=== PATIENT | female | born 1955 | race Caucasian/White ===

== ENCOUNTER 2020-05-12 09:08 | Outpatient (RCR) | payer OTHER, SELFPAY ==
--- NOTE | 2020-05-31 16:01 | MHC.PT.DC ---
[facility] [place] Office [place] [facility] [place] Office [address] Neva Weathers 140 [facility] [phone] F: [phone] F: [phone] F: [phone] F: [phone] Physical Therapy Discharge Report Diagnosis: Date of Surgery: N/A Date of Evaluation: 03/14/20 Date of Discharge: 05/31/20 Treatments to Date: 18 Cancellations to Date: 0 No Shows to Date: 0 Discharge Status: Improved Function Independent with HEP Recommend MD Follow-up Discharge Summary: Overall, the patient has improved in her range of motion and pain severity. She does continue to self-limit her movement when she starts to feel any pain. She reported the most improvement of pain symptoms after the cortisone injection. She is discharged from this physical therapy plan of care to her home exercise program. Electronically signed by: Blanca Morrissey PT, DPT Please sign and return to therapist. Thank you for your referral.
== END 2020-05-31 16:01 | disposition other institution (70) ==
LOC: HO.PT 09:08
PROVIDERS: PCP Internal Medicine; Visit Provider Internal Medicine
DX: M25.512 Pain in left shoulder (principal); M25.511 Pain in right shoulder
CPT/HCPCS: 97110; 97112

== ENCOUNTER 2020-10-03 12:49 | Outpatient (REF) | payer MEDICARE, MEDICAID, SELFPAY | END 2020-10-03 12:50 | disposition home or self-care (01) | LOC: HO.LAB 12:49 | PROVIDERS: PCP Internal Medicine; Visit Provider Internal Medicine | DX: Z20.822 Contact with and (suspected) exposure to COVID-19 (principal) | CPT/HCPCS: 36415; C9803; U0003; U0005 ==

== ENCOUNTER 2020-10-13 16:13 | Outpatient (REF) | payer MEDICARE, MEDICAID, SELFPAY ==
--- NOTE | ~2020-10-13 | XR_ITS ---
EXAMINATION: XR CHEST CLINICAL INFORMATION: R07.89 - Other chest pain COMPARISON: Chest radiographs 01/18/2020, 12/03/2019 TECHNIQUE: 2 views of the chest were obtained. FINDINGS: The lungs are clear. The vascularity is normal. There is no airspace consolidation or groundglass opacity or effusion. Tapering cardiac apex is similar to prior studies, consistent with areolar tissue. The heart is normal in size. The hilar and mediastinal contours are normal. No acute bony abnormality. XR/XR chest 2V IMPRESSION: Unremarkable examination.
== END 2020-10-13 16:14 | disposition home or self-care (01) ==
LOC: HO.HMGCX 16:13
PROVIDERS: PCP Internal Medicine; Visit Provider Nurse Practitioner Family
DX: R07.89 Other chest pain (principal)
CPT/HCPCS: 71046

== ENCOUNTER 2020-11-22 12:26 | Outpatient (REF) | payer MEDICARE, MEDICAID, SELFPAY ==
[2020-11-22 13:50] LABS: MANUAL DIFF FLAG NO
[2020-11-22 13:53] LABS: Basophils Percent Auto 0.7 % (0-2); Eosinophils Absolute Auto 0.2 X10*3/uL (0.0-0.4); Eosinophils Percent Auto 3.8 % (0-4); Hematocrit 38.4 % (37-47); Hemoglobin 12.8 g/dl (12.0-16.0); Imm Gran Abs Auto 0.01 X10*3/uL (0.00-0.03); Imm Gran Pct Auto 0.2 % (0.0-0.4); Lymphocytes Absolute Auto 1.5 X10*3/uL (1.2-4.9); Mean Corpuscular HGB Conc 33.3 g/dl (31.0-35.0); Mean Corpuscular Hemoglobin 30.1 pg (27.0-33.0); Mean Corpuscular Volume 90.4 fL (80-98); Mean Platelet Volume 9.5 fL (9.4-12.3); Monocytes Absolute Auto 0.5 X10*3/uL (0.1-1.2); Monocytes Percent Auto 10.2 % (2-11); Neutrophils Absolute Auto 2.3 X10*3/uL (2.0-8.3); Neutrophils Percent Auto 52.1 % (45-73); Platelet Count 247 X10*3/uL (160-400); Red Blood Count 4.25 X10*6/uL (4.20-5.50); Red Cell Distribution Width 12.1 % (11.0-16.0); White Blood Count 4.4 X10*3/uL (4.8-10.8)
[2020-11-22 14:20] LABS: Alanine Aminotransferase 23 U/L (0-31); Albumin Level 4.1 g/dL (3.5-5.0); Alkaline Phosphatase 65 U/L (39-117); Anion Gap 11 (12-20); Aspartate Amino Transferase 22 U/L (5-31); Bilirubin Total 0.6 mg/dL (0.0-1.0); Blood Urea Nitrogen 16 mg/dL (9-16); Calcium 9.2 mg/dL (8.4-10.2); Carbon Dioxide 30 mmol/L (22-29); Chloride 102 mmol/L (96-108); Estimated Glomerular Filt Rate > 60; Glucose Random 101 mg/dL (60-115); Sodium 139 mmol/L (135-145); Total Protein 7.1 g/dL (6.5-8.0)
[2020-11-22 14:42] LABS: Ferritin 152 ng/mL (10-250); TSH reflex Free T4 1.15 uIU/mL (0.32-4.0)
[2020-11-22 14:49] LABS: Vitamin B12 456 pg/mL (200-900)
== END 2020-11-22 12:27 | disposition home or self-care (01) ==
LOC: HO.HMGCLDS 12:26
PROVIDERS: PCP Internal Medicine; Visit Provider Internal Medicine
DX: R42 Dizziness and giddiness (principal); M25.511 Pain in right shoulder; E03.9 Hypothyroidism, unspecified; I10 Essential (primary) hypertension; E55.9 Vitamin D deficiency, unspecified; K21.9 Gastro-esophageal reflux disease without esophagitis; G43.109 Migraine with aura, not intractable, without status migrainosus; R00.2 Palpitations
CPT/HCPCS: 36415; 80053; 82607; 82728; 84443; 85025

== ENCOUNTER 2020-11-27 12:35 | Emergency (ER) | payer MEDICARE, MEDICAID, SELFPAY ==
--- NOTE | ~2020-11-27 | XR_ITS ---
EXAMINATION: XR CHEST CLINICAL INFORMATION: Abdominal pain. COMPARISON: Most recent chest radiograph dated 10/13/2020. TECHNIQUE: Frontal view of the chest was obtained. FINDINGS: The lungs are clear. The cardiomediastinal silhouette is normal in size. There is no pleural effusion or pneumothorax. No acute osseous abnormality. XR/XR chest 1V IMPRESSION: No acute cardiopulmonary findings.
--- NOTE | ~2020-11-27 | US_ITS ---
EXAMINATION: US ABDOMEN COMPLETE CLINICAL INFORMATION: Right upper quadrant and back pain.. COMPARISON: Abdominal ultrasound dated 01/18/2020. TECHNIQUE: Real-time imaging of the abdominal viscera. FINDINGS: PANCREAS: Normal. ABDOMINAL AORTA: Mild abdominal aortic atherosclerotic calcifications. INFERIOR VENA CAVA: Visualized portions are normal. LIVER: The liver is normal in size. The liver contour is normal. Increased hepatic parenchymal echogenicity, which can be seen in the setting of steatosis. Findings are unchanged when compared to the prior abdominal ultrasound. No focal hepatic lesion. There is no intrahepatic biliary duct dilatation seen. GALLBLADDER: Cholelithiasis. No gallbladder wall thickening or pericholecystic free fluid to suggest acute cholecystitis. COMMON BILE DUCT: Normal in caliber measuring 0.4 cm in diameter. RIGHT KIDNEY: Mild right-sided hydronephrosis. No renal calculi or focal parenchymal lesion. The kidney measures 9.6 cm in maximum dimension. LEFT KIDNEY: Simple upper pole cyst measuring up to 4.5 cm. No follow up imaging recommended. No hydronephrosis. No renal calculi or focal parenchymal lesions. The kidney measures 10.1 cm in maximum dimension. SPLEEN: Normal. The spleen measures 8.5 cm in maximum dimension. FREE FLUID: None. US/US abdomen complete IMPRESSION: 1. Mild right-sided hydronephrosis. 2. Increased hepatic parenchymal echogenicity, which can be seen in the setting of steatosis. No hepatic parenchymal lesion or biliary ductal dilatation. 3. Cholelithiasis without gallbladder wall thickening or pericholecystic free fluid to suggest acute cholecystitis.
[2020-11-27 12:40] VITALS: BP 183/86; PULSE 86; RESP 16; TEMP 37; O2SAT 97; BMI 36.4
--- NOTE | 2020-11-27 17:25 | ECG_ITS ---
Test Reason : DIZZINESS Blood Pressure : / mmHG Vent. Rate : 073 BPM Atrial Rate : 073 BPM P-R Int : 146 ms QRS Dur : 088 ms QT Int : 390 ms P-R-T Axes : 027 -16 007 degrees QTc Int : 429 ms Normal sinus rhythm Normal ECG When compared to the previous EKG of No significant changes seen Referred By: Rupa Kahn Electronically Signed By:Bk Palmer
--- NOTE | 2020-11-27 17:29 | ED_ITS ---
HPI - General Adult General Chief complaint: General Medical Stated complaint: back and headache Time Seen by Provider: 11/27/20 17:24 Source: patient Mode of arrival: ambulatory Limitations: language barrier History of Present Illness HPI narrative: 65-year-old female with past medical history of hypertension, hyperlipidemia, hypothyroidism, GERD, chronic migraines, presents with 3 weeks right upper back pain, right upper quadrant pain, and lower abdominal pain. She did have a COVID vaccine approximately 1 month ago. She does not describe any fevers, chills, chest pain or pressure, palpitations, shortness of breath, shortness of breath on exertion, abdominal distention, dysuria, hematuria, and edema. Onset (ago): week(s) (3) Location: back and abdomen Severity: moderate Severity scale (1-10): 6 Quality: aching and sharp Pain Consistency: intermittent Relieving factors: none Exacerbating factors: eating and movement Associated symptoms: denies other symptoms Treatments prior to arrival: NSAID Related Data Home Medications Medication Instructions Recorded Confirmed cholecalciferol (vitamin D3) 25 25 mcg PO DAILY 05/20/20 11/22/20 mcg (1,000 unit) capsule halobetasol propionate 0.05 % 1 applic TOPICAL BID 05/20/20 11/22/20 topical ointment hydrochlorothiazide 25 mg tablet 25 mg PO DAILY 05/20/20 11/22/20 lisinopril 10 mg tablet 10 mg PO DAILY 05/20/20 11/22/20 sennosides 8.6 mg-docusate sodium 2 tab PO BEDTIME 05/20/20 11/22/20 50 mg tablet Previous Rx's Medication Instructions Recorded betamethasone dipropionate 0.05 % 1 appl TOPICAL BID PRN #45 g 08/15/20 topical cream cyanocobalamin (vitamin B-12) 1,000 mcg PO DAILY #30 tab 09/30/20 1,000 mcg tablet levothyroxine 75 mcg tablet 75 mcg PO QAM #30 tab 10/11/20 naproxen 500 mg tablet 500 mg PO BID PRN #60 tab 10/13/20 cyclobenzaprine 5 mg tablet 5 mg PO BEDTIME PRN 30 Days #30 tab 11/22/20 propranolol 10 mg tablet 10 mg PO BEDTIME #90 tab 11/22/20 albuterol sulfate 90 mcg/actuation 1 inh INHALATION QID PRN 30 Days 11/25/20 aerosol inhaler #18 g oxycodone 5 mg PO Q8H PRN #10 tab 11/27/20 sulfamethoxazole-trimethoprim 1 tab PO Q12H 10 Days #20 tab 11/27/20 [Bactrim DS] Allergies Allergy/AdvReac Type Severity Reaction Status Date / Time acetaminophen [From TYLENOL] Allergy Unknown ITCHY Verified 11/22/20 12:05 MIGRAINE MEDICINE Allergy Unknown SHAKEY Uncoded 11/22/20 12:05 Environmental Allergy Unknown Unknown Uncoded 11/22/20 12:05 Review of Systems Review of Systems: Constitutional: No Fever, No Chills ENT/Mouth: No sore throat Eyes: No Eye Pain, No Swelling, No Redness Cardiovascular: No Chest Pain, No SOB Respiratory: No Cough, No Sputum, No Wheezing Gastrointestinal: positive Nausea, positive Vomiting, No Diarrhea, positive abdominal pain Genitourinary: positive Dysuria, positive urinary frequency, positive Hematuria, positive Flank Pain, positive hesitancy Musculoskeletal: No joint pain, No Myalgias Skin: No Skin Lesions, No rash Neuro: No Weakness, No Numbness, No Headache Psych: No Anxiety/Panic, No Depression Heme/Lymph: No Bruising, No Lymphadenopathy Endocrine: No Polyuria, No Polydipsia PMFSH Past Medical History Medical History Chronic GERD Dizziness Hypertension, essential Hypothyroidism Migraine aura without headache Shoulder pain, right Vitamin D deficiency Surgical History History of hysterectomy History of tubal ligation Family History Family History Father Heart attack HTN (hypertension) CVD (cardiovascular disease) Mother Cervical cancer Maternal Grandmother Diabetes mellitus Maternal Grandfather Throat cancer Paternal Grandfather Cancer Paternal Grandmother Heart attack HTN (hypertension) Paternal Aunt Breast cancer Social History Social History Alcohol intake: never Smoking Status: Never smoker Advance Directives: Yes Advance Directives on File: Yes Advance Directives Date on File: 05/12/20 Physical Exam Vital Signs: Vital Signs: Last Vital Signs Temp 97.7 F 11/27/20 20:05 Pulse 74 11/27/20 22:00 Resp 17 11/27/20 22:00 BP 144/67 H 11/27/20 22:00 Pulse Ox 97 11/27/20 22:00 Body Mass Index 36.4 Appearance: Alert. Oriented X3. Mild distress. Head: Normal external exam. Normocephalic. Atraumatic. No Rondon signs noted. No raccoon eyes noted Eyes: PERRLA. EOMI. Conjunctiva and sclera normal. Eyelids normal. ENT: TM's Normal. Pharynx normal. Uvula midline. Moist mucous membranes. No trismus noted. No drooling noted. No muffled voice noted. Neck: Normal inspection. Neck supple. No adenopathy. Thyroid Normal. No meningeal signs. No neck mass noted. CVS: Normal heart rate and rhythm. Heart sound normal. No murmurs noted. Pulses equal to all extremities. Respiratory: No respiratory distress. Painless inspiration. Breath sounds normal. No wheezes/rales/rhonchi noted. Chest nontender. No accessory muscle usage noted or decreased air movement noted. Abdomen: Soft and right upper quadrant tenderness, positive Marcelo, negative psoas, no rigidity or rebound.. Bowel sounds normal in all 4 quadrants. No distention noted. No organomegaly noted. No visible injury noted. Back: Right-sided CVA tenderness noted. Full range of motion noted. Skin: Skin warm and dry. Normal skin color. Normal skin turgor. No rashes/lesions/lacerations noted. Extremities: No lower extremity edema. Extremities exhibit normal range of motion. Extremities nontender. Neuro: cranial nerves 2-12 intact, no focal neural deficits, strength 5/5 to all extremities, No motor deficit. No sensory deficit. Course Course Course Narrative: 65-year-old female presents with several weeks of right upper quadrant pain radiating to her right back, and 2 weeks of right flank pain radiating down to her groin and pelvis. Labs drawn while patient was in the waiting room per protocol, CBC and Chem 7 are unremarkable, will order lipase, LFTs, and abdominal ultrasound. U/S indicates cholelithiasis without cholecystitis, hydronephrosis to the right kidney without indication of pyelonephritis, urinalysis positive for UTI. Will treat with Bactrim, discussion with Dr. Small regarding findings, patient will follow-up in the office. Patient is afebrile, no white count, not septic. Will treat with oxycodone for pain management. Patient verbalized understanding of and agrees to plan of care discharge home. communications department chairperson utilized for discharge and ultrasound description correspondence, Google translate utilized for discharge instructions. Consultations Consultation #1: Geovanny Time: 20:30 Medical Decision Making MDM Narrative Medical decision making narrative: Cholelithiasis, cholecystitis, hydronephrosis, pyelonephritis, UTI, acute abdomen Medical Records Medical records reviewed: Yes I reviewed the patient's medical records. Lab Data Lab results reviewed: Yes I reviewed the patient's lab results. Result diagrams: 11/27/20 17:55 11/27/20 17:55 Labs: Lab Results 11/27/20 11/27/20 11/27/20 Range/Units 17:55 17:55 17:55 WBC 5.8 (4.8-10.8) X10*3/uL RBC 4.79 (4.20-5.50) X10*6/uL Hgb 14.3 (12.0-16.0) g/dl Hct 42.5 (37-47) % MCV 88.7 (80-98) fL MCH 29.9 (27.0-33.0) pg MCHC 33.6 (31.0-35.0) g/dl RDW 12.2 (11.0-16.0) % Plt Count 266 (160-400) X10*3/uL MPV 8.7 L (9.4-12.3) fL Immature Gran % (Auto) 0.2 (0.0-0.4) % Neut % (Auto) 55.9 (45-73) % Lymph % (Auto) 33.6 (20-40) % [place] % (Auto) 7.7 (2-11) % Eos % (Auto) 2.1 (0-4) % Baso % (Auto) 0.5 (0-2) % Lymph # (Auto) 2.0 (1.2-4.9) X10*3/uL [place] # (Auto) 0.5 (0.1-1.2) X10*3/uL Eos # (Auto) 0.1 (0.0-0.4) X10*3/uL Baso # (Auto) 0.0 (0.0-0.2) X10*3/uL Abs Immat Gran (auto) 0.01 (0.00-0.03) X10*3/uL Absolute Neuts (auto) 3.3 (2.0-8.3) X10*3/uL Absolute Nucleated RBC 0.000 (0.0-0.012) X10*3/uL Nucleated RBC % (auto) 0.0 (0.0-0.2) /100WBC PT 11.8 (10.8-13.0) SEC INR 1.0 (0.9-1.1) APTT 34.2 (24.1-38.0) SEC Sodium 140 (135-145) mmol/L Potassium 4.5 (3.3-5.1) mmol/L Chloride 104 (96-108) mmol/L Carbon Dioxide 26 (22-29) mmol/L Anion Gap 15 (12-20) BUN 19 H (9-16) mg/dL Creatinine 1.00 (0.5-1.4) mg/dL Estim Creat Clear Calc 60.9 Estimated GFR 56 Random Glucose 82 (60-115) mg/dL Calcium 9.8 D (8.4-10.2) mg/dL Total Bilirubin 0.8 (0.0-1.0) mg/dL Direct Bilirubin 0.2 (0.0-0.5) mg/dL AST 37 H D (5-31) U/L ALT 39 H (0-31) U/L Alkaline Phosphatase 66 (39-117) U/L Troponin I High Sens (<3.5-17.0) ng/L Total Protein 7.9 (6.5-8.0) g/dL Albumin 4.5 (3.5-5.0) g/dL Lipase 24 (8-78) U/L Urine Color Urine Appearance Urine pH (5.0-8.0) Ur Specific [place] (1.005-1.025) Urine Protein (NEG-TRACE) MG/DL Urine Glucose (UA) (NEG) MG/DL Urine Ketones (NEG) MG/DL Urine Blood (NEG) Urine Nitrite (NEG) Ur Leukocyte Esterase (NEG) Urine RBC (0) /HPF Urine WBC (0-4) /HPF Ur Squamous Epith Cells /LPF Urine Bacteria /LPF 11/27/20 11/27/20 Range/Units 17:55 18:32 WBC (4.8-10.8) X10*3/uL RBC (4.20-5.50) X10*6/uL Hgb (12.0-16.0) g/dl Hct (37-47) % MCV (80-98) fL MCH (27.0-33.0) pg MCHC (31.0-35.0) g/dl RDW (11.0-16.0) % Plt Count (160-400) X10*3/uL MPV (9.4-12.3) fL Immature Gran % (Auto) (0.0-0.4) % Neut % (Auto) (45-73) % Lymph % (Auto) (20-40) % [place] % (Auto) (2-11) % Eos % (Auto) (0-4) % Baso % (Auto) (0-2) % Lymph # (Auto) (1.2-4.9) X10*3/uL [place] # (Auto) (0.1-1.2) X10*3/uL Eos # (Auto) (0.0-0.4) X10*3/uL Baso # (Auto) (0.0-0.2) X10*3/uL Abs Immat Gran (auto) (0.00-0.03) X10*3/uL Absolute Neuts (auto) (2.0-8.3) X10*3/uL Absolute Nucleated RBC (0.0-0.012) X10*3/uL Nucleated RBC % (auto) (0.0-0.2) /100WBC PT (10.8-13.0) SEC INR (0.9-1.1) APTT (24.1-38.0) SEC Sodium (135-145) mmol/L Potassium (3.3-5.1) mmol/L Chloride (96-108) mmol/L Carbon Dioxide (22-29) mmol/L Anion Gap (12-20) BUN (9-16) mg/dL Creatinine (0.5-1.4) mg/dL Estim Creat Clear Calc Estimated GFR Random Glucose (60-115) mg/dL Calcium (8.4-10.2) mg/dL Total Bilirubin (0.0-1.0) mg/dL Direct Bilirubin (0.0-0.5) mg/dL AST (5-31) U/L ALT (0-31) U/L Alkaline Phosphatase (39-117) U/L Troponin I High Sens < 3.5 (<3.5-17.0) ng/L Total Protein (6.5-8.0) g/dL Albumin (3.5-5.0) g/dL Lipase (8-78) U/L Urine Color YELLOW Urine Appearance HAZY Urine pH 5.0 (5.0-8.0) Ur Specific [place] >= 1.030 H (1.005-1.025) Urine Protein NEG (NEG-TRACE) MG/DL Urine Glucose (UA) NEG (NEG) MG/DL Urine Ketones 40 (NEG) MG/DL Urine Blood 1+ H (NEG) Urine Nitrite NEG (NEG) Ur Leukocyte Esterase TRACE H (NEG) Urine RBC 0-2 (0) /HPF Urine WBC 5-9 H (0-4) /HPF Ur Squamous Epith Cells 4+ /LPF Urine Bacteria TRACE /LPF Imaging Data Abdominal ultrasound: Attestation: I personally reviewed and interpreted this imaging study as follows: Radiologist's impression: EXAMINATION: US ABDOMEN COMPLETE CLINICAL INFORMATION: Right upper quadrant and back pain.. COMPARISON: Abdominal ultrasound dated 01/18/2020. TECHNIQUE: Real-time imaging of the abdominal viscera. FINDINGS: PANCREAS: Normal. ABDOMINAL AORTA: Mild abdominal aortic atherosclerotic calcifications. INFERIOR VENA CAVA: Visualized portions are normal. LIVER: The liver is normal in size. The liver contour is normal. Increased hepatic parenchymal echogenicity, which can be seen in the setting of steatosis. Findings are unchanged when compared to the prior abdominal ultrasound. No focal hepatic lesion. There is no intrahepatic biliary duct dilatation seen. GALLBLADDER: Cholelithiasis. No gallbladder wall thickening or pericholecystic free fluid to suggest acute cholecystitis. COMMON BILE DUCT: Normal in caliber measuring 0.4 cm in diameter. RIGHT KIDNEY: Mild right-sided hydronephrosis. No renal calculi or focal parenchymal lesion. The kidney measures 9.6 cm in maximum dimension. LEFT KIDNEY: Simple upper pole cyst measuring up to 4.5 cm. No follow up imaging recommended. No hydronephrosis. No renal calculi or focal parenchymal lesions. The kidney measures 10.1 cm in maximum dimension. SPLEEN: Normal. The spleen measures 8.5 cm in maximum dimension. FREE FLUID: None. US/US abdomen complete IMPRESSION: 1. Mild right-sided hydronephrosis. 2. Increased hepatic parenchymal echogenicity, which can be seen in the setting of steatosis. No hepatic parenchymal lesion or biliary ductal dilatation. 3. Cholelithiasis without gallbladder wall thickening or pericholecystic free fluid to suggest acute cholecystitis. Chest x-ray: Attestation: I personally reviewed and interpreted this imaging study as follows: Radiologist's impression: EXAMINATION: XR CHEST CLINICAL INFORMATION: Abdominal pain. COMPARISON: Most recent chest radiograph dated 10/13/2020. TECHNIQUE: Frontal view of the chest was obtained. FINDINGS: The lungs are clear. The cardiomediastinal silhouette is normal in size. There is no pleural effusion or pneumothorax. No acute osseous abnormality. XR/XR chest 1V IMPRESSION: No acute cardiopulmonary findings. Discharge Plan Discharge Clinical Impression: Hydronephrosis, Acute UTI, Cholecystitis without cholelithiasis Patient Disposition: Home, Self-Care Instructions: Gallstones (ED), Urinary Tract Infection in Women (ED), Hydronephrosis (ED) Additional Instructions: Te evaluaron para detectar dolor en la parte superior derecha de la espalda, dolor en el flanco derecho y dolor abdominal. La ecograf?a abdominal mostr? lona graham en la ves?cula biliar sin infecci?n, hinchaz?n del ri??n sin infecci?n e infecci?n del tracto urinario. Le recet? Bactrim DS oz los pr?ximos 10 d?as. Por favor, tome allie medicamento dos veces al d?a y complete todo el curso. Para el manejo del dolor le recet? oxicodona. Allie medicamento es un narc?rich y tiene un alto riesgo de adicci?n y abuso. No conduzca ni opere maquinaria mientras tome allie medicamento. Allie medicamento puede aumentar el riesgo de ca?han, causar somnolencia y causar estre?imiento. Utilice MiraLax o Colace seg?n sea necesario para ayudar a suavizar las heces. Geovanny,le gustar?a que llamara a la oficina el familia para lona jaime. Te estoy refiriendo a un cirujano porque es posible que necesites que te quiten la ves?cula biliar. Rosangela por elegir allie departamento de emergencias para carrasco evaluaci?n. Por favor, estephania un seguimiento con el m?dico de atenci?n primaria seg?n sea necesario. Regrese al servicio de emergencias para cualquier s?ntoma nuevo, preocupante o que empeore. You were evaluated for right upper back pain, right flank pain, and abdominal pain. Your abdominal ultrasound showed a stone in the gallbladder without infection, swelling of the kidney without infection, and urinary tract infection. I prescribed Bactrim DS for the next 10 days. Please take this medication twice a day and complete the entire course. For pain management I prescribed oxycodone. This medication is a narcotic and has high risk for addiction and abuse. Do not drive or operate machinery while taking this medication. This medication may increase risk for falls, cause drowsiness, and cause constipation. Please use MiraLax and or Colace as needed to help soften stools. I spoke to the surgeon on-call, Dr. Small, he would like you to call the office on Saturday for an appointment. I am referring you to a surgeon because you may need to have your gallbladder removed. Thank you for choosing this emergency department for evaluation. Please follow -up with primary care physician as needed. Return to the emergency department for any new, concerning, or worsening symptoms. Prescriptions: New sulfamethoxazole-trimethoprim [Bactrim DS] 800-160 mg tablet 1 tab PO Q12H 10 Days Qty: 20 RF: 0 oxycodone 5 mg tablet 5 mg PO Q8H PRN (Reason: pain) Qty: 10 RF: 0 No Action cyanocobalamin (vitamin B-12) 1,000 mcg tablet 1,000 mcg PO DAILY Qty: 30 RF: 2 levothyroxine 75 mcg tablet 75 mcg PO QAM Qty: 30 RF: 5 albuterol sulfate [ProAir HFA] 90 mcg/actuation HFA aerosol inhaler 1 inh inhalation QID PRN (Reason: shortness of breath or wheezing) 30 Days Qty: 18 RF: 0 hydrochlorothiazide 25 mg tablet 25 mg PO DAILY RF: 0 lisinopril 10 mg tablet 10 mg PO DAILY RF: 0 cholecalciferol (vitamin D3) 25 mcg (1,000 unit) capsule 25 mcg PO DAILY RF: 0 halobetasol propionate 0.05 % ointment 1 applic topical BID RF: 0 sennosides-docusate sodium 8.6-50 mg tablet 2 tab PO BEDTIME RF: 0 betamethasone dipropionate 0.05 % cream 1 appl topical BID PRN (Reason: skin irritation) Qty: 45 RF: 0 naproxen 500 mg tablet 500 mg PO BID PRN (Reason: pain) Qty: 60 RF: 0 propranolol 10 mg tablet 10 mg PO BEDTIME Qty: 90 RF: 0 cyclobenzaprine 5 mg tablet 5 mg PO BEDTIME PRN (Reason: muscle spasm) 30 Days Qty: 30 RF: 0 Referrals: Moises Small MD [Physician] - 2 days (Gallbladder stones) Interventions: ED Discharge Assessment Last Done: 11/27/20 22:24 Discharge Date/Time: 11/27/20 22:29
[2020-11-27] MEDS: 0.9 % Sodium Chloride 1,000 ML 999 ML IVCONT (17:57)
[2020-11-27 18:00] LABS: MANUAL DIFF FLAG NO
[2020-11-27 18:01] LABS: Basophils Percent Auto 0.5 % (0-2); Eosinophils Absolute Auto 0.1 X10*3/uL (0.0-0.4); Eosinophils Percent Auto 2.1 % (0-4); Hematocrit 42.5 % (37-47); Hemoglobin 14.3 g/dl (12.0-16.0); Imm Gran Abs Auto 0.01 X10*3/uL (0.00-0.03); Imm Gran Pct Auto 0.2 % (0.0-0.4); Lymphocytes Percent Auto 33.6 % (20-40); Mean Corpuscular HGB Conc 33.6 g/dl (31.0-35.0); Mean Corpuscular Hemoglobin 29.9 pg (27.0-33.0); Mean Corpuscular Volume 88.7 fL (80-98); Mean Platelet Volume 8.7 fL (9.4-12.3); Monocytes Absolute Auto 0.5 X10*3/uL (0.1-1.2); Monocytes Percent Auto 7.7 % (2-11); Neutrophils Absolute Auto 3.3 X10*3/uL (2.0-8.3); Neutrophils Percent Auto 55.9 % (45-73); Platelet Count 266 X10*3/uL (160-400); Red Blood Count 4.79 X10*6/uL (4.20-5.50); Red Cell Distribution Width 12.2 % (11.0-16.0); White Blood Count 5.8 X10*3/uL (4.8-10.8)
[2020-11-27 18:07] LABS: Prothrombin Time 11.8 SEC (10.8-13.0)
[2020-11-27 18:10] LABS: Partial Thromboplastin Time 34.2 SEC (24.1-38.0)
[2020-11-27 18:24] LABS: Alanine Aminotransferase 39 U/L (0-31); Albumin Level 4.5 g/dL (3.5-5.0); Alkaline Phosphatase 66 U/L (39-117); Anion Gap 15 (12-20); Aspartate Amino Transferase 37 U/L (5-31); Bilirubin Direct 0.2 mg/dL (0.0-0.5); Bilirubin Total 0.8 mg/dL (0.0-1.0); Blood Urea Nitrogen 19 mg/dL (9-16); Calcium 9.8 mg/dL (8.4-10.2); Carbon Dioxide 26 mmol/L (22-29); Chloride 104 mmol/L (96-108); Creatinine Clr Calc Pharmacy 60.9; Estimated Glomerular Filt Rate 56; Glucose Random 82 mg/dL (60-115); Lipase 24 U/L (8-78); Potassium 4.5 mmol/L (3.3-5.1); Sodium 140 mmol/L (135-145); Total Protein 7.9 g/dL (6.5-8.0)
[2020-11-27 18:30] VITALS: BP 148/73; PULSE 61; RESP 20; TEMP 37; O2SAT 98
[2020-11-27 18:30] LABS: Troponin-I High Sensitivity < 3.5 ng/L (<3.5-17.0)
[2020-11-27 18:40] LABS: Glucose Urine UA NEG (NEG); Leukocyte Esterase Urine TRACE (NEG); Nitrite Urine NEG (NEG); Specific Gravity - Urine >= 1.030 (1.005-1.025); UACC Culture Trigger YES; Urine Blood 1+ (NEG); Urine Ketones 40 MG/DL (NEG); Urine Protein NEG (NEG-TRACE)
[2020-11-27 18:41] LABS: Appearance Urine HAZY; Color Urine YELLOW
[2020-11-27 18:55] LABS: Bacteria Urine TRACE /LPF; RBC Urine 0-2 /HPF (0); Squamous Epithelial Cell Urine 4+ /LPF
[2020-11-27 20:05] VITALS: BP 133/65; PULSE 64; RESP 18; TEMP 36.5; O2SAT 98
[2020-11-27] MEDS: Ketorolac Tromethamine 30 MG/ML VIAL IVPUSH (20:52)
--- NOTE | 2020-11-27 20:58 | PC.NURSE ---
patient was ambulatory to the bathroom with a steady gait, patient reports 6/10 back pain, medicated per orders
[2020-11-27 22:00] VITALS: BP 144/67; PULSE 74; RESP 17; O2SAT 97
== END 2020-11-27 22:29 | disposition home or self-care (01) ==
PROVIDERS: Nurse Practitioner Family; Emergency Provider Internal Medicine; PCP Internal Medicine
DX: K81.9 Cholecystitis, unspecified (principal); N39.0 Urinary tract infection, site not specified; N13.30 Unspecified hydronephrosis; N28.1 Cyst of kidney, acquired; R10.11 Right upper quadrant pain; M54.6 Pain in thoracic spine; I10 Essential (primary) hypertension; E78.5 Hyperlipidemia, unspecified; K21.9 Gastro-esophageal reflux disease without esophagitis; Z79.899 Other long term (current) drug therapy
CPT/HCPCS: 36415; 71045; 76700; 80048; 80076; 81001; 81003; 83690; 84484; 85025; 85610; 85730; 87086; 93005; 96361; 96374; 99284; J1885

== ENCOUNTER → 2020-12-20 13:26 | Outpatient (BNVA) | payer MEDICARE, MEDICAID, SELFPAY | PROVIDERS: PCP Internal Medicine; Referring Provider Internal Medicine; Visit Provider Surgery | DX: M62.830 Muscle spasm of back (principal); K80.20 Calculus of gallbladder without cholecystitis without obstruction | CPT/HCPCS: 99202 ==

== ENCOUNTER 2021-01-24 08:45 | Outpatient (REF) | payer MEDICARE, MEDICAID, SELFPAY ==
--- NOTE | ~2021-01-24 | US_ITS ---
EXAMINATION: US SOFT TISSUE HEAD/NECK CLINICAL INFORMATION: Disorder of thyroid, unspecified. History of previous iodine therapy treatment 20 years ago. COMPARISON: None TECHNIQUE: Linear transducer barksdale-scale and color Doppler examination with attention to the region of the thyroid bed and surrounding tissues. FINDINGS: No residual thyroid tissue is seen. No nodule or adenopathy is seen. US/US thyroid IMPRESSION: No residual thyroid tissue seen.
== END 2021-01-24 08:46 | disposition home or self-care (01) ==
LOC: HO.US 08:45
PROVIDERS: PCP Internal Medicine; Visit Provider Internal Medicine
DX: E07.9 Disorder of thyroid, unspecified (principal)
CPT/HCPCS: 76536

== ENCOUNTER 2021-02-06 08:44 | Day surgery (SDC) | payer MEDICARE, MEDICAID, SELFPAY ==
[2021-01-30 12:35] VITALS: BMI 37.6
[2021-02-06] VITALS (12 sets, daily range): BP systolic 130–160; BP diastolic 63–79; PULSE 69–92; RESP 14–16; TEMP 36.1–36.9; O2SAT 93–98
--- NOTE | 2021-02-06 10:03 | MHC.SHP ---
Pre-Procedural Eval Section A Date of Service: 02/06/21 The patient is an INPATIENT: No Changes since office visit: Yes Patient answered all questions; No Cold of Flu in the past 2 weeks, No New Medical Problems and No Changes in Medication The History & Physical has been completed within 30 days and I have reviewed it.: No Section B Chief Complaint: Cholelithiasis Details of Present Illness: Right upper quadrant abdominal pain Relevant Family History (Specify if Yes): No Relevant Social History: None Present Medications: see Short Stay Collaborative assessment Medical History: Significant History (asthma, hypertension, hypothyroid, palpitations) Allergies: Allergies Allergy/AdvReac Type Severity Reaction Status Date / Time acetaminophen [From TYLENOL] Allergy Unknown ITCHY Verified 01/17/21 13:55 MIGRAINE MEDICINE Allergy Unknown SHAKEY Uncoded 12/22/20 12:57 Environmental Allergy Unknown Unknown Uncoded 12/22/20 12:57 Review of Systems Sugical H&P ROS: Negative: Constitution, Cardiovascular, Respiratory, Psychiatric, Hem-Onc, Allergic/Immunologic, Genitourinary, Musculoskeletal, Integumentary and Eyes/Ears/Nose/Throat and Yes, Specify: Neurological (headache), Gastrointestinal (abdominal pain) and Endocrine (hypothyroid) Exam Surgical H&P Exam: Normal: HEENT, Normal: Heart, Normal: Lungs, Normal: Extremities, Normal: Abdomen, Normal: Skin and Normal: Neurological Plan Diagnosis/Plan: Unchanged I have reviewed the history and physical and performed a pertinent physical examination on my patient. No changes have occurred unless specified.
[2021-02-06] MEDS: Lactated Ringers 1,000 ML 100 ML IVCONT (10:22)
--- NOTE | 2021-02-06 11:38 | HO.ANESPROP2 ---
[facility] Active Problems Active Problems: All Active Problems (Updated 01/17/21 @ 14:15 by Lolis Josue MD) Breast screening (Acute) Thyroid lump (Acute) Constipation by delayed colonic transit (Acute) Headache syndrome (Acute) Acute sinusitis (Acute) Cholelithiasis (Acute) Paraspinal muscle spasm (Acute) Chest wall pain (Acute) Shortness of breath (Acute) Palpitations (Acute) Rash and nonspecific skin eruption (Acute) Sinus infection (Acute) Dizziness (Acute) Shoulder pain, right (Acute) Hypothyroidism (Acute) Hypertension, essential (Acute) Vitamin D deficiency (Acute) Chronic GERD (Acute) Migraine aura without headache (Acute) Past Medical History Medical History Chronic GERD Dizziness Hypertension, essential Hypothyroidism Migraine aura without headache Shoulder pain, right Vitamin D deficiency Family History Family History Father Heart attack HTN (hypertension) CVD (cardiovascular disease) Mother Cervical cancer Maternal Grandmother Diabetes mellitus Maternal Grandfather Throat cancer Paternal Grandfather Cancer Paternal Grandmother Heart attack HTN (hypertension) Paternal Aunt Breast cancer Surgical History Surgical History History of hysterectomy History of tubal ligation Social History Social History Are you a primary residential care officer to a significant other at home: No Do you presently have visiting nurse or other home services: No Alcohol intake: never Patient Tobacco Use Status: Never used Tobacco Have you been hit, kicked, punched, or otherwise hurt by someone within the past year? If so, by whom?: No Are you DNR?: No Advance Directives: No Advance Directives Information Provided: Yes Advance Directives on File: Yes Advance Directives Date on File: 05/12/20 Recently lost weight without trying: No Eating poorly because of decreased appetite: No Nutrition Risks: Difficulty swallowing Meds Allergies Allergy/AdvReac Type Severity Reaction Status Date / Time acetaminophen [From TYLENOL] Allergy Unknown ITCHY Verified 02/06/21 10:09 MIGRAINE MEDICINE Allergy Unknown SHAKEY Uncoded 12/22/20 12:57 Environmental Allergy Unknown Unknown Uncoded 12/22/20 12:57 Active Medications: Current Medications Generic Name Dose Route Start Last Admin Trade Name Marianna PRN Reason Stop Dose Admin Lactated Ringer's 1,000 mls @ 100 mls/hr 02/06/21 09:45 02/06/21 10:22 Lr IVCONT 100 mls/hr .Q10H MARCO Administration Home Medications Medication Instructions Recorded Confirmed Last Taken Type cholecalciferol (vitamin D3) 25 25 mcg PO DAILY 05/20/20 01/30/21 Unknown History mcg (1,000 unit) capsule hydrochlorothiazide 25 mg tablet 25 mg PO DAILY 05/20/20 01/30/21 Unknown History lisinopril 10 mg tablet 10 mg PO DAILY 05/20/20 01/30/21 Unknown History propranolol 1 tab PO BEDTIME 01/30/21 01/30/21 Unknown History Exam Exam Date and Time: February 06, 2021 1138 Height,Weight and Vital Signs: Height 5 ft 2 in Weight 93.44 kg Last Vital Signs Temp 98.4 F 02/06/21 09:55 Pulse 82 02/06/21 09:55 Resp 16 02/06/21 09:55 BP 153/79 H 02/06/21 09:55 Pulse Ox 98 02/06/21 09:55 Airway Mallampati Class: III TM Dist: >3cm Neck ROM: Full Heart: RRR Lungs: CTA
--- NOTE | 2021-02-06 11:50 | P.OP_ITS ---
Operative Note Operative Note Date of Service: 02/06/21 Narrative: Preoperative diagnosis: Symptomatic cholelithiasis Postoperative diagnosis: Same Procedure: Laparoscopic cholecystectomy Surgeon: Moises Small MD [employer] Reader: no physician Anesthesia: General endotracheal Indications for procedure: 65-year-old female patient presenting with complaints of abdominal pain in the right upper quadrant found to have gallstones within the gallbladder. Patient presents now for laparoscopic cholecystectomy. Operative findings: Patient found to have a nondistended gallbladder with no adhesions to the gallbladder. There were abdominal adhesions to the anterior abdominal wall below the umbilicus. Gallstones noted within the gallbladder. Specimen: Gallbladder Estimated blood loss: 2 mL Complications: none Procedure details: Patient was brought to the OR and placed in a supine position. After administering general anesthesia the patient's abdomen was prepped with ChloraPrep and draped in a sterile fashion. Local anesthesia consisting of 0.25% Sensorcaine with epinephrine was infiltrated in a periumbilical region. A 5 mm incision was made above the umbilicus in a transverse fashion. The Veress needle was then inserted while elevating abdominal cavity with towel clips. After positive drop test the abdomen was insufflated to a pressure of 15 mm of mercury. The Veress needle was then removed and a 5 mm trocar inserted. The camera was inserted in the abdomen explored. A 12 mm trocar was then placed in the epigastrium and two 5 mm trocars placed in the right upper quadrant. The patient was placed in reverse Trendelenburg positioning and rotated to the left. The gallbladder was grasped with the fundus and retracted cephalad.. The infundibulum Was then grasped and retracted away from the liver bed. The Dolphin dissected was then used to diss ect the peritoneum off the infundibulum to reveal the junction with the cystic duct. Cystic artery was noted slightly medial and posterior to the cystic duct. After obtaining a critical view the cystic duct was doubly clipped and divided. The cystic artery was then doubly clipped and divided. The gallbladder was then dissected off the liver bed using electrocautery with an L hook. Hemostasis was assured all times using the electrocautery. A 2nd branch of the cystic artery was noted entering the gallbladder over the liver bed and was doubly clipped and divided. When the gallbladder is completely dissected off the liver bed was placed in an Endo-Catch bag and brought out through the epigastric incision. The gallbladder was sent to pathology for further examination. The abdomen was then re-examined. The liver bed was irrigated and suctioned dry. No bleeding or bile leak could be identified. CO2 was then evacuated and all trocars removed. Fascia was closed at the epigastric incision using a [id number] 0 Polysorb suture. Skin was closed in all incisions using a subcuticular 4 0 Polysorb suture. Sterile dressings consisting of Steri-Strips, 2 x 2 gauze, and Tegaderm were then applied. The patient tolerated the procedure well. Sponge instrument and needle counts reported as correct. The patient was transferred to PACU in stable condition.
[2021-02-06] MEDS: ondansetron HCL 4 MG/2 ML VIAL IVPUSH (12:06)
[2021-02-06] MEDS: oxyCODONE HCl Immed Release 5 MG TABLET PO (12:06)
[2021-02-06] MEDS: fentaNYL citrate/PF 100 MCG/2 ML VIAL 25 MCG IVPUSH ×2 (12:18→12:23)
[2021-02-06] MEDS: Throat Lozenge, Medicated LOZENGE 1 LOZENGE MUCOUS MEM (12:21)
== END 2021-02-06 14:14 | disposition home or self-care (01) ==
PROVIDERS: PCP Internal Medicine; Visit Provider Surgery
PROC: 0FT44ZZ Resection of Gallbladder, Percutaneous Endoscopic Approach (ICD-10-PCS; CPT 47562; principal; 2021-02-06 11:00)
DX: K80.10 Calculus of gallbladder with chronic cholecystitis without obstruction (principal); K21.9 Gastro-esophageal reflux disease without esophagitis; I10 Essential (primary) hypertension; E55.9 Vitamin D deficiency, unspecified; Z90.49 Acquired absence of other specified parts of digestive tract; Z79.899 Other long term (current) drug therapy; Z88.8 Allergy status to other drugs, medicaments and biological substances
CPT/HCPCS: 47562; 88304; J1100; J1885; J2250; J2405; J2550; J3010

== ENCOUNTER → 2021-02-14 13:56 | Outpatient (BNVA) | payer MEDICARE, MEDICAID, SELFPAY | PROVIDERS: PCP Internal Medicine; Referring Provider Internal Medicine; Visit Provider Surgery | DX: K80.20 Calculus of gallbladder without cholecystitis without obstruction (principal) | CPT/HCPCS: 99212 ==

== ENCOUNTER → 2021-02-23 10:01 | Outpatient (BNVA) | payer MEDICARE, MEDICAID, SELFPAY | PROVIDERS: PCP Internal Medicine; Visit Provider Surgery | DX: Z48.815 Encounter for surgical aftercare following surgery on the digestive system (principal); M79.604 Pain in right leg; M79.605 Pain in left leg | CPT/HCPCS: 99212 ==

== ENCOUNTER 2021-02-25 13:08 | Emergency (ER) | payer MEDICARE, MEDICAID, SELFPAY ==
--- NOTE | ~2021-02-25 | XR_ITS ---
EXAMINATION: XR CHEST CLINICAL INFORMATION: Generalized fatigue/weakness COMPARISON: 11/27/2020 TECHNIQUE: Frontal view of the chest was obtained. FINDINGS: Normal symmetric lung volumes. No parenchymal consolidation. No pleural effusion. No pneumothorax. Cardiomediastinal silhouette and pulmonary vascularity are within normal limits. No acute osseous abnormalities. XR/XR chest 1V IMPRESSION: Unremarkable examination.
--- NOTE | ~2021-02-25 | US_ITS ---
EXAMINATION: US VENOUS ULTRASOUND WITH DOPPLER LOWER EXTREMITY, BILATERAL CLINICAL INFORMATION: Edema and swelling COMPARISON: None TECHNIQUE: Ultrasound of the deep veins is performed from the hip to the calf with compression sonography and color and pulse Doppler assessment. Spectral analysis with color-flow imaging is performed. FINDINGS: RIGHT: There is normal venous compression and respiratory variation and augmented flow. The visualized common femoral vein, superficial femoral vein, profunda femoral vein, popliteal vein, and the trifurcation region shows no evidence of deep venous thrombosis. There is no significant popliteal fossa cyst. LEFT: There is normal venous compression and respiratory variation and augmented flow. The visualized common femoral vein, superficial femoral vein, profunda femoral vein, popliteal vein, and the trifurcation region shows no evidence of deep venous thrombosis. There is no significant popliteal fossa cyst. If the patient's symptoms persist, followup ultrasound in 5 days 7 days might be of value to exclude proximal propagation from a non-visualized calf vein. US/US venous duplex LE BI IMPRESSION: No DVT demonstrated in the bilateral lower extremities.
[2021-02-25 13:19] VITALS: BP 176/99; PULSE 95; RESP 20; TEMP 36.1; O2SAT 98; BMI 35.1
--- NOTE | 2021-02-25 14:16 | ECG_ITS ---
Test Reason : BILAT LEG WEAKNESS Blood Pressure : / mmHG Vent. Rate : 082 BPM Atrial Rate : 082 BPM P-R Int : 146 ms QRS Dur : 094 ms QT Int : 384 ms P-R-T Axes : 030 -13 007 degrees QTc Int : 448 ms Normal sinus rhythm Normal ECG When compared to the previous EKG of No significant changes seen Referred By: Zarina Mendoza Electronically Signed By:Bk Palmer
--- NOTE | 2021-02-25 14:18 | ED.GENADULT ---
HPI - General Adult General Chief complaint: General Medical Stated complaint: leg numbness, dizziness Time Seen by Provider: 02/25/21 13:53 Source: patient Mode of arrival: ambulatory History of Present Illness HPI narrative: 65-year-old female with a past medical history of GERD, HTN, hypothyroid, migraines, vitamin-D deficiency, s/p cholecystectomy on 02/06/2021 to the ED complaining of bilateral lower extremity swelling, pain, and tingling x1 week. Also reports generalized fatigue and nausea. Denies fever, chills, chest pain, shortness of breath, vomiting, diarrhea, constipation, recent travel, history of blood clots Onset (ago): week(s) Related Data Home Medications Medication Instructions Recorded Confirmed cholecalciferol (vitamin D3) 25 25 mcg PO DAILY 05/20/20 01/30/21 mcg (1,000 unit) capsule hydrochlorothiazide 25 mg tablet 25 mg PO DAILY 05/20/20 01/30/21 lisinopril 10 mg tablet 10 mg PO DAILY 05/20/20 01/30/21 Previous Rx's Medication Instructions Recorded betamethasone dipropionate 0.05 % 1 appl TOPICAL BID PRN #45 g 08/15/20 topical cream cyanocobalamin (vitamin B-12) 1,000 mcg PO DAILY #30 tab 09/30/20 1,000 mcg tablet cyclobenzaprine 5 mg tablet 5 mg PO BEDTIME PRN 30 Days #30 tab 11/22/20 albuterol sulfate 90 mcg/actuation 1 inh INHALATION QID PRN 30 Days 12/21/20 aerosol inhaler #18 g amitriptyline 10 mg tablet 10 mg PO BEDTIME 90 Days #90 tab 01/17/21 docusate sodium 100 mg capsule 100 mg PO DAILY 90 Days #90 cap 01/17/21 omeprazole 40 mg capsule,delayed 40 mg PO DAILY 90 Days #90 cap 01/17/21 release levothyroxine 75 mcg tablet 75 mcg PO QAM #30 tab 02/06/21 oxycodone 5 mg PO Q6H PRN #15 tab 02/06/21 propranolol 10 mg tablet 10 mg PO BEDTIME #90 tab 02/21/21 Allergies Allergy/AdvReac Type Severity Reaction Status Date / Time acetaminophen [From TYLENOL] Allergy Unknown ITCHY Verified 02/06/21 10:09 MIGRAINE MEDICINE Allergy Unknown SHAKEY Uncoded 12/22/20 12:57 Environmental Allergy Unknown Unknown Uncoded 12/22/20 12:57 Review of Systems Review of Systems: Constitutional: No Fever, No Chills, + Fatigue, No Malaise ENT/Mouth: No Ear Pain, No sore throat, No Swallowing Difficulty Eyes: No Eye Pain, No Redness, No Foreign Body, No Vision Changes Cardiovascular: No Chest Pain, No SOB, No Palpitations Respiratory: No Cough, No Dyspnea Gastrointestinal: No Nausea, No Vomiting, No Diarrhea, No Abdominal pain Genitourinary: No Dysuria, No Urinary Frequency, No Hematuria, No Flank Pain Musculoskeletal: No joint pain, No Myalgias, + Joint Swelling Skin: No Skin Lesions, No rash Neuro: + Weakness, No Numbness, + Paresthesias, No Loss of Consciousness, No Dizziness, No Headache Yes all other systems are reviewed and are negative Neurologic: Denies Abnormal speech present PMFSH Past Medical History Attestation statement: The following information was validated with the patient. Medical History Chronic GERD Dizziness Hypertension, essential Hypothyroidism Migraine aura without headache Shoulder pain, right Vitamin D deficiency Surgical History History of hysterectomy History of tubal ligation S/P laparoscopic cholecystectomy (02/06/21) Family History Family History Father Heart attack HTN (hypertension) CVD (cardiovascular disease) Mother Cervical cancer Maternal Grandmother Diabetes mellitus Maternal Grandfather Throat cancer Paternal Grandfather Cancer Paternal Grandmother Heart attack HTN (hypertension) Paternal Aunt Breast cancer Social History Social History Are you a primary client care specialist to a significant other at home: No Do you presently have visiting nurse or other home services: No Alcohol intake: never Patient Tobacco Use Status: Never used Tobacco Advance Directives: No Advance Directives Information Provided: Yes Advance Directives Date on File: 05/12/20 Physical Exam Vital Signs: Vital Signs: Last Vital Signs Temp 97.9 F 02/25/21 16:23 Pulse 81 02/25/21 16:23 Resp 18 07/17/21 16:23 BP 148/72 H 02/25/21 16:23 Pulse Ox 97 02/25/21 16:23 Body Mass Index 35.1 Const: General: cooperative, healthy appearing and no acute distress Orientation/consciousness: patient oriented x3 Limitations: no limitations HENMT: Head: Yes normal to inspection Ears: hearing grossly normal bilaterally General nose exam: Normal external nose present Face and sinus: Yes normal facial exam Eyes: General: appearance normal, both eyes and all related structures Pupils: Equal, round and reactive pupils present EOM: EOMs intact bilaterally Neck: Neck: Yes normal visual inspection, Yes no lymphadenopathy and Yes no meningeal signs Resp: Effort & Inspection: normal respiratory effort Auscultation: clear to auscultation bilaterally Cardio: Rate: regular rate Heart sounds: S1 normal heart sound present and S2 normal heart sound present GI: Inspection: Yes normal to inspection Palpation (GI): Soft to palpation, nontender, no guarding and not rigid Skin: Rashes: no rashes Wounds: no wounds Neuro: General: patient oriented x3, gait normal, tone normal, moves all extremities, no meningeal signs, no focal motor deficits and CN's II-XI intact bilaterally Cranial nerves: Yes CN's II-XII intact bilaterally and Yes Equal, round and reactive pupils present Cognition (Neuro): normal cognition Speech: No Abnormal speech present Gait exam (Neuro): Normal gait present Motor exam (neuro): 5/5 motor strength present throughout, Pronator motor function not present and no tremor noted Coordination: [id number] test normal Romberg Test: Negative Extrem: Other: + bilateral calf tenderness. No erythema/fluctuance or induration. Neurovascularly intact General: Yes normal to inspection and Yes no pedal edema Course Course Course Narrative: -labs unremarkable including troponin -orthostatic vital signs negative XR chest 1V IMPRESSION: Unremarkable examination. US venous duplex LE BI IMPRESSION: No DVT demonstrated in the bilateral lower extremities. -1734--UA with trace leuk esterase, otherwise not infected, patient denies symptoms of UTI, will wait until cultures result. Results discussed with patient with educational interpreter including worrisome signs and symptoms and strict return precautions, she verbalized understanding and feels safe for discharge home Medical Decision Making MDM Narrative Medical decision making narrative: 65-year-old female with a past medical history of GERD, HTN, hypothyroid, migraines, vitamin-D deficiency, s/p cholecystectomy on 02/06/2021 to the ED complaining of bilateral lower extremity swelling, pain, and tingling x1 week. Also reports generalized fatigue and nausea. On exam VSS, NAD/well-appearing, no focal neuro deficits, bilateral calf tenderness noted, no appreciable swelling. Concern for DVT vs metabolic abnormalities. R/o infectious etiology an occult GI bleed Plan: EKG, labs, UA, CXR, occult stool, venous duplex ultrasound, IVF, reassess Lab Data Result diagrams: 02/25/21 14:35 02/25/21 14:35 Labs: Lab Results 02/25/21 02/25/21 02/25/21 Range/Units 14:35 14:35 14:35 WBC 5.9 (4.8-10.8) X10*3/uL RBC 4.67 (4.20-5.50) X10*6/uL Hgb 14.0 (12.0-16.0) g/dl Hct 41.2 (37-47) % MCV 88.2 (80-98) fL MCH 30.0 (27.0-33.0) pg MCHC 34.0 (31.0-35.0) g/dl RDW 12.2 (11.0-16.0) % Plt Count 281 (160-400) X10*3/uL MPV 8.6 L (9.4-12.3) fL Immature Gran % (Auto) 0.3 (0.0-0.4) % Neut % (Auto) 56.2 (45-73) % Lymph % (Auto) 29.9 (20-40) % [place] % (Auto) 10.3 (2-11) % Eos % (Auto) 2.6 (0-4) % Baso % (Auto) 0.7 (0-2) % Lymph # (Auto) 1.8 (1.2-4.9) X10*3/uL [place] # (Auto) 0.6 (0.1-1.2) X10*3/uL Eos # (Auto) 0.2 (0.0-0.4) X10*3/uL Baso # (Auto) 0.0 (0.0-0.2) X10*3/uL Abs Immat Gran (auto) 0.02 (0.00-0.03) X10*3/uL Absolute Neuts (auto) 3.3 (2.0-8.3) X10*3/uL Absolute Nucleated RBC 0.000 (0.0-0.012) X10*3/uL Nucleated RBC % (auto) 0.0 (0.0-0.2) /100WBC PT 11.1 (9.9-13.0) SEC INR 1.0 (0.9-1.1) APTT 34.5 (24.1-38.0) SEC Sodium Cancelled Potassium Cancelled Chloride Cancelled Carbon Dioxide Cancelled Anion Gap Cancelled BUN Cancelled Creatinine Cancelled Estim Creat Clear Calc Cancelled Estimated GFR Cancelled Random Glucose Cancelled Calcium Cancelled Magnesium (1.6-2.6) mg/dL Total Bilirubin (0.0-1.0) mg/dL Direct Bilirubin (0.0-0.5) mg/dL AST (5-31) U/L ALT (0-31) U/L Alkaline Phosphatase (39-117) U/L Troponin I High Sens (<3.5-17.0) ng/L B-Natriuretic Peptide (<100) pg/mL Total Protein (6.5-8.0) g/dL Albumin (3.5-5.0) g/dL Lipase (8-78) U/L Urine Color Urine Appearance Urine pH (5.0-8.0) Ur Specific [place] (1.005-1.025) Urine Protein (NEG-TRACE) MG/DL Urine Glucose (UA) (NEG) MG/DL Urine Ketones (NEG) MG/DL Urine Blood (NEG) Urine Nitrite (NEG) Ur Leukocyte Esterase (NEG) Urine RBC (0) /HPF Urine WBC (0-4) /HPF Ur Squamous Epith Cells /LPF Urine Bacteria /LPF Stool Occult Blood (NEGATIVE) COVID-19 (DARIEN) (Negative) COVID-19 Clin Com 02/25/21 02/25/21 02/25/21 Range/Units 14:35 14:35 14:35 WBC (4.8-10.8) X10*3/uL RBC (4.20-5.50) X10*6/uL Hgb (12.0-16.0) g/dl Hct (37-47) % MCV (80-98) fL MCH (27.0-33.0) pg MCHC (31.0-35.0) g/dl RDW (11.0-16.0) % Plt Count (160-400) X10*3/uL MPV (9.4-12.3) fL Immature Gran % (Auto) (0.0-0.4) % Neut % (Auto) (45-73) % Lymph % (Auto) (20-40) % [place] % (Auto) (2-11) % Eos % (Auto) (0-4) % Baso % (Auto) (0-2) % Lymph # (Auto) (1.2-4.9) X10*3/uL [place] # (Auto) (0.1-1.2) X10*3/uL Eos # (Auto) (0.0-0.4) X10*3/uL Baso # (Auto) (0.0-0.2) X10*3/uL Abs Immat Gran (auto) (0.00-0.03) X10*3/uL Absolute Neuts (auto) (2.0-8.3) X10*3/uL Absolute Nucleated RBC (0.0-0.012) X10*3/uL Nucleated RBC % (auto) (0.0-0.2) /100WBC PT (9.9-13.0) SEC INR (0.9-1.1) APTT (24.1-38.0) SEC Sodium 142 Potassium 4.0 Chloride 103 Carbon Dioxide 29 Anion Gap 14 BUN 16 Creatinine 1.08 Estim Creat Clear Calc 53.1 Estimated GFR 51 Random Glucose 79 Calcium 10.1 Magnesium 2.0 (1.6-2.6) mg/dL Total Bilirubin 0.6 (0.0-1.0) mg/dL Direct Bilirubin 0.2 (0.0-0.5) mg/dL AST 23 (5-31) U/L ALT 27 (0-31) U/L Alkaline Phosphatase 80 D (39-117) U/L Troponin I High Sens < 3.5 (<3.5-17.0) ng/L B-Natriuretic Peptide < 10 (<100) pg/mL Total Protein 7.8 (6.5-8.0) g/dL Albumin 4.4 (3.5-5.0) g/dL Lipase 23 (8-78) U/L Urine Color Urine Appearance Urine pH (5.0-8.0) Ur Specific [place] (1.005-1.025) Urine Protein (NEG-TRACE) MG/DL Urine Glucose (UA) (NEG) MG/DL Urine Ketones (NEG) MG/DL Urine Blood (NEG) Urine Nitrite (NEG) Ur Leukocyte Esterase (NEG) Urine RBC (0) /HPF Urine WBC (0-4) /HPF Ur Squamous Epith Cells /LPF Urine Bacteria /LPF Stool Occult Blood (NEGATIVE) COVID-19 (DARIEN) Negative (Negative) COVID-19 Clin Com See Note 02/25/21 02/25/21 Range/Units 14:35 17:03 WBC (4.8-10.8) X10*3/uL RBC (4.20-5.50) X10*6/uL Hgb (12.0-16.0) g/dl Hct (37-47) % MCV (80-98) fL MCH (27.0-33.0) pg MCHC (31.0-35.0) g/dl RDW (11.0-16.0) % Plt Count (160-400) X10*3/uL MPV (9.4-12.3) fL Immature Gran % (Auto) (0.0-0.4) % Neut % (Auto) (45-73) % Lymph % (Auto) (20-40) % [place] % (Auto) (2-11) % Eos % (Auto) (0-4) % Baso % (Auto) (0-2) % Lymph # (Auto) (1.2-4.9) X10*3/uL [place] # (Auto) (0.1-1.2) X10*3/uL Eos # (Auto) (0.0-0.4) X10*3/uL Baso # (Auto) (0.0-0.2) X10*3/uL Abs Immat Gran (auto) (0.00-0.03) X10*3/uL Absolute Neuts (auto) (2.0-8.3) X10*3/uL Absolute Nucleated RBC (0.0-0.012) X10*3/uL Nucleated RBC % (auto) (0.0-0.2) /100WBC PT (9.9-13.0) SEC INR (0.9-1.1) APTT (24.1-38.0) SEC Sodium Potassium Chloride Carbon Dioxide Anion Gap BUN Creatinine Estim Creat Clear Calc Estimated GFR Random Glucose Calcium Magnesium (1.6-2.6) mg/dL Total Bilirubin (0.0-1.0) mg/dL Direct Bilirubin (0.0-0.5) mg/dL AST (5-31) U/L ALT (0-31) U/L Alkaline Phosphatase (39-117) U/L Troponin I High Sens (<3.5-17.0) ng/L B-Natriuretic Peptide (<100) pg/mL Total Protein (6.5-8.0) g/dL Albumin (3.5-5.0) g/dL Lipase (8-78) U/L Urine Color YELLOW Urine Appearance CLEAR Urine pH 6.0 (5.0-8.0) Ur Specific [place] 1.015 (1.005-1.025) Urine Protein NEG (NEG-TRACE) MG/DL Urine Glucose (UA) NEG (NEG) MG/DL Urine Ketones 5 (NEG) MG/DL Urine Blood TRACE (NEG) Urine Nitrite NEG (NEG) Ur Leukocyte Esterase TRACE H (NEG) Urine RBC 0-2 (0) /HPF Urine WBC 1-4 (0-4) /HPF Ur Squamous Epith Cells TRACE /LPF Urine Bacteria TRACE /LPF Stool Occult Blood NEGATIVE (NEGATIVE) COVID-19 (DARIEN) (Negative) COVID-19 Clin Com Discharge Plan Discharge Clinical Impression: Bilateral calf pain, Fatigue Patient Disposition: Home, Self-Care Instructions: Weakness (ED), Leg Pain (ED) Additional Instructions: your blood work was reassuring today in the ED. Her chest x-ray was unremarkable. Your ultrasound was negative for any blood clot. It is important that her staying hydrated at home. Please follow-up with your primary care doctor as well as her surgeon. If her symptoms persist or worsen, become unbearable, your unable to eat or drink, persistent leg pain, develops any shortness of breath or chest pain please return to the ED carrasco an?lisis de janette fue tranquilizador hoy en el servicio de urgencias. Carrasco radiograf?a de t?rax no tuvo nada especial. Carrasco ultrasonido fue negativo para cualquier co?gulo de janette. Es importante que se mantenga hidratada en casa. Ander un seguimiento con carrasco m?dico de atenci?n primaria y con carrasco cirujano. Si catherine s?ntomas persisten o empeoran, se vuelven insoportables, no puede comer ni beber, tiene dolor persistente en las piernas, le falta el aire o le duele el pecho, vuelva al servicio de urgencias. Prescriptions: No Action cyanocobalamin (vitamin B-12) 1,000 mcg tablet 1,000 mcg PO DAILY Qty: 30 RF: 2 albuterol sulfate [ProAir HFA] 90 mcg/actuation HFA aerosol inhaler 1 inh inhalation QID PRN (Reason: shortness of breath or wheezing) 30 Days Qty: 18 RF: 4 levothyroxine 75 mcg tablet 75 mcg PO QAM Qty: 30 RF: 5 propranolol 10 mg tablet 10 mg PO BEDTIME Qty: 90 RF: 0 oxycodone 5 mg tablet 5 mg PO Q6H PRN (Reason: pain) Qty: 15 RF: 0 hydrochlorothiazide 25 mg tablet 25 mg PO DAILY RF: 0 lisinopril 10 mg tablet 10 mg PO DAILY RF: 0 cholecalciferol (vitamin D3) 25 mcg (1,000 unit) capsule 25 mcg PO DAILY RF: 0 betamethasone dipropionate 0.05 % cream 1 appl topical BID PRN (Reason: skin irritation) Qty: 45 RF: 0 cyclobenzaprine 5 mg tablet 5 mg PO BEDTIME PRN (Reason: muscle spasm) 30 Days Qty: 30 RF: 0 amitriptyline 10 mg tablet 10 mg PO BEDTIME 90 Days Qty: 90 RF: 0 omeprazole 40 mg capsule,delayed release(DR/EC) 40 mg PO DAILY 90 Days Qty: 90 RF: 0 docusate sodium [Dulcolax Stool Softener (dss)] 100 mg capsule 100 mg PO DAILY 90 Days Qty: 90 RF: 0 Referrals: [facility] [Physician] - 2 days Lolis Josue MD [Primary Care Provider] - 2 days Print Language: Greek
[2021-02-25 14:38] VITALS: BP 144/68; PULSE 79
[2021-02-25 14:40] VITALS: BP 152/90; PULSE 81
[2021-02-25 14:42] VITALS: BP 159/94; PULSE 83
[2021-02-25 14:43] LABS: MANUAL DIFF FLAG NO
[2021-02-25] MEDS: 0.9 % Sodium Chloride 1,000 ML 999 ML IVCONT (14:44)
[2021-02-25 14:45] LABS: Basophils Percent Auto 0.7 % (0-2); Eosinophils Absolute Auto 0.2 X10*3/uL (0.0-0.4); Eosinophils Percent Auto 2.6 % (0-4); Hematocrit 41.2 % (37-47); Imm Gran Abs Auto 0.02 X10*3/uL (0.00-0.03); Imm Gran Pct Auto 0.3 % (0.0-0.4); Lymphocytes Absolute Auto 1.8 X10*3/uL (1.2-4.9); Lymphocytes Percent Auto 29.9 % (20-40); Mean Corpuscular Volume 88.2 fL (80-98); Mean Platelet Volume 8.6 fL (9.4-12.3); Monocytes Absolute Auto 0.6 X10*3/uL (0.1-1.2); Monocytes Percent Auto 10.3 % (2-11); Neutrophils Absolute Auto 3.3 X10*3/uL (2.0-8.3); Neutrophils Percent Auto 56.2 % (45-73); Platelet Count 281 X10*3/uL (160-400); Red Blood Count 4.67 X10*6/uL (4.20-5.50); Red Cell Distribution Width 12.2 % (11.0-16.0); White Blood Count 5.9 X10*3/uL (4.8-10.8)
--- NOTE | 2021-02-25 14:45 | PC.NURSE ---
iv inserted, labs drawn. covid swab performed, orthostats performed, vss, pt aware we need a urine, will continue to monitor.
[2021-02-25 14:50] LABS: OBS Int Ctl Valid YES; OBS1 NEGATIVE (NEGATIVE)
[2021-02-25 14:52] LABS: Prothrombin Time 11.1 SEC (9.9-13.0)
[2021-02-25 14:55] LABS: Partial Thromboplastin Time 34.5 SEC (24.1-38.0)
[2021-02-25 15:01] LABS: COVID-19 Test Negative (Negative)
[2021-02-25 15:11] LABS: Alanine Aminotransferase 27 U/L (0-31); Albumin Level 4.4 g/dL (3.5-5.0); Alkaline Phosphatase 80 U/L (39-117); Anion Gap 14 (12-20); Aspartate Amino Transferase 23 U/L (5-31); Bilirubin Direct 0.2 mg/dL (0.0-0.5); Bilirubin Total 0.6 mg/dL (0.0-1.0); Blood Urea Nitrogen 16 mg/dL (9-16); Calcium 10.1 mg/dL (8.4-10.2); Carbon Dioxide 29 mmol/L (22-29); Chloride 103 mmol/L (96-108); Creatinine Clr Calc Pharmacy 53.1; Estimated Glomerular Filt Rate 51; Glucose Random 79 mg/dL (60-115); Lipase 23 U/L (8-78); Sodium 142 mmol/L (135-145); Total Protein 7.8 g/dL (6.5-8.0)
[2021-02-25 15:14] LABS: B Type Natriuretic Peptide < 10 pg/mL (<100); Troponin-I High Sensitivity < 3.5 ng/L (<3.5-17.0)
[2021-02-25 16:23] VITALS: BP 148/72; PULSE 81; RESP 18; TEMP 36.6; O2SAT 97
--- NOTE | 2021-02-25 16:24 | PC.NURSE ---
patient a&ox3, awaiting for results of testing, vss, will continue to monitor.
[2021-02-25 17:16] LABS: Glucose Urine UA NEG (NEG); Leukocyte Esterase Urine TRACE (NEG); Nitrite Urine NEG (NEG); Specific Gravity - Urine 1.015 (1.005-1.025); UACC Culture Trigger YES; Urine Blood TRACE (NEG); Urine Ketones 5 MG/DL (NEG); Urine Protein NEG (NEG-TRACE)
[2021-02-25 17:20] LABS: Appearance Urine CLEAR; Color Urine YELLOW
[2021-02-25 17:34] LABS: Bacteria Urine TRACE /LPF; RBC Urine 0-2 /HPF (0); Squamous Epithelial Cell Urine TRACE /LPF
== END 2021-02-25 17:59 | disposition home or self-care (01) ==
PROVIDERS: Physician Assistant; Emergency Provider Emergency Medicine; PCP Internal Medicine
DX: M79.605 Pain in left leg (principal); M79.604 Pain in right leg; R53.83 Other fatigue; I10 Essential (primary) hypertension; Z79.899 Other long term (current) drug therapy; Z20.822 Contact with and (suspected) exposure to COVID-19
CPT/HCPCS: 36415; 71045; 80048; 80076; 81001; 81003; 82272; 83690; 83735; 83880; 84484; 85025; 85610; 85730; 87086; 87147; 87635; 93005; 93970; 96360; 99285

== ENCOUNTER → 2021-03-09 10:27 | Outpatient (BNVA) | payer MEDICARE, MEDICAID, SELFPAY | PROVIDERS: PCP Internal Medicine; Referring Provider Internal Medicine; Visit Provider Surgery | DX: M79.604 Pain in right leg (principal); M79.605 Pain in left leg; Z90.49 Acquired absence of other specified parts of digestive tract | CPT/HCPCS: 99212 ==

== ENCOUNTER 2021-03-21 14:33 | Outpatient (REF) | payer MEDICARE, MEDICAID, SELFPAY ==
--- NOTE | ~2021-03-21 | XR_ITS ---
EXAMINATION: XR KNEE, RIGHT CLINICAL INFORMATION: Pain in the right knee COMPARISON: Right knee November 22, 2014 TECHNIQUE: Two views of the right knee. FINDINGS: There is no fracture. No dislocation. No joint effusion. There is mild to moderate degenerative change of the knee. There is mild joint narrowing of the medial femoral tibial joint. There are marginal bone spurs of the femur and tibia. There is small spur of the tibial spines. There are small spurs of the patella and femur at the patellofemoral joint with mild joint narrowing of the patellofemoral joint. No chondrocalcinosis. No bone erosions. Compared to prior study of November 22, 2014 there is mild progression of the degenerative changes. XR/XR knee RT 2V IMPRESSION: Degenerative changes of the knee which has mildly progressed since the prior study of November 22, 2014.
[2021-03-21 16:39] LABS: Anion Gap 12 (12-20); Blood Urea Nitrogen 15 mg/dL (9-16); Carbon Dioxide 29 mmol/L (22-29); Chloride 103 mmol/L (96-108); Estimated Glomerular Filt Rate 46; Glucose Random 122 mg/dL (60-115); Glucose Urine UA NEG (NEG); Leukocyte Esterase Urine NEG (NEG); Nitrite Urine NEG (NEG); PH 5.5 (5.0-8.0); Potassium 3.6 mmol/L (3.3-5.1); Sodium 140 mmol/L (135-145); Specific Gravity - Urine 1.025 (1.005-1.025); UACC Culture Trigger NO; Urine Blood TRACE (NEG); Urine Ketones NEG (NEG); Urine Protein NEG (NEG-TRACE)
[2021-03-21 16:43] LABS: Appearance Urine HAZY; Color Urine YELLOW
[2021-03-21 16:49] LABS: Bacteria Urine TRACE /LPF; RBC Urine 0-2 /HPF (0); Squamous Epithelial Cell Urine 3+ /LPF; WBC Urine 0 /HPF (0-4)
[2021-03-21 16:50] LABS: Mucus Urine 1+ /LPF; Renal Epithelial Cells Urine TRACE /LPF
[2021-03-21 17:02] LABS: TSH reflex Free T4 1.93 uIU/mL (0.32-4.0)
[2021-03-21 18:34] LABS: Hemoglobin 13.7 g/dl (12.0-16.0)
[2021-03-22 17:41] LABS: Lyme Abs Screen <0.90 index
== END 2021-03-21 14:34 | disposition home or self-care (01) ==
LOC: HO.HMGCX 14:33
PROVIDERS: PCP Internal Medicine; Visit Provider Internal Medicine
DX: Z00.01 Encounter for general adult medical examination with abnormal findings (principal); M25.561 Pain in right knee; E03.9 Hypothyroidism, unspecified; E55.9 Vitamin D deficiency, unspecified; G43.109 Migraine with aura, not intractable, without status migrainosus; I10 Essential (primary) hypertension; K21.9 Gastro-esophageal reflux disease without esophagitis; M25.511 Pain in right shoulder; E66.09 Other obesity due to excess calories; R42 Dizziness and giddiness; M79.10 Myalgia, unspecified site; R53.83 Other fatigue; R00.2 Palpitations
CPT/HCPCS: 36415; 73560; 80048; 81001; 84443; 85014; 85018; 86617; 86618

== ENCOUNTER 2021-03-22 10:46 | Outpatient (REF) | payer MEDICARE, MEDICAID, SELFPAY ==
--- NOTE | ~2021-03-22 | MM_ITS ---
EXAMINATION: MM SCREENING DIGITAL BREAST TOMOSYNTHESIS, BILATERAL CLINICAL INFORMATION: Screening. Asymptomatic. The lifetime risk of breast cancer based on the Tyrer-Cuzick Model is 4.6%. COMPARISON: Mammography: March 17, 2020 and studies dating back to October 23, 2011 TECHNIQUE: Digital breast tomosynthesis is performed in both the craniocaudal and mediolateral oblique views along with computer-aided detection (CAD). Synthesized 2D images are generated from the tomosynthesis. FINDINGS: There are scattered areas of fibroglandular density (ACR BI-RADS breast composition Category b). There are no significant masses, abnormal calcifications, or other abnormalities. MM/MM tomosynthesis screening BI IMPRESSION: There are no significant changes from prior study. ASSESSMENT: BI-RADS 1: Negative RECOMMENDATION: Routine annual mammography screening. This patient's information was entered into a reminder system with a target due date for their next mammogram.
== END 2021-03-22 10:47 | disposition home or self-care (01) ==
LOC: HO.MAMMO 10:46
PROVIDERS: Visit Provider Internal Medicine
DX: Z12.31 Encounter for screening mammogram for malignant neoplasm of breast (principal)
CPT/HCPCS: 77063; 77067

== ENCOUNTER 2021-04-10 10:45 | Outpatient (REF) | payer MEDICARE, MEDICAID, SELFPAY ==
[2021-04-10 14:28] LABS: Glucose Urine UA NEG (NEG); Leukocyte Esterase Urine NEG (NEG); Nitrite Urine NEG (NEG); UACC Culture Trigger NO; Urine Blood TRACE (NEG); Urine Ketones NEG (NEG); Urine Protein NEG (NEG-TRACE)
[2021-04-10 14:32] LABS: Appearance Urine CLEAR; Color Urine YELLOW
[2021-04-10 14:58] LABS: RBC Urine 0-2 /HPF (0); Squamous Epithelial Cell Urine 1+ /LPF; WBC Urine 0-2 /HPF (0-4)
[2021-04-13 13:51] LABS: TS Negative Control Passed; TS Panel A 0; TS Panel B 0; TS Positive Control Passed; TSpotTB Negative (SeeBelow)
== END 2021-04-10 10:46 | disposition home or self-care (01) ==
LOC: HO.HMGCLDS 10:45
PROVIDERS: PCP Internal Medicine; Visit Provider Internal Medicine
DX: Z11.1 Encounter for screening for respiratory tuberculosis (principal)
CPT/HCPCS: 36415; 81001; 86481

== ENCOUNTER 2021-04-14 11:04 | Outpatient (REF) | payer MEDICARE, MEDICAID, SELFPAY ==
--- NOTE | ~2021-04-14 | XR_ITS ---
EXAMINATION: RIGHT KNEE X-RAY CLINICAL INFORMATION: Pain COMPARISON: Previous exam March 2021 TECHNIQUE: [place] view of the right knee FINDINGS: Bone alignment is normal. No fracture or dislocation is seen. There are osteophytes, joint space narrowing and subchondral cyst formation at the patellofemoral joint. There are curvilinear densities in the soft tissues of the medial knee probably vascular in origin. XR/XR knee RT 1V IMPRESSION: Arthritis at the patellofemoral joint.
== END 2021-04-14 11:05 | disposition home or self-care (01) ==
LOC: HO.HOSX 11:04
PROVIDERS: PCP Internal Medicine; Visit Provider Physician Assistant
DX: M17.11 Unilateral primary osteoarthritis, right knee (principal)
CPT/HCPCS: 73560; 99202

== ENCOUNTER 2021-05-22 13:58 | Outpatient (REF) | payer MEDICARE, MEDICAID, SELFPAY ==
[2021-05-22 14:24] LABS: Appearance Urine CLEAR; Color Urine YELLOW; Glucose Urine UA NEG (NEG); Leukocyte Esterase Urine TRACE (NEG); Nitrite Urine NEG (NEG); UACC Culture Trigger YES; Urine Blood TRACE (NEG); Urine Ketones NEG (NEG); Urine Protein NEG (NEG-TRACE)
[2021-05-22 14:35] LABS: RBC Urine 0-2 /HPF (0); Squamous Epithelial Cell Urine 2+ /LPF
== END 2021-05-22 13:59 | disposition home or self-care (01) ==
LOC: HO.LNP 13:58
PROVIDERS: Visit Provider Internal Medicine
DX: R35.0 Frequency of micturition (principal)
CPT/HCPCS: 81001; 87086

== ENCOUNTER 2022-10-05 11:20 | Outpatient (REF) | payer MEDICARE, SELFPAY ==
[2022-10-05 14:04] LABS: MANUAL DIFF FLAG NO
[2022-10-05 14:07] LABS: Basophils Absolute Auto 0.1 X10*3/uL (0.0-0.2); Basophils Percent Auto 0.9 % (0-2); Eosinophils Absolute Auto 0.1 X10*3/uL (0.0-0.4); Eosinophils Percent Auto 1.8 % (0-4); Hematocrit 41.2 % (37.0-47.0); Hemoglobin 13.7 g/dl (12.0-16.0); Imm Gran Abs Auto 0.02 X10*3/uL (0.00-0.03); Imm Gran Pct Auto 0.4 % (0.0-0.4); Lymphocytes Absolute Auto 1.8 X10*3/uL (1.2-4.9); Lymphocytes Percent Auto 31.7 % (20-40); Mean Corpuscular HGB Conc 33.3 g/dl (31.0-35.0); Mean Corpuscular Hemoglobin 30.2 pg (27.0-33.0); Mean Corpuscular Volume 90.9 fL (80.0-98.0); Mean Platelet Volume 9.5 fL (9.4-12.3); Monocytes Absolute Auto 0.4 X10*3/uL (0.1-1.2); Monocytes Percent Auto 6.9 % (2-11); Neutrophils Absolute Auto 3.2 x10*3/uL (2.0-8.3); Neutrophils Percent Auto 58.3 % (45-73); Platelet Count 278 X10*3/uL (160-400); Red Blood Count 4.53 X10*6/uL (4.20-5.50); Red Cell Distribution Width 12.1 % (11.0-16.0); White Blood Count 5.5 X10*3/uL (4.8-10.8)
[2022-10-05 14:29] LABS: Alanine Aminotransferase 12 U/L (0-31); Albumin Level 4.2 g/dL (3.5-5.0); Alkaline Phosphatase 74 U/L (39-117); Anion Gap 11 (12-20); Aspartate Amino Transferase 17 U/L (5-31); Blood Urea Nitrogen 16 mg/dL (9-16); Calcium 9.4 mg/dL (8.4-10.2); Carbon Dioxide 29 mmol/L (22-29); Chloride 105 mmol/L (96-108); Cholesterol 208 mg/dL; Estimated Glomerular Filt Rate > 60; Glucose Fasting 81 mg/dL (60-99); HDL Cholesterol 42 mg/dL; LDL Cholesterol Calculated 141 mg/dl; Potassium 4.5 mmol/L (3.3-5.1); Sodium 140 mmol/L (135-145); Triglycerides 129 mg/dL
[2022-10-05 14:46] LABS: TSH reflex Free T4 2.49 uIU/mL (0.32-4.0)
== END 2022-10-05 11:21 | disposition home or self-care (01) ==
LOC: HO.HMGCLDS 11:20
PROVIDERS: PCP Internal Medicine; Visit Provider Internal Medicine
DX: Z00.01 Encounter for general adult medical examination with abnormal findings (principal); E66.09 Other obesity due to excess calories; G43.109 Migraine with aura, not intractable, without status migrainosus; I10 Essential (primary) hypertension; K21.9 Gastro-esophageal reflux disease without esophagitis; E03.9 Hypothyroidism, unspecified
CPT/HCPCS: 36415; 80053; 80061; 84443; 85025

== ENCOUNTER 2022-11-09 12:18 | Outpatient (REF) | payer OTHER, SELFPAY ==
--- NOTE | ~2022-11-09 | MM_ITS ---
EXAMINATION: MM SCREENING DIGITAL BREAST TOMOSYNTHESIS, BILATERAL CLINICAL INFORMATION: Screening. Asymptomatic. The lifetime risk of breast cancer based on the Tyrer-Cuzick Model is 4%. COMPARISON: Mammography: 03/22/2021, 03/17/2020, 10/30/2018, 10/24/2017 TECHNIQUE: Digital breast tomosynthesis is performed in both the craniocaudal and mediolateral oblique views along with computer-aided detection (CAD). Synthesized 2D images are generated from the tomosynthesis. FINDINGS: There are scattered areas of fibroglandular density (ACR BI-RADS breast composition Category b). There are no significant masses, abnormal calcifications, or other abnormalities. There is some scattered smooth nodularity central left and central inner right breast similar to prior exams. No architectural abnormality. The axilla and skin contours are unremarkable. MM/MM tomosynthesis screening BI IMPRESSION: No significant changes from prior studies. ASSESSMENT: BI-RADS 2: Benign RECOMMENDATION: Routine annual mammography screening. This patient's information was entered into a reminder system with a target due date for their next mammogram.
== END 2022-11-09 12:19 | disposition home or self-care (01) ==
LOC: HO.MAMMO 12:18
PROVIDERS: PCP Internal Medicine; Visit Provider Internal Medicine
DX: Z12.31 Encounter for screening mammogram for malignant neoplasm of breast (principal)
CPT/HCPCS: 77063; 77067

== ENCOUNTER 2023-06-06 09:04 | Outpatient (REF) | payer OTHER, SELFPAY ==
[2023-06-06 11:49] LABS: MANUAL DIFF FLAG NO
[2023-06-06 11:58] LABS: Basophils Percent Auto 0.8 % (0-2); Eosinophils Absolute Auto 0.2 X10*3/uL (0.0-0.4); Eosinophils Percent Auto 2.9 % (0-4); Hematocrit 41.5 % (37.0-47.0); Imm Gran Abs Auto 0.02 X10*3/uL (0.00-0.03); Imm Gran Pct Auto 0.4 % (0.0-0.4); Lymphocytes Absolute Auto 1.5 X10*3/uL (1.2-4.9); Mean Corpuscular HGB Conc 33.7 g/dl (31.0-35.0); Mean Corpuscular Hemoglobin 30.6 pg (27.0-33.0); Mean Corpuscular Volume 90.6 fL (80.0-98.0); Mean Platelet Volume 9.6 fL (9.4-12.3); Monocytes Absolute Auto 0.4 X10*3/uL (0.1-1.2); Monocytes Percent Auto 7.7 % (2-11); Neutrophils Absolute Auto 3.1 x10*3/uL (2.0-8.3); Neutrophils Percent Auto 60.2 % (45-73); Platelet Count 271 X10*3/uL (160-400); Red Blood Count 4.58 X10*6/uL (4.20-5.50); Red Cell Distribution Width 12.3 % (11.0-16.0); White Blood Count 5.2 X10*3/uL (4.8-10.8)
[2023-06-06 12:20] LABS: Alanine Aminotransferase 15 U/L (0-31); Albumin Level 4.2 g/dL (3.5-5.0); Alkaline Phosphatase 74 U/L (39-117); Anion Gap 12 (12-20); Aspartate Amino Transferase 20 U/L (5-31); Bilirubin Total 0.7 mg/dL (0.0-1.0); Blood Urea Nitrogen 18 mg/dL (9-16); Calcium 9.9 mg/dL (8.4-10.2); Carbon Dioxide 27 mmol/L (22-29); Chloride 104 mmol/L (96-108); Estimated Glomerular Filt Rate > 60; Glucose Random 86 mg/dL (60-115); Potassium 4.2 mmol/L (3.3-5.1); Sodium 139 mmol/L (135-145); Total Protein 7.7 g/dL (6.5-8.0)
[2023-06-06 12:26] LABS: TSH reflex Free T4 2.76 uIU/mL (0.32-4.0)
[2023-06-07 19:28] LABS: LDL Cholesterol Direct 160 mg/dL (<100)
== END 2023-06-06 09:05 | disposition home or self-care (01) ==
LOC: HO.HMGCLDS 09:04
PROVIDERS: PCP Internal Medicine; Visit Provider Internal Medicine
DX: I10 Essential (primary) hypertension (principal); E03.9 Hypothyroidism, unspecified; E66.09 Other obesity due to excess calories; K21.9 Gastro-esophageal reflux disease without esophagitis; N32.81 Overactive bladder
CPT/HCPCS: 36415; 80053; 83721; 84443; 85025

== ENCOUNTER 2023-06-18 14:27 | Outpatient (AMB) | payer OTHER, SELFPAY ==
[2023-06-18 14:29] VITALS: BP 142/84; BMI 35.2
--- NOTE | 2023-06-18 14:29 | MHC.PC.OV ---
Vital Signs 06/18/23 14:29 Height 5 ft 2 in Weight 192 lb 6 oz BMI 35.2 BP 142/84 H Blood Pressure Location Rt brachial Position Sitting Intake Visit Reasons: Letter Req Sec 8 ~ Allergies acetaminophen [From TYLENOL] Allergy (Unknown, Verified 06/18/23 14:32) ITCHY MIGRAINE MEDICINE Allergy (Unknown, Uncoded 06/13/21 11:53) SHAKEY Environmental Allergy (Unknown, Uncoded 06/13/21 11:53) Unknown Tobacco use date assessed: 06/18/23 Fall risk assessment: No Falls in past year Last assessed Fall Risk: 06/18/23 Dental Screening Dental Screen Date: 06/18/23 Did you have a dental visit in the last 12 months?: Yes Did you have a dental problem in the last 6 months where you did not have access to dental care?: No Was dental information given to patient?: Patient has dentist HPI Letter Req Sec 8 ~ HPI Details Patient is 67-year-old female came in today to talk about receiving a letter so she can have financial assistance with housing She is requesting a section 8 letter because of her numerous medical problems Patient suffers from depression and anxiety, she says that it is difficult for her to drive on highway specially in the winter months to go to her job. She also suffers from hypertension, thyroid disease, bladder disorder, bilateral shoulder pain and back pain. Patient says that it is getting difficult for her to continue working so she can support herself financially. Letter provided. [facility] Medical History Dizziness Shoulder pain, right Hypothyroidism Hypertension, essential Vitamin D deficiency Chronic GERD Migraine aura without headache Surgical History S/P laparoscopic cholecystectomy (02/06/21) History of hysterectomy History of tubal ligation Family History Father Heart attack HTN (hypertension) CVD (cardiovascular disease) Mother Cervical cancer Maternal Grandmother Diabetes mellitus Maternal Grandfather Throat cancer Paternal Grandfather Cancer Paternal Grandmother Heart attack HTN (hypertension) Paternal Aunt Breast cancer Other Mental health disorder Social History Housing: Apartment Are you a primary child care supervisor to a significant other at home: No Do you presently have visiting nurse or other home services: No Alcohol intake: never Patient Tobacco Use Status: Never used Tobacco e-Cigarette/Vaping Use: Never Used Advance Directives Date on File: 05/12/20 service: No 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 How often do you have a drink containing alcohol?: Never 3. How often do you have six or more drinks on one occasion?: Never Total Score: 0 Score Reviewed/Action Taken: Yes Review of Systems Const Denies chills and Denies fever(s) ENT Denies epistaxis and Denies nasal discharge Card Denies chest pain Resp Denies chest congestion, Denies cough and Denies hemoptysis GI Denies diarrhea and Denies nausea Skin/Breast Denies rash Neuro Reports no additional complaints Psych Reports no additional complaints Endo Reports no additional complaints Physical exam (Primary Care) Vital Signs: Last Vital Signs BP 142/84 H 06/18/23 14:29 BMI result Body Mass Index 35.2 Tobacco/Smoking Status: Tobacco use Status Tobacco use date assessed 06/18/23 06/18/23 14:32 Patient Tobacco Use Status Never used Tobacco 06/18/23 14:32 e-Cigarette/Vaping Use Never Used 06/18/23 14:32 Thrive Assessment: Date of Thrive Assessment Date Thrive assessed 03/21/21 06/18/23 14:32 Const General: cooperative, comfortable and no acute distress Orientation/consciousness: patient oriented x3 HENWY Head: Yes normocephalic Eyes General: appearance normal, both eyes and all related structures Neck Neck: Yes supple Resp Effort & Inspection: normal respiratory effort, no cough and no stridor Cardio Rhythm: regular rhythm Heart sounds: S1 normal heart sound present and S2 normal heart sound present Skin General skin exam: turgor normal Neuro General: patient oriented x3, tone normal and moves all extremities Extrem Right lower extremity: no edema Left lower extremity: no edema Assessment and Plan Assessment & Plan (1) Hypertension, essential: Code(s): I10 - Essential (primary) hypertension (2) Major depression, recurrent: Code(s): F33.9 - Major depressive disorder, recurrent, unspecified Qualifiers: Active/Remission status: in partial remission Qualified Code(s): F33.41 - Major depressive disorder, recurrent, in partial remission (3) Hypothyroidism: Code(s): E03.9 - Hypothyroidism, unspecified Qualifiers: Hypothyroidism type: unspecified Qualified Code(s): E03.9 - Hypothyroidism, unspecified (4) Shoulder pain, right: Code(s): M25.511 - Pain in right shoulder Qualifiers: Chronicity: chronic Qualified Code(s): M25.511 - Pain in right shoulder; G89.29 - Other chronic pain (5) Overactive bladder: Code(s): N32.81 - Overactive bladder (6) Chronic lower back pain: Code(s): M54.50 - Low back pain, unspecified; G89.29 - Other chronic pain Qualifiers: Back pain laterality: bilateral Sciatica presence: without sciatica Qualified Code(s): M54.50 - Low back pain, unspecified; G89.29 - Other chronic pain (7) Anxiety, generalized: Code(s): F41.1 - Generalized anxiety disorder Plan Patient is 67-year-old female came in today to talk about receiving a letter so she can have financial assistance with housing She is requesting a section 8 letter because of her numerous medical problems Patient suffers from depression and anxiety, she says that it is difficult for her to drive on highway specially in the winter months to go to her job. She also suffers from hypertension, thyroid disease, bladder disorder, bilateral shoulder pain and back pain. Patient says that it is getting difficult for her to continue working so she can support herself financially. Letter provided. Coding Level of Care Code Est Pt Level 4 (22718) Diagnoses Hypertension, essential I10 Recurrent major depressive disorder, in partial remission F33.41 Active/Remission status: in partial remission Hypothyroidism, unspecified type E03.9 Hypothyroidism type: unspecified Chronic right shoulder pain M25.511; G89.29 Chronicity: chronic Overactive bladder N32.81 Chronic bilateral low back pain without sciatica M54.50; G89.29 Back pain laterality: bilateral Sciatica presence: without sciatica Anxiety, generalized F41.1
== END 2023-06-18 16:05 | disposition home or self-care (01) ==
LOC: HO.HMGC 14:28
PROVIDERS: PCP Internal Medicine; Visit Provider Internal Medicine
DX: I10 Essential (primary) hypertension (principal); F33.41 Major depressive disorder, recurrent, in partial remission; E03.9 Hypothyroidism, unspecified; M25.511 Pain in right shoulder; G89.29 Other chronic pain; N32.81 Overactive bladder; M54.50 Low back pain, unspecified; F41.1 Generalized anxiety disorder
CPT/HCPCS: 99214

== ENCOUNTER 2023-10-08 15:26 | Outpatient (AMB) | payer MEDICARE, SELFPAY ==
[2023-10-08 15:28] VITALS: BP 158/88; PULSE 91; O2SAT 98; BMI 35.6
--- NOTE | 2023-10-08 15:28 | A.OFFPC_ITS ---
Vital Signs 10/08/23 15:28 Height 5 ft 2 in Weight 194 lb 8 oz BMI 35.6 BP 158/88 H Blood Pressure Location Rt brachial Position Sitting Pulse 91 Pulse Source Pulse Oximeter Pulse Oximetry (%) 98 Oxygen Delivery Method Room Air Intake Visit Reasons: Annual PE Allergies acetaminophen [From TYLENOL] Allergy (Unknown, Verified 10/08/23 15:28) ITCHY MIGRAINE MEDICINE Allergy (Unknown, Uncoded 06/13/21 11:53) SHAKEY Environmental Allergy (Unknown, Uncoded 06/13/21 11:53) Unknown Lisinopril Adverse Reaction (Mild, Uncoded 10/08/23 16:11) Do not feel well Medication List - Last Reconciled 10/08/23 by Lolis Josue MD betamethasone dipropionate 0.05% 1 appl topical BID PRN celecoxib (Celebrex) 200 mg PO DAILY cholecalciferol (vitamin D3) 25 mcg PO DAILY 90 days cyanocobalamin (vitamin B-12) 1,000 mcg PO DAILY duloxetine 20 mg PO BID 90 days hydrochlorothiazide 25 mg PO DAILY 90 days levothyroxine 75 mcg PO QAM lisinopril 10 mg PO DAILY omeprazole 40 mg PO DAILY 90 days oxybutynin chloride 5 mg PO BEDTIME 30 days Tobacco use date assessed: 10/08/23 Fall risk assessment: No Falls in past year Last assessed Fall Risk: 10/08/23 Dental Screening Did you have a dental visit in the last 12 months?: Yes Did you have a dental problem in the last 6 months where you did not have access to dental care?: No Was dental information given to patient?: Patient has dentist HPI Annual PE HPI Details Patient is 68-year-old female came in today for physical exam Patient says that when she goes uphill she feels short of breath She has hypertension which is not controlled as she is not taking lisinopril 10 mg, patient says that it does not agree with her she would like to change the medication Medication changed to atenolol 25 mg Patient will also have labs fasting she has history of high lipids and is taking no lipid medication We did the EKG today which showed normal sinus rhythm no acute findings She is obese as well with BMI of 35.6 need to lose weight Complaining of difficulty sleeping at night, fatigue and daytime somnolence She agreed to do a sleep study today order placed She has not seen OBGYN in years, referral placed Mammogram is due next month Patient says that she had colonoscopy at [facility] and she has not due for 10 years She will return in 3 weeks for blood pressure monitoring and to go over labs and if needed I will start her on statin 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[employer] [employer] Medical History Dizziness Shoulder pain, right Hypothyroidism Hypertension, essential Vitamin D deficiency Chronic GERD Migraine aura without headache Surgical History S/P laparoscopic cholecystectomy (02/06/21) History of hysterectomy History of tubal ligation Family History Father Heart attack HTN (hypertension) CVD (cardiovascular disease) Mother Cervical cancer Maternal Grandmother Diabetes mellitus Maternal Grandfather Throat cancer Paternal Grandfather Cancer Paternal Grandmother Heart attack HTN (hypertension) Paternal Aunt Breast cancer Other Mental health disorder Social History Housing: Apartment Are you a primary personal care service provider to a significant other at home: No Do you presently have visiting nurse or other home services: No Alcohol intake: never Patient Tobacco Use Status: Never used Tobacco e-Cigarette/Vaping Use: Never Used Advance Directives Date on File: 05/12/20 service: No 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 How often do you have a drink containing alcohol?: Never 3. How often do you have six or more drinks on one occasion?: Never Total Score: 0 Score Reviewed/Action Taken: Yes Review of Systems Const Denies chills, Denies fever(s) and Denies headache(s) Eyes Denies blurry vision ENT Denies headache(s), Denies nasal discharge, Denies nasal obstruction, Denies odynophagia and Denies sinus pain Card Denies chest pain at rest and Denies chest pain with activity Resp Denies cough and Denies hemoptysis GI Denies diarrhea, Denies odynophagia, Denies vomiting and Denies hematemesis Reports as per HPI Musc Denies abnormal gait Skin/Breast Reports as per HPI Neuro Denies Neuro-related abnormal movements, Denies Abnormal speech present, Denies abnormal gait, Denies headache(s) and Denies Sensory deficit (Neuro) Psych Denies mood swings and Denies paranoia Endo Reports as per HPI Harvey/Lymph Reports as per HPI Aller/Immun Reports as per HPI Physical exam (Primary Care) Vital Signs: Last Vital Signs Pulse 91 10/08/23 15:28 BP 158/88 H 10/08/23 15:28 Pulse Ox 98 10/08/23 15:28 Oxygen Delivery Method Room Air 10/08/23 15:28 BMI result Body Mass Index 35.6 Tobacco/Smoking Status: Tobacco use Status Tobacco use date assessed 10/08/23 10/08/23 15:35 Patient Tobacco Use Status Never used Tobacco 10/08/23 15:35 e-Cigarette/Vaping Use Never Used 10/08/23 15:35 Thrive Assessment: Date of Thrive Assessment Date Thrive assessed 03/21/21 10/08/23 15:35 Const General: cooperative, comfortable and no acute distress Orientation/consciousness: patient oriented x3 HENMT Head: Yes normocephalic and Yes atraumatic Eyes General: appearance normal, both eyes and all related structures Pupils: Equal, round and reactive pupils present EOM: EOMs intact bilaterally Neck Neck: Yes supple and No lymphadenopathy Thyroid: Thyroid normal Lymphatic: no lymphadenopathy noted Chest Breast/axilla palpation: normal palpation of the breasts Resp Effort & Inspection: normal respiratory effort and able to speak in complete sentences Auscultation: clear to auscultation bilaterally Cardio Heart sounds: S1 normal heart sound present and S2 normal heart sound present GI Palpation (GI): Soft to palpation and nontender Auscultation: normal bowel sounds General: Yes no CVA tenderness Back/Spine/Pelvis Back: no CVA tenderness Skin General skin exam: elasticity normal and turgor normal Neuro General: patient oriented x3 and gait normal Cranial nerves: Yes Equal, round and reactive pupils present Speech: No Abnormal speech present Sensory Exam: No Sensory deficit (Neuro) Coordination: tandem gait normal and Romberg test negative Extrem Other: Limited range of motion left shoulder patient has frozen shoulder chronic General: No edema Office Procedures EKG [id number], Complete Assessment and Plan Assessment & Plan (1) Encounter for general adult medical examination with abnormal findings: Code(s): Z00.01 - Encounter for general adult medical examination with abnormal findings (2) Palpitations: Code(s): R00.2 - Palpitations (3) Shortness of breath: Code(s): R06.02 - Shortness of breath (4) Hypertension, essential: Code(s): I10 - Essential (primary) hypertension (5) Obesity due to excess calories: Code(s): E66.09 - Other obesity due to excess calories Qualifiers: Obesity classification: adult class 2 (BMI 35 - 39.9) Serious obesity comorbidity presence: with serious comorbidity Body mass index: BMI 35.0-35.9 Qualified Code(s): E66.01 - Morbid (severe) obesity due to excess calories; Z68.35 - Body mass index [BMI] 35.0-35.9, adult (6) Overactive bladder: Code(s): N32.81 - Overactive bladder (7) Major depression, recurrent: Code(s): F33.9 - Major depressive disorder, recurrent, unspecified Qualifiers: Active/Remission status: in partial remission Qualified Code(s): F33.41 - Major depressive disorder, recurrent, in partial remission (8) Anxiety, generalized: Code(s): F41.1 - Generalized anxiety disorder (9) Headache syndrome: Code(s): G44.89 - Other headache syndrome (10) Hypothyroidism: Code(s): E03.9 - Hypothyroidism, unspecified Qualifiers: Hypothyroidism type: unspecified Qualified Code(s): E03.9 - Hypothyroidism, unspecified (11) Vitamin D deficiency: Code(s): E55.9 - Vitamin D deficiency, unspecified (12) Chronic GERD: Code(s): K21.9 - Gastro-esophageal reflux disease without esophagitis (13) Snoring: Code(s): R06.83 - Snoring (14) Fatigue: Code(s): R53.83 - Other fatigue Qualifiers: Fatigue type: unspecified Qualified Code(s): R53.83 - Other fatigue (15) Daytime somnolence: Code(s): R40.0 - Somnolence (16) Unable to sleep: Code(s): G47.00 - Insomnia, unspecified Qualifiers: Insomnia type: unspecified Qualified Code(s): G47.00 - Insomnia, unspecified Plan Patient is 68-year-old female came in today for physical exam Patient says that when she goes uphill she feels short of breath She has hypertension which is not controlled as she is not taking lisinopril 10 mg, patient says that it does not agree with her she would like to change the medication Medication changed to atenolol 25 mg Patient will also have labs fasting she has history of high lipids and is taking no lipid medication We did the EKG today which showed normal sinus rhythm no acute findings She is obese as well with BMI of 35.6 need to lose weight Complaining of difficulty sleeping at night, fatigue and daytime somnolence She agreed to do a sleep study today order placed She has not seen OBGYN in years, referral placed Mammogram is due next month Patient says that she had colonoscopy at [facility] and she has not due for 10 years She will return in 3 weeks for blood pressure monitoring and to go over labs and if needed I will start her on statin 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Orders: Orders UA CC w/rflx Micro + Cult Today E03.9 - Hypothyroidism, unspecified, E66.09 - Other obesity due to excess calories, F33.9 - Major depressive disorder, recurrent, unspecified, F41.1 - Generalized anxiety disorder, I10 - Essential (primary) hypertension, N32.81 - Overactive bladder, Z00.01 - Encounter for general adult medical examination with abnormal findings Lipid Panel Today E03.9 - Hypothyroidism, unspecified, E66.09 - Other obesity due to excess calories, F33.9 - Major depressive disorder, recurrent, unspecified, F41.1 - Generalized anxiety disorder, I10 - Essential (primary) h ypertension, N32.81 - Overactive bladder, Z00.01 - Encounter for general adult medical examination with abnormal findings Vitamin D 25-OH (D2 and D3) Today E03.9 - Hypothyroidism, unspecified, E66.09 - Other obesity due to excess calories, F33.9 - Major depressive disorder, recurrent, unspecified, F41.1 - Generalized anxiety disorder, I10 - Essential (primary) hypertension, N32.81 - Overactive bladder, Z00.01 - Encounter for general adult medical examination with abnormal findings RT home sleep study Today G47.00 - Insomnia, unspecified, I10 - Essential (primary) hypertension, R06.83 - Snoring, R40.0 - Somnolence, R53.83 - Other fatigue AMB EKG-In Office Today R00.2 - Palpitations, R06.02 - Shortness of breath Complete Blood Count Auto Diff Today E03.9 - Hypothyroidism, unspecified, E66.09 - Other obesity due to excess calories, F33.9 - Major depressive disorder, recurrent, unspecified, F41.1 - Generalized anxiety disorder, I10 - Essential (primary) hypertension, N32.81 - Overactive bladder, Z00.01 - Encounter for general adult medical examination with abnormal findings Comprehensive [place]. Panel Fast Today E03.9 - Hypothyroidism, unspecified, E66.09 - Other obesity due to excess calories, F33.9 - Major depressive disorder, recurrent, unspecified, F41.1 - Generalized anxiety disorder, I10 - Essential (primary) hypertension, N32.81 - Overactive bladder, Z00.01 - Encounter for general adult medical examination with abnormal findings TSH reflex Free T4 Today E03.9 - Hypothyroidism, unspecified, E66.09 - Other obesity due to excess calories, F33.9 - Major depressive disorder, recurrent, unspecified, F41.1 - Generalized anxiety disorder, I10 - Essential (primary) hypertension, N32.81 - Overactive bladder, Z00.01 - Encounter for general adult medical examination with abnormal findings Vitamin B12 Today E03.9 - Hypothyroidism, unspecified, E66.09 - Other obesity due to excess calories, F33.9 - Major depressive disorder, recurrent, unspecified, F41.1 - Generalized anxiety disorder, I10 - Essential (primary) hypertension, N32.81 - Overactive bladder, Z00.01 - Encounter for general adult medical examination with abnormal findings Referrals [employer] Referral Z01.419 - Encounter for gynecological examination (general) (routine) without abnormal findings Medications: New atenolol 25 mg PO DAILY 30 tabs 0RF Discontinued lisinopril Discontinued Reason: Doctor's Order 10 mg PO DAILY 90 tabs 0RF Coding Level of Care Code Est Pt Prev Care >65y(14712) Diagnoses Encounter for general adult medical examination with abnormal findings Z00.01 Palpitations R00.2 Shortness of breath R06.02 Hypertension, essential I10 Class 2 severe obesity due to excess calories with serious comorbidity and body mass index (BMI) of 35.0 to 35.9 in adult E66.01; Z68.35 Obesity classification: adult class 2 (BMI 35 - 39.9) Serious obesity comorbidity presence: with serious comorbidity Body mass index: BMI 35.0-35.9 Overactive bladder N32.81 Recurrent major depressive disorder, in partial remission F33.41 Active/Remission status: in partial remission Anxiety, generalized F41.1 Headache syndrome G44.89 Hypothyroidism, unspecified type E03.9 Hypothyroidism type: unspecified Vitamin D deficiency E55.9 Chronic GERD K21.9 Snoring R06.83 Fatigue, unspecified type R53.83 Fatigue type: unspecified Daytime somnolence R40.0 Insomnia, unspecified type G47.00 Insomnia type: unspecified CPT Codes EKG - CPT: 93617-[id number], Complete ([id number])
== END 2023-10-08 16:12 | disposition home or self-care (01) ==
PROVIDERS: Visit Provider Internal Medicine
DX: Z00.01 Encounter for general adult medical examination with abnormal findings (principal); E66.01 Morbid (severe) obesity due to excess calories; F33.41 Major depressive disorder, recurrent, in partial remission; Z68.35 Body mass index [BMI] 35.0-35.9, adult; R00.2 Palpitations; R06.02 Shortness of breath; I10 Essential (primary) hypertension; N32.81 Overactive bladder; F41.1 Generalized anxiety disorder; G44.89 Other headache syndrome; E03.9 Hypothyroidism, unspecified; E55.9 Vitamin D deficiency, unspecified
CPT/HCPCS: 93000; 99213; 99397

== ENCOUNTER 2023-10-11 10:02 | Outpatient (REF) | payer OTHER, SELFPAY ==
[2023-10-11 13:12] LABS: MANUAL DIFF FLAG NO
[2023-10-11 13:21] LABS: Basophils Percent Auto 0.8 % (0-2); Eosinophils Absolute Auto 0.2 X10*3/uL (0.0-0.4); Hematocrit 39.6 % (37.0-47.0); Hemoglobin 13.3 g/dl (12.0-16.0); Imm Gran Abs Auto 0.01 X10*3/uL (0.00-0.03); Imm Gran Pct Auto 0.2 % (0.0-0.4); Lymphocytes Absolute Auto 1.5 X10*3/uL (1.2-4.9); Lymphocytes Percent Auto 28.8 % (20-40); Mean Corpuscular HGB Conc 33.6 g/dl (31.0-35.0); Mean Corpuscular Hemoglobin 29.8 pg (27.0-33.0); Mean Corpuscular Volume 88.8 fL (80.0-98.0); Mean Platelet Volume 9.5 fL (9.4-12.3); Monocytes Absolute Auto 0.4 X10*3/uL (0.1-1.2); Monocytes Percent Auto 7.5 % (2-11); Neutrophils Percent Auto 59.7 % (45-73); Platelet Count 260 X10*3/uL (160-400); Red Blood Count 4.46 X10*6/uL (4.20-5.50); White Blood Count 5.1 X10*3/uL (4.8-10.8)
[2023-10-11 13:54] LABS: Appearance Urine Clear; Color Urine Yellow; Glucose Urine UA Negative (Negative); Leukocyte Esterase Urine Trace (Negative); Nitrite Urine Negative (Negative); PH 6.5 (5.0-9.0); Specific Gravity - Urine 1.015 (1.005-1.025); UMIC TRIGGER UACC YES; Urine Blood Trace (Negative); Urine Ketones Negative (Negative); Urine Protein Negative (Neg-Trace)
[2023-10-11 14:19] LABS: Alanine Aminotransferase 17 U/L (0-31); Albumin Level 4.1 g/dL (3.5-5.0); Alkaline Phosphatase 70 U/L (39-117); Anion Gap 13 (12-20); Aspartate Amino Transferase 19 U/L (5-31); Bilirubin Total 0.8 mg/dL (0.0-1.0); Blood Urea Nitrogen 13 mg/dL (9-16); Calcium 9.3 mg/dL (8.4-10.2); Carbon Dioxide 27 mmol/L (22-29); Chloride 105 mmol/L (96-108); Cholesterol 197 mg/dL (<200); Estimated Glomerular Filt Rate > 60; Glucose Fasting 85 mg/dL (60-99); HDL Cholesterol 39 mg/dL (>40); LDL Cholesterol Calculated 134 mg/dL (<100); Potassium 4.1 mmol/L (3.3-5.1); Sodium 141 mmol/L (135-145); Total Protein 7.5 g/dL (6.5-8.0); Triglycerides 123 mg/dL (<150)
[2023-10-11 14:31] LABS: Vitamin B12 457 pg/mL (200-900)
[2023-10-11 14:40] LABS: TSH reflex Free T4 2.36 uIU/mL (0.32-4.0)
[2023-10-11 15:04] LABS: Bacteria Urine None Seen (None Seen); Hyaline Casts Urine 0-2 /LPF (0-2); WBC Urine 0-5 /HPF (0-5)
[2023-10-15 17:53] LABS: Vitamin D 25-OH, D2 <4 ng/mL; Vitamin D 25-OH, D3 24 ng/mL; Vitamin D 25-OH, Total 24 ng/mL (30-100)
== END 2023-10-11 10:03 | disposition home or self-care (01) ==
LOC: HO.HMGCLDS 10:02
PROVIDERS: PCP Internal Medicine; Visit Provider Internal Medicine
DX: Z00.01 Encounter for general adult medical examination with abnormal findings (principal); I10 Essential (primary) hypertension; E03.9 Hypothyroidism, unspecified; E66.09 Other obesity due to excess calories; N32.81 Overactive bladder; F33.9 Major depressive disorder, recurrent, unspecified; F41.1 Generalized anxiety disorder
CPT/HCPCS: 36415; 80053; 80061; 81001; 82306; 82607; 84443; 85025

== ENCOUNTER 2023-11-09 09:13 | Outpatient (AMB) | payer OTHER, SELFPAY ==
--- NOTE | 2023-11-09 09:36 | AM.OFFWIN_ITS ---
Intake Vital Signs 11/09/23 09:48 Height 5 ft 2 in BP 146/88 H Blood Pressure Location Lt brachial Position Sitting Pulse 69 Pulse Source Pulse Oximeter Temp 98.9 F Temp Source Oral Pulse Oximetry (%) 97 Oxygen Delivery Method Room Air Intake Visit Reasons: Sore throat & cough Intake Note: Pt is here for headache cough ad sore throat for the past 4 days and today she feels worse and today she says she is breathing heavy pt says she had a neg covid test 2 days ago Patient Tobacco Use Status: Never used Tobacco Allergies acetaminophen [From TYLENOL] Allergy (Unknown, Verified 11/22/23 11:14) ITCHY [employer]ICINE Allergy (Unknown, Uncoded 11/09/23 09:45) SHAKEY Environmental Allergy (Unknown, Uncoded 11/09/23 09:45) Unknown Lisinopril Adverse Reaction (Mild, Uncoded 11/09/23 09:45) Do not feel well HPI Sore throat & cough HPI Details Patient is a 68-year-old female comes to the walk-in clinic complaining of headache cough and sore throat with chills for the past 4 days. She tested negative for COVID at home. She states that today her symptoms have worsened to where she sometimes has coughing fits that burn her upper chest area, and she is worried because she feels like it is harder to get breaths in at times. She denies wheezing or chest pain, and she has no current fever, nausea vomiting or diarrhea, headache dizziness or vertigo, weakness or myalgias. She reports that she did get diagnosed with pneumonia once in the past, and she is worried that this is occurring again. [facility] Medical History Dizziness Shoulder pain, right Hypothyroidism Hypertension, essential Vitamin D deficiency Chronic GERD Migraine aura without headache Surgical History S/P laparoscopic cholecystectomy (02/06/21) History of hysterectomy History of tubal ligation Family History Father Heart attack HTN (hypertension) CVD (cardiovascular disease) Mother Cervical cancer Maternal Grandmother Diabetes mellitus Maternal Grandfather Throat cancer Paternal Grandfather Cancer Paternal Grandmother Heart attack HTN (hypertension) Paternal Aunt Breast cancer Other Mental health disorder Social History Housing: Apartment Are you a primary healthcare manager to a significant other at home: No Do you presently have visiting nurse or other home services: No Alcohol intake: never Patient Tobacco Use Status: Never used Tobacco e-Cigarette/Vaping Use: Never Used Advance Directives Date on File: 05/12/20 service: No 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 Cognitive needs: No Hearing needs: No Vision needs: Yes Review of Systems Const All systems reviewed & are unremarkable except as noted in HPI and below Physical Exam Vital Signs: Last Vital Signs Temp 98.9 F 11/09/23 09:48 Pulse 69 11/09/23 09:48 BP 146/88 H 11/09/23 09:48 Pulse Ox 97 11/09/23 09:48 Oxygen Delivery Method Room Air 11/09/23 09:48 Const General: cooperative, healthy appearing, comfortable, no acute distress, alert, awake, Physically active and well groomed; No anxious, diaphoretic, ill appearing, intoxicated appearing, poor hygiene or tired appearing Nutritional Appearance: average body habitus Orientation/consciousness: oriented to person Limitations: no limitations HEENT Head: Yes normal to inspection, Yes normocephalic and Yes atraumatic Ears: hearing grossly normal bilaterally, external ears normal, TM's normal bilaterally and EAC's normal General nose exam: Normal external nose present, Normal nares present, No nasal polyps present, Abnormal mucous membranes and turbinates present and Nasal discharge present Face and sinus: Yes normal facial exam, Yes sinuses nontender and Yes face symmetric Mouth: Normal oral and palatal mucosa present, lip normal and tongue normal Throat: Yes uvula midline, No peritonsillar mass, No postnasal drainage, No uvular edema and No cobblestoning Eyes General: appearance normal, both eyes and all related structures Neck Neck: Yes normal visual inspection, Yes full ROM, Yes no lymphadenopathy, Yes trachea midline, Yes supple and No anterior neck swelling Chest Chest palpation & inspection: normal palpation of entire chest wall Resp Effort & Inspection: normal respiratory effort, able to speak in complete sentences, no audible wheezes, no cough, no grunting, not labored, no nasal flaring, no retractions and symmetric chest movement Auscultation: clear to auscultation bilaterally, no crackles, no rales, no rhonchi, no wheezes, lung sounds not diminished and No rub present Cardio Palpation: normal PMI Rate: regular rate Rhythm: regular rhythm Heart sounds: S1 normal heart sound present and S2 normal heart sound present Skin Other: Good color, warm and dry Neuro General: oriented to person Psych Appearance: grossly normal Mental Status: mental status grossly normal Speech and movement: Normal speech and movement present Affect: normal affect Attitude: cooperative Thought process: Normal thought process present Insight: Good insight present (Psych) Judgement: Good judgement present (Psych) Results AMB Rapid Strep AMB Rapid Strep Negative Last Edit by Amaya Cheng CMA on 11/09/23 10 :04 Results Reviewed Results Reviewed: Laboratory Last Values Strep Scn Rapid Clinic Negative 11/09/23 10:04 Two-view chest x-ray today looks unremarkable for acute cardiopulmonary issues. Assessment & Plan Assessment & Plan (1) Viral syndrome: Code(s): B34.9 - Viral infection, unspecified Plan: Patient with viral symptoms, pending respiratory panel to rule out flu COVID and RSV today. However her home COVID test was negative 3 days ago. We did a chest x-ray due to her complaint of cough and trouble breathing, however she was stable on exam with adequate respirations, no cough or signs of labored breathing, and O2 sat was 97% on room air. Her two-view chest x-ray today was unremarkable for acute cardiopulmonary issues. However due to her symptoms of feeling heavy respirations and with history of pneumonia, I did write her for a course of azithromycin today as well as Carmen Figueroa for her cough. She knows to follow up if symptoms persist or worsen, or go to the emergency department with worrisome symptoms. (2) Hypertension: Code(s): I10 - Essential (primary) hypertension Qualifiers: Hypertension type: unspecified Qualified Code(s): I10 - Essential (primary) hypertension Plan: Patient reports that she has run out of her atenolol, and requests one-month refill until she can get in with her primary care. She denies any associated symptoms. Orders: Orders AMB Rapid Strep Screen 11/09/23 Z13.9 - Encounter for screening, unspecified SARS-CoV2/FLU/RSV 11/09/23 R05.9 - Cough, unspecified XR chest 2V 11/09/23 R05.9 - Cough, unspecified Medications: New benzonatate 200 mg PO BID-TID PRN 20 caps 0RF cough azithromycin take 500 mg today (day 1), then 250 mg for 4 days (days 2-5) PO 6 tabs 0RF Refilled atenolol 25 mg PO DAILY 30 tabs 0RF Coding Level of Care Code Est Pt Level 4 (18137) Diagnoses Viral syndrome B34.9 Hypertension, unspecified type I10 Hypertension type: unspecified
[2023-11-09 09:48] VITALS: BP 146/88; PULSE 69; TEMP 37.2; O2SAT 97
== END 2023-11-09 10:57 | disposition home or self-care (01) ==
PROVIDERS: PCP Internal Medicine; Visit Provider Physician Assistant Medical
DX: J02.9 Acute pharyngitis, unspecified (principal)
CPT/HCPCS: 87880; 99214

== ENCOUNTER 2023-11-09 10:12 | Outpatient (REF) | payer OTHER, SELFPAY ==
--- NOTE | ~2023-11-09 | XR_ITS ---
EXAMINATION: XR CHEST CLINICAL INFORMATION: Cough COMPARISON: Chest radiograph from 02/25/2021 TECHNIQUE: 2 views of the chest were obtained. FINDINGS: No focal consolidation. No pneumothorax. Trachea is midline. Cardiac mediastinal silhouette is not enlarged. Aorta demonstrates a sclerotic calcifications. No large pleural effusion. Osseous structures are intact. Soft tissues are unremarkable. XR/XR chest 2V IMPRESSION: No acute cardiopulmonary process.
[2023-11-09 11:56] LABS: Influenza A PCR NEGATIVE (Negative); Influenza B PCR NEGATIVE (Negative); Resp Syncy Virus RNA Qual PCR NEGATIVE (Negative); SARS COV2 PCR INHOUSE POSITIVE (Negative)
== END 2023-11-09 10:13 | disposition home or self-care (01) ==
LOC: HO.HMGCX 10:12
PROVIDERS: PCP Internal Medicine; Visit Provider Physician Assistant Medical
DX: R05.9 Cough, unspecified (principal)
CPT/HCPCS: 0241U; 71046

== ENCOUNTER 2023-11-22 11:04 | Outpatient (AMB) | payer OTHER, SELFPAY ==
--- NOTE | 2023-11-22 11:05 | MHC.OFFWIV ---
Intake Vital Signs 11/22/23 11:06 Height 5 ft 2 in Weight 192 lb BMI 35.1 BP 140/80 H Blood Pressure Location Rt brachial Position Sitting Pulse 83 Pulse Source Pulse Oximeter Temp 98.0 F Temp Source Oral Pulse Oximetry (%) 97 Intake Visit Reasons: EP congestion cough Intake Note: patient is here for c/o cough and congestion Patient Tobacco Use Status: Never used Tobacco Allergies acetaminophen [From TYLENOL] Allergy (Unknown, Verified 11/22/23 11:14) [employer] Allergy (Unknown, Uncoded 11/09/23 09:45) SHAKEY Environmental Allergy (Unknown, Uncoded 11/09/23 09:45) Unknown Lisinopril Adverse Reaction (Mild, Uncoded 11/09/23 09:45) Do not feel well Do you need a note to return to daycare/school/sports/work: No HPI HPI Comments History of Present Illness Details This is a 68-year-old female who presented to the walk-in clinic complaining of a productive cough with chest congestion x1 week following a viral URI that occurred 2-3 weeks ago. Patient denies any fevers or chills. She reports very mild shortness of breath with heavy exertion. She denies any chest pain. She denies any abdominal pain or nausea/vomiting/diarrhea. She states that her nasal congestion/rhinorrhea in her upper respiratory tract symptoms have improved. [facility] Medical History Dizziness Shoulder pain, right Hypothyroidism Hypertension, essential Vitamin D deficiency Chronic GERD Migraine aura without headache Surgical History S/P laparoscopic cholecystectomy (02/06/21) History of hysterectomy History of tubal ligation Family History Father Heart attack HTN (hypertension) CVD (cardiovascular disease) Mother Cervical cancer Maternal Grandmother Diabetes mellitus Maternal Grandfather Throat cancer Paternal Grandfather Cancer Paternal Grandmother Heart attack HTN (hypertension) Paternal Aunt Breast cancer Other Mental health disorder Social History Housing: Apartment Are you a primary home child care provider to a significant other at home: No Do you presently have visiting nurse or other home services: No Alcohol intake: never Patient Tobacco Use Status: Never used Tobacco e-Cigarette/Vaping Use: Never Used Advance Directives Date on File: 05/12/20 service: No 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 Cognitive needs: No Hearing needs: No Vision needs: Yes Review of Systems Const All systems reviewed & are unremarkable except as noted in HPI and below Reports no additional complaints Eyes Reports no additional complaints ENT Reports no additional complaints Card Reports no additional complaints Resp Reports no additional complaints GI Reports no additional complaints Reports no additional complaints Musc Reports no additional complaints Skin/Breast Reports system reviewed and no additional complaints, except as documented Neuro Reports no additional complaints Psych Reports no additional complaints Endo Reports no additional complaints Harvey/Lymph Reports no additional complaints Aller/Immun Reports no additional complaints Physical Exam Vital Signs: Last Vital Signs Temp 98.0 F 11/22/23 11:06 Pulse 83 11/22/23 11:06 BP 140/80 H 11/22/23 11:06 Pulse Ox 97 11/22/23 11:06 BMI result Body Mass Index 35.1 Const Other: Vital signs reviewed. Constitutional: Non-toxic appearing. No acute distress. Well-developed and well-nourished. HEENT: Normocephalic and atraumatic. Skin: Warm and dry. No rashes or lesions noted. Neck: Full and painless range of motion. No cervical lymphadenopathy. Cardio: Regular rate and rhythm. No murmurs, gallops, or rubs. No lower extremity edema. No JVD. Pulmonary: No respiratory distress. No accessory muscle usage. Clear to auscultation bilaterally without wheezing, crackles, or rhonchi. Gastrointestinal: Soft, nontender, and nondistended in all 4 quadrants. Musculoskeletal: Normal range of motion in joints throughout the body. No deformity or other signs of injury. Neuro: Alert and oriented x4. Cranial nerves 2-12 grossly intact. No focal deficits appreciated. Psych: Normal mood and affect. Assessment & Plan Assessment & Plan (1) Cough: Code(s): R05.9 - Cough, unspecified Qualifiers: Cough type: acute Qualified Code(s): R05.1 - Acute cough Plan: This is a 68-year-old female who presented to the walk-in clinic complaining of a cough and chest congestion x1 week in the setting of a recent viral URI that resolved approximately 2 weeks ago. On physical examination, her lungs are clear to auscultation bilaterally; however, a chest x-ray was obtained, which is negative for acute cardiopulmonary process on my read. Regardless, given her symptoms started following a viral URI, there is concern for a walking/atypical pneumonia. For this reason, I have sent p.o. azithromycin 500 mg today followed by 250 mg daily x4 days as well as p.o. benzonatate 100 mg 3 times daily as needed for cough. Patient presenting with signs and symptoms most consistent with acute respiratory tract infection. Recommended symptomatic management including rest, increased fluids, humidification, and over the counter throat mucolytics such as guaifenesin. Patient advised to follow up here or go to the emergency room for worsening/persistent symptoms. Orders: Orders XR chest 2V Today R05.9 - Cough, unspecified Medications: New benzonatate 100 mg PO TID PRN 14 caps 0RF cough azithromycin For 250 mg dose pack: take 500 mg today (day 1), then 250 mg for 4 days (days 2-5) PO 6 tabs 0RF Coding Level of Care Code Est Pt Level 3 (87073) Diagnoses Acute cough R05.1 Cough type: acute
[2023-11-22 11:06] VITALS: BP 140/80; PULSE 83; TEMP 36.7; O2SAT 97; BMI 35.1
== END 2023-11-22 16:12 | disposition home or self-care (01) ==
PROVIDERS: PCP Internal Medicine; Visit Provider Physician Assistant Medical
DX: R05.1 Acute cough (principal)
CPT/HCPCS: 99213

== ENCOUNTER 2023-11-22 11:40 | Outpatient (REF) | payer OTHER, SELFPAY ==
--- NOTE | ~2023-11-22 | XR_ITS ---
EXAMINATION: XR CHEST CLINICAL INFORMATION: Cough COMPARISON: Previous chest x-ray October 2023 TECHNIQUE: 2 views of the chest were obtained. FINDINGS: The cardiac and mediastinal contours are stable. The lungs are clear. No pleural effusion or pneumothorax. Degenerative changes of the spine. There is increased sclerosis along the left anterior sixth rib that is stable, probably representing a bone island. XR/XR chest 2V IMPRESSION: No evidence for acute disease in the chest.
== END 2023-11-22 11:41 | disposition home or self-care (01) ==
LOC: HO.HMGCX 11:40
PROVIDERS: PCP Internal Medicine; Visit Provider Physician Assistant Medical
DX: R05.9 Cough, unspecified (principal)
CPT/HCPCS: 71046

== ENCOUNTER 2023-12-20 11:47 | Outpatient (AMB) | payer OTHER, SELFPAY ==
--- NOTE | 2023-12-20 11:59 | MHC.PC.OV ---
Vital Signs 12/20/23 12:00 Height 5 ft 2 in Weight 196 lb BMI 35.8 BP 132/84 Blood Pressure Location Rt brachial Position Sitting Pulse 96 Pulse Source Pulse Oximeter Pulse Oximetry (%) 96 Oxygen Delivery Method Room Air Intake Visit Reasons: high blood pressure Allergies acetaminophen [From TYLENOL] Allergy (Unknown, Verified 12/20/23 12:02) [employer]CH[employer]ICINE Allergy (Unknown, Uncoded 11/09/23 09:45) SHAKEY Environmental Allergy (Unknown, Uncoded 11/09/23 09:45) Unknown Lisinopril Adverse Reaction (Mild, Uncoded 11/09/23 09:45) Do not feel well Tobacco use date assessed: 12/20/23 Fall risk assessment: No Falls in past year Last assessed Fall Risk: 12/20/23 Dental Screening Dental Screen Date: 12/20/23 Did you have a dental visit in the last 12 months?: Yes Did you have a dental problem in the last 6 months where you did not have access to dental care?: No Was dental information given to patient?: Patient has dentist HPI high blood pressure HPI Details Patient is 68-year-old female came in today for her regular follow-up appointment Patient had COVID infection mid of November, she has recovered completely She no longer have shortness breath either Patient is supposed to be on duloxetine b.i.d. but she is not sure if she is taking that Explained to patient that it will help stabilize her mood as well as the aches and pains she continued to experience Blood pressure is stable patient is on atenolol 25 mg and hydrochlorothiazide 25 mg She is also on levothyroxine 75 mcg for hypothyroidism Vitamin D and B12 to be continued GERD is stable with 40 mg of omeprazole Urge incontinence: Continue oxybutynin 5 mg at bedtime She had labs done last month, all her labs are within normal limit except vitamin-D for that she is taking supplement She works as [employer] Medication refills sent Patient is to return in 4 months for follow-up appointment [facility] Medical History Dizziness Shoulder pain, right Hypothyroidism Hypertension, essential Vitamin D deficiency Chronic GERD Migraine aura without headache Surgical History S/P laparoscopic cholecystectomy (02/06/21) History of hysterectomy History of tubal ligation Family History Father Heart attack HTN (hypertension) CVD (cardiovascular disease) Mother Cervical cancer Maternal Grandmother Diabetes mellitus Maternal Grandfather Throat cancer Paternal Grandfather Cancer Paternal Grandmother Heart attack HTN (hypertension) Paternal Aunt Breast cancer Other Mental health disorder Social History Housing: Apartment Are you a primary director of patient care to a significant other at home: No Do you presently have visiting nurse or other home services: No Alcohol intake: never Patient Tobacco Use Status: Never used Tobacco e-Cigarette/Vaping Use: Never Used Advance Directives Date on File: 05/12/20 service: No 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 Cognitive needs: No Hearing needs: No Vision needs: Yes Questionnaire Thrive Questionnaire Date Thrive assessed: 03/21/21 Review of Systems Const Denies chills and Denies fever(s) ENT Denies epistaxis and Denies nasal discharge Card Denies chest pain Resp Denies chest congestion, Denies cough and Denies hemoptysis GI Denies diarrhea and Denies nausea Skin/Breast Denies rash Neuro Reports no additional complaints Psych Reports no additional complaints Endo Reports no additional complaints Physical exam (Primary Care) Vital Signs: Last Vital Signs Pulse 96 12/20/23 12:00 BP 132/84 12/20/23 12:00 Pulse Ox 96 12/20/23 12:00 Oxygen Delivery Method Room Air 12/20/23 12:00 BMI result Body Mass Index 35.8 Tobacco/Smoking Status: Tobacco use Status Tobacco use date assessed 12/20/23 12/20/23 12:02 Patient Tobacco Use Status Never used Tobacco 12/20/23 12:02 e-Cigarette/Vaping Use Never Used 12/20/23 12:02 Thrive Assessment: Date of Thrive Assessment Date Thrive assessed 03/21/21 12/20/23 12:02 Const General: cooperative, comfortable and no acute distress Orientation/consciousness: patient oriented x3 HENMT Head: Yes normocephalic Eyes General: appearance normal, both eyes and all related structures Neck Neck: Yes supple Resp Effort & Inspection: normal respiratory effort, no cough and no stridor Cardio Rhythm: regular rhythm Heart sounds: S1 normal heart sound present and S2 normal heart sound present Skin General skin exam: turgor normal Neuro General: patient oriented x3, tone normal and moves all extremities Extrem Right lower extremity: no edema Left lower extremity: no edema Assessment and Plan Assessment & Plan (1) Overactive bladder: Code(s): N32.81 - Overactive bladder (2) Major depression, recurrent: Code(s): F33.9 - Major depressive disorder, recurrent, unspecified Qualifiers: Active/Remission status: in partial remission Qualified Code(s): F33.41 - Major depressive disorder, recurrent, in partial remission (3) Anxiety, generalized: Code(s): F41.1 - Generalized anxiety disorder (4) Headache syndrome: Code(s): G44.89 - Other headache syndrome (5) Hypothyroidism: Code(s): E03.9 - Hypothyroidism, unspecified Qualifiers: Hypothyroidism type: unspecified Qualified Code(s): E03.9 - Hypothyroidism, unspecified (6) Vitamin D deficiency: Code(s): E55.9 - Vitamin D deficiency, unspecified (7) Chronic GERD: Code(s): K21.9 - Gastro-esophageal reflux disease without esophagitis (8) Unable to sleep: Code(s): G47.00 - Insomnia, unspecified Qualifiers: Insomnia type: unspecified Qualified Code(s): G47.00 - Insomnia, unspecified Plan Patient is 68-year-old female came in today for physical exam Patient says that when she goes uphill she feels short of breath She has hypertension which is not controlled as she is not taking lisinopril 10 mg, patient says that it does not agree with her she would like to change the medication Medication changed to atenolol 25 mg Patient will also have labs fasting she has history of high lipids and is taking no lipid medication We did the EKG today which showed normal sinus rhythm no acute findings She is obese as well with BMI of 35.6 need to lose weight Complaining of difficulty sleeping at night, fatigue and daytime somnolence She agreed to do a sleep study today order placed She has not seen OBGYN in years, referral placed Mammogram is due next month Patient says that she had colonoscopy at [facility] and she has not due for 10 years She will return in 3 weeks for blood pressure monitoring and to go over labs and if needed I will start her on statin She works as [employer] Medications: Changed From duloxetine 20 mg PO BID 90 days 180 caps 0RF To duloxetine 40 mg PO ONCE 90 days 90 caps 3RF Refilled hydrochlorothiazide 25 mg PO DAILY 90 days 90 tabs 3RF levothyroxine 75 mcg PO QAM 90 tabs 1RF oxybutynin chloride 5 mg PO BEDTIME 30 days 90 tabs 3RF atenolol 25 mg PO DAILY 90 tabs 1RF cyanocobalamin (vitamin B-12) 1,000 mcg PO DAILY 90 tabs 1RF omeprazole 40 mg PO DAILY 90 days 90 caps 3RF K21.9 - Gastro-esophageal reflux disease without esophagitis Coding Level of Care Code Est Pt Level 4 (72314) Complex EM visit Add On G2211 Diagnoses Overactive bladder N32.81 Recurrent major depressive disorder, in partial remission F33.41 Active/Remission status: in partial remission Anxiety, generalized F41.1 Headache syndrome G44.89 Hypothyroidism, unspecified type E03.9 Hypothyroidism type: unspecified Vitamin D deficiency E55.9 Chronic GERD K21.9 Insomnia, unspecified type G47.00 Insomnia type: unspecified
[2023-12-20 12:00] VITALS: BP 132/84; PULSE 96; O2SAT 96; BMI 35.8
== END 2023-12-20 13:03 | disposition home or self-care (01) ==
PROVIDERS: PCP Internal Medicine; Visit Provider Internal Medicine
DX: N32.81 Overactive bladder (principal); F33.41 Major depressive disorder, recurrent, in partial remission; F41.1 Generalized anxiety disorder; G44.89 Other headache syndrome; E03.9 Hypothyroidism, unspecified; E55.9 Vitamin D deficiency, unspecified; K21.9 Gastro-esophageal reflux disease without esophagitis; G47.00 Insomnia, unspecified
CPT/HCPCS: 99214; G2211

== ENCOUNTER 2024-01-17 11:55 | Outpatient (REF) | payer OTHER, SELFPAY | END 2024-01-17 11:56 | disposition home or self-care (01) | LOC: HO.MAMMO 11:55 | PROVIDERS: PCP Internal Medicine; Visit Provider Internal Medicine | DX: Z12.31 Encounter for screening mammogram for malignant neoplasm of breast (principal) | CPT/HCPCS: 77063; 77067 ==

== ENCOUNTER → 2024-01-17 12:00 | Outpatient (BNV) | payer OTHER, SELFPAY | PROVIDERS: PCP Internal Medicine; Visit Provider Radiology Diagnostic Radiology | DX: Z12.31 Encounter for screening mammogram for malignant neoplasm of breast (principal) | CPT/HCPCS: 77063; 77067 ==

== ENCOUNTER 2024-04-03 09:58 | Outpatient (AMB) | payer OTHER, SELFPAY ==
--- NOTE | 2024-04-03 10:04 | MHC.OFFVIS ---
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 Environmental Remediation Engineer Required: Yes Environmental Remediation Engineer Language: Equity Manager Services: Environmental Remediation Engineer Present (in person) Environmental Remediation Engineer Name: Dora CRANE Information Interpreted: non-clinical & clinical Outdoor Advertising Leasing Agent: Outdoor Advertising Leasing Agent Present (Dora CRANE) Accompanied by: Self / Same As Patient Allergies acetaminophen [From TYLENOL] Allergy (Unknown, Verified 04/03/24 10:13) ITCHY MIGRAINE MEDICINE Allergy (Unknown, Uncoded 04/03/24 10:13) SHAKEY Environmental Allergy (Unknown, Uncoded 04/03/24 10:13) Unknown Lisinopril Adverse Reaction (Mild, Uncoded 04/03/24 10:13) Do not feel well Post menopausal: Yes HPI Comments Details: She is a postmenopausal woman 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 She is doing well with no concerns. Occasional breast pain on the left side she feels is related to stretching and arm movements. Attempting to eat a healthy diet with calcium and vitamin D and stays active with exercise. Currently not sexually active. Denies any vaginal dryness or irritation. STI testing offered; she accepts. Historical hysterectomy due to fibroids and bleeding Last mammogram; 01/30/2024. Colonoscopy is UTD. Denies any family history ovarian or colon cancer. Family history of breast cancer. [facility] Medical History (Updated 04/03/24 @ 10:37 by Amarilis Aguirre CNM) Menopausal state Dizziness Shoulder pain, right Hypothyroidism Hypertension, essential Vitamin D deficiency Chronic GERD Migraine aura without headache Surgical History (Updated 04/03/24 @ 10:30 by Amarilis Aguirre CNM) Hx of hemorrhoidectomy S/P laparoscopic cholecystectomy (02/06/21) History of hysterectomy History of tubal ligation Family History Father Heart attack HTN (hypertension) CVD (cardiovascular disease) Mother Cervical cancer Maternal Grandmother Diabetes mellitus Maternal Grandfather Throat cancer Paternal Grandfather Cancer Paternal Grandmother Heart attack HTN (hypertension) Paternal Aunt Breast cancer Paternal Uncle Lung cancer Other Mental health disorder Social History Household Members: None Housing: Apartment Are you a primary healthcare corporate account director to a significant other at home: No Do you presently have visiting nurse or other home services: No Alcohol intake: never Patient Tobacco Use Status: Never used Tobacco e-Cigarette/Vaping Use: Never Used Advance Directives Date on File: 05/12/20 service: No 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 Sexual orientation: Straight/Heterosexual Gender identity: Female Cognitive needs: No Hearing needs: No Vision needs: Yes Female Reproductive History Menstrual control method: permanent sterilization Menopause type: surgical Total pregnancies: 3 Full term: 3 Number of Living Children: 3 History of abnormal pap smear: Yes (11/23 VAIN 1 hgsil 02/22 vag bx 08/26 vain 1-2 +hpv 09/26 vag bx vain 2 hsil) Date of Mammogram: 01/17/24 (Birad 1) Review of Systems Const All systems reviewed & are unremarkable except as noted in HPI and below Reports as per HPI Eyes Reports no additional complaints ENT Reports no additional complaints Card Reports no additional complaints Resp Reports no additional complaints GI Reports as per HPI and Reports no additional complaints Reports as per HPI Musc Reports no additional complaints Skin/Breast Reports as per HPI Neuro Reports no additional complaints Psych Reports no additional complaints Endo Reports no additional complaints Harvey/Lymph Reports no additional complaints Aller/Immun Reports no additional complaints Physical Exam Vital Signs: Last Vital Signs BP 122/78 04/03/24 10:12 BMI result Body Mass Index 34.0 Const General: cooperative, healthy appearing, no acute distress, well developed and alert Orientation/consciousness: patient oriented x3 HEENT Head: Yes normal to inspection Eyes General: appearance normal, both eyes and all related structures Neck Neck: Yes normal visual inspection Thyroid: Thyroid normal Chest Chest palpation & inspection: normal inspection of the chest and other (no puckering, dimpling, peau de orange, retraction, discharge, masses) Breast/axilla inspection: normal inspection of the breasts Breast/axilla palpation: normal palpation of the breasts Resp Effort & Inspection: normal respiratory effort GI Inspection: Yes normal to inspection Palpation (GI): Soft to palpation Rectal Exam - Female: deferred General: Yes bladder normal to palpation External Female Exam: normal external appearance and normal appearance of the urethra Speculum Exam - Vagina: normal appearance of the vagina, normal palpation, normal vaginal discharge and vagina atrophic Speculum Exam - Cervix: Cervix absent (Vaginal cuff no lesions or nodules) Bimanual exam- vagina & uterus: normal bimanual exam, normal palpation, bladder normal to palpation and uterus absent Bimanual Exam- Adnexa, other: no masses Skin General skin exam: no rashes or lesions noted Rashes: no rashes Neuro General: patient oriented x3 Cognition (Neuro): normal cognition Extrem General: Yes normal to inspection Psych Attitude: cooperative Thought process: Normal thought process present Assessment & Plan Assessment & Plan (1) Encounter for well woman exam with routine gynecological exam: Code(s): Z01.419 - Encounter for gynecological examination (general) (routine) without abnormal findings Category: Medical (2) Menopausal state: Code(s): N95.1 - Menopausal and female climacteric states Category: Medical Plan Discussed: Current recommendations for pap smears per ASCCP guidelines. Breast awareness, periodic self breast exams and yearly mammogram. Maintain a healthy lifestyle, well balanced diet including Calcium 1,200 mg and Vitamin D 600 IU daily, and routine exercise. Bone density screening ordered follow up for results. Breast pain-if returns or persist to report to primary care here for further evaluation. Patient verbalizes understanding and agrees to the plan of care. She was given opportunity to ask questions and all questions were answered to the best of my ability. 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 This note is constructed using voice recognition software. While every effort has been made to ensure accuracy, body maker errors may have been included. Orders: Orders XR DEXA axial skeleton Today N95.1 - Menopausal and female climacteric states Coding Level of Care Code New Pt Prev Care >65yr (70506) Diagnoses Encounter for well woman exam with routine gynecological exam Z01.419 Menopausal state N95.1
[2024-04-03 10:12] VITALS: BP 122/78; BMI 34.0
== END 2024-04-03 10:44 | disposition home or self-care (01) ==
PROVIDERS: PCP Internal Medicine; Visit Provider Advanced Practice Midwife
DX: Z01.419 Encounter for gynecological examination (general) (routine) without abnormal findings (principal); N95.1 Menopausal and female climacteric states
CPT/HCPCS: 99387

== ENCOUNTER → 2024-04-03 09:58 | Outpatient (BNVA) | payer OTHER, SELFPAY | PROVIDERS: PCP Internal Medicine; Visit Provider Advanced Practice Midwife ==

== ENCOUNTER 2024-04-28 12:01 | Outpatient (AMB) | payer OTHER, SELFPAY ==
[2024-04-28 12:15] VITALS: BP 132/78; PULSE 50; O2SAT 95; BMI 34.8
--- NOTE | 2024-04-28 12:15 | A.OFFPC_ITS ---
Vital Signs 04/28/24 12:15 Height 5 ft 2 in Weight 190 lb 2 oz BMI 34.8 BP 132/78 Blood Pressure Location Rt brachial Position Sitting Pulse 50 Pulse Source Pulse Oximeter Pulse Oximetry (%) 95 Oxygen Delivery Method Room Air Intake Visit Reasons: Reg F/U~ Allergies acetaminophen [From TYLENOL] Allergy (Unknown, Verified 04/28/24 12:15) ITCHY MIGRAINE MEDICINE Allergy (Unknown, Uncoded 04/03/24 10:13) SHAKEY Environmental Allergy (Unknown, Uncoded 04/03/24 10:13) Unknown Lisinopril Adverse Reaction (Mild, Uncoded 04/03/24 10:13) Do not feel well Medication List - Last Reconciled 04/28/24 by Lolis Josue MD atenolol 25 mg PO DAILY betamethasone dipropionate 0.05% 1 appl topical BID PRN cholecalciferol (vitamin D3) 25 mcg PO DAILY 90 days cyanocobalamin (vitamin B-12) 1,000 mcg PO DAILY duloxetine 40 mg PO ONCE 90 days hydrochlorothiazide 25 mg PO DAILY 90 days levothyroxine 75 mcg PO QAM omeprazole 40 mg PO DAILY 90 days oxybutynin chloride 5 mg PO BEDTIME 30 days Tobacco use date assessed: 04/28/24 Fall risk assessment: No Falls in past year Last assessed Fall Risk: 04/28/24 Dental Screening Dental Screen Date: 04/28/24 Did you have a dental visit in the last 12 months?: Yes Did you have a dental problem in the last 6 months where you did not have access to dental care?: No Was dental information given to patient?: Patient has dentist HPI Reg F/U~ HPI Details Patient is 68-year-old female came in today for her regular follow-up appointment Patient is due for labs, order placed She continued to complain of shortness a breath, requesting a handicap placard which I have filled for six-month I have placed referral to see crm specialist, symptoms started after COVID infection She has multiple joint osteoarthritis, and can not take Tylenol because of allergies She is taking Advil but that is not helping her, she is requesting help I have sent tramadol 50 mg tablet patient was notified to take it only at night if needed Try not to take it every night, 30 tablets sent We will provide refill in 3 months if needed Blood pressure is stable patient is on atenolol 25 mg and hydrochlorothiazide 25 mg Continue levothyroxine 75 mcg for hypothyroidism GERD is stable with omeprazole 40 mg Stress incontinence, oxybutynin is helping Vitamin-D supplement daily for low vitamin-D B12 for low B12 level Depression anxiety stable with the duloxetine 40 mg daily BMI is elevated patient is having difficulty losing weight Follow-up 3 months [facility] Medical History Menopausal state Dizziness Shoulder pain, right Hypothyroidism Hypertension, essential Vitamin D deficiency Chronic GERD Migraine aura without headache Surgical History Hx of hemorrhoidectomy S/P laparoscopic cholecystectomy (02/06/21) History of hysterectomy History of tubal ligation Family History Father Heart attack HTN (hypertension) CVD (cardiovascular disease) Mother Cervical cancer Maternal Grandmother Diabetes mellitus Maternal Grandfather Throat cancer Paternal Grandfather Cancer Paternal Grandmother Heart attack HTN (hypertension) Paternal Aunt Breast cancer Paternal Uncle Lung cancer Other Mental health disorder Social History Household Members: None Housing: Apartment Are you a primary director of health care marketing to a significant other at home: No Do you presently have visiting nurse or other home services: No Alcohol intake: never Patient Tobacco Use Status: Never used Tobacco e-Cigarette/Vaping Use: Never Used Advance Directives Date on File: 05/12/20 service: No 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 1. Little interest or pleasure in doing things: several days 2. Feeling down, depressed, or hopeless: several days 3. Trouble falling or staying asleep, or sleeping too much: several days 4. Feeling tired or having little energy: several days 5. Poor appetite or overeating: several days 6. Feeling bad about yourself - or that you are a failure or have let yourself or your family down: not at all 7. Trouble concentrating on things, such as reading the newspaper or watching television: several days 8. Moving or speaking so slowly that other people could have noticed. Or the opposite - being so fidgety or restless that you have been moving around a lot more than usual: not at all 9. Thoughts that you would be better off or of hurting yourself in some way: not at all Total score: 6 Depression Screening Interpretation: Negative Depression Screening Done: Yes 98401 - PHQ-9 Billing: Yes Source: Developed by Drs. Darryl Ramírez, Anay Mejia, Matt Gifford and colleagues, with an educational tatyana from [employer]. Thrive Questionnaire Date Thrive assessed: 03/21/21 I am a: Patient What is your living situation today?: I have a steady place to live Within the past 12 months, did the food you bought not last and you didn't have the money to get more?: Never true Within the past 12 months, did you worry whether your food would run out before you got money to buy more?: Sometimes True Do you have trouble paying for medicines?: No Do you have trouble getting transportation to medical appointments?: No Do you have trouble paying your heating and electricity bill?: No Do you have trouble taking care of your child, family member or friend?: No Do you have trouble with day-to-day activities such as bathing, preparing meals, shopping, managing finances, etc.?: No Are you interested in more education?: No Please select the resources that you would like help with: None Currently or been in a relationship where the following occur: I choose not to answer THRIVE Score: 1 AUDIT C Alcohol Use Questionnaire (AUDIT-C) 1. How often do you have a drink containing alcohol?: Never Total Score: 0 RENETTA-7 AMB Questionnaire RENETTA-7 Feeling nervous, anxious, or on edge: 1 = Several days Not being able to stop or control worryin = Several days Worrying too much about different things: 1 = Several days Trouble relaxin = Several days Being so restless that it is hard to sit still: 1 = Several days Becoming easily annoyed or irritable: 1 = Several days Feeling afraid as if something awful might happen: 1 = Several days Total RENETTA-7 score (0-4 normal; 5-9 mild; 10-14 moderate; 15-21 severe): 7 Source: Developed by Drs. Darryl Ramírez, Anay Mejia, Matt Gifford and colleagues, with an educational tatyana from [employer]. Review of Systems Const Denies chills and Denies fever(s) ENT Denies epistaxis and Denies nasal discharge Card Denies chest pain Resp Denies chest congestion, Denies cough and Denies hemoptysis GI Denies diarrhea and Denies nausea Skin/Breast Denies rash Neuro Reports no additional complaints Psych Reports no additional complaints Endo Reports no additional complaints Physical exam (Primary Care) Vital Signs: Last Vital Signs Pulse 50 04/28/24 12:15 BP 132/78 04/28/24 12:15 Pulse Ox 95 04/28/24 12:15 Oxygen Delivery Method Room Air 04/28/24 12:15 BMI result Body Mass Index 34.8 Tobacco/Smoking Status: Tobacco use Status Tobacco use date assessed 04/28/24 04/28/24 12:22 Patient Tobacco Use Status Never used Tobacco 04/28/24 12:22 e-Cigarette/Vaping Use Never Used 04/28/24 12:22 Depression Screening Interpretation: Negative Thrive Assessment: Date of Thrive Assessment Date Thrive assessed 03/21/21 04/28/24 12:22 Currently or been in a relationship where the following occur: I choose not to answer Const General: cooperative, comfortable and no acute distress Orientation/consciousness: patient oriented x3 HENMT Head: Yes normocephalic Eyes General: appearance normal, both eyes and all related structures Neck Neck: Yes supple Resp Effort & Inspection: normal respiratory effort, no cough and no stridor Cardio Rhythm: regular rhythm Heart sounds: S1 normal heart sound present and S2 normal heart sound present Skin General skin exam: turgor normal Neuro General: patient oriented x3, tone normal and moves all extremities Extrem Right lower extremity: no edema Left lower extremity: no edema Assessment and Plan Assessment & Plan (1) Hypertension, essential: Code(s): I10 - Essential (primary) hypertension (2) Osteoarthritis involving multiple joints on both sides of body: Code(s): M15.9 - Polyosteoarthritis, unspecified (3) Hypothyroidism: Code(s): E03.9 - Hypothyroidism, unspecified Qualifiers: Hypothyroidism type: unspecified Qualified Code(s): E03.9 - Hypothyroidism, unspecified (4) Chronic GERD: Code(s): K21.9 - Gastro-esophageal reflux disease without esophagitis (5) Vitamin D deficiency: Code(s): E55.9 - Vitamin D deficiency, unspecified (6) Migraine aura without headache: Code(s): G43.109 - Migraine with aura, not intractable, without status migrainosus (7) Obesity due to excess calories: Code(s): E66.09 - Other obesity due to excess calories Qualifiers: Body mass index: BMI 35.0-35.9 Obesity classification: adult class 2 (BMI 35 - 39.9) Serious obesity comorbidity presence: with serious comorbidity Qualified Code(s): E66.01 - Morbid (severe) obesity due to excess calories; Z68.35 - Body mass index [BMI] 35.0-35.9, adult (8) Major depression, recurrent: Code(s): F33.9 - Major depressive disorder, recurrent, unspecified Qualifiers: Active/Remission status: in partial remission Qualified Code(s): F33.41 - Major depressive disorder, recurrent, in partial remission (9) Overactive bladder: Code(s): N32.81 - Overactive bladder (10) Anxiety, generalized: Code(s): F41.1 - Generalized anxiety disorder (11) Shortness of breath: Code(s): R06.02 - Shortness of breath Plan Patient is 68-year-old female came in today for her regular follow-up appointment Patient is due for labs, order placed She continued to complain of shortness a breath, requesting a handicap placard which I have filled for six-month I have placed referral to see crm specialist, symptoms started after COVID infection She has multiple joint osteoarthritis, and can not take Tylenol because of allergies She is taking Advil but that is not helping her, she is requesting help I have sent tramadol 50 mg tablet patient was notified to take it only at night if needed Try not to take it every night, 30 tablets sent We will provide refill in 3 months if needed Blood pressure is stable patient is on atenolol 25 mg and hydrochlorothiazide 25 mg Continue levothyroxine 75 mcg for hypothyroidism GERD is stable with omeprazole 40 mg Stress incontinence, oxybutynin is helping Vitamin-D supplement daily for low vitamin-D B12 for low B12 level Depression anxiety stable with the duloxetine 40 mg daily BMI is elevated patient is having difficulty losing weight Follow-up 3 month Orders: Orders Comprehensive Met. Panel Today E03.9 - Hypothyroidism, unspecified, E55.9 - Vitamin D deficiency, unspecified, E66.01 - Morbid (severe) obesity due to excess calories, F33.41 - Major depressive disorder, recurrent, in partial r emission, G43.109 - Migraine with aura, not intractable, without status migrainosus, I10 - Essential (primary) hypertension, K21.9 - Gastro-esophageal reflux disease without esophagitis, M15.9 - Polyosteoarthritis, unspecified, Z68.35 - Body mass index [BMI] 35.0-35.9, adult Complete Blood Count Auto Diff Today E03.9 - Hypothyroidism, unspecified, E55.9 - Vitamin D deficiency, unspecified, E66.01 - Morbid (severe) obesity due to excess calories, F33.41 - Major depressive disorder, recurrent, in partial remission, G43.109 - Migraine with aura, not intractable, without status migrainosus, I10 - Essential (primary) hypertension, K21.9 - Gastro-esophageal reflux disease without esophagitis, M15.9 - Polyosteoarthritis, unspecified, Z68.35 - Body mass index [BMI] 35.0-35.9, adult TSH reflex Free T4 Today E03.9 - Hypothyroidism, unspecified, E55.9 - Vitamin D deficiency, unspecified, E66.01 - Morbid (severe) obesity due to excess calories, F33.41 - Major depressive disorder, recurrent, in partial remission, G43.109 - Migraine with aura, not intractable, without status migrainosus, I10 - Essential (primary) hypertension, K21.9 - Gastro-esophageal reflux disease without esophagitis, M15.9 - Polyosteoarthritis, unspecified, Z68.35 - Body mass index [BMI] 35.0-35.9, adult Referrals Pulmonology Referral R06.02 - Shortness of breath Medications: New tramadol 50 mg PO BEDTIME 30 tabs 0RF Joint pains Coding Level of Care Code Est Pt Level 4 (69765) Complex EM visit Add On G2211 Diagnoses Hypertension, essential I10 Osteoarthritis involving multiple joints on both sides of body M15.9 Hypothyroidism, unspecified type E03.9 Hypothyroidism type: unspecified Chronic GERD K21.9 Vitamin D deficiency E55.9 Migraine aura without headache G43.109 Class 2 severe obesity due to excess calories with serious comorbidity and body mass index (BMI) of 35.0 to 35.9 in adult E66.01; Z68.35 Body mass index: BMI 35.0-35.9 Obesity classification: adult class 2 (BMI 35 - 39.9) Serious obesity comorbidity presence: with serious comorbidity Recurrent major depressive disorder, in partial remission F33.41 Active/Remission status: in partial remission Overactive bladder N32.81 Anxiety, generalized F41.1 Shortness of breath R06.02
== END 2024-04-28 12:39 | disposition home or self-care (01) ==
PROVIDERS: PCP Internal Medicine; Visit Provider Internal Medicine
DX: I10 Essential (primary) hypertension (principal); M15.9 Polyosteoarthritis, unspecified; E03.9 Hypothyroidism, unspecified; K21.9 Gastro-esophageal reflux disease without esophagitis; E55.9 Vitamin D deficiency, unspecified; G43.109 Migraine with aura, not intractable, without status migrainosus; E66.01 Morbid (severe) obesity due to excess calories; Z68.35 Body mass index [BMI] 35.0-35.9, adult; F33.41 Major depressive disorder, recurrent, in partial remission; N32.81 Overactive bladder; F41.1 Generalized anxiety disorder; R06.02 Shortness of breath

== ENCOUNTER → 2024-04-28 12:01 | Outpatient (BNVA) | payer OTHER, SELFPAY | PROVIDERS: PCP Internal Medicine; Visit Provider Internal Medicine | DX: I10 Essential (primary) hypertension (principal); M15.9 Polyosteoarthritis, unspecified; E03.9 Hypothyroidism, unspecified; K21.9 Gastro-esophageal reflux disease without esophagitis; E55.9 Vitamin D deficiency, unspecified; E66.01 Morbid (severe) obesity due to excess calories; Z68.35 Body mass index [BMI] 35.0-35.9, adult | CPT/HCPCS: 99212 ==

== ENCOUNTER 2024-04-28 12:42 | Outpatient (REF) | payer OTHER, SELFPAY ==
[2024-04-28 16:27] LABS: MANUAL DIFF FLAG NO
[2024-04-28 16:38] LABS: Basophils Absolute Auto 0.1 X10*3/uL (0.0-0.2); Basophils Percent Auto 0.9 % (0-2); Eosinophils Absolute Auto 0.2 X10*3/uL (0.0-0.4); Eosinophils Percent Auto 2.6 % (0-4); Hemoglobin 13.1 g/dl (12.0-16.0); Imm Gran Abs Auto 0.01 X10*3/uL (0.00-0.03); Imm Gran Pct Auto 0.2 % (0.0-0.4); Lymphocytes Absolute Auto 1.6 X10*3/uL (1.2-4.9); Lymphocytes Percent Auto 27.1 % (20-40); Mean Corpuscular HGB Conc 33.6 g/dl (31.0-35.0); Mean Corpuscular Hemoglobin 30.3 pg (27.0-33.0); Mean Corpuscular Volume 90.3 fL (80.0-98.0); Mean Platelet Volume 9.4 fL (9.4-12.3); Monocytes Absolute Auto 0.4 X10*3/uL (0.1-1.2); Monocytes Percent Auto 7.4 % (2-11); Neutrophils Absolute Auto 3.5 x10*3/uL (2.0-8.3); Neutrophils Percent Auto 61.8 % (45-73); Platelet Count 262 X10*3/uL (160-400); Red Blood Count 4.32 X10*6/uL (4.20-5.50); Red Cell Distribution Width 12.2 % (11.0-16.0); White Blood Count 5.7 X10*3/uL (4.8-10.8)
[2024-04-28 16:50] LABS: Alanine Aminotransferase 15 U/L (0-31); Alkaline Phosphatase 62 U/L (39-117); Aspartate Amino Transferase 17 U/L (5-31); Bilirubin Total 0.5 mg/dL (0.0-1.0); Blood Urea Nitrogen 15 mg/dL (9-16); Calcium 9.9 mg/dL (8.4-10.2); Carbon Dioxide 27 mmol/L (22-29); Chloride 105 mmol/L (96-108); Estimated Glomerular Filt Rate > 60; Glucose Random 105 mg/dL (60-115); Potassium 4.2 mmol/L (3.3-5.1); Sodium 140 mmol/L (135-145); Total Protein 7.1 g/dL (6.5-8.0)
[2024-04-28 16:51] LABS: Anion Gap 12 (12-20)
[2024-04-28 17:12] LABS: TSH reflex Free T4 3.39 uIU/mL (0.32-4.0)
== END 2024-04-28 12:43 | disposition home or self-care (01) ==
LOC: HO.HMGCLDS 12:42
PROVIDERS: PCP Internal Medicine; Visit Provider Internal Medicine
DX: I10 Essential (primary) hypertension (principal); E03.9 Hypothyroidism, unspecified; K21.9 Gastro-esophageal reflux disease without esophagitis; E55.9 Vitamin D deficiency, unspecified; G43.109 Migraine with aura, not intractable, without status migrainosus; E66.01 Morbid (severe) obesity due to excess calories; F33.41 Major depressive disorder, recurrent, in partial remission; M15.9 Polyosteoarthritis, unspecified; R06.02 Shortness of breath; E66.09 Other obesity due to excess calories; N32.81 Overactive bladder; F41.1 Generalized anxiety disorder; Z68.35 Body mass index [BMI] 35.0-35.9, adult; Z79.899 Other long term (current) drug therapy
CPT/HCPCS: 36415; 80053; 84443; 85025; 99212

== ENCOUNTER 2024-05-22 | Outpatient (REF) | payer OTHER, SELFPAY | END 2024-05-22 00:01 | disposition home or self-care (01) | LOC: CF | PROVIDERS: PCP Internal Medicine; Visit Provider Internal Medicine Pulmonary Disease | DX: Z23 Encounter for immunization (principal); J06.9 Acute upper respiratory infection, unspecified; R06.09 Other forms of dyspnea | CPT/HCPCS: 90471; 90472; 90656; 90677; 99202 ==

== ENCOUNTER 2024-05-22 13:42 | Outpatient (AMB) | payer MEDICARE, SELFPAY ==
[2024-05-22 13:51] VITALS: BP 122/82; PULSE 62; O2SAT 98; BMI 35.5
--- NOTE | 2024-05-22 13:51 | A.OFFVIS_ITS ---
Vital Signs 05/22/24 13:51 Height 5 ft 2 in Weight 194 lb BMI 35.5 BP 122/82 Blood Pressure Location Rt brachial Position Sitting Pulse 62 Pulse Source Doppler Pulse Oximetry (%) 98 Oxygen Delivery Method Room Air Intake Visit Reasons: Shortness of breath Measuring Machine Tender Required: Yes Measuring Machine Tender Name: Tatiana Collins Allergies acetaminophen [From TYLENOL] Allergy (Unknown, Verified 05/22/24 13:52) ITCHY MIGRAINE MEDICINE Allergy (Unknown, Uncoded 04/03/24 10:13) SHAKEY Environmental Allergy (Unknown, Uncoded 04/03/24 10:13) Unknown Lisinopril Adverse Reaction (Mild, Uncoded 04/03/24 10:13) Do not feel well HPI HPI Shortness of breath: Details: 68-year-old lady, nonsmoker, with no prior history of pulmonary concerns referred for evaluation of recurrent episodes of upper respiratory infections and associated dyspnea after patient's initially developed COVID back in 2019. Patient states that over the last 4 years she has had multiple episodes of COVID and other upper respiratory infections associated with significant dyspnea. She denies exposure to industrial dusts. Patient does have history of lung cancer in maternal uncle. [facility] Medical History Menopausal state Dizziness Shoulder pain, right Hypothyroidism Hypertension, essential Vitamin D deficiency Chronic GERD Migraine aura without headache Surgical History Hx of hemorrhoidectomy S/P laparoscopic cholecystectomy (02/06/21) History of hysterectomy History of tubal ligation Family History Father Heart attack HTN (hypertension) CVD (cardiovascular disease) Mother Cervical cancer Maternal Grandmother Diabetes mellitus Maternal Grandfather Throat cancer Paternal Grandfather Cancer Paternal Grandmother Heart attack HTN (hypertension) Paternal Aunt Breast cancer Paternal Uncle Lung cancer Other Mental health disorder Social History Household Members: None Housing: Apartment Are you a primary day care attendant to a significant other at home: No Do you presently have visiting nurse or other home services: No Alcohol intake: never Patient Tobacco Use Status: Never used Tobacco e-Cigarette/Vaping Use: Never Used Advance Directives Date on File: 05/12/20 service: No 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 Sexual orientation: Straight/Heterosexual Gender identity: Female Cognitive needs: No Hearing needs: No Vision needs: Yes Review of Systems Const Denies daytime sleepiness, Denies excessive sweating, Denies fatigue, Denies fever(s), Denies lethargy, Denies malaise, Denies night sweats, Denies snoring and Denies weight loss Eyes Denies blurry vision and Denies itchy eyes ENT Denies nasal congestion, Denies post nasal drip, Denies sinus pain, Denies sinus pressure and Denies other ( Thrush) Card Denies chest pain, Denies pedal edema, Denies dyspnea, Denies orthopnea and Denies paroxysmal nocturnal dyspnea Resp Denies cough, Denies hemoptysis, Denies excessive phlegm production, Denies dyspnea, Denies snoring and Denies wheezing GI Denies abdominal pain and Denies heartburn Musc Denies myalgias, Denies arthralgias and Denies joint swelling Skin/Breast Denies rash Neuro Denies memory loss and Denies seizure-like activity Psych Denies abnormal sleep pattern, Denies anxiety and Denies memory loss Endo Denies excessive sweating, Denies fatigue and Denies heat intolerance Harvey/Lymph Denies easy bruising Aller/Immun Denies itchy eyes, Denies seasonal rhinorrhea and Denies wheezing Physical Exam Vital Signs: Last Vital Signs Pulse 62 05/22/24 13:51 BP 122/82 05/22/24 13:51 Pulse Ox 98 05/22/24 13:51 Oxygen Delivery Method Room Air 05/22/24 13:51 BMI result Body Mass Index 35.5 Const General: no acute distress and alert Nutritional Appearance: obese Orientation/consciousness: Other orientation findings ( oriented) HEENT Head: Yes atraumatic Eyes General: appearance normal, both eyes and all related structures Sclerae: sclerae normal EOM: EOMs intact bilaterally Neck Neck: Yes supple Lymphatic: no lymphadenopathy noted Resp Effort & Inspection: normal respiratory effort and no use of accessory muscles Auscultation: clear to auscultation bilaterally Cardio Rate: regular rate Rhythm: regular rhythm Heart sounds: no gallops, no murmurs and no rubs Skin General skin exam: other ( warm) Extrem General: No clubbing, No cyanosis and No edema Assessment & Plan Assessment & Plan (1) Recurrent URI (upper respiratory infection): Code(s): J06.9 - Acute upper respiratory infection, unspecified Category: Medical Plan: Will check immunoglobulin levels for further evaluation. (2) Dyspnea on exertion: Code(s): R06.09 - Other forms of dyspnea Category: Medical Plan: Will check PFT for further evaluation. Orders: Orders Immunoglobulins,IgG IgA IgM Today J06.9 - Acute upper respiratory infection, unspecified PFT pulmonary function test Today J06.9 - Acute upper respiratory infection, unspecified Immunoglobulin G Subclasses Today J06.9 - Acute upper respiratory infection, unspecified Coding Level of Care Code New Pt Level 4 (44545) Diagnoses Recurrent URI (upper respiratory infection) J06.9 Dyspnea on exertion R06.09
== END 2024-05-22 15:12 | disposition home or self-care (01) ==
PROVIDERS: PCP Internal Medicine; Referring Provider Internal Medicine; Visit Provider Internal Medicine Pulmonary Disease
DX: J06.9 Acute upper respiratory infection, unspecified (principal); R06.09 Other forms of dyspnea; Z23 Encounter for immunization
CPT/HCPCS: 99204

== ENCOUNTER 2024-06-05 09:04 | Outpatient (REF) | payer MEDICARE, SELFPAY ==
--- NOTE | ~2024-06-05 | MM_ITS ---
EXAMINATION: BONE DENSITOMETRY CLINICAL INDICATION: Menopause. COMPARISON: Baseline BD dated 04/16/2019. TECHNIQUE: Using a [employer] DXA System (software version: 13.1) manufactured by [employer], dual-energy x-ray absorptiometry was performed of the lumbar spine and left hip. The images are of good technical quality. Summary results are attached. FINDINGS: LEFT FEMUR, NECK: Current: BMD 0.818 g/cm2, Z-score -0.4, T-score -1.6, osteopenia. Baseline: BMD 0.819 g/cm2. LEFT FEMUR, TOTAL: Current: BMD 0.948 g/cm2, Z-score 0.4, T-score -0.5, normal, 0.5% increase from baseline (<5% change is not significant). Baseline: BMD 0.943 g/cm2. AP SPINE L1-L4: Current: BMD 0.916 g/cm2, Z-score -1.3, T-score -2.2, osteopenia, 7.4% decrease from baseline (<5% change is not significant). Baseline: BMD 0.989 g/cm2. IDENTIFIED RISK FACTORS: Menopause, hysterectomy, secondary osteoporosis (hyperthyroidism). HISTORY OF FRACTURE: None listed. MEDICATIONS: Vitamin D. MM/XR DEXA axial skeleton IMPRESSION: 1. DIAGNOSIS: Osteopenia based on the lowest T-score value of -2.2 in the lumbar spine applying World Health Organization criteria. 2. 10-YEAR FRACTURE RISK PREDICTION, FRAX: Major osteoporotic fracture (clinical spine, forearm, hip or shoulder) 5.2%. Hip fracture 0.7%. 3. Treatment Recommendations: NOF guidelines recommend consideration for treatment in postmenopausal women and men age 50 and older presenting with the following: -A hip or vertebral (clinical or morphometric) fracture. -T-score less than or equal to -2.5 at the femoral neck or spine after appropriate evaluation to exclude secondary causes. -Low bone mass at the hip or spine and a 10-year fracture probability by FRAX of greater than or equal to 3% for hip fracture or greater than or equal to 20% for major osteoporotic fracture based on the [place] adapted WHO algorithm. 4. Other Recommendations: All treatment decisions require clinical judgment and consideration of individual patient factors, including patient preferences, comorbidities, previous drug use, risk factors not captured in the FRAX model (e.g. frailty, falls, vitamin D deficiency, increased bone turnover, interval significant decline in bone density) and possible under or overestimation of fracture risk by FRAX. Additional medical evaluation for secondary cause of low bone mineral density may be appropriate. FUTURE SCAN RECOMMENDATION: People with diagnosed cases of osteoporosis or at high risk for fracture should have regular bone mineral density tests. For patients eligible for Medicare, routine testing is allowed once every 2 years. The testing frequency can be increased to one year for patients who have rapidly progressing disease, those who are receiving or discontinuing medical therapy to restore bone mass, or have additional risk factors. Electronically signed by: Fuad Wilson MD 06/08/2024 12:03 PM EDT
== END 2024-06-05 09:05 | disposition home or self-care (01) ==
LOC: HO.MAMMO 09:04
PROVIDERS: PCP Internal Medicine; Visit Provider Advanced Practice Midwife
DX: Z13.820 Encounter for screening for osteoporosis (principal); N95.1 Menopausal and female climacteric states; Z90.710 Acquired absence of both cervix and uterus
CPT/HCPCS: 77080

== ENCOUNTER 2024-07-17 10:07 | Outpatient (AMB) | payer MEDICARE, SELFPAY ==
--- NOTE | 2024-07-17 10:21 | MHC.OFFVIS ---
Intake Visit Reasons: DEXA follow up Rivet Tapping Machine Operator Required: No [facility] Office Supervisor: [facility] Office Supervisor Present Allergies acetaminophen [From TYLENOL] Allergy (Unknown, Verified 05/22/24 13:52) ITCHY MIGRAINE MEDICINE Allergy (Unknown, Uncoded 04/03/24 10:13) SHAKEY Environmental Allergy (Unknown, Uncoded 04/03/24 10:13) Unknown Lisinopril Adverse Reaction (Mild, Uncoded 04/03/24 10:13) Do not feel well Is last menstrual period known: Yes HPI Comments Details: Patient is here today for a follow up on her bone density screening. She is currently taking some calcium in her diet, and vitamin-D supplement which she said she ran out of. She admits to walking and staying very active physically. [facility] Medical History (Updated 07/17/24 @ 11:06 by Amarilis Aguirre CNM) Osteopenia Menopausal state Dizziness Shoulder pain, right Hypothyroidism Hypertension, essential Vitamin D deficiency Chronic GERD Migraine aura without headache Surgical History Hx of hemorrhoidectomy S/P laparoscopic cholecystectomy (02/06/21) History of hysterectomy History of tubal ligation Family History Father Heart attack HTN (hypertension) CVD (cardiovascular disease) Mother Cervical cancer Maternal Grandmother Diabetes mellitus Maternal Grandfather Throat cancer Paternal Grandfather Cancer Paternal Grandmother Heart attack HTN (hypertension) Paternal Aunt Breast cancer Paternal Uncle Lung cancer Other Mental health disorder Social History Household Members: None Housing: Apartment Are you a primary medicare biller to a significant other at home: No Do you presently have visiting nurse or other home services: No Alcohol intake: never Patient Tobacco Use Status: Never used Tobacco e-Cigarette/Vaping Use: Never Used Advance Directives Date on File: 05/12/20 service: No 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 [place], [place] [address] Mammography Report Signed Patient: Gala Thomas MR#: [id number] : 1955 Acct:[id number] Age/Sex: 68 / F ADM Date: 06/05/24 Loc: HO.MAMMO Attending Dr: Amarilis Aguirre CNM Ordering Physician: Amarilis Aguirre CNM Results: Date of Service: 06/05/24 Follow Up: Procedure(s): XR DEXA axial skeleton Accession Number(s): [id number] cc: Lolis Josue MD; Amarilis Aguirre CNM~ EXAMINATION: BONE DENSITOMETRY CLINICAL INDICATION: Menopause. COMPARISON: Baseline BD dated 04/16/2019. TECHNIQUE: Using a [employer] DXA System (software version: 13.1) manufactured by [employer], dual-energy x-ray absorptiometry was performed of the lumbar spine and left hip. The images are of good technical quality. Summary results are attached. FINDINGS: LEFT FEMUR, NECK: Current: BMD 0.818 g/cm2, Z-score -0.4, T-score -1.6, osteopenia. Baseline: BMD 0.819 g/cm2. LEFT FEMUR, TOTAL: Current: BMD 0.948 g/cm2, Z-score 0.4, T-score -0.5, normal, 0.5% increase from baseline (<5% change is not significant). Baseline: BMD 0.943 g/cm2. AP SPINE L1-L4: Current: BMD 0.916 g/cm2, Z-score -1.3, T-score -2.2, osteopenia, 7.4% decrease from baseline (<5% change is not significant). Baseline: BMD 0.989 g/cm2. IDENTIFIED RISK FACTORS: Menopause, hysterectomy, secondary osteoporosis (hyperthyroidism). HISTORY OF FRACTURE: None listed. MEDICATIONS: Vitamin D. MM/XR DEXA axial skeleton IMPRESSION: 1. DIAGNOSIS: Osteopenia based on the lowest T-score value of -2.2 in the lumbar spine applying World Health Organization criteria. 2. 10-YEAR FRACTURE RISK PREDICTION, FRAX: Major osteoporotic fracture (clinical spine, forearm, hip or shoulder) 5.2%. Hip fracture 0.7%. 3. Treatment Recommendations: NOF guidelines recommend consideration for treatment in postmenopausal women and men age 50 and older presenting with the following: -A hip or vertebral (clinical or morphometric) fracture. -T-score less than or equal to -2.5 at the femoral neck or spine after appropriate evaluation to exclude secondary causes. -Low bone mass at the hip or spine and a 10-year fracture probability by FRAX of greater than or equal to 3% for hip fracture or greater than or equal to 20% for major osteoporotic fracture based on the [place] adapted WHO algorithm. 4. Other Recommendations: All treatment decisions require clinical judgment and consideration of individual patient factors, including patient preferences, comorbidities, previous drug use, risk factors not captured in the FRAX model (e.g. frailty, falls, vitamin D deficiency, increased bone turnover, interval significant decline in bone density) and possible under or overestimation of fracture risk by FRAX. Additional medical evaluation for secondary cause of low bone mineral density may be appropriate. FUTURE SCAN RECOMMENDATION: People with diagnosed cases of osteoporosis or at high risk for fracture should have regular bone mineral density tests. For patients eligible for Medicare, routine testing is allowed once every 2 years. The testing frequency can be increased to one year for patients who have rapidly progressing disease, those who are receiving or discontinuing medical therapy to restore bone mass, or have additional risk factors. Electronically signed by: Fuad Wilson MD 06/08/2024 12:03 PM EDT Dictated By: Fuad Wilson MD Signed By: <Electronically signed by Fuad Wilson MD in OV> 06/08/24 1203 DD/ 0915 TD/TT: 06/05/24 0945 Pediatric Orthodontist: SHABANA Assessment & Plan Assessment & Plan (1) Osteopenia: Code(s): M85.80 - Other specified disorders of bone density and structure, unspecified site Category: Medical Qualifiers: Osteopenia location: unspecified Qualified Code(s): M85.80 - Other specified disorders of bone density and structure, unspecified site (2) Encounter to discuss test results: Code(s): Z71.2 - Person consulting for explanation of examination or test findings Plan Discussed: DEXA results Osteopenia. Exercise, calcium food source list, and educational sheet on osteopenia provided today. Advised to continue a healthy well-balanced diet regular exercise. Repeat DEXA scan in 2 years. Call pharmacy for refill on vitamin-D, stressed importance of continued therapy. Annual exam scheduled 03/31/2025. Follow up p.r.n. for any concerns. The patient expressed understanding and agreement with the plan of care. All of her questions and concerns were addressed to the best of my ability. This note is constructed using voice recognition software. While every effort has been made to ensure accuracy, client support manager errors may have been included. Coding Level of Care Code Est Pt Level 3 (75187) Diagnoses Osteopenia, unspecified location M85.80 Osteopenia location: unspecified Encounter to discuss test results Z71.2
== END 2024-07-17 10:36 | disposition home or self-care (01) ==
LOC: HO.HWS 10:07
PROVIDERS: PCP Internal Medicine; Visit Provider Advanced Practice Midwife
DX: M85.80 Other specified disorders of bone density and structure, unspecified site (principal); Z71.2 Person consulting for explanation of examination or test findings
CPT/HCPCS: 99213

== ENCOUNTER → 2024-07-17 10:07 | Outpatient (BNVA) | payer MEDICARE, SELFPAY | PROVIDERS: PCP Internal Medicine; Visit Provider Advanced Practice Midwife | DX: M85.88 Other specified disorders of bone density and structure, other site (principal); Z71.2 Person consulting for explanation of examination or test findings | CPT/HCPCS: 99212 ==

== ENCOUNTER 2024-07-24 | Outpatient (REF) | payer OTHER, SELFPAY | END 2024-07-24 00:01 | disposition home or self-care (01) | LOC: CF | PROVIDERS: PCP Internal Medicine; Visit Provider Internal Medicine Pulmonary Disease | DX: I10 Essential (primary) hypertension (principal); K21.9 Gastro-esophageal reflux disease without esophagitis; E03.9 Hypothyroidism, unspecified; E55.9 Vitamin D deficiency, unspecified; G44.89 Other headache syndrome; N32.81 Overactive bladder; F33.41 Major depressive disorder, recurrent, in partial remission; M54.50 Low back pain, unspecified; G89.29 Other chronic pain; F41.1 Generalized anxiety disorder; R06.09 Other forms of dyspnea; I83.019 Varicose veins of right lower extremity with ulcer of unspecified site; L97.919 Non-pressure chronic ulcer of unspecified part of right lower leg with unspecified severity | CPT/HCPCS: 99212 ==

== ENCOUNTER 2024-07-24 09:59 | Outpatient (AMB) | payer OTHER, SELFPAY ==
[2024-07-24 10:00] VITALS: BP 148/80; PULSE 83; O2SAT 98; BMI 35.8
--- NOTE | 2024-07-24 10:00 | MHC.PC.OV ---
Vital Signs 07/24/24 10:00 Height 5 ft 2 in Weight 195 lb 8 oz BMI 35.8 BP 148/80 H Blood Pressure Location Lt brachial Position Sitting Pulse 83 Pulse Source Pulse Oximeter Pulse Oximetry (%) 98 Oxygen Delivery Method Room Air Intake Visit Reasons: 3 month follow up Allergies acetaminophen [From TYLENOL] Allergy (Unknown, Verified 07/24/24 10:01) ITCHY MIGRAINE MEDICINE Allergy (Unknown, Uncoded 04/03/24 10:13) SHAKEY Environmental Allergy (Unknown, Uncoded 04/03/24 10:13) Unknown Lisinopril Adverse Reaction (Mild, Uncoded 04/03/24 10:13) Do not feel well Medication List - Last Reconciled 07/24/24 by Lolis Josue MD atenolol 25 mg PO DAILY betamethasone dipropionate 0.05% 1 appl topical BID PRN cholecalciferol (vitamin D3) 25 mcg PO DAILY 90 days cyanocobalamin (vitamin B-12) 1,000 mcg PO DAILY duloxetine 40 mg PO ONCE 90 days hydrochlorothiazide 25 mg PO DAILY 90 days levothyroxine 75 mcg PO QAM omeprazole 40 mg PO DAILY 90 days oxybutynin chloride 5 mg PO BEDTIME 30 days tramadol 50 mg PO BEDTIME Tobacco use date assessed: 07/24/24 Fall risk assessment: No Falls in past year Last assessed Fall Risk: 07/24/24 Dental Screening Dental Screen Date: 07/24/24 Did you have a dental visit in the last 12 months?: Yes Did you have a dental problem in the last 6 months where you did not have access to dental care?: No Was dental information given to patient?: Patient has dentist HPI 3 month follow up HPI Details Patient is 68-year-old female came in today for her regular follow-up appointment Patient has developed varicosities in right leg and off and on having swelling of her ankles If she is standing for prolonged periods of time patient feels like heaviness in her right leg I have placed a referral for her to be evaluated by vascular specialist Labs were done April this year reviewed with the patient I have placed order for labs to be done before next visit in October She is seeing technical service specialist for exertional dyspnea and is doing well She has multiple joint osteoarthritis, and can not take Tylenol because of allergies She is taking Advil but that is not helping her Blood pressure : Continue atenolol 25 mg and hydrochlorothiazide 25 mg Continue levothyroxine 75 mcg for hypothyroidism GERD is stable with omeprazole 40 mg Stress incontinence, oxybutynin is helping Vitamin-D supplement daily for low vitamin-D B12 for low B12 level Depression anxiety stable with the duloxetine 40 mg daily BMI is elevated patient is having difficulty losing weight Follow-up in October for physical exam [facility] Medical History Osteopenia Menopausal state Dizziness Shoulder pain, right Hypothyroidism Hypertension, essential Vitamin D deficiency Chronic GERD Migraine aura without headache Surgical History Hx of hemorrhoidectomy S/P laparoscopic cholecystectomy (02/06/21) History of hysterectomy History of tubal ligation Family History Father Heart attack HTN (hypertension) CVD (cardiovascular disease) Mother Cervical cancer Maternal Grandmother Diabetes mellitus Maternal Grandfather Throat cancer Paternal Grandfather Cancer Paternal Grandmother Heart attack HTN (hypertension) Paternal Aunt Breast cancer Paternal Uncle Lung cancer Other Mental health disorder Social History Household Members: None Housing: Apartment Are you a primary plant care worker to a significant other at home: No Do you presently have visiting nurse or other home services: No Alcohol intake: never Patient Tobacco Use Status: Never used Tobacco e-Cigarette/Vaping Use: Never Used Advance Directives Date on File: 05/12/20 service: No 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 Sexual orientation: Straight/Heterosexual Gender identity: Female Cognitive needs: No Hearing needs: No Vision needs: Yes Questionnaire Thrive Questionnaire Date Thrive assessed: 04/28/24 I am a: Patient What is your living situation today?: I have a steady place to live Within the past 12 months, did the food you bought not last and you didn't have the money to get more?: Never true Within the past 12 months, did you worry whether your food would run out before you got money to buy more?: Sometimes True Do you have trouble paying for medicines?: No Do you have trouble getting transportation to medical appointments?: No Do you have trouble paying your heating and electricity bill?: No Do you have trouble taking care of your child, family member or friend?: No Do you have trouble with day-to-day activities such as bathing, preparing meals, shopping, managing finances, etc.?: No Are you currently unemployed and looking for a job?: No Are you interested in more education?: No Please select the resources that you would like help with: None Currently or been in a relationship where the following occur: I choose not to answer THRIVE Score: 1 AUDIT C Alcohol Use Questionnaire (AUDIT-C) 3. How often do you have six or more drinks on one occasion?: Never Total Score: 0 Review of Systems Const Denies chills and Denies fever(s) ENT Denies epistaxis and Denies nasal discharge Card Denies chest pain Resp Denies chest congestion, Denies cough and Denies hemoptysis GI Denies diarrhea and Denies nausea Skin/Breast Denies rash Neuro Reports no additional complaints Psych Reports no additional complaints Endo Reports no additional complaints Physical exam (Primary Care) Vital Signs: Last Vital Signs Pulse 83 07/24/24 10:00 BP 148/80 H 07/24/24 10:00 Pulse Ox 98 07/24/24 10:00 Oxygen Delivery Method Room Air 07/24/24 10:00 BMI result Body Mass Index 35.8 Tobacco/Smoking Status: Tobacco use Status Tobacco use date assessed 07/24/24 07/24/24 10:10 Patient Tobacco Use Status Never used Tobacco 07/24/24 10:10 e-Cigarette/Vaping Use Never Used 07/24/24 10:10 Thrive Assessment: Date of Thrive Assessment Date Thrive assessed 04/28/24 07/24/24 10:10 Currently or been in a relationship where the following occur: I choose not to answer Const General: cooperative, comfortable and no acute distress Orientation/consciousness: patient oriented x3 HENMT Head: Yes normocephalic Eyes General: appearance normal, both eyes and all related structures Neck Neck: Yes supple Resp Effort & Inspection: normal respiratory effort, no cough and no stridor Cardio Rhythm: regular rhythm Heart sounds: S1 normal heart sound present and S2 normal heart sound present Skin General skin exam: turgor normal Neuro General: patient oriented x3, tone normal and moves all extremities Coding Level of Care Code Est Pt Level 4 (25148) Complex EM visit Add On G2211 Diagnoses Hypertension, essential I10 Chronic GERD K21.9 Hypothyroidism, unspecified type E03.9 Hypothyroidism type: unspecified Vitamin D deficiency E55.9 Headache syndrome G44.89 Overactive bladder N32.81 Recurrent major depressive disorder, in partial remission F33.41 Active/Remission status: in partial remission Chronic bilateral low back pain without sciatica M54.50; G89.29 Back pain laterality: bilateral Sciatica presence: without sciatica Anxiety, generalized F41.1 Dyspnea on exertion R06.09 Varicose ulcer of right lower extremity I83.019; L97.919 Assessment & Plan Assessment & Plan (1) Hypertension, essential: Code(s): I10 - Essential (primary) hypertension Category: Medical (2) Chronic GERD: Code(s): K21.9 - Gastro-esophageal reflux disease without esophagitis Category: Medical (3) Hypothyroidism: Code(s): E03.9 - Hypothyroidism, unspecified Category: Medical Qualifiers: Hypothyroidism type: unspecified Qualified Code(s): E03.9 - Hypothyroidism, unspecified (4) Vitamin D deficiency: Code(s): E55.9 - Vitamin D deficiency, unspecified Category: Medical (5) Headache syndrome: Code(s): G44.89 - Other headache syndrome Category: Medical (6) Overactive bladder: Code(s): N32.81 - Overactive bladder Category: Medical (7) Major depression, recurrent: Code(s): F33.9 - Major depressive disorder, recurrent, unspecified Category: Medical Qualifiers: Active/Remission status: in partial remission Qualified Code(s): F33.41 - Major depressive disorder, recurrent, in partial remission (8) Chronic lower back pain: Code(s): M54.50 - Low back pain, unspecified; G89.29 - Other chronic pain Category: Medical Qualifiers: Back pain laterality: bilateral Sciatica presence: without sciatica Qualified Code(s): M54.50 - Low back pain, unspecified; G89.29 - Other chronic pain (9) Anxiety, generalized: Code(s): F41.1 - Generalized anxiety disorder Category: Medical (10) Dyspnea on exertion: Code(s): R06.09 - Other forms of dyspnea Category: Medical (11) Varicose ulcer of right lower extremity: Code(s): I83.019 - Varicose veins of right lower extremity with ulcer of unspecified site; L97.919 - Non-pressure chronic ulcer of unspecified part of right lower leg with unspecified severity Category: Medical Plan Patient is 68-year-old female came in today for her regular follow-up appointment Patient has developed varicosities in right leg and off and on having swelling of her ankles If she is standing for prolonged periods of time patient feels like heaviness in her right leg I have placed a referral for her to be evaluated by vascular specialist Labs were done April this year reviewed with the patient I have placed order for labs to be done before next visit in October She is seeing technical service specialist for exertional dyspnea and is doing well She has multiple joint osteoarthritis, and can not take Tylenol because of allergies She is taking Advil but that is not helping her Blood pressure : Continue atenolol 25 mg and hydrochlorothiazide 25 mg Continue levothyroxine 75 mcg for hypothyroidism GERD is stable with omeprazole 40 mg Stress incontinence, oxybutynin is helping Vitamin-D supplement daily for low vitamin-D B12 for low B12 level Depression anxiety stable with the duloxetine 40 mg daily BMI is elevated patient is having difficulty losing weight Follow-up in October for physical exam Orders: Orders Complete Blood Count Auto Diff Today E03.9 - Hypothyroidism, unspecified, E55.9 - Vitamin D deficiency, unspecified, I10 - Essential (primary) hypertension, K21.9 - Gastro-esophageal reflux disease without esophagitis Comprehensive Evans. Panel Fast Today E03.9 - Hypothyroidism, unspecified, E55.9 - Vitamin D deficiency, unspecified, I10 - Essential (primary) hypertension, K21.9 - Gastro-esophageal reflux disease without esophagitis Lipid Panel Today E03.9 - Hypothyroidism, unspecified, E55.9 - Vitamin D deficiency, unspecified, I10 - Essential (primary) hypertension, K21.9 - Gastro-esophageal reflux disease without esophagitis TSH reflex Free T4 Today E03.9 - Hypothyroidism, unspecified, E55.9 - Vitamin D deficiency, unspecified, I10 - Essential (primary) hypertension, K21.9 - Gastro-esophageal reflux disease without esophagitis Vitamin D 25-OH (D2 and D3) Today E03.9 - Hypothyroidism, unspecified, E55.9 - Vitamin D deficiency, unspecified, I10 - Essential (primary) hypertension, K21.9 - Gastro-esophageal reflux disease without esophagitis Referrals Vascular Surgery Referral I83.019 - Varicose veins of right lower extremity with ulcer of unspecified site, L97.919 - Non-pressure chronic ulcer of unspecified part of right lower leg with unspecified severity
== END 2024-07-24 10:29 | disposition home or self-care (01) ==
PROVIDERS: PCP Internal Medicine; Visit Provider Internal Medicine
DX: I10 Essential (primary) hypertension (principal); F33.41 Major depressive disorder, recurrent, in partial remission; I83.019 Varicose veins of right lower extremity with ulcer of unspecified site; L97.919 Non-pressure chronic ulcer of unspecified part of right lower leg with unspecified severity; K21.9 Gastro-esophageal reflux disease without esophagitis; E03.9 Hypothyroidism, unspecified; E55.9 Vitamin D deficiency, unspecified; G44.89 Other headache syndrome; N32.81 Overactive bladder; M54.50 Low back pain, unspecified; G89.29 Other chronic pain; F41.1 Generalized anxiety disorder

== ENCOUNTER 2024-08-07 08:51 | Outpatient (AMB) | payer OTHER, SELFPAY ==
[2024-08-07 08:57] VITALS: BMI 35.7
--- NOTE | 2024-08-07 08:57 | MHC.OFFVIS ---
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 Right Leg worse than the Left LE. STates it started 2 years ago. Worse when she is on her feet, and she states she is on her feet a lot. States she gets heaviness in her Right leg as well. 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 Complaints include pain over varicosities, swelling of lower extremities, cramping, fatigue, and heaviness of the lower extremities. It has been affecting their daily activities including walking, standing, sitting, and physical activity. It is noted more so in right leg. She states she first noticed this approximately 2 years ago but has been getting progressively worse. She is nondiabetic and does not smoke. She states on her father side there is a significant cardiac history. Patient denies any previous venous surgery or injections. Patient denies any history of DVT/ PE. Patient denies any history of phlebitis. Trial of compression includes - elevation with little relief They now present for vascular evaluation regarding their varicose veins. [facility] Medical History Osteopenia Menopausal state Dizziness Shoulder pain, right Hypothyroidism Hypertension, essential Vitamin D deficiency Chronic GERD Migraine aura without headache Surgical History Hx of hemorrhoidectomy S/P laparoscopic cholecystectomy (02/06/21) History of hysterectomy History of tubal ligation Family History Father Heart attack HTN (hypertension) CVD (cardiovascular disease) Mother Cervical cancer Maternal Grandmother Diabetes mellitus Maternal Grandfather Throat cancer Paternal Grandfather Cancer Paternal Grandmother Heart attack HTN (hypertension) Paternal Aunt Breast cancer Paternal Uncle Lung cancer Other Mental health disorder Social History Household Members: None Housing: Apartment Are you a primary home care assistant to a significant other at home: No Do you presently have visiting nurse or other home services: No Alcohol intake: never Patient Tobacco Use Status: Never used Tobacco e-Cigarette/Vaping Use: Never Used Advance Directives Date on File: 05/12/20 service: No 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 Sexual orientation: Straight/Heterosexual Gender identity: Female Cognitive needs: No Hearing needs: No Vision needs: Yes Review of Systems Const Reports as per HPI and Denies weakness ENT Reports Normal hearing present and Denies dizziness Card Reports as per HPI, Denies chest pain, Denies chest pain at rest, Denies chest pain with activity, Denies dyspnea and Denies dyspnea on exertion Resp Reports as per HPI, Denies cough, Denies dyspnea and Denies dyspnea on exertion GI Reports as per HPI, Denies abdominal pain, Denies nausea and Denies vomiting Musc Denies numbness Skin/Breast Reports as per HPI, Denies erythema and Denies wounds Neuro Reports Normal hearing present, Denies dizziness, Denies numbness, Denies Sensory deficit (Neuro) and Denies weakness Psych Reports no additional complaints Endo Reports no additional complaints Physical Exam Vital Signs: BMI result Body Mass Index 35.7 Const General: healthy appearing and no acute distress Orientation/consciousness: patient oriented x3 HEENT Head: Yes normal to inspection Ears: hearing grossly normal bilaterally Mouth: Normal oral and palatal mucosa present Resp Effort & Inspection: normal respiratory effort and able to speak in complete sentences Auscultation: clear to auscultation bilaterally Cardio Jugular venous distension: no JVD Rate: regular rate Rhythm: regular rhythm Heart sounds: S1 normal heart sound present and S2 normal heart sound present Bruits: no abdominal aortic bruits, no carotid bruits, no femoral bruits and no renal bruits Peripheral pulses: Peripheral pulses 2+ throughout GI Inspection: Yes normal to inspection Palpation (GI): No Abdominal aortic bruit present Skin General skin exam: no rashes or lesions noted Wounds: no wounds Hair: normal Neuro General: patient oriented x3 Cranial nerves: Yes Normal hearing present Cognition (Neuro): normal cognition Gait exam (Neuro): Normal gait present Motor exam (neuro): 5/5 motor strength present throughout Sensory Exam: No Sensory deficit (Neuro) Extrem Other: RLE: 1+ peripheral edema noted with discoloration noted around the ankle. Spider veins noted around the ankle and lower anterior patterson. Pain upon palpation of spider veins. Palpable DP pulse. LLE: trace peripheral edema noted with slight discoloration around the ankle. Minimal spider veins noted around the ankle. Palpable DP pulse. CEAP: C - 4 E - primary A - superficial P - reflux General: Yes normal to inspection, Yes full ROM, Yes capillary refill normal and Yes normal gait Assessment & Plan Assessment & Plan (1) Varicose veins of both lower extremities with inflammation: Code(s): I83.11 - Varicose veins of right lower extremity with inflammation; I83.12 - Varicose veins of left lower extremity with inflammation Category: Medical Plan: Gala is presenting today on a referral from her PCP for ongoing varicose veins which are worsening. She states she is getting the pain when sitting, standing, or performing any physical activity. She has notes that the swelling is worse in the evenings but does occur all day long. In short, the patient has evidence of venous insufficiency. I have discussed the pathophysiology with the patient. In addition I have provided informational material regarding venous disease to the patient. We have discussed conservative measures including compression, elevation, and exercise. I have also provided a handout regarding appropriate use of compression stockings and where to purchase good compression stockings as well. I have taken the liberty of ordering venous insufficiency testing with the patient. They will follow up with me after testing. The patient had an opportunity to ask questions regarding the treatment plan. All questions were answered. Imaging studies, laboratory studies and physical exam results were discussed and reviewed in detail. No major barriers to understanding were identified. The patient expressed understanding and agreement with the above treatment plan. The patient is aware they should contact our office by phone for worsening of the current condition or the appearance of new symptoms. Thank you for allowing me to participate in the vascular care of this patient. If you have any questions or concerns regarding the treatment for the above condition please do not hesitate to contact me. The office telephone contact is [phone]. This note is constructed using voice recognition software. While every effort has been made to ensure accuracy, hvac sales engineer errors may have been included. Thank you for allowing me to participate in the care of your patient. Yours sincerely, HAKEEM Moreno Orders: Orders US venous duplex LE BI 1 Week I83.11 - Varicose veins of right lower extremity with inflammation, I83.12 - Varicose veins of left lower extremity with inflammation Coding Level of Care Code New Pt Level 4 (84202) Diagnoses Varicose veins of both lower extremities with inflammation I83.11; I83.12
== END 2024-08-07 09:14 | disposition home or self-care (01) ==
PROVIDERS: PCP Internal Medicine; Visit Provider Physician Assistant Surgical
DX: I83.11 Varicose veins of right lower extremity with inflammation (principal); I83.12 Varicose veins of left lower extremity with inflammation
CPT/HCPCS: 99204

== ENCOUNTER → 2024-08-07 08:51 | Outpatient (BNVA) | payer OTHER, SELFPAY | PROVIDERS: PCP Internal Medicine; Visit Provider Physician Assistant Surgical | DX: I83.11 Varicose veins of right lower extremity with inflammation (principal); I83.12 Varicose veins of left lower extremity with inflammation | CPT/HCPCS: 99202 ==

== ENCOUNTER 2024-09-25 12:49 | Outpatient (REF) | payer MEDICARE, SELFPAY ==
--- NOTE | ~2024-09-25 | US_ITS ---
EXAMINATION: US LOWER EXTREMITY VENOUS (REFLUX EXAM), BILATERAL CLINICAL INFORMATION: Varices COMPARISON: February 25, 2021 TECHNIQUE: Color flow triplex imaging and compression Doppler was performed to evaluate both the deep and the superficial systems bilaterally. To evaluate the superficial system, the examination was performed in the upright position. Color-flow Doppler ultrasound and compression ultrasound were utilized. In addition, maneuvers were utilized to demonstrate reflux. FINDINGS: 1. DEEP VENOUS ULTRASOUND OF THE RIGHT LOWER EXTREMITY: Common Femoral Vein: Compressible, normal respiratory variation and augmented flow. Femoral Vein: Compressible, normal color flow and augmentation. Popliteal Vein: Compressible, normal augmentation. Deep Reflux: There is no evidence of reflux in the deep system in either the common femoral vein, superficial femoral or the popliteal vein. There is no evidence of a Pressley's cyst. 2. SUPERFICIAL ULTRASOUND WITH DOPPLER OF RIGHT LOWER EXTREMITY: GREAT SAPHENOUS VEIN: Saphenofemoral Junction: 0.7 cm; Reflux: 1940 ms Proximal Thigh: 0.7 cm; Reflux: 1456 ms Mid Thigh: 0.6 cm; Reflux: 1736 ms Distal Thigh: 0.7 cm; Reflux: No more than 2880 ms At Knee: 0.6 cm; Reflux: 1932 ms Proximal Calf: 0.3 cm; Reflux: 0 ms Mid Calf: 0.5 cm; Reflux: 2536 ms Distal Calf: 0.4 cm; Reflux: 1816 ms DUPLICATED MEDIAL GREAT SAPHENOUS VEIN: Diameter: None imaged Reflux: NA DUPLICATED LATERAL GREAT SAPHENOUS VEIN: Diameter: None imaged Reflux: NA SMALL SAPHENOUS VEIN: Saphenopopliteal Junction: 0.2 cm; Reflux: 0 ms Proximal: 0.3 cm; Reflux: 0 ms Distal: 0.2 cm; Reflux: 0 ms VEIN OF GIACOMINI: Size: 0.4 cm. Reflux: NA PERFORATORS: Location: Calf. Size: 0.2-0.5 cm. Reflux: NA VARICOSITIES: Location: Distal thigh and throughout calf Size: 0.3-0.6 cm. Reflux: 1824 ms at the proximal calf. 3. DEEP VENOUS ULTRASOUND OF THE LEFT LOWER EXTREMITY: Common Femoral Vein: Compressible, normal respiratory variation and augmented flow. Femoral Vein: Compressible, normal color flow and augmentation. Popliteal Vein: Compressible, normal augmentation. Deep Reflux: There is no evidence of reflux in the deep system in either the common femoral vein, superficial femoral or the popliteal vein. There is no evidence of a Pressley's cyst. 4. SUPERFICIAL ULTRASOUND WITH DOPPLER OF LEFT LOWER EXTREMITY: GREAT SAPHENOUS VEIN: Saphenofemoral Junction: 0.6 cm; Reflux: 0 ms Proximal Thigh: 0.4 cm; Reflux: 0 ms Mid Thigh: 0.3 cm; Reflux: 0 ms Distal Thigh: 0.5 cm; Reflux: 0 ms At Knee: 0.5 cm; Reflux: 2284 ms Proximal Calf: 0.4 cm; Reflux: 0 ms Mid Calf: 0.3 cm; Reflux: 0 ms Distal Calf: 0.3 cm; Reflux: 0 ms DUPLICATED MEDIAL GREAT SAPHENOUS VEIN: Diameter: None imaged Reflux: NA DUPLICATED LATERAL GREAT SAPHENOUS VEIN: Diameter: 0.5 cm. Reflux: 2104 ms in the mid thigh. SMALL SAPHENOUS VEIN: Saphenopopliteal Junction: 0.3 cm; Reflux: 0 ms Proximal: 0.2 cm; Reflux: 0 ms Distal: 0.2 cm; Reflux: 0 ms VEIN OF GIACOMINI: Size: NA Reflux: NA PERFORATORS: Location: Mid thigh and proximal to mid calf. Size: 0.2-0.4 cm. Reflux: NA VARICOSITIES: Location: Mid thigh and at the knee. Size: 0.3 cm. Reflux: More than 2952 ms in the mid thigh and 1104 ms at the knee. US/US venous duplex LE BI IMPRESSION: Right: Venous reflux throughout the great saphenous vein. Perforators without reflux in the calf. Varices throughout the calf with reflux in the proximal calf region. Left: Venous insufficiency, great saphenous vein at the knee. Venous insufficiency in the accessory lateral saphenous vein. Perforators throughout the calf without reflux. Varices with reflux in the mid thigh and at the knee. Electronically signed by: Truong Norton MD 09/29/2024 12:30 PM MAUREEN
--- OUTSIDE RECORDS SUMMARY | 2024-09-25 13:13 | XMS_ITS | Clinical Summary ---
Author Organization [facility] ity Address [address] [place] [address] Care Team Providers Care Professional Advisor Name Role Phone Unavailable Primary Care Provider Unavailabl e Social History Tobacco Use Types Packs/Day Years Used Date Smoking Tobacco: Never Assessed Comments Unknown Sex and Gender Information Value Date Recorded Sex Assigned at Not on file Legal Sex Female 12:49 AM EST Gender Identity Not on file Sexual Orientation Not on file Plan of Treatment Health Maintenance Due Date Last Done Comments Breast Cancer Screening 1955 DTaP,Tdap,and Td Vaccines (1 - Tdap) 1974 Pneumococcal Vaccine: 50+ Ye ars (1 of 1 - PCV) 2005 Zoster Vaccines (1 of 2) 2005 COVID-19 Vaccine ( - 2023-2 5 season) 2024 Influenza Vaccine (#1) 2024 RSV Immunization Patients 60 + Years Old (1 - 1-dose 75+ series) 2030 HIB Vaccines Aged Out No longer eligi ble based on patient's age to complete this topic HPV Vaccines Aged Out No longer eligi ble based on patient's age to complete this topic Hepatitis A Vaccines Aged Out No long er eligible based on patient's age to complete this topic Hepatitis B Vaccines Aged Out No long er eligible based on patient's age to complete this topic IPV Vaccines Aged Out No longer eligi ble based on patient's age to complete this topic MMR Vaccines Aged Out No longer eligi ble based on patient's age to complete this topic Meningococcal ACWY Vaccine Aged Out N o longer eligible based on patient's age to complete this topic Meningococcal B Vacine Aged Out No lo nger eligible based on patient's age to complete this topic RSV Immunization Patients Un sally 20 months Aged Out No longer eligible b ased on patient's age to complete this topic Varicella Vaccines Aged Out No longer eligible based on patient's age to complete this topic
== END 2024-09-25 12:50 | disposition home or self-care (01) ==
LOC: HO.US 12:49
PROVIDERS: PCP Internal Medicine; Visit Provider Physician Assistant Surgical
DX: I83.11 Varicose veins of right lower extremity with inflammation (principal); I83.12 Varicose veins of left lower extremity with inflammation
CPT/HCPCS: 93970

== ENCOUNTER → 2024-09-25 12:51 | Outpatient (BNV) | payer MEDICARE, SELFPAY | PROVIDERS: PCP Internal Medicine; Visit Provider Radiology Diagnostic Radiology | DX: I83.12 Varicose veins of left lower extremity with inflammation (principal); I83.11 Varicose veins of right lower extremity with inflammation | CPT/HCPCS: 93970 ==

== ENCOUNTER → 2024-10-01 11:57 | Outpatient (BNVA) | payer MEDICARE, SELFPAY | PROVIDERS: PCP Internal Medicine ==

== ENCOUNTER → 2024-10-06 13:55 | Outpatient (BNVA) | payer MEDICARE, SELFPAY | PROVIDERS: PCP Internal Medicine; Visit Provider Internal Medicine ==

== ENCOUNTER 2024-10-08 14:25 | Outpatient (AMB) | payer MEDICARE, SELFPAY ==
--- NOTE | 2024-10-08 14:27 | MHC.OFFVIS ---
Intake Visit Reasons: follow up s/p US 09/25/24 Intake Note: Patient presents for follow up US performed on 09/25/24. Patient has occasional pain in her right leg. Has some discoloration on her right ankle that is concerning her. Accompanied by: Self / Same As Patient Allergies acetaminophen [From TYLENOL] Allergy (Unknown, Verified 10/08/24 14:30) ITCHY atenolol Adverse Reaction (Mild, Verified 10/08/24 14:30) Nausea MIGRAINE MEDICINE Allergy (Unknown, Uncoded 08/07/24 09:01) SHAKEY Environmental Allergy (Unknown, Uncoded 08/07/24 09:01) Unknown Lisinopril Adverse Reaction (Mild, Uncoded 08/07/24 09:01) Do not feel well HPI HPI follow up s/p US 09/25/24: Details: The patient is a 69-year-old female presenting with chronic venous insufficiency. The primary issue is located in the lower extremities with a prominent issue in the right leg, where venous insufficiency is more pronounced compared to the left. She describes the symptoms as discomfort accompanied by occasional sharp pains and discoloration, particularly in the right leg. She now presents for venous insufficiency testing.Educational materials in [place]ish were provided during the consultation to aid in the understanding of her condition and subsequent treatment options. [facility] Medical History Osteopenia Menopausal state Dizziness Shoulder pain, right Hypothyroidism Hypertension, essential Vitamin D deficiency Chronic GERD Migraine aura without headache Surgical History Hx of hemorrhoidectomy S/P laparoscopic cholecystectomy (02/06/21) History of hysterectomy History of tubal ligation Family History Father Heart attack HTN (hypertension) CVD (cardiovascular disease) Mother Cervical cancer Maternal Grandmother Diabetes mellitus Maternal Grandfather Throat cancer Paternal Grandfather Cancer Paternal Grandmother Heart attack HTN (hypertension) Paternal Aunt Breast cancer Paternal Uncle Lung cancer Other Mental health disorder Social History Household Members: None Housing: Apartment Are you a primary personal care attendant to a significant other at home: No Do you presently have visiting nurse or other home services: No Alcohol intake: never Patient Tobacco Use Status: Never used Tobacco e-Cigarette/Vaping Use: Never Used Advance Directives Date on File: 05/12/20 service: No 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 Sexual orientation: Straight/Heterosexual Gender identity: Female Cognitive needs: No Hearing needs: No Vision needs: Yes Review of Systems Const Reports as per HPI ENT Reports no additional complaints Card Denies chest pain, Denies chest pain at rest and Denies chest pain with activity Resp Denies chest congestion and Denies cough GI Reports no additional complaints Musc Details: pain over varicosities, aching of lower extremities, swelling, cramping, heaviness and tiredness, itching Denies abnormal gait Skin/Breast Reports pruritus and Denies wounds Neuro Reports no additional complaints and Denies abnormal gait Psych Denies no additional complaints Physical Exam Const General: cooperative, healthy appearing and comfortable Orientation/consciousness: oriented to person, oriented to place and oriented to time Neck Carotids: no bruits Chest Chest palpation & inspection: normal inspection of the chest and normal palpation of entire chest wall Resp Effort & Inspection: normal respiratory effort and able to speak in complete sentences Cardio Rate: regular rate Heart sounds: S1 normal heart sound present and S2 normal heart sound present Peripheral pulses: Peripheral pulses 2+ throughout GI Inspection: Yes normal to inspection Skin Other: +2 edema, large rope-like varicosities greater than 4 mm CEAP Classification C4 - skin color changes Ep - Etiology Primary As - superficial veins P - reflux General skin exam: dry skin Neuro General: oriented to person, oriented to place and oriented to time Extrem Right lower extremity: full ROM, normal capillary refill and edema Left lower extremity: full ROM, normal capillary refill and edema Psych Mental Status: mental status grossly normal Results Reviewed Results Reviewed: Brief summary of venous insufficiency testing is as follows: right great saphenous vein: Positive right small saphenous vein: negative right accessory vein: none present left great saphenous vein: Positive left small saphenous vein: negative left accessory vein: none present Please note there is no evidence of any venous aneurysms or significant tortuosity Assessment & Plan Assessment & Plan (1) Varicose veins of right lower extremity with inflammation: Code(s): I83.11 - Varicose veins of right lower extremity with inflammation Category: Medical Plan: This patient has varicose veins with inflammation. They continue to be a source of discomfort for the patient. The patient has tried conservative treatment with compression, leg elevation and exercise program for over 3 months time. They have been compliant with all treatment. This has provided minimal relief for the patient. I do not anticipate this course of treatment will alter the underlying etiology. The patient has been scheduled for lower extremity venous treatment inclusive of --- right great saphenous vein Cyanoacralate ablation. Risks, benefits, and complications of this procedure has been discussed in detail with the patient including but not limited to bleeding, infection, and the development of a DVT. The patient has demonstrated a clear understanding and has consented. We will schedule the patient as soon as possible. Thank you for allowing us to participate in this patient's care. If there are any questions or concerns please do not hesitate to contact us. Patient Instructions: - Undergo the planned venous ablation procedure. - Expect to walk and resume normal activities soon after the procedure. - Read the provided booklet in [place]ish for more information regarding the procedure. - Monitor the area for changes in discoloration or sharp pains. - Contact the clinic with any new or worsening symptoms. Coding Level of Care Code Est Pt Level 4 (37952) Diagnoses Varicose veins of right lower extremity with inflammation I83.11
--- OUTSIDE RECORDS SUMMARY | 2024-10-08 17:37 | XMS_ITS | Clinical Summary ---
Author Organization [facility] ity Address [address] [place] [address] Care Team Providers Care Pharmacy Technician Infusion Name Role Phone Unavailable Primary Care Provider [...] Vaccines (1 of 2) 2005 COVID-19 Vaccine (1 - 2023-2 5 season) 2024 Influenza Vaccine [...]
== END 2024-10-08 14:45 | disposition home or self-care (01) ==
PROVIDERS: PCP Internal Medicine; Visit Provider Surgery Vascular Surgery
DX: I83.11 Varicose veins of right lower extremity with inflammation (principal)
CPT/HCPCS: 99214

== ENCOUNTER → 2024-10-08 14:25 | Outpatient (BNVA) | payer MEDICARE, SELFPAY | PROVIDERS: PCP Internal Medicine; Visit Provider Surgery Vascular Surgery | DX: I83.11 Varicose veins of right lower extremity with inflammation (principal) | CPT/HCPCS: 99212 ==

== ENCOUNTER 2024-10-21 11:18 | Outpatient (AMB) | payer MEDICARE, SELFPAY ==
--- NOTE | 2024-10-21 11:23 | MHC.PC.OV ---
Vital Signs 10/21/24 11:25 Height 5 ft 2 in Weight 193 lb 6 oz BMI 35.4 BP 132/78 Blood Pressure Location Rt brachial Position Sitting Pulse 78 Pulse Source Pulse Oximeter Pulse Oximetry (%) 96 Oxygen Delivery Method Room Air Intake Visit Reasons: Annual PE Allergies acetaminophen [From TYLENOL] Allergy (Unknown, Verified 10/21/24 11:26) ITCHY atenolol Adverse Reaction (Mild, Verified 10/21/24 11:26) Nausea MIGRAINE MEDICINE Allergy (Unknown, Uncoded 08/07/24 09:01) SHAKEY Environmental Allergy (Unknown, Uncoded 08/07/24 09:01) Unknown Lisinopril Adverse Reaction (Mild, Uncoded 08/07/24 09:01) Do not feel well Medication List - Last Reconciled 10/21/24 by Lolis Josue MD albuterol sulfate 90 mcg/actuation 2 puffs inhalation 6XD PRN betamethasone dipropionate 0.05% 1 appl topical BID PRN cholecalciferol (vitamin D3) 25 mcg PO DAILY 90 days clonidine HCl 0.05 mg (1/2 x 0.1 mg) PO BEDTIME cyanocobalamin (vitamin B-12) 1,000 mcg PO DAILY duloxetine 40 mg PO ONCE 90 days hydrochlorothiazide 25 mg PO DAILY 90 days levothyroxine 75 mcg PO QAM omeprazole 40 mg PO DAILY 90 days oxybutynin chloride 5 mg PO BEDTIME 30 days tramadol 50 mg PO BEDTIME Tobacco use date assessed: 10/21/24 Fall risk assessment: No Falls in past year Last assessed Fall Risk: 10/21/24 Dental Screening Dental Screen Date: 10/21/24 Did you have a dental visit in the last 12 months?: Yes Did you have a dental problem in the last 6 months where you did not have access to dental care?: No Was dental information given to patient?: Patient has dentist HPI Annual PE HPI Details Physical exam appointment - The patient is a 69-year-old female - The patient manages occasional shoulder pain with tramadol, opting for limited use to prevent medication tolerance. - The patient?s history of essential hypertension we have tried number medication patient have sensitivity to blood pressure medications she could not tolerate clonidine as well, I am restarting her on hydrochlorothiazide which she did tolerated in the past . - Osteopenia diagnosed, with standard recommendations provided for calcium and vitamin D intake. - Plans are in place to receive vascular intervention, addressing suspected chronic venous insufficiency with leg discoloration and circulation challenges. - GERD managed with omeprazole and strict dietary habits; vitamin D supplementation due to documented deficiency. Health Maintenance - Mammogram conducted in January of previous year; results were not specified in this visit. - Bone density testing completed in May indicating osteopenia requiring dietary management. - Routine lab work conducted in April shows vitamin D deficiency. - No recent colonoscopy; patient unable to recall last occurrence. - Recommendation for calcium and vitamin D intake for bone health. - Lifestyle advice includes avoidance of spicy foods, tomato sauces, and orange juice due to GERD. Medications - Clonidine 0.1 mg (previous: for hypertension, now discontinued) - Duloxetine (for anxiety) - Levothyroxine (dose not specified, for thyroid management) - Omeprazole (for GERD) - Oxybutynin (for bladder control) - Hydrochlorothiazide restart - Tramadol (as needed for pain management, caution advised due to controlled status) Diagnostic results - Labs: Low vitamin D identified in April lab work. - Tests: Bone density scan last May showed osteopenia with a T-score of -2.2. Patient Instructions - Initiate hydrochlorothiazide in the morning for hypertension management. - Continue calcium and vitamin D-rich diet for osteopenia. - Use tramadol for significant pain only, preferably before bedtime, not daily. - Avoid spicy foods, tomato products, and refrain from eating four hours before bedtime. - Continue omeprazole for GERD management and report worsening symptoms. - Visit the lab for fasting blood tests ordered in July. Review of Systems. - General: No fever no chills - Neurological: No headaches no dizziness - Ear nose throat: No sore throat no hearing difficulty no ear pain - Cardiovascular: No syncope, no chest pain, no palpitations - Gastrointestinal: No nausea vomiting or diarrhea - Endocrine: No polyuria polydipsia no heat intolerance - Genitourinary: No dysuria - Skin: No new complaints Physical Exam General: Cooperative, healthy appearing, comfortable, no acute distress Orientation: Patient oriented x3 Head: Normal to inspection Ears: Within normal limit visually Nose: Normal external nose present Face and sinus: Normal facial exam Eyes: Appearance normal, extraocular movement intact pupils reactive Neck: Normal visual inspection and supple, no lymph nodes Respiratory: Normal respiratory effort and able to speak in complete sentences. Clear to auscultation, no stridor Cardiovascular: S1 and S2 Breast exam benign GI: Normal to inspection. Soft to palpation and nontender, no nausea or vomiting Skin: Turgor normal, no acute findings Neuro: Patient oriented x3, motor sensory intact, balance intact, tandem pass Extremities: Both shoulders are limited due to pain, chronic frozen shoulder. [facility] Medical History Osteopenia Menopausal state Dizziness Shoulder pain, right Hypothyroidism Hypertension, essential Vitamin D deficiency Chronic GERD Migraine aura without headache Surgical History Hx of hemorrhoidectomy S/P laparoscopic cholecystectomy (02/06/21) History of hysterectomy History of tubal ligation Family History Father Heart attack HTN (hypertension) CVD (cardiovascular disease) Mother Cervical cancer Maternal Grandmother Diabetes mellitus Maternal Grandfather Throat cancer Paternal Grandfather Cancer Paternal Grandmother Heart attack HTN (hypertension) Paternal Aunt Breast cancer Paternal Uncle Lung cancer Other Mental health disorder Social History Household Members: None Housing: Apartment Are you a primary director of patient care to a significant other at home: No Do you presently have visiting nurse or other home services: No Alcohol intake: never Patient Tobacco Use Status: Never used Tobacco e-Cigarette/Vaping Use: Never Used Advance Directives Date on File: 05/12/20 service: No 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 1. Little interest or pleasure in doing things: several days 2. Feeling down, depressed, or hopeless: several days 3. Trouble falling or staying asleep, or sleeping too much: several days 4. Feeling tired or having little energy: several days 5. Poor appetite or overeating: several days 6. Feeling bad about yourself - or that you are a failure or have let yourself or your family down: not at all 7. Trouble concentrating on things, such as reading the newspaper or watching television: several days 8. Moving or speaking so slowly that other people could have noticed. Or the opposite - being so fidgety or restless that you have been moving around a lot more than usual: not at all 9. Thoughts that you would be better off or of hurting yourself in some way: not at all Total score: 6 Depression Screening Interpretation: Negative Depression Screening Done: Yes 97802 - PHQ-9 Billing: Yes Source: Developed by Drs. Darryl Ramírez, Anay Mejia, Matt Gifford and colleagues, with an educational tatyana from [employer]. Thrive Questionnaire Date Thrive assessed: 10/21/24 I am a: Patient What is your living situation today?: I have a steady place to live Within the past 12 months, did the food you bought not last and you didn't have the money to get more?: Never true Within the past 12 months, did you worry whether your food would run out before you got money to buy more?: Sometimes True Do you have trouble paying for medicines?: No Do you have trouble getting transportation to medical appointments?: No Do you have trouble paying your heating and electricity bill?: No Do you have trouble taking care of your child, family member or friend?: No Do you have trouble with day-to-day activities such as bathing, preparing meals, shopping, managing finances, etc.?: No Are you currently unemployed and looking for a job?: No Are you interested in more education?: No Please select the resources that you would like help with: None Currently or been in a relationship where the following occur: I choose not to answer THRIVE Score: 1 AUDIT C Alcohol Use Questionnaire (AUDIT-C) 1. How often do you have a drink containing alcohol?: Never 3. How often do you have six or more drinks on one occasion?: Never Total Score: 0 Score Reviewed/Action Taken: Yes RENETTA-7 AMB Questionnaire RENETTA-7 Date RENETTA - 7 assessed: 10/21/24 Feeling nervous, anxious, or on edge: 0 = Not at all Not being able to stop or control worryin = Not at all Worrying too much about different things: 0 = Not at all Trouble relaxin = Not at all Being so restless that it is hard to sit still: 0 = Not at all Becoming easily annoyed or irritable: 0 = Not at all Feeling afraid as if something awful might happen: 0 = Not at all Total RENETTA-7 score (0-4 normal; 5-9 mild; 10-14 moderate; 15-21 severe): 0 Source: Developed by Drs. Darryl Ramírez, Anay Mejia, Matt Gifford and colleagues, with an educational tatyana from [employer]. RENETTA-7 Assessment Billing RENETTA-7 Assessment Tool: RENETTA-7 Assessment 21470 Physical exam (Primary Care) Vital Signs: Last Vital Signs Pulse 78 10/21/24 11:25 BP 132/78 10/21/24 11:25 Pulse Ox 96 10/21/24 11:25 Oxygen Delivery Method Room Air 10/21/24 11:25 BMI result Body Mass Index 35.4 Tobacco/Smoking Status: Tobacco use Status Tobacco use date assessed 10/21/24 10/21/24 11:27 Patient Tobacco Use Status Never used Tobacco 10/21/24 11:23 e-Cigarette/Vaping Use Never Used 10/21/24 11:23 Depression Screening Interpretation: Negative Thrive Assessment: Date of Thrive Assessment Date Thrive assessed 10/21/24 10/21/24 11:27 Currently or been in a relationship where the following occur: I choose not to answer Coding Level of Care Code Est Pt Level 4 (04813) Est Pt Prev Care >65y(13050) Diagnoses Encounter for general adult medical examination with abnormal findings Z00.01 Hypertension, essential I10 Chronic GERD K21.9 Migraine aura without headache G43.109 Hypothyroidism, unspecified type E03.9 Hypothyroidism type: unspecified Class 2 severe obesity due to excess calories with serious comorbidity and body mass index (BMI) of 35.0 to 35.9 in adult E66.01; Z68.35 Obesity classification: adult class 2 (BMI 35 - 39.9) Serious obesity comorbidity presence: with serious comorbidity Body mass index: BMI 35.0-35.9 Overactive bladder N32.81 Recurrent major depressive disorder, in partial remission F33.41 Active/Remission status: in partial remission Chronic bilateral low back pain without sciatica M54.50; G89.29 Back pain laterality: bilateral Sciatica presence: without sciatica Osteopenia, unspecified location M85.80 Osteopenia location: unspecified Varicose veins of right lower extremity with inflammation I83.11 Varicose veins of both lower extremities with inflammation I83.11; I83.12 Additional Codes RENETTA-7 Assessment Billing - RENETTA-7 Assessment Tool: RENETTA-7 Assessment 56199 ([id number]) PHQ-9 - 68090 - PHQ-9 Billing: Yes ([id number]) Assessment & Plan Assessment & Plan (1) Encounter for general adult medical examination with abnormal findings: Code(s): Z00.01 - Encounter for general adult medical examination with abnormal findings Category: Medical (2) Hypertension, essential: Code(s): I10 - Essential (primary) hypertension Category: Medical (3) Chronic GERD: Code(s): K21.9 - Gastro-esophageal reflux disease without esophagitis Category: Medical (4) Migraine aura without headache: Code(s): G43.109 - Migraine with aura, not intractable, without status migrainosus Category: Medical (5) Hypothyroidism: Code(s): E03.9 - Hypothyroidism, unspecified Category: Medical Qualifiers: Hypothyroidism type: unspecified Qualified Code(s): E03.9 - Hypothyroidism, unspecified (6) Obesity due to excess calories: Code(s): E66.09 - Other obesity due to excess calories Category: Medical Qualifiers: Obesity classification: adult class 2 (BMI 35 - 39.9) Serious obesity comorbidity presence: with serious comorbidity Body mass index: BMI 35.0-35.9 Qualified Code(s): E66.01 - Morbid (severe) obesity due to excess calories; Z68.35 - Body mass index [BMI] 35.0-35.9, adult (7) Overactive bladder: Code(s): N32.81 - Overactive bladder Category: Medical (8) Major depression, recurrent: Code(s): F33.9 - Major depressive disorder, recurrent, unspecified Category: Medical Qualifiers: Active/Remission status: in partial remission Qualified Code(s): F33.41 - Major depressive disorder, recurrent, in partial remission (9) Chronic lower back pain: Code(s): M54.50 - Low back pain, unspecified; G89.29 - Other chronic pain Category: Medical Qualifiers: Back pain laterality: bilateral Sciatica presence: without sciatica Qualified Code(s): M54.50 - Low back pain, unspecified; G89.29 - Other chronic pain (10) Osteopenia: Code(s): M85.80 - Other specified disorders of bone density and structure, unspecified site Category: Medical Qualifiers: Osteopenia location: unspecified Qualified Code(s): M85.80 - Other specified disorders of bone density and structure, unspecified site (11) Varicose veins of right lower extremity with inflammation: Code(s): I83.11 - Varicose veins of right lower extremity with inflammation Category: Medical (12) Varicose veins of both lower extremities with inflammation: Code(s): I83.11 - Varicose veins of right lower extremity with inflammation; I83.12 - Varicose veins of left lower extremity with inflammation Category: Medical Plan Physical exam appointment - The patient is a 69-year-old female - The patient manages occasional shoulder pain with tramadol, opting for limited use to prevent medication tolerance. - The patient?s history of essential hypertension we have tried number medication patient have sensitivity to blood pressure medications she could not tolerate clonidine as well, I am restarting her on hydrochlorothiazide which she did tolerated in the past . - Osteopenia diagnosed, with standard recommendations provided for calcium and vitamin D intake. - Plans are in place to receive vascular intervention, addressing suspected chronic venous insufficiency with leg discoloration and circulation challenges. - GERD managed with omeprazole and strict dietary habits; vitamin D supplementation due to documented deficiency. Health Maintenance - Mammogram conducted in January of previous year; results were not specified in this visit. - Bone density testing completed in May indicating osteopenia requiring dietary management. - Routine lab work conducted in April shows vitamin D deficiency. - No recent colonoscopy; patient unable to recall last occurrence. - Recommendation for calcium and vitamin D intake for bone health. - Lifestyle advice includes avoidance of spicy foods, tomato sauces, and orange juice due to GERD. Medications - Clonidine 0.1 mg (previous: for hypertension, now discontinued) - Duloxetine (for anxiety) - Levothyroxine (dose not specified, for thyroid management) - Omeprazole (for GERD) - Oxybutynin (for bladder control) - Hydrochlorothiazide restart - Tramadol (as needed for pain management, caution advised due to controlled status) Diagnostic results - Labs: Low vitamin D identified in April lab work. - Tests: Bone density scan last May showed osteopenia with a T-score of -2.2. Patient Instructions - Initiate hydrochlorothiazide in the morning for hypertension management. - Continue calcium and vitamin D-rich diet for osteopenia. - Use tramadol for significant pain only, preferably before bedtime, not daily. - Avoid spicy foods, tomato products, and refrain from eating four hours before bedtime. - Continue omeprazole for GERD management and report worsening symptoms. - Visit the lab for fasting blood tests ordered in July. Medications: New hydrochlorothiazide 25 mg PO QAM Changed From tramadol 50 mg PO BEDTIME 30 tabs 0RF Joint pains To tramadol 50 mg PO BEDTIME 90 days PRN 45 tabs 0RF Joint pains Refilled hydrochlorothiazide 25 mg PO DAILY 90 days 90 tabs 0RF Discontinued clonidine HCl Discontinued Reason: Doctor's Order 0.05 mg (1/2 x 0.1 mg) PO BEDTIME 90 tabs 0RF
[2024-10-21 11:25] VITALS: BP 132/78; PULSE 78; O2SAT 96; BMI 35.4
--- OUTSIDE RECORDS SUMMARY | 2024-10-21 13:23 | XMS_ITS | Clinical Summary ---
Author Organization [facility] ity Address [address] [place] [address] Care Team Providers Care Bindery Production Manager Name Role Phone Unavailable Primary Care Provider [...]
== END 2024-10-21 11:58 | disposition home or self-care (01) ==
PROVIDERS: PCP Internal Medicine; Visit Provider Internal Medicine
DX: Z00.01 Encounter for general adult medical examination with abnormal findings (principal); I10 Essential (primary) hypertension; E66.01 Morbid (severe) obesity due to excess calories; F33.41 Major depressive disorder, recurrent, in partial remission; Z68.35 Body mass index [BMI] 35.0-35.9, adult; K21.9 Gastro-esophageal reflux disease without esophagitis; G43.109 Migraine with aura, not intractable, without status migrainosus; E03.9 Hypothyroidism, unspecified; N32.81 Overactive bladder; M54.50 Low back pain, unspecified; G89.29 Other chronic pain; I83.11 Varicose veins of right lower extremity with inflammation

== ENCOUNTER → 2024-10-21 11:18 | Outpatient (BNVA) | payer MEDICARE, SELFPAY | PROVIDERS: PCP Internal Medicine; Visit Provider Internal Medicine | DX: Z00.01 Encounter for general adult medical examination with abnormal findings (principal); I10 Essential (primary) hypertension; K21.9 Gastro-esophageal reflux disease without esophagitis; G43.109 Migraine with aura, not intractable, without status migrainosus; E03.9 Hypothyroidism, unspecified; E66.01 Morbid (severe) obesity due to excess calories; Z68.35 Body mass index [BMI] 35.0-35.9, adult; N32.81 Overactive bladder; F33.41 Major depressive disorder, recurrent, in partial remission; M54.50 Low back pain, unspecified; G89.29 Other chronic pain; M85.80 Other specified disorders of bone density and structure, unspecified site; I83.11 Varicose veins of right lower extremity with inflammation; I83.12 Varicose veins of left lower extremity with inflammation | CPT/HCPCS: 96127; 99212; 99397 ==

== ENCOUNTER 2024-10-23 12:52 | Outpatient (AMB) | payer MEDICARE, SELFPAY ==
--- NOTE | 2024-10-23 13:56 | A.OFFVIS_ITS ---
Vital Signs 10/23/24 14:13 Height 5 ft 2 in Weight 196 lb 3.382 oz BMI 35.9 BP 150/82 H Blood Pressure Location Lt brachial Position Sitting Pulse 73 Pulse Source Doppler Pulse Oximetry (%) 96 Oxygen Delivery Method Room Air Intake Visit Reasons: Dyspnea on Exertion/PFT Follow Up Ground Service Equipment Mechanic Required: Yes Ground Service Equipment Mechanic Name: Tatiana Wilkinson Dennis Allergies acetaminophen [From TYLENOL] Allergy (Unknown, Verified 10/23/24 14:14) ITCHY atenolol Adverse Reaction (Mild, Verified 10/23/24 14:14) Nausea MIGRAINE MEDICINE Allergy (Unknown, Uncoded 08/07/24 09:01) SHAKEY Environmental Allergy (Unknown, Uncoded 08/07/24 09:01) Unknown Lisinopril Adverse Reaction (Mild, Uncoded 08/07/24 09:01) Do not feel well HPI HPI Dyspnea on Exertion/PFT Follow Up: Details: 68-year-old lady, nonsmoker, with no prior history of pulmonary concerns referre d for evaluation of recurrent episodes of upper respiratory infections and associated dyspnea after patient's initially developed COVID back in 2019. Patient states that over the last 4 years she has had multiple episodes of COVID and other upper respiratory infections associated with significant dyspnea. She denies exposure to industrial dusts. Patient does have history of lung cancer in maternal uncle. After the last office visit patient has completed her pulmonary function test that was essentially normal. She has not completed her immunologic workup yet. [facility] Medical History Osteopenia Menopausal state Dizziness Shoulder pain, right Hypothyroidism Hypertension, essential Vitamin D deficiency Chronic GERD Migraine aura without headache Surgical History Hx of hemorrhoidectomy S/P laparoscopic cholecystectomy (02/06/21) History of hysterectomy History of tubal ligation Family History Father Heart attack HTN (hypertension) CVD (cardiovascular disease) Mother Cervical cancer Maternal Grandmother Diabetes mellitus Maternal Grandfather Throat cancer Paternal Grandfather Cancer Paternal Grandmother Heart attack HTN (hypertension) Paternal Aunt Breast cancer Paternal Uncle Lung cancer Other Mental health disorder Social History Household Members: None Housing: Apartment Are you a primary foster care social worker to a significant other at home: No Do you presently have visiting nurse or other home services: No Alcohol intake: never Patient Tobacco Use Status: Never used Tobacco e-Cigarette/Vaping Use: Never Used Advance Directives Date on File: 05/12/20 service: No 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 Sexual orientation: Straight/Heterosexual Gender identity: Female Cognitive needs: No Hearing needs: No Vision needs: Yes Review of Systems Const Denies daytime sleepiness, Denies excessive sweating, Denies fatigue, Denies fever(s), Denies lethargy, Denies malaise, Denies night sweats, Denies snoring and Denies weight loss Eyes Denies blurry vision and Denies itchy eyes ENT Denies nasal congestion, Denies post nasal drip, Denies sinus pain, Denies sinus pressure and Denies other ( Thrush) Card Denies chest pain, Denies pedal edema, Denies dyspnea, Reports dyspnea on exertion, Denies orthopnea and Denies paroxysmal nocturnal dyspnea Resp Denies cough, Denies hemoptysis, Denies excessive phlegm production, Denies dyspnea, Reports dyspnea on exertion, Denies snoring and Denies wheezing GI Denies abdominal pain and Denies heartburn Musc Denies myalgias, Denies arthralgias and Denies joint swelling Skin/Breast Denies rash Neuro Denies memory loss and Denies seizure-like activity Psych Denies abnormal sleep pattern, Denies anxiety and Denies memory loss Endo Denies excessive sweating, Denies fatigue and Denies heat intolerance Harvey/Lymph Denies easy bruising Aller/Immun Denies itchy eyes, Denies seasonal rhinorrhea and Denies wheezing Physical Exam Const General: no acute distress and alert Nutritional Appearance: obese Orientation/consciousness: Other orientation findings ( oriented) HEENT Head: Yes atraumatic Eyes General: appearance normal, both eyes and all related structures Sclerae: sclerae normal EOM: EOMs intact bilaterally Neck Neck: Yes supple Lymphatic: no lymphadenopathy noted Resp Effort & Inspection: normal respiratory effort and no use of accessory muscles Auscultation: clear to auscultation bilaterally Cardio Rate: regular rate Rhythm: regular rhythm Heart sounds: no gallops, no murmurs and no rubs Skin General skin exam: other ( warm) Extrem General: No clubbing, No cyanosis and No edema Assessment & Plan Assessment & Plan (1) Shortness of breath: Code(s): R06.02 - Shortness of breath Category: Medical Plan: Results of pulmonary function test reviewed and showed essentially normal pulmonary function test. Will obtain cardiopulmonary exercise test for further evaluation. (2) Recurrent URI (upper respiratory infection): Code(s): J06.9 - Acute upper respiratory infection, unspecified Category: Medical Plan: Immunologic workup is pending. Orders: Orders CA cardiopulmonary stress test Today R06.09 - Other forms of dyspnea Coding Level of Care Code Est Pt Level 4 (81671) Diagnoses Shortness of breath R06.02 Recurrent URI (upper respiratory infection) J06.9
[2024-10-23 14:13] VITALS: BP 150/82; PULSE 73; O2SAT 96; BMI 35.9
--- OUTSIDE RECORDS SUMMARY | 2024-10-23 14:23 | XMS_ITS | Clinical Summary ---
Author Organization [facility] ity Address [address] [place] [address] Care Team Providers Care Stratigraphy Teacher Name Role Phone Unavailable Primary Care Provider [...]
== END 2024-10-23 14:20 | disposition home or self-care (01) ==
LOC: HO.HPS 12:52
PROVIDERS: PCP Internal Medicine; Visit Provider Internal Medicine Pulmonary Disease
DX: R06.02 Shortness of breath (principal); J06.9 Acute upper respiratory infection, unspecified
CPT/HCPCS: 94060; 94727; 94729; 99214

== ENCOUNTER 2024-10-23 13:08 | Outpatient (REF) | payer MEDICARE, SELFPAY ==
--- NOTE | 2024-10-23 13:11 | PFT_ITS ---
Flows: FEV1: 103 % of predicted at 2.16 L FVC: 85 % of predicted at 2.26 L FEV1/FVC: 95 % Bronchodilator response: Absent Volumes: Total lung capacity: 80 % of predicted at 3.70 L Residual volume: 70 % of predicted at 1.26 L Slow vital capacity: 86 % of predicted at 2.44 L Expiratory reserve volume: 62 % of predicted at 0.42 L Diffusion capacity: Normal Impression: No obstructive or restrictive ventilatory defect. No bronchodilator response. Decreased expiratory reserve volume suggests extrathoracic restriction likely secondary to abdominal obesity. MTDD
[2024-10-23 13:49] VITALS: PULSE 77
== END 2024-10-23 13:09 | disposition home or self-care (01) ==
LOC: HO.RESP 13:08
PROVIDERS: PCP Internal Medicine; Visit Provider Internal Medicine Pulmonary Disease
DX: J06.9 Acute upper respiratory infection, unspecified (principal); R06.02 Shortness of breath
CPT/HCPCS: 94010; 94640; 94727; 94729; 99212

== ENCOUNTER 2024-10-28 09:43 | Outpatient (AMB) | payer MEDICARE, SELFPAY ==
[2024-10-28 10:25] VITALS: BP 106/64; PULSE 85; TEMP 36.9; O2SAT 96; BMI 35.1
--- NOTE | 2024-10-28 10:25 | MHC.OFFWIV ---
Intake Vital Signs 10/28/24 10:25 Height 5 ft 2 in Weight 192 lb BMI 35.1 BP 106/64 Blood Pressure Location Lt brachial Position Sitting Pulse 85 Pulse Source Pulse Oximeter Temp 98.4 F Temp Source Oral Pulse Oximetry (%) 96 Oxygen Delivery Method Room Air Intake Visit Reasons: EP-diarrhea & vomiting Intake Note: Pt presents to the office today for c/o diarrhea and nausea x3 days. Patient Tobacco Use Status: Never used Tobacco Allergies acetaminophen [From TYLENOL] Allergy (Unknown, Verified 10/28/24 10:27) ITCHY atenolol Adverse Reaction (Mild, Verified 10/28/24 10:27) Nausea MIGRAINE MEDICINE Allergy (Unknown, Uncoded 10/28/24 10:27) SHAKEY Environmental Allergy (Unknown, Uncoded 10/28/24 10:27) Unknown Lisinopril Adverse Reaction (Mild, Uncoded 10/28/24 10:27) Do not feel well HPI HPI Comments History of Present Illness Details History of Present Illness - The patient is a 69-year-old female presenting with nausea and vomiting and diarrhea x4 days. No bloody or black stools. - Symptoms commenced four days prior, with uncontrolled vomiting noted and a consistent feeling of nausea. - [facility] Emergency department evaluation included intravenous fluids and blood tests without further imaging, resulting in symptomatic management with diagnosis of nausea and vomiting as per the discharge paperwork the patient has with her today. - There is no reported fever - Relevant surgical history includes a cholecystectomy. Physical Exam General: Cooperative, healthy appearing, comfortable, no acute distress and well developed Orientation: Patient oriented x3 Limitations: No limitations Head: Normal to inspection Ears: Hearing grossly normal bilaterally Nose: Normal external nose present Face and sinus: Normal facial exam Eyes: Appearance normal, both eyes and all related structures Neck: Normal visual inspection and Yes full ROM Respiratory: Normal respiratory effort and able to speak in complete sentences. GI: soft, no TTP throughout abdomen. Skin: No rashes or lesions noted Neuro: Patient oriented x3 Extremities: Normal to inspection [facility] Medical History Osteopenia Menopausal state Dizziness Shoulder pain, right Hypothyroidism Hypertension, essential Vitamin D deficiency Chronic GERD Migraine aura without headache Surgical History Hx of hemorrhoidectomy S/P laparoscopic cholecystectomy (02/06/21) History of hysterectomy History of tubal ligation Family History Father Heart attack HTN (hypertension) CVD (cardiovascular disease) Mother Cervical cancer Maternal Grandmother Diabetes mellitus Maternal Grandfather Throat cancer Paternal Grandfather Cancer Paternal Grandmother Heart attack HTN (hypertension) Paternal Aunt Breast cancer Paternal Uncle Lung cancer Other Mental health disorder Social History Household Members: None Housing: Apartment Are you a primary career technical education teacher to a significant other at home: No Do you presently have visiting nurse or other home services: No Alcohol intake: never Patient Tobacco Use Status: Never used Tobacco e-Cigarette/Vaping Use: Never Used Advance Directives Date on File: 05/12/20 service: No 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 Sexual orientation: Straight/Heterosexual Gender identity: Female Cognitive needs: No Hearing needs: No Vision needs: Yes Review of Systems Const All systems reviewed & are unremarkable except as noted in HPI and below Physical Exam Vital Signs: Last Vital Signs Temp 98.4 F 10/28/24 10:25 Pulse 85 10/28/24 10:25 BP 106/64 10/28/24 10:25 Pulse Ox 96 10/28/24 10:25 Oxygen Delivery Method Room Air 10/28/24 10:25 BMI result Body Mass Index 35.1 Assessment & Plan Assessment & Plan (1) Gastroenteritis: Code(s): K52.9 - Noninfective gastroenteritis and colitis, unspecified Plan: To manage the patient's nausea and vomiting, likely due to viral gastroenteritis, the prescribed Zofran ondansetron (by [facility] ED) should be utilized for symptomatic relief. A dietary plan involving bland foods and adequate fluid intake is recommended to support recovery over the typical course of such infections. Patients are instructed to avoid aggravating foods and maintain hydration. Omeprazole can be administered as needed for gastric discomfort. Monitoring for any symptom progression is critical, with potential stool testing for infectious agents if no improvement is noted by the week's end. GI PCR panel has been ordered. Patient will wait 48 hours and if no improvement in her symptoms, she will provide a sample. Likely will self-resolve by then. Patient was informed and verbally consented to the use of an ambient scribe for clinic note documentation during this visit. Coding Level of Care Code Est Pt Level 3 (06258) Diagnoses Gastroenteritis K52.9
--- OUTSIDE RECORDS SUMMARY | 2024-10-28 10:53 | XMS_ITS | Encounter Summary ---
Author Organization [employer] Address [address] [place] [address] Care Team Providers Care Damage Cutter Name Role Phone Physician, No Pcp Primary Care Provider Unavaila ble Reason for Visit * Reason Comments Vomiting Abdominal Pain Encounter Details Date Type Department Care Team (Late st Contact Info) Description 10/25/2024 7:14 AM EDT - 10/25/2024 9:49 AM EDT Emergency [facility] Emergency [address] [place] [phone] Elton Anne MD [address] [address] Vomiting and diarrhea (Primary Dx) Discharge Disposition: Home or Self Care Social History Tobacco Use Types Packs/Day Years Used Date Smoking Tobacco: Never Smokeless Tobacco: Never Tobacco Cessation:Counseling Given: Not Answered Alcohol Use Standard Drinks/Week Comments Never 0 (1 standard drink = 0.6 oz pur e alcohol) Comments Unknown Sex and Gender Information Value Date Recorded Sex Assigned at Female 10/25/2024 7:36 AM EDT Legal Sex Female 12:49 AM EST Gender Identity Female 10/25/2024 7:36 AM EDT Sexual Orientation Lesbian or Holly 10/25/2024 7: 36 AM EDT documented as of this encounter Last Filed Vital Signs Vital Sign Reading Time Taken Comments Blood Pressure 123/59 10/25/2024 8:57 AM EDT Pulse 79 10/25/2024 8:57 AM EDT Temperature 37.5 ??C (99.5 ??F) 10/25/2024 8:57 AM ED T Respiratory Rate 16 10/25/2024 8:57 AM EDT Oxygen Saturation 94% 10/25/2024 8:57 AM EDT Inhaled Oxygen Concentration - - Weight 88.5 kg (195 lb) 10/25/2024 6:46 AM EDT Height 157.5 cm (5' 2 ) 10/25/2024 6:46 AM EDT Body Mass Index 35.67 10/25/2024 6:46 AM EDT documented in this encounter Medications at Time of Discharge albuterol HFA (PROAIR HFA ; PROVENTIL HFA ; VENTOLIN HFA) 90 mcg/actuation inhaler INHALE 2 PUFF INHALED 6 TIMES A DAY NEEDED FOR SHORTNESS OF BREATH OR WHEEZING 10/16/2024 hydroCHLOROthiaz denver (HYDRODIURIL) 25 mg tablet take 1 tablet orally daily for 90 days 09/12/2024 levothyroxine (SYNTHROID, LEVOTHROID) 75 mcg tablet Take 1 tablet (75 mcg total) by mouth 1 (one) time each day in the morning. 10/18/2024 oxyBUTYnin (DITROPAN) 5 mg tablet Take 1 tablet (5 mg total) by mouth. at bedtime. 09/12/2024 traMADoL (ULTRAM) 50 mg tablet TAKE 1 TABLET BY MOUTH AT BEDTIME NEEDED FOR JOINT PAINS 10/21/2024 ondansetron (ZOFRAN) 4 mg tabletIndication s:Vomiting and diarrhea Take 1 tablet (4 mg total) by mouth every 6 (six) hours for 3 days. 12 tablet 10/25/2024 documented as of this encounter Ordered Prescriptions Prescription Sig Dispense Quantity Refills Last Filled Start Date End Date ondansetron (ZOFRAN) 4 mg tabletIndications: Vomiting and diarrhea Take 1 tablet (4 mg total) by mouth every 6 (six) hours for 3 days. 12 tablet 10/25/2024 10/28/2024 documented in this encounter Discharge Disposition Disposition Code Departure Means Destination Comment s Home or Self Care documented in this encounter Progress Notes * Parmjit Younger RN - 10/25/2024 9:48 AM EDT Pt seen and cleared for d/c by ED provider, d/c instructions reviewed. Rx'd medication education provided, all questions answered. Pt seen ambulating out of department with ease. * Parmjit Younger RN - 10/25/2024 9:00 AM EDT This RN is qualified bilingual nurse in [place] and was able to examine this pt without the need ofan trailhead construction worker. * Kiana Leon RN - 10/25/2024 6:43 AM EDT Patient reports nausea/vomiting since yesterday night. * HAKEEM Farnsworth - 10/25/2024 6:41 AM EDT Emergency Medicine Note Patient Name: Gala Maldonado Initial Evaluation: 10/25/2024 : 1955 Patient's PCP: No Pcp Physician Emergency Physician: HAKEEM Farnsworth History of Present Illness Chief Complaint: Chief Complaint Patient presents with Vomiting Abdominal Pain HPI: This is a 69-year-old female with a history of GERD, hypertension who presents to the ED with complaints of nausea, vomiting and diarrhea since last evening. Denies abdominal pain. Denies fever. She has a history of cholecystectomy but no other abdominal surgeries. Denies recent travel or unusual foods. Denies sick contacts. No associated chest pain or difficulty breathing. ROS: I have performed a ROS with the pertinent positives and negatives documented in the history ofpresent illness. Previous History Past Medical History: Diagnosis Date Disease of thyroid gland GERD (gastroesophageal reflux disease) Hypertension Shoulder pain, right Past Surgical History: Procedure Laterality Date CHOLECYSTECTOMY Social History Tobacco Use Smoking status: Never Smokeless tobacco: Never Substance Use Topics Alcohol use: Never Drug use: Never No family history on file. is allergic to tylenol [acetaminophen]. No current facility-administered medications on file prior to encounter. Current Outpatient Medications on File Prior to Encounter Medication Sig Dispense Refill albuterol HFA (PROAIR HFA ; PROVENTIL HFA ; VENTOLIN HFA) 90 mcg/actuation inhaler INHALE 2 PUFF INHALED 6 TIMES A DAY NEEDED FOR SHORTNESS OF BREATH OR WHEEZING hydroCHLOROthiazide (HYDRODIURIL) 25 mg tablet take 1 tablet orally daily for 90 days levothyroxine (SYNTHROID, LEVOTHROID) 75 mcg tablet Take 1 tablet (75 mcg total) by mouth 1 (one) time each day in the morning. oxyBUTYnin (DITROPAN) 5 mg tablet Take 1 tablet (5 mg total) by mouth. at bedtime. traMADoL (ULTRAM) 50 mg tablet TAKE 1 TABLET BY MOUTH AT BEDTIME NEEDED FOR JOINT PAINS Physical Exam ED Triage Vitals [10/25/24 0646] Temp Heart Rate Resp BP 36.7 ??C (98.1 ??F) (!) 113 18 (!) 184/89 SpO2 Temp Source Heart Rate Source Patient Position 96 % Oral Monitor Sitting BP Location FiO2 (%) Right arm -- General: Well-appearing, well nourished, in no acute distress HEENT: PERRL, EOMI, external ears and nose appear unremarkable, airway is patent Neck: Supple, full range of motion Chest: Clear to auscultation; no evidence of respiratory distress Circulatory: RRR, extremities well perfused Abdomen: Non-distended, Non-Tender Extremities: Normal ROM, No edema Skin: Warm and dry Neuro: Alert and oriented, no focal deficits Results Labs Reviewed COMPREHENSIVE METABOLIC PANEL - Abnormal Result Value Sodium 135 Potassium 4.6 Chloride 103 CO2 24 Anion Gap 8 Glucose 143 (*) BUN 21 Creatinine 1.04 eGFR 58 (*) BUN/Creatinine Ratio 20.2 Calcium 9.9 AST (SGOT) 25 ALT (SGPT) 29 Alkaline Phosphatase 94 Total Protein 8.3 (*) Albumin 4.1 Total Bilirubin 1.0 MAGNESIUM - Abnormal Magnesium 1.8 (*) CBC WITH AUTO DIFFERENTIAL - Abnormal WBC 10.0 RBC 4.90 (*) Hemoglobin 14.7 Hematocrit 43.9 MCV 90.3 MCH 30.2 MCHC 33.5 RDW 12.0 Platelets 282 MPV 8.9 NRBC 0.0 NRBC Absolute 0.00 Neutrophils Relative 89.8 Lymphocytes Relative 6.3 Monocytes Relative 2.9 Eosinophils Relative 0.4 Basophils Relative 0.1 Immature Granulocytes Relative 0.5 Neutrophils Absolute 9.00 (*) Lymphocytes Absolute 0.63 (*) Monocytes Absolute 0.29 Eosinophils Absolute 0.04 Basophils Absolute 0.01 Immature Granulocytes Absolute 0.05 (*) LIPASE - Normal Lipase 34 CBC AND DIFFERENTIAL Narrative: The following orders were created for panel order CBC and differential. Procedure Abnormality Status --------- ------ CBC auto differential[[id number]] Abnormal Final result Please view results for these tests on the individual orders. Abnormal Labs Reviewed COMPREHENSIVE METABOLIC PANEL - Abnormal; Notable for the following components: Result Value Glucose 143 (*) eGFR 58 (*) Total Protein 8.3 (*) All other components within normal limits MAGNESIUM - Abnormal; Notable for the following components: Magnesium 1.8 (*) All other components within normal limits CBC WITH AUTO DIFFERENTIAL - Abnormal; Notable for the following components: RBC 4.90 (*) Neutrophils Absolute 9.00 (*) Lymphocytes Absolute 0.63 (*) Immature Granulocytes Absolute 0.05 (*) All other components within normal limits No orders to display I have discussed the incidental/abnormal imaging and/or lab abnormalities with the patient and haveinstructed them the need for further evaluation and workup with their primary care doctor. I have provided the patient with a paper copy of the abnormality. The laboratory results, imaging results and other diagnostic exam results were reviewed in the EMR. EKG Interpretation Critical Care Time None ? Medical Decision Making Medications sodium chloride 0.9 % bolus 1,000 mL (1,000 mL intravenous New Bag 10/25/24 0808) ondansetron (PF) (ZOFRAN) injection 4 mg (4 mg intravenous Given 10/25/24 0809) ketorolac (TORADOL) injection 15 mg (15 mg intravenous Given 10/25/24 0811) ED Course as of 10/25/24900 Lawrence Oct 25, 2024 0859 Patient feeling better after fluids and Zofran. Symptoms most likely viral in etiology. Abdomen is benign. Discharged with prescription for Zofran. Discharged in stable condition. [] ED Course User Index [] HAKEEM Farnsworth Clinical Impressions as of 10/25/24900 Vomiting and diarrhea Differential to include gastroenteritis, GERD, gastritis, peptic ulcer disease, pancreatitis, food poisoning, dehydration Labs pending. Patient given IV fluids, Zofran and Toradol. Will reevaluate. Procedures Procedures Diagnosis 1. Vomiting and diarrhea ondansetron (ZOFRAN) 4 mg tablet Disposition Discharge ED Prescriptions Medication Sig Dispense Start Date End Date Auth. Provider ondansetron (ZOFRAN) 4 mg tablet Take 1 tablet (4 mg total) by mouth every 6 (six) hours for 3 days. 12 tablet 10/25/2024 10/28/2024 HAKEEM Farnsworth Physician Attestation This is a split/shared visit with Elton Anne MD. I personally performed the medical decision making (MDM) for the care of this patient on 10/25/24 as documented below Agree with assessment and plan patient's abdominal exam is benign. Likely viral syndrome patient will need volume repleted and labs checked and given antiemetics and supportive treatment HAKEEM Farnsworth 10/25/24 9:01 AM EDT HAKEEM Farnsworth PA 10/25/24 0744 Elton Anne MD 10/25/24 0844 HAKEEM Farnsworth 10/25/24 0901 Cosigned by Elton Anne MD at 10/25/2024 3:23 PM EDT documented in this encounter Plan of Treatment Not on file documented as of this encounter Procedures Procedure Name Priority Date/Time Associated Diagnosis Comments CBC WITH AUTO DIFFERENTIAL STAT 10/25/2024 6:55 AM EDT CBC AND DIFFERENTIAL STAT 10/25/2024 6:55 AM EDT MAGNESIUM STAT 10/25/2024 6:55 AM EDT LIPASE STAT 10/25/2024 6:55 AM EDT COMPREHENSIVE METABOLIC PANEL STAT 10/25/2024 6:55 AM EDT documented in this encounter Results * (ABNORMAL) CBC auto differential (10/25/2024 6:55 AM EDT) WBC 10.0 4.8 - 10.8 K/mcL LAB HEMETOLOGY METHOD 10/25/2024 7:29 AM [facility] RBC 4.90(H) 3.80 - 4.80 M/mcL LAB HEMETOLOGY METHOD 10/25/2024 7:29 AM [facility] Hemoglobin 14.7 11.5 - 16.0 g/dL LAB HEMETOLOGY METHOD 10/25/2024 7:29 AM [facility] Hematocrit 43.9 35.0 - 47.0 % LAB HEMETOLOGY METHOD 10/25/2024 7:29 AM [facility] MCV 90.3 79.0 - 98.0 FL LAB HEMETOLOGY METHOD 10/25/2024 7:29 AM [facility] MCH 30.2 27.0 - 32.0 pcg LAB HEMETOLOGY METHOD 10/25/2024 7:29 AM [facility] MCHC 33.5 32.0 - 37.0 g/dL LAB HEMETOLOGY METHOD 10/25/2024 7:29 AM [facility] RDW 12.0 11.0 - 15.0 % LAB HEMETOLOGY METHOD 10/25/2024 7:29 AM [facility] Platelets 282 130 - 400 K/mcL LAB HEMETOLOGY METHOD 10/25/2024 7:29 AM [facility] MPV 8.9 7.0 - 11.0 FL LAB HEMETOLOGY METHOD 10/25/2024 7:29 AM [facility] NRBC 0.0 <1.0 % LAB HEMETOLOGY METHOD 10/25/2024 7:29 AM [facility] NRBC Absolute 0.00 <0.10 K/mcL LAB HEMETOLOGY METHOD 10/25/2024 7:29 AM [facility] Neutrophils Relative 89.8 % LAB HEMETOLOGY METHOD 10/25/2024 7:29 AM [facility] Lymphocytes Relative 6.3 % LAB HEMETOLOGY METHOD 10/25/2024 7:29 AM [facility] Monocytes Relative 2.9 % LAB HEMETOLOGY METHOD 10/25/2024 7:29 AM [facility] Eosinophils Relative 0.4 % LAB HEMETOLOGY METHOD 10/25/2024 7:29 AM [facility] Basophils Relative 0.1 % LAB HEMETOLOGY METHOD 10/25/2024 7:29 AM [facility] Immature Granulocytes Relative 0.5 % LAB HEMETOLOGY METHOD 10/25/2024 7:29 AM [facility] Neutrophils Absolute 9.00(H) 1.50 - 7.00 K/mcL LAB HEMETOLOGY METHOD 10/25/2024 7:29 AM [facility] Lymphocytes Absolute 0.63(L) 1.00 - 5.00 K/mcL LAB HEMETOLOGY METHOD 10/25/2024 7:29 AM [facility] Monocytes Absolute 0.29 0.20 - 1.00 K/mcL LAB HEMETOLOGY METHOD 10/25/2024 7:29 AM [facility] Eosinophils Absolute 0.04 0.00 - 0.50 K/mcL LAB HEMETOLOGY METHOD 10/25/2024 7:29 AM [facility] Basophils Absolute 0.01 0.00 - 0.20 K/mcL LAB HEMETOLOGY METHOD 10/25/2024 7:29 AM [facility] Immature Granulocytes Absolute 0.05(H) 0.00 - 0.03 K/mcL LAB HEMETOLOGY METHOD 10/25/2024 7:29 AM [facility] Blood Venous blood specimen / Unknown Venipuncture / Unknown 10/25/2024 6:55 AM EDT 10/25/2024 7:12 AM EDT Elton Anne MD LAB BLOOD ORDERABLES Final Result Performing Organization Address [facility] Co de Phone Number [facility] [address] [place] [address], [place] [phone] * Lipase (10/25/2024 6:55 AM EDT) [facility] [address] Lipase 34 13 - 75 unit/L LAB CHEMISTRY METHOD 10/25/2024 8:28 AM EDT [facility] Blood Venous blood specimen / Unknown Venipuncture / Unknown 10/25/2024 6:55 AM EDT 10/25/2024 7:12 AM EDT Elton Anne MD LAB BLOOD ORDERABLES Final Result Performing Organization Address [facility] de Phone Number [facility] [address] [place] [address], [place] [phone] * (ABNORMAL) Magnesium (10/25/2024 6:55 AM EDT) [facility] [address] Magnesium 1.8(L) 1.9 - 2.6 mg/dL LAB CHEMISTRY METHOD 10/25/2024 7:53 AM EDT [facility] Blood Venous blood specimen / Unknown Venipuncture / Unknown 10/25/2024 6:55 AM EDT 10/25/2024 7:12 AM EDT Elton Anne MD LAB BLOOD ORDERABLES Final Result Performing Organization Address [facility] Co de Phone Number [facility] [address] [place] [address], [place] [phone] * (ABNORMAL) Comprehensive metabolic panel (10/25/2024 6:55 AM EDT) [facility] [address] Sodium 135 133 - 145 mmol/L LAB CHEMISTRY METHOD 10/25/2024 7:56 AM [facility] Potassium 4.6 3.5 - 5.5 mmol/L LAB CHEMISTRY METHOD 10/25/2024 7:56 AM [facility] Chloride 103 96 - 110 mmol/L LAB CHEMISTRY METHOD 10/25/2024 7:56 AM [facility] CO2 24 21 - 32 mmol/L LAB CHEMISTRY METHOD 10/25/2024 7:56 AM [facility] Anion Gap 8 3 - 11 LAB CHEMISTRY METHOD 10/25/2024 7:56 AM [facility] Glucose 143(H) 70 - 100 mg/dL LAB CHEMISTRY METHOD 10/25/2024 7:56 AM [facility] BUN 21 5 - 25 mg/dL LAB CHEMISTRY METHOD 10/25/2024 7:56 AM [facility] Creatinine 1.04 0.50 - 1.10 mg/dL LAB CHEMISTRY METHOD 10/25/2024 7:56 AM [facility] eGFR 58(L) >=60 mL/min/1. 73m2 LAB CHEMISTRY METHOD 10/25/2024 7:56 AM [facility] Comment:Calculation based on the??Chronic Kidney Disease Epidemiology Collaboration (CKD-EPI) equation refit??without adjustment for race. BUN/Creatinine Ratio 20.2 LAB CHEMISTRY METHOD 10/25/2024 7:56 AM [facility] Calcium 9.9 8.5 - 10.5 mg/dL LAB CHEMISTRY METHOD 10/25/2024 7:56 AM [facility] AST (SGOT) 25 10 - 42 unit/L LAB CHEMISTRY METHOD 10/25/2024 7:56 AM [facility] ALT (SGPT) 29 10 - 60 unit/L LAB CHEMISTRY METHOD 10/25/2024 7:56 AM EDT [facility] Alkaline Phosphatase 94 42 - 121 unit/L LAB CHEMISTRY METHOD 10/25/2024 7:56 AM EDT [facility] Total Protein 8.3(H) 6.0 - 8.0 g/dL LAB CHEMISTRY METHOD 10/25/2024 7:56 AM EDT [facility] Albumin 4.1 3.2 - 5.0 g/dL LAB CHEMISTRY METHOD 10/25/2024 7:56 AM EDT [facility] Total Bilirubin 1.0 0.0 - 1.4 mg/dL LAB CHEMISTRY METHOD 10/25/2024 7:56 AM EDT [facility] Blood Venous blood specimen / Unknown Venipuncture / Unknown 10/25/2024 6:55 AM EDT 10/25/2024 7:12 AM EDT us Elton Anne MD LAB BLOOD ORDERABLES Final Result [facility] [address] [place] [address], documented in this encounter Visit Diagnoses Diagnosis Vomiting and diarrhea- Primary documented in this encounter Administered Medications Inactive Administered Medications - up to 3 most recent administrations Medication Order MAR Action Action Date Dose Rate Site ketorolac (TORADOL) injection 15 mg 15 mg, intravenous, Once, On 10/25/24 at 0744, For 1 dose Given 10/25/2024 8:11 AM EDT 15 mg ondansetron (PF) (ZOFRAN) injection 4 mg 4 mg, intravenous, Once, On 10/25/24 at 0744, For 1 dose Given 10/25/2024 8:09 AM EDT 4 mg sodium chloride 0.9 % bolus 1,000 mL 1,000 mL, intravenous, at 2,000 mL/hr, Administer over 30 Minutes, Once, On 10/25/24 at 0744, For 1 dose New Bag 10/25/2024 8:08 AM EDT 1,000 mL 2000 mL/hr documented in this encounter Historical Medications * This list may reflect changes made after this encounter. traMADoL (ULTRAM) 50 mg tablet TAKE 1 TABLET BY MOUTH AT BEDTIME NEEDED FOR JOINT PAINS 10/21/2024 albuterol HFA (PROAIR HFA ; PROVENTIL HFA ; VENTOLIN HFA) 90 mcg/actuation inhaler INHALE 2 PUFF INHALED 6 TIMES A DAY NEEDED FOR SHORTNESS OF BREATH OR WHEEZING 10/16/2024 oxyBUTYnin (DITROPAN) 5 mg tablet Take 1 tablet (5 mg total) by mouth. at bedtime. 09/12/2024 hydroCHLOROthiaz [place] (HYDRODIURIL) 25 mg tablet take 1 tablet orally daily for 90 days 09/12/2024 levothyroxine (SYNTHROID, LEVOTHROID) 75 mcg tablet Take 1 tablet (75 mcg total) by mouth 1 (one) time each day in the morning. 10/18/2024 added in this encounter Active and Recently Administered Medications Times are shown in EDT. Scheduled Medication Order 10/23/2024 10/24/2024 10/25/2024 ketorolac (TORADOL) injection 15 mg (COMPLETED) 15 mg, intravenous, Once, On 10/25/24 at 0744, For 1 dose 0811 (Given - Provid er: Parmjit Younger RN) ondansetron (PF) (ZOFRAN) injection 4 mg (COMPLETED) 4 mg, intravenous, Once, On 10/25/24 at 0744, For 1 dose 0809 (Given - Provid er: Parmjit Younger RN) sodium chloride 0.9 % bolus 1,000 mL (COMPLETED) 1,000 mL, intravenous, at 2,000 mL/hr, Administer over 30 Minutes, Once, On 10/25/24 at 0744, For 1 dose 0808 (New Bag - Prov ider: Parmjit Younger RN)0942 (Stopped - Provider: Parmjit Younger RN) documented in this encounter Care Teams Damage Cutter Relationship Specialty Start Date End Date Physician, No Pcp PCP - General 10/25/24 documented as of this encounter
--- OUTSIDE RECORDS SUMMARY | 2024-10-28 10:53 | XMS_ITS | Clinical Summary ---
Author Organization [facility] Address [address] [place] [address] Phone Care Team Providers Care Disassembler Name Role Phone Physician, No Pcp Primary Care Provider Unavaila ble Allergies Active Allergy Reactions Criticality Noted Date Comments Acetaminophen 10/25/2024 Medications levothyroxine (SYNTHROID, LEVOTHROID) 75 mcg tablet Take 1 tablet (75 mcg total) by mouth 1 (one) time each day in the morning. 5 Active hydroCHLOROthia zide (HYDRODIURIL) 25 mg tablet take 1 tablet orally daily for 90 days 5 Active oxyBUTYnin (DITROPAN) 5 mg tablet Take 1 tablet (5 mg total) by mouth. at bedtime. 5 Active albuterol HFA (PROAIR HFA ; PROVENTIL HFA ; VENTOLIN HFA) 90 mcg/actuation inhaler INHALE 2 PUFF INHALED 6 TIMES A DAY NEEDED FOR SHORTNESS OF BREATH OR WHEEZING 5 Active traMADoL (ULTRAM) 50 mg tablet TAKE 1 TABLET BY MOUTH AT BEDTIME NEEDED FOR JOINT PAINS 5 Active ondansetron (ZOFRAN) 4 mg tabletIndicatio ns:Vomiting and diarrhea Take 1 tablet (4 mg total) by mouth every 6 (six) hours for 3 days. 12 tablet 5 10/29/19 25 Active Active Problems No known active problems Encounters Date Type Department Care Team Description 10/25/2024 7:14 AM EDT - 10/25/2024 9:[address] [facility] Emergency [address] [place] [address] Elton Anne MD Vomiting and diarrhea (Primary Dx) Discharge Disposition: Home or Self Care from Last 3 Months Surgical History Surgery Date Site/Laterality Comments CHOLECYSTECTOMY Medical History Medical History Date Comments Hypertension Disease of thyroid gland Shoulder pain, right GERD (gastroesophageal reflux disease) Social History Tobacco Use Types Packs/Day Years [...] or Holly 10/25/2024 7: 36 AM EDT Obstetrics History Last Filed Vital Signs Vital Sign Reading [...] Mass Index 35.67 10/25/2024 6:46 AM EDT Plan of Treatment Health Maintenance Due Date Last Done Comments Breast Cancer Screening 1955 DTaP,Tdap,and Td Vaccines (1 - Tdap) 1974 Pneumococcal Vaccine: 50+ Ye ars (1 of 1 - PCV) 2005 Zoster Vaccines (1 of 2) 2005 COVID-19 Vaccine ( - 2023-2 5 season) 2024 Influenza Vaccine (#1) 2024 Colorectal Cancer Screening: Colonoscopy 10/25/2024 Depression Screening 10/25/2024 Falls Risk Assessment 10/25/2024 Hepatitis C Screening 10/25/2024 Osteoporosis Screening (Bone Density Screening) 10/25/2024 Social Influencers of Health Screening 10/25/2024 RSV Immunization Patients 60 + Years Old [...] on patient's age to complete this topic Procedures Procedure Name Priority Date/Time Associated Diagnosis Comments CBC WITH AUTO DIFFERENTIAL STAT 10/25/2024 6:55 AM EDT LIPASE STAT 10/25/2024 6:55 AM EDT MAGNESIUM STAT 10/25/2024 6:55 AM EDT COMPREHENSIVE METABOLIC PANEL STAT 10/25/2024 6:55 AM EDT CBC AND DIFFERENTIAL STAT 10/25/2024 6:55 AM EDT from Last 3 Months Results * (ABNORMAL) CBC auto differential (10/25/2024 6:55 AM EDT) WBC 10.0 4.8 - 10.8 K/mcL LAB HEMETOLOGY METHOD 10/25/2024 7:29 AM EDT [facility] RBC 4.90(H) 3.80 - 4.80 M/mcL LAB HEMETOLOGY METHOD 10/25/2024 7:29 AM EDT [facility] Hemoglobin 14.7 11.5 - 16.0 g/dL LAB HEMETOLOGY METHOD 10/25/2024 7:29 AM [facility] Hematocrit 43.9 35.0 - 47.0 % LAB HEMETOLOGY METHOD 10/25/2024 7:29 AM [facility] MCV 90.3 79.0 - 98.0 FL LAB HEMETOLOGY METHOD 10/25/2024 7:29 AM [facility] MCH 30.2 27.0 - 32.0 pcg LAB HEMETOLOGY METHOD 10/25/2024 7:29 AM [facility] MCHC 33.5 32.0 - 37.0 g/dL LAB HEMETOLOGY METHOD 10/25/2024 7:29 AM [facility] RDW 12.0 11.0 - 15.0 % LAB HEMETOLOGY METHOD 10/25/2024 7:29 AM [facility] Platelets 282 130 - 400 K/mcL LAB HEMETOLOGY METHOD 10/25/2024 7:29 AM [facility] MPV 8.9 7.0 - 11.0 FL LAB HEMETOLOGY METHOD 10/25/2024 7:29 AM [facility] NRBC 0.0 <1.0 % LAB HEMETOLOGY METHOD 10/25/2024 7:29 AM [facility] NRBC Absolute 0.00 <0.10 K/mcL LAB HEMETOLOGY METHOD 10/25/2024 7:29 AM [facility] Neutrophils Relative 89.8 % LAB HEMETOLOGY METHOD 10/25/2024 7:29 AM [facility] Lymphocytes Relative 6.3 % LAB HEMETOLOGY METHOD 10/25/2024 7:29 AM [facility] Monocytes Relative 2.9 % LAB HEMETOLOGY METHOD 10/25/2024 7:29 AM EDT [facility] Eosinophils Relative 0.4 % LAB HEMETOLOGY METHOD 10/25/2024 7:29 AM EDT [facility] Basophils Relative 0.1 % LAB HEMETOLOGY METHOD 10/25/2024 7:29 AM EDT [facility] Immature Granulocytes Relative 0.5 % LAB HEMETOLOGY METHOD 10/25/2024 7:29 AM EDT [facility] Neutrophils Absolute 9.00(H) 1.50 - 7.00 K/mcL LAB HEMETOLOGY METHOD 10/25/2024 7:29 AM EDT [facility] Lymphocytes Absolute 0.63(L) 1.00 - 5.00 K/mcL LAB HEMETOLOGY METHOD 10/25/2024 7:29 AM EDT [facility] Monocytes Absolute 0.29 0.20 - 1.00 K/mcL LAB HEMETOLOGY METHOD 10/25/2024 7:29 AM EDT [facility] Eosinophils Absolute 0.04 0.00 - 0.50 K/mcL LAB HEMETOLOGY METHOD 10/25/2024 7:29 AM EDT [facility] Basophils Absolute 0.01 0.00 - 0.20 K/mcL LAB HEMETOLOGY METHOD 10/25/2024 7:29 AM EDT [facility] Immature Granulocytes Absolute 0.05(H) 0.00 - 0.03 K/mcL LAB HEMETOLOGY METHOD 10/25/2024 7:29 AM EDT [facility] Blood Venous blood specimen / Unknown Venipuncture / Unknown 10/25/2024 6:55 AM EDT 10/25/2024 7:12 AM EDT us Elton Anne MD LAB BLOOD ORDERABLES Final Result [facility] [address] [place] [address], [place] [phone] * (ABNORMAL) Magnesium (10/25/2024 6:55 AM EDT) [facility] Magnesium 1.8(L) 1.9 - 2.6 mg/dL LAB CHEMISTRY METHOD 10/25/2024 7:53 AM EDT [facility] Blood Venous blood specimen / Unknown Venipuncture / Unknown 10/25/2024 6:55 AM EDT 10/25/2024 7:12 AM EDT Elton Anne MD LAB BLOOD ORDERABLES Final Result [facility] [address] [place] [address], [place] [phone] * Lipase (10/25/2024 6:55 AM EDT) [facility] Lipase 34 13 - 75 unit/L LAB CHEMISTRY METHOD 10/25/2024 8:28 AM EDT [facility] Blood Venous blood specimen / Unknown Venipuncture / Unknown 10/25/2024 6:55 AM EDT 10/25/2024 7:12 AM EDT Elton Anne MD LAB BLOOD ORDERABLES Final Result Performing Organization Address City/[facility]/ZIP Co de Phone Number [facility] [address] [place] [address], [place] [phone] * (ABNORMAL) Comprehensive metabolic panel (10/25/2024 6:55 AM EDT) [facility] Sodium 135 133 - 145 mmol/L LAB CHEMISTRY METHOD 10/25/2024 7:56 AM EDT [facility] Potassium 4.6 3.5 - 5.5 mmol/L LAB CHEMISTRY METHOD 10/25/2024 7:56 AM EDT [facility] Chloride 103 96 - 110 mmol/L LAB CHEMISTRY METHOD 10/25/2024 7:56 AM [facility] CO2 24 21 - 32 mmol/L LAB CHEMISTRY METHOD 10/25/2024 7:56 AM [facility] Anion Gap 8 3 - 11 LAB CHEMISTRY METHOD 10/25/2024 7:56 AM [facility] Glucose 143(H) 70 - 100 mg/dL LAB CHEMISTRY METHOD 10/25/2024 7:56 AM [facility] BUN 21 5 - 25 mg/dL LAB CHEMISTRY METHOD 10/25/2024 7:56 AM [facility] Creatinine 1.04 0.50 - 1.10 mg/dL LAB CHEMISTRY METHOD 10/25/2024 7:56 AM [facility] eGFR 58(L) >=60 mL/min/1. 73m2 LAB CHEMISTRY METHOD 10/25/2024 7:56 AM [facility] Comment:Calculation based on the??Chronic Kidney Disease Epidemiology Collaboration (CKD-EPI) equation refit??without adjustment for race. BUN/Creatinine Ratio 20.2 LAB CHEMISTRY METHOD 10/25/2024 7:56 AM [facility] Calcium 9.9 8.5 - 10.5 mg/dL LAB CHEMISTRY METHOD 10/25/2024 7:56 AM [facility] AST (SGOT) 25 10 - 42 unit/L LAB CHEMISTRY METHOD 10/25/2024 7:56 AM [facility] ALT (SGPT) 29 10 - 60 unit/L LAB CHEMISTRY METHOD 10/25/2024 7:56 AM [facility] Alkaline Phosphatase 94 42 - 121 unit/L LAB CHEMISTRY METHOD 10/25/2024 7:56 AM [facility] Total Protein 8.3(H) 6.0 - 8.0 g/dL LAB CHEMISTRY METHOD 10/25/2024 7:56 AM [facility] Albumin 4.1 3.2 - 5.0 g/dL LAB CHEMISTRY METHOD 10/25/2024 7:56 AM EDT [facility] Total Bilirubin 1.0 0.0 - 1.4 mg/dL LAB CHEMISTRY METHOD 10/25/2024 7:56 AM EDT [facility] Blood Venous blood specimen / Unknown Venipuncture / Unknown 10/25/2024 6:55 AM EDT 10/25/2024 7:12 AM EDT us Elton Anne MD LAB BLOOD ORDERABLES Final Result [facility] [address] [place] [address], [place] [phone] from Last 3 Months Insurance [employer] Care Teams Disassembler Relationship Specialty Start Date End Date Physician, No Pcp PCP - General 10/25/24
== END 2024-10-28 11:03 | disposition home or self-care (01) ==
PROVIDERS: PCP Internal Medicine; Visit Provider Physician Assistant
DX: K52.9 Noninfective gastroenteritis and colitis, unspecified (principal)

== ENCOUNTER 2024-10-28 09:43 | Outpatient (REF) | payer MEDICARE, SELFPAY | END 2024-10-28 09:44 | disposition home or self-care (01) | LOC: CF 09:43 | PROVIDERS: PCP Internal Medicine; Visit Provider Physician Assistant | DX: K52.9 Noninfective gastroenteritis and colitis, unspecified (principal); R11.10 Vomiting, unspecified | CPT/HCPCS: 99212 ==

== ENCOUNTER 2024-10-30 06:51 | Outpatient (REF) | payer MEDICARE, SELFPAY ==
[2024-10-30 13:04] LABS: Adenovirus F 40/41 Not Detected (Not Detect.); Astrovirus Not Detected (Not Detect.); Campylobacter Not Detected (Not Detect.); Cryptosporidium Not Detected (Not Detect.); Cyclospora cayetanensis Not Detected (Not Detect.); E. coli EAEC Not Detected (Not Detect.); E. coli EPEC Not Detected (Not Detect.); E. coli ETEC Not Detected (Not Detect.); E. coli STEC Not Detected (Not Detect.); Entamoeba histolytica Not Detected (Not Detect.); Giardia lamblia Not Detected (Not Detect.); Plesiomonas shigelloides Not Detected (Not Detect.); Rotavirus A Not Detected (Not Detect.); Salmonella Not Detected (Not Detect.); Sapovirus Not Detected (Not Detect.); Shigella sp./EIEC Not Detected (Not Detect.); Vibrio Not Detected (Not Detect.); Vibrio Cholerae Not Detected (Not Detect.); Yersinia enterocolitica Not Detected (Not Detect.)
[2024-10-30 14:21] LABS: Norovirus GI/GII Detected (Not Detect.)
== END 2024-10-30 08:44 | disposition home or self-care (01) ==
LOC: HO.HMGCLNP 06:51
PROVIDERS: PCP Internal Medicine; Visit Provider Physician Assistant
DX: K52.9 Noninfective gastroenteritis and colitis, unspecified (principal); R11.0 Nausea; I10 Essential (primary) hypertension; K21.9 Gastro-esophageal reflux disease without esophagitis; E03.9 Hypothyroidism, unspecified; E66.01 Morbid (severe) obesity due to excess calories; Z68.35 Body mass index [BMI] 35.0-35.9, adult; N32.81 Overactive bladder; F33.41 Major depressive disorder, recurrent, in partial remission; M54.50 Low back pain, unspecified; G89.29 Other chronic pain; Z79.899 Other long term (current) drug therapy
CPT/HCPCS: 36415; 80053; 80061; 82306; 84443; 85025; 87507; 96127; 99212

== ENCOUNTER 2024-10-30 09:37 | Outpatient (AMB) | payer MEDICARE, SELFPAY ==
[2024-10-30 09:41] VITALS: BP 128/84; PULSE 65; RESP 16; TEMP 36.6; O2SAT 98; BMI 34.8
--- NOTE | 2024-10-30 09:41 | MHC.PC.OV ---
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: No Allergies acetaminophen [From TYLENOL] Allergy (Unknown, Verified 10/30/24 09:49) ITCHY atenolol Adverse Reaction (Mild, Verified 10/30/24 09:49) Nausea MIGRAINE MEDICINE Allergy (Unknown, Uncoded 10/28/24 10:27) SHAKEY Environmental Allergy (Unknown, Uncoded 10/28/24 10:27) Unknown Lisinopril Adverse Reaction (Mild, Uncoded 10/28/24 10:27) Do not feel well Medication List - Last Reconciled 10/30/24 by Lolis Josue MD albuterol sulfate 90 mcg/actuation 2 puffs inhalation 6XD PRN betamethasone dipropionate 0.05% 1 appl topical BID PRN cholecalciferol (vitamin D3) 25 mcg PO DAILY 90 days cyanocobalamin (vitamin B-12) 1,000 mcg PO DAILY duloxetine 40 mg PO ONCE 90 days hydrochlorothiazide 25 mg PO QAM hydrochlorothiazide 25 mg PO DAILY 90 days levothyroxine 75 mcg PO QAM omeprazole 40 mg PO DAILY 90 days oxybutynin chloride 5 mg PO BEDTIME 30 days tramadol 50 mg PO BEDTIME PRN 90 days Tobacco use date assessed: 10/30/24 Fall risk assessment: No Falls in past year Last assessed Fall Risk: 10/30/24 Dental Screening Dental Screen Date: 10/30/24 Did you have a dental visit in the last 12 months?: Yes Did you have a dental problem in the last 6 months where you did not have access to dental care?: No Was dental information given to patient?: Patient has dentist HPI ED f/up HPI Details History - The patient is a 69-year-old female presented to [facility] on 10/25/2024 secondary to acute gastrointestinal symptoms of nausea vomiting and diarrhea of 3 days' duration I do not have the emergency room paperwork with me - Severe diarrhea accompanied these symptoms, resulting in a feeling of overall weakness. - Gastrointestinal symptoms better but still having symptoms with solid foods and continued to feel tired -upon discharge patient was given script for Zofran which she has not picked up still and continued to feel slight nausea but there is no vomiting or diarrhea anymore Blood pressure is well-controlled 128/84, patient is on hydrochlorothiazide 25 mg Her other medications are levothyroxine 75 mcg for hypothyroidism GERD controlled with omeprazole 40 mg Stress incontinence stable with oxybutynin 5 mg Patient is also on duloxetine 40 mg for chronic pain and as a mood stabilizer She is to continue vitamin-D supplement and B12 supplement. Problem List - Viral gastroenteritis (suspected) - Nausea - Diarrhea - Vomiting - hypertension - hypothyroidism - chronic GERD - vitamin deficiencies - depression and body pain Diagnostic results - Labs: Blood tests were conducted at [facility], with results reported as normal (actual values not provided). Patient Instructions - Continue prescribed medication for nausea as directed by healthcare provider. - Follow a bland diet, avoiding spices and solid foods that may exacerbate nausea or digestive issues. - Focus on eating smaller portions such as soups, boiled rice, pasta, and boiled carrots. - Avoid eating solid/insoluble foods like potatoes which may be difficult to swallow. - Rest and avoid strenuous activity to aid recovery and manage feelings of weakness. - Schedule a follow-up appointment in two weeks. Contact healthcare provider sooner if symptoms worsen or persist unexpectedly. - continue other medications Review of Systems General: No fever no chills neurological: No headaches no dizziness ear nose throat: No sore throat no hearing difficulty no ear pain cardiovascular: No syncope, no chest pain, no palpitations gastrointestinal: No vomiting or diarrhea endocrine: No polyuria polydipsia no heat intolerance genitourinary: No dysuria skin: No new complaints Physical Exam general: No acute distress HEENT: No acute findings neck: Supple respiratory system: Able to talk in full sentences, no audible wheeze no stridor cardiovascular: S1-S2 gastrointestinal: Benign on examination extremities: No new findings 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 awake oriented x3 motor sensory intact skin: Normal turgor PFSH Medical History Osteopenia Menopausal state Dizziness Shoulder pain, right Hypothyroidism Hypertension, essential Vitamin D deficiency Chronic GERD Migraine aura without headache Surgical History Hx of hemorrhoidectomy S/P laparoscopic cholecystectomy (02/06/21) History of hysterectomy History of tubal ligation Family History Father Heart attack HTN (hypertension) CVD (cardiovascular disease) Mother Cervical cancer Maternal Grandmother Diabetes mellitus Maternal Grandfather Throat cancer Paternal Grandfather Cancer Paternal Grandmother Heart attack HTN (hypertension) Paternal Aunt Breast cancer Paternal Uncle Lung cancer Other Mental health disorder Social History Household Members: None Housing: Apartment Are you a primary healthcare network pricing consultant to a significant other at home: No Do you presently have visiting nurse or other home services: No Alcohol intake: never Patient Tobacco Use Status: Never used Tobacco e-Cigarette/Vaping Use: Never Used Advance Directives Date on File: 05/12/20 service: No 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 1. Little interest or pleasure in doing things: not at all 2. Feeling down, depressed, or hopeless: not at all 3. Trouble falling or staying asleep, or sleeping too much: not at all 4. Feeling tired or having little energy: not at all 5. Poor appetite or overeating: not at all 6. Feeling bad about yourself - or that you are a failure or have let yourself or your family down: not at all 7. Trouble concentrating on things, such as reading the newspaper or watching television: not at all 8. Moving or speaking so slowly that other people could have noticed. Or the opposite - being so fidgety or restless that you have been moving around a lot more than usual: not at all 9. Thoughts that you would be better off or of hurting yourself in some way: not at all Total score: 0 Depression Screening Interpretation: Negative Depression Screening Done: Yes 00118 - PHQ-9 Billing: Yes Source: Developed by Drs. Darryl Ramírez, Anay Mejia, Matt Gifford and colleagues, with an educational tatyana from [employer]. Thrive Questionnaire Date Thrive assessed: 10/30/24 I am a: Patient What is your living situation today?: I have a steady place to live Within the past 12 months, did the food you bought not last and you didn't have the money to get more?: Never true Within the past 12 months, did you worry whether your food would run out before you got money to buy more?: Sometimes True Do you have trouble paying for medicines?: No Do you have trouble getting transportation to medical appointments?: No Do you have trouble paying your heating and electricity bill?: No Do you have trouble taking care of your child, family member or friend?: No Do you have trouble with day-to-day activities such as bathing, preparing meals, shopping, managing finances, etc.?: No Are you currently unemployed and looking for a job?: No Are you interested in more education?: No Please select the resources that you would like help with: None Currently or been in a relationship where the following occur: I choose not to answer THRIVE Score: 1 AUDIT C Alcohol Use Questionnaire (AUDIT-C) 1. How often do you have a drink containing alcohol?: Never 3. How often do you have six or more drinks on one occasion?: Never Total Score: 0 Score Reviewed/Action Taken: Yes RENETTA-7 AMB Questionnaire RENETTA-7 Date RENETTA - 7 assessed: 10/30/24 Feeling nervous, anxious, or on edge: 0 = Not at all Not being able to stop or control worryin = Not at all Worrying too much about different things: 0 = Not at all Trouble relaxin = Not at all Being so restless that it is hard to sit still: 0 = Not at all Becoming easily annoyed or irritable: 0 = Not at all Feeling afraid as if something awful might happen: 0 = Not at all Total RENETTA-7 score (0-4 normal; 5-9 mild; 10-14 moderate; 15-21 severe): 0 Source: Developed by Drs. Darryl Ramírez, Anay Mejia, Matt Gifford and colleagues, with an educational tatyana from [employer]. RENETTA-7 Assessment Billing RENETTA-7 Assessment Tool: RENETTA-7 Assessment 93957 Physical exam (Primary Care) Vital Signs: Last Vital Signs Temp 98 F 10/30/24 09:41 Pulse 65 10/30/24 09:41 Resp 16 10/30/24 09:41 BP 128/84 10/30/24 09:41 Pulse Ox 98 10/30/24 09:41 Oxygen Delivery Method Room Air 10/30/24 09:41 BMI result Body Mass Index 34.8 Tobacco/Smoking Status: Tobacco use Status Tobacco use date assessed 10/30/24 10/30/24 09:50 Patient Tobacco Use Status Never used Tobacco 10/30/24 09:44 e-Cigarette/Vaping Use Never Used 10/30/24 09:44 PHQ-9: PHQ-9 Score PHQ-9: Total score 0 10/30/24 09:51 Depression Screening Interpretation: Negative Thrive Assessment: Date of Thrive Assessment Date Thrive assessed 10/30/24 10/30/24 09:50 Currently or been in a relationship where the following occur: I choose not to answer Coding Level of Care Code Est Pt Level 4 (26244) Complex EM visit Add On G2211 Diagnoses Gastroenteritis K52.9 Nausea R11.0 Hypertension, essential I10 Chronic GERD K21.9 Hypothyroidism, unspecified type E03.9 Hypothyroidism type: unspecified Class 2 severe obesity due to excess calories with serious comorbidity and body mass index (BMI) of 35.0 to 35.9 in adult E66.01; Z68.35 Obesity classification: adult class 2 (BMI 35 - 39.9) Serious obesity comorbidity presence: with serious comorbidity Body mass index: BMI 35.0-35.9 Overactive bladder N32.81 Recurrent major depressive disorder, in partial remission F33.41 Active/Remission status: in partial remission Chronic bilateral low back pain without sciatica M54.50; G89.29 Back pain laterality: bilateral Sciatica presence: without sciatica Additional Codes RENETTA-7 Assessment Billing - RENETTA-7 Assessment Tool: RENETTA-7 Assessment 03441 ([id number]) PHQ-9 - 73464 - PHQ-9 Billing: Yes ([id number]) Assessment & Plan Assessment & Plan (1) Gastroenteritis: Code(s): K52.9 - Noninfective gastroenteritis and colitis, unspecified Category: Medical (2) Nausea: Code(s): R11.0 - Nausea Category: Medical (3) Hypertension, essential: Code(s): I10 - Essential (primary) hypertension Category: Medical (4) Chronic GERD: Code(s): K21.9 - Gastro-esophageal reflux disease without esophagitis Category: Medical (5) Hypothyroidism: Code(s): E03.9 - Hypothyroidism, unspecified Category: Medical Qualifiers: Hypothyroidism type: unspecified Qualified Code(s): E03.9 - Hypothyroidism, unspecified (6) Obesity due to excess calories: Code(s): E66.09 - Other obesity due to excess calories Category: Medical Qualifiers: Obesity classification: adult class 2 (BMI 35 - 39.9) Serious obesity comorbidity presence: with serious comorbidity Body mass index: BMI 35.0-35.9 Qualified Code(s): E66.01 - Morbid (severe) obesity due to excess calories; Z68.35 - Body mass index [BMI] 35.0-35.9, adult (7) Overactive bladder: Code(s): N32.81 - Overactive bladder Category: Medical (8) Major depression, recurrent: Code(s): F33.9 - Major depressive disorder, recurrent, unspecified Category: Medical Qualifiers: Active/Remission status: in partial remission Qualified Code(s): F33.41 - Major depressive disorder, recurrent, in partial remission (9) Chronic lower back pain: Code(s): M54.50 - Low back pain, unspecified; G89.29 - Other chronic pain Category: Medical Qualifiers: Back pain laterality: bilateral Sciatica presence: without sciatica Qualified Code(s): M54.50 - Low back pain, unspecified; G89.29 - Other chronic pain Plan History - The patient is a 69-year-old female presented to [facility] on 10/25/2024 secondary to acute gastrointestinal symptoms of nausea vomiting and diarrhea of 3 days' duration I do not have the emergency room paperwork with me - Severe diarrhea accompanied these symptoms, resulting in a feeling of overall weakness. - Gastrointestinal symptoms better but still having symptoms with solid foods and continued to feel tired -upon discharge patient was given script for Zofran which she has not picked up still and continued to feel slight nausea but there is no vomiting or diarrhea anymore Blood pressure is well-controlled 128/84, patient is on hydrochlorothiazide 25 mg Her other medications are levothyroxine 75 mcg for hypothyroidism GERD controlled with omeprazole 40 mg Stress incontinence stable with oxybutynin 5 mg Patient is also on duloxetine 40 mg for chronic pain and as a mood stabilizer She is to continue vitamin-D supplement and B12 supplement. Problem List - Viral gastroenteritis (suspected) - Nausea - Diarrhea - Vomiting - hypertension - hypothyroidism - chronic GERD - vitamin deficiencies - depression and body pain Diagnostic results - Labs: Blood tests were conducted at [facility], with results reported as normal (actual values not provided). Patient Instructions - Continue prescribed medication for nausea as directed by healthcare provider. - Follow a bland diet, avoiding spices and solid foods that may exacerbate nausea or digestive issues. - Focus on eating smaller portions such as soups, boiled rice, pasta, and boiled carrots. - Avoid eating solid/insoluble foods like potatoes which may be difficult to swallow. - Rest and avoid strenuous activity to aid recovery and manage feelings of weakness. - Schedule a follow-up appointment in two weeks. Contact healthcare provider sooner if symptoms worsen or persist unexpectedly. - continue other medications
== END 2024-10-30 09:55 | disposition home or self-care (01) ==
LOC: HO.HMCC 09:38
PROVIDERS: PCP Internal Medicine; Visit Provider Internal Medicine
DX: K52.9 Noninfective gastroenteritis and colitis, unspecified (principal); E66.01 Morbid (severe) obesity due to excess calories; Z68.35 Body mass index [BMI] 35.0-35.9, adult; F33.41 Major depressive disorder, recurrent, in partial remission; R11.0 Nausea; I10 Essential (primary) hypertension; K21.9 Gastro-esophageal reflux disease without esophagitis; E03.9 Hypothyroidism, unspecified; N32.81 Overactive bladder; M54.50 Low back pain, unspecified; G89.29 Other chronic pain

== ENCOUNTER 2024-10-30 10:00 | Outpatient (REF) | payer MEDICARE, SELFPAY ==
[2024-10-30 13:33] LABS: Basophils Percent Auto 0.5 % (0-2); Eosinophils Absolute Auto 0.1 X10*3/uL (0.0-0.4); Eosinophils Percent Auto 1.7 % (0-4); Hemoglobin 13.8 g/dl (12.0-16.0); Imm Gran Abs Auto 0.01 X10*3/uL (0.00-0.03); Imm Gran Pct Auto 0.2 % (0.0-0.4); Lymphocytes Absolute Auto 1.4 X10*3/uL (1.2-4.9); Lymphocytes Percent Auto 34.5 % (20-40); MANUAL DIFF FLAG SCAN; Mean Corpuscular HGB Conc 34.5 g/dl (31.0-35.0); Mean Corpuscular Hemoglobin 30.3 pg (27.0-33.0); Mean Corpuscular Volume 87.7 fL (80.0-98.0); Mean Platelet Volume 8.9 fL (9.4-12.3); Monocytes Absolute Auto 0.3 X10*3/uL (0.1-1.2); Monocytes Percent Auto 6.6 % (2-11); Neutrophils Absolute Auto 2.3 x10*3/uL (2.0-8.3); Neutrophils Percent Auto 56.5 % (45-73); Platelet Count 246 X10*3/uL (160-400); Red Blood Count 4.56 X10*6/uL (4.20-5.50); Red Cell Distribution Width 11.9 % (11.0-16.0); SCAN SMEAR FLAG 1; White Blood Count 4.1 X10*3/uL (4.8-10.8)
[2024-10-30 14:10] LABS: Alanine Aminotransferase 36 U/L (0-31); Alkaline Phosphatase 74 U/L (39-117); Anion Gap 12 (12-20); Aspartate Amino Transferase 35 U/L (5-31); Bilirubin Total 0.8 mg/dL (0.0-1.0); Blood Urea Nitrogen 10 mg/dL (9-16); Calcium 9.2 mg/dL (8.4-10.2); Carbon Dioxide 24 mmol/L (22-29); Chloride 109 mmol/L (96-108); Cholesterol 134 mg/dL (<200); Estimated Glomerular Filt Rate > 60; Glucose Fasting 86 mg/dL (60-99); HDL Cholesterol 28 mg/dL (>40); LDL Cholesterol Calculated 81 mg/dL (<100); Potassium 4.3 mmol/L (3.3-5.1); Sodium 141 mmol/L (135-145); Total Protein 7.6 g/dL (6.5-8.0); Triglycerides 129 mg/dL (<150)
[2024-10-30 14:12] LABS: TSH reflex Free T4 1.97 uIU/mL (0.32-4.0)
[2024-10-30 14:23] LABS: SLIDE REVIEW VERIFIED
[2024-11-03 16:48] LABS: Vitamin D 25-OH, D2 <4 ng/mL; Vitamin D 25-OH, D3 33 ng/mL; Vitamin D 25-OH, Total 33 ng/mL (30-100)
== END 2024-10-30 10:01 | disposition home or self-care (01) ==
LOC: HO.HMGCLDS 10:00
PROVIDERS: PCP Internal Medicine; Visit Provider Internal Medicine
DX: Z13.89 Encounter for screening for other disorder (principal)
CPT/HCPCS: 36415; 80053; 80061; 82306; 84443; 85025

== ENCOUNTER 2024-11-13 09:02 | Outpatient (AMB) | payer MEDICARE, SELFPAY ==
[2024-11-13 09:05] VITALS: BP 126/82; PULSE 74; O2SAT 98; BMI 35.9
--- NOTE | 2024-11-13 09:05 | MHC.PC.OV ---
Vital Signs 11/13/24 09:05 Height 5 ft 2 in Weight 196 lb 4 oz BMI 35.9 BP 126/82 Blood Pressure Location Rt brachial Position Sitting Pulse 74 Pulse Source Pulse Oximeter Pulse Oximetry (%) 98 Oxygen Delivery Method Room Air Intake Visit Reasons: 2 weeks f/up Allergies acetaminophen [From TYLENOL] Allergy (Unknown, Verified 11/13/24 09:05) ITCHY atenolol Adverse Reaction (Mild, Verified 11/13/24 09:05) Nausea MIGRAINE MEDICINE Allergy (Unknown, Uncoded 10/28/24 10:27) SHAKEY Environmental Allergy (Unknown, Uncoded 10/28/24 10:27) Unknown Lisinopril Adverse Reaction (Mild, Uncoded 10/28/24 10:27) Do not feel well Medication List - Last Reconciled 11/13/24 by Lolis Josue MD albuterol sulfate 90 mcg/actuation 2 puffs inhalation 6XD PRN betamethasone dipropionate 0.05% 1 appl topical BID PRN cholecalciferol (vitamin D3) 25 mcg PO DAILY 90 days cyanocobalamin (vitamin B-12) 1,000 mcg PO DAILY duloxetine 40 mg PO ONCE 90 days hydrochlorothiazide 25 mg PO QAM hydrochlorothiazide 25 mg PO DAILY 90 days levothyroxine 75 mcg PO QAM omeprazole 40 mg PO DAILY 90 days oxybutynin chloride 5 mg PO BEDTIME 30 days tramadol 50 mg PO BEDTIME PRN 90 days Tobacco use date assessed: 11/13/24 Fall risk assessment: No Falls in past year Last assessed Fall Risk: 11/13/24 Dental Screening Dental Screen Date: 11/13/24 Did you have a dental visit in the last 12 months?: Yes Did you have a dental problem in the last 6 months where you did not have access to dental care?: No Was dental information given to patient?: Patient has dentist HPI 2 weeks f/up HPI Details History - The patient is a 69 year old female presenting for follow-up on gastrointestinal discomfort and shoulder stiffness. Right more than left - She notes a sensitivity to dairy products, causing nausea and diarrhea, leading her to avoid such foods. But feeling much better from before We talked about the food diary and restricting the foods that she is consuming at this time, mostly dairy product causing symptoms for that she should get a lactate milk Or lactic tablets they are [id number] but eat bland diet for now - She has a history of shoulder pain and stiffness following an injection treatment, patient does not want to see orthopedic at this time -I explained the shoulder exercises to patient today that she is to start doing at home, I also offered physical therapy which she declined. 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 - Purchase and consume lactate milk in place of regular dairy milk. - Perform shoulder mobility exercises at home, such as moving fingers up the wall, multiple times a day to maintain joint movement. - Maintain a diary to track foods that cause gastrointestinal upset. Review of Systems - General: No fever no chills - Neurological: No headaches no dizziness - Ear nose throat: No sore throat no hearing difficulty no ear pain - Cardiovascular: No syncope, no chest pain, no palpitations - Gastrointestinal: No nausea vomiting or diarrhea - Endocrine: No polyuria polydipsia no heat intolerance - Genitourinary: No dysuria , no blood in urine Physical Exam General: No acute distress HEENT: No acute findings Neck: Supple Respiratory system: Able to talk in full sentences, no audible wheeze Cardiovascular: S1-S2 regular in rate and rhythm Gastrointestinal: Stomach exam benign Extremities: Shoulder pain noted, advised exercises or physical therapy, limited range of motion but patient is able to lift them all the way up with discomfort [employer]: Alert awake oriented x3 motor sensory intact Skin: Normal turgor PFSH Medical History Osteopenia Menopausal state Dizziness Shoulder pain, right Hypothyroidism Hypertension, essential Vitamin D deficiency Chronic GERD Migraine aura without headache Surgical History Hx of hemorrhoidectomy S/P laparoscopic cholecystectomy (02/06/21) History of hysterectomy History of tubal ligation Family History Father Heart attack HTN (hypertension) CVD (cardiovascular disease) Mother Cervical cancer Maternal Grandmother Diabetes mellitus Maternal Grandfather Throat cancer Paternal Grandfather Cancer Paternal Grandmother Heart attack HTN (hypertension) Paternal Aunt Breast cancer Paternal Uncle Lung cancer Other Mental health disorder Social History Household Members: None Housing: Apartment Are you a primary lawn care professional to a significant other at home: No Do you presently have visiting nurse or other home services: No Alcohol intake: never Patient Tobacco Use Status: Never used Tobacco e-Cigarette/Vaping Use: Never Used Advance Directives Date on File: 05/12/20 service: No 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 53956 - PHQ-9 Billing: Patient declined-do not bill Source: Developed by Drs. Darryl Ramírez, Anay Mejia, Matt Gifford and colleagues, with an educational tatyana from [employer]. Thrive Questionnaire Date Thrive assessed: 11/13/24 I am a: Patient What is your living situation today?: I have a steady place to live Within the past 12 months, did the food you bought not last and you didn't have the money to get more?: Never true Within the past 12 months, did you worry whether your food would run out before you got money to buy more?: Sometimes True Do you have trouble paying for medicines?: No Do you have trouble getting transportation to medical appointments?: No Do you have trouble paying your heating and electricity bill?: No Do you have trouble taking care of your child, family member or friend?: No Do you have trouble with day-to-day activities such as bathing, preparing meals, shopping, managing finances, etc.?: No Are you currently unemployed and looking for a job?: No Are you interested in more education?: No Please select the resources that you would like help with: None Currently or been in a relationship where the following occur: I choose not to answer THRIVE Score: 1 AUDIT C Alcohol Use Questionnaire (AUDIT-C) 1. How often do you have a drink containing alcohol?: Never 3. How often do you have six or more drinks on one occasion?: Never Total Score: 0 Score Reviewed/Action Taken: Yes RENETTA-7 AMB Questionnaire RENETTA-7 Date RENETTA - 7 assessed: 10/30/24 Source: Developed by Drs. Darryl Ramírez, Anay Mejia, Matt Gifford and colleagues, with an educational tatyana from [employer]. Physical exam (Primary Care) Vital Signs: Last Vital Signs Pulse 74 11/13/24 09:05 BP 126/82 11/13/24 09:05 Pulse Ox 98 11/13/24 09:05 Oxygen Delivery Method Room Air 11/13/24 09:05 BMI result Body Mass Index 35.9 Tobacco/Smoking Status: Tobacco use Status Tobacco use date assessed 11/13/24 11/13/24 09:07 Patient Tobacco Use Status Never used Tobacco 11/13/24 09:07 e-Cigarette/Vaping Use Never Used 11/13/24 09:07 Thrive Assessment: Date of Thrive Assessment Date Thrive assessed 11/13/24 11/13/24 09:10 Currently or been in a relationship where the following occur: I choose not to answer Coding Level of Care Code Est Pt Level 3 (03030) Diagnoses Gastroenteritis K52.9 Nausea R11.0 Gastrointestinal food sensitivity T78.1XXA Chronic pain of both shoulders M25.511; M25.512; G89.29 Chronicity: chronic Assessment & Plan Assessment & Plan (1) Gastroenteritis: Code(s): K52.9 - Noninfective gastroenteritis and colitis, unspecified Category: Medical (2) Nausea: Code(s): R11.0 - Nausea Category: Medical (3) Gastrointestinal food sensitivity: Code(s): T78.1XXA - Other adverse food reactions, not elsewhere classified, initial encounter Category: Medical (4) Shoulder pain, bilateral: Code(s): M25.511 - Pain in right shoulder; M25.512 - Pain in left shoulder Category: Medical Qualifiers: Chronicity: chronic Qualified Code(s): M25.511 - Pain in right shoulder; M25.512 - Pain in left shoulder; G89.29 - Other chronic pain Plan History - The patient is a 69 year old female presenting for follow-up on gastrointestinal discomfort and shoulder stiffness. Right more than left - She notes a sensitivity to dairy products, causing nausea and diarrhea, leading her to avoid such foods. But feeling much better from before We talked about the food diary and restricting the foods that she is consuming at this time, mostly dairy product causing symptoms for that she should get a lactate milk Or lactic tablets they are [id number]-guf-hascvvl but eat bland diet for now - She has a history of shoulder pain and stiffness following an injection treatment, patient does not want to see orthopedic at this time -I explained the shoulder exercises to patient today that she is to start doing at home, I also offered physical therapy which she declined. 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 - Purchase and consume lactate milk in place of regular dairy milk. - Perform shoulder mobility exercises at home, such as moving fingers up the wall, multiple times a day to maintain joint movement. - Maintain a diary to track foods that cause gastrointestinal upset.
--- OUTSIDE RECORDS SUMMARY | 2024-11-13 09:43 | XMS_ITS | Clinical Summary ---
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 12 tablet 5 10/29/19 25 Active Problems No known active problems Encounters Date Type Department Care Team Description 10/25/2024 7:14 AM EDT - 10/25/2024 9:49 AM EDT Emergency [facility] Emergency [address] [place] [address] Elton Anne MD Vomiting and [...] Vaccine ( - 2023-2 5 season) 2024 Colorectal Cancer Screening: Colonoscopy 10/25/2024 Depression Screening 10/25/2024 Falls Risk Assessment 10/25/2024 Hepatitis C Screening 10/25/2024 Medicare Annual Wellness Visit 10/25/2024 Osteoporosis Screening (Bone Density Screening) 10/25/2024 Social Influencers of Health Screening 10/25/2024 Influenza Vaccine (Season Ended) 2025 RSV Immunization Adult Patie nts (1 - 1-dose 75+ series) 2030 HIB [...] AM EDT) WBC 10.0 4.8 - 10.8 K/[facility] LAB HEMETOLOGY METHOD 10/25/2024 7:29 AM EDT [facility] RBC 4.90(H) 3.80 - 4.80 M/[facility] LAB HEMETOLOGY METHOD 10/25/2024 7:29 AM [facility] LAB Hemoglobin 14.7 11.5 - 16.0 g/dL LAB HEMETOLOGY METHOD 10/25/2024 7:29 AM [facility] LAB Hematocrit 43.9 35.0 - 47.0 % LAB HEMETOLOGY METHOD 10/25/2024 7:29 AM [facility] LAB MCV 90.3 79.0 - 98.0 FL LAB HEMETOLOGY METHOD 10/25/2024 7:29 AM [facility] LAB MCH 30.2 27.0 - 32.0 pcg LAB HEMETOLOGY METHOD 10/25/2024 7:29 AM [facility] LAB MCHC 33.5 32.0 - 37.0 g/dL LAB HEMETOLOGY METHOD 10/25/2024 7:29 AM [facility] LAB RDW 12.0 11.0 - 15.0 % LAB HEMETOLOGY METHOD 10/25/2024 7:29 AM [facility] LAB Platelets 282 130 - 400 K/mcL LAB HEMETOLOGY METHOD 10/25/2024 7:29 AM [facility] LAB MPV 8.9 7.0 - 11.0 FL LAB HEMETOLOGY METHOD 10/25/2024 7:29 AM [facility] LAB NRBC 0.0 <1.0 % LAB HEMETOLOGY METHOD 10/25/2024 7:29 AM [facility] LAB NRBC Absolute 0.00 <0.10 K/mcL LAB HEMETOLOGY METHOD 10/25/2024 7:29 AM [facility] LAB Neutrophils Relative 89.8 % LAB HEMETOLOGY METHOD 10/25/2024 7:29 AM [facility] LAB Lymphocytes Relative 6.3 % LAB HEMETOLOGY METHOD 10/25/2024 7:29 AM [facility] Monocytes Relative 2.9 % LAB HEMETOLOGY METHOD 10/25/2024 7:29 AM EDT [facility] LAB Eosinophils Relative 0.4 % LAB HEMETOLOGY METHOD 10/25/2024 7:29 AM [facility] LAB Basophils Relative 0.1 % LAB HEMETOLOGY METHOD 10/25/2024 7:29 AM EDT [facility] LAB Immature Granulocytes Relative 0.5 % LAB HEMETOLOGY METHOD 10/25/2024 7:29 AM EDT [facility] LAB Neutrophils Absolute 9.00(H) 1.50 - 7.00 K/mcL LAB HEMETOLOGY METHOD 10/25/2024 7:29 AM EDT [facility] LAB Lymphocytes Absolute 0.63(L) 1.00 - 5.00 K/mcL LAB [facility]OLOGY [facility] Monocytes Absolute 0.29 0.20 - 1.00 K/mcL LAB HEMETOLOGY METHOD 10/25/2024 7:29 AM [facility] LAB Eosinophils Absolute 0.04 0.00 - 0.50 K/mcL LAB HEMETOLOGY METHOD 10/25/2024 7:29 AM [facility] Basophils Absolute 0.01 0.00 - 0.20 K/mcL LAB HEMETOLOGY METHOD 10/25/2024 7:29 AM T [facility] LAB Immature Granulocytes Absolute 0.05(H) 0.00 - 0.03 K/mcL LAB HEMETOLOGY METHOD 10/25/2024 7:29 AM [facility] LAB Blood Venous blood specimen / Unknown Venipuncture / Unknown 10/25/2024 6:55 AM EDT 10/25/2024 7:12 AM EDT us Elton Anne MD LAB BLOOD ORDERABLES Final Result [facility] [address] [place] [address], [place] [phone] * (ABNORMAL) Magnesium (10/25/2024 6:55 AM EDT) [facility] Magnesium 1.8(L) 1.9 - 2.6 mg/dL LAB CHEMISTRY METHOD 10/25/2024 7:53 AM EDT [facility] LAB Blood Venous blood specimen / Unknown Venipuncture / Unknown 10/25/2024 6:55 AM EDT 10/25/2024 7:12 AM EDT Elton Anne MD LAB BLOOD ORDERABLES Final Result Performing Organization Address City/[facility]/ZIP Co de Phone Number [facility] [address] [place] [address], [place] [phone] * Lipase (10/25/2024 6:55 AM EDT) [facility] Lipase 34 13 - 75 unit/L LAB CHEMISTRY METHOD 10/25/2024 8:28 AM EDT [facility] LAB Blood Venous blood specimen / Unknown Venipuncture / Unknown 10/25/2024 6:55 AM EDT 10/25/2024 7:12 AM EDT Elton Anne MD LAB BLOOD ORDERABLES Final Result [facility] [address] [place] [address], [place] [phone] * (ABNORMAL) Comprehensive metabolic panel (10/25/2024 6:55 AM EDT) [facility] Sodium 135 133 - 145 mmol/L LAB CHEMISTRY METHOD 10/25/2024 7:56 AM EDT [facility] LAB Potassium 4.6 3.5 - 5.5 mmol/L LAB CHEMISTRY METHOD 10/25/2024 7:56 AM EDT [facility] LAB Chloride 103 96 - 110 mmol/L LAB CHEMISTRY METHOD 10/25/2024 7:56 AM [facility] CO2 24 21 - 32 mmol/L LAB CHEMISTRY METHOD 10/25/2024 7:56 AM [facility] LAB Anion Gap 8 3 - 11 LAB CHEMISTRY METHOD 10/25/2024 7:56 AM [facility] LAB Glucose 143(H) 70 - 100 mg/dL LAB CHEMISTRY METHOD 10/25/2024 7:56 AM [facility] BUN 21 5 - 25 mg/dL LAB CHEMISTRY METHOD 10/25/2024 7:56 AM [facility] LAB Creatinine 1.04 0.50 - 1.10 mg/dL LAB CHEMISTRY METHOD 10/25/2024 7:56 AM [facility] LAB eGFR 58(L) >=60 mL/min/1. 73m2 LAB CHEMISTRY METHOD 10/25/2024 7:56 AM [facility] LAB Comment:Calculation based on the??Chronic Kidney Disease Epidemiology Collaboration (CKD-EPI) equation refit??without adjustment for race. BUN/Creatinine Ratio 20.2 LAB CHEMISTRY METHOD 10/25/2024 7:56 AM [facility] LAB Calcium 9.9 8.5 - 10.5 mg/dL LAB CHEMISTRY METHOD 10/25/2024 7:56 AM [facility] LAB AST (SGOT) 25 10 - 42 unit/L LAB CHEMISTRY METHOD 10/25/2024 7:56 AM [facility] LAB ALT (SGPT) 29 10 - 60 unit/L LAB CHEMISTRY METHOD 10/25/2024 7:56 AM [facility] LAB Alkaline Phosphatase 94 42 - 121 unit/L LAB CHEMISTRY METHOD 10/25/2024 7:56 AM [facility] Total Protein 8.3(H) 6.0 - 8.0 g/dL LAB CHEMISTRY METHOD 10/25/2024 7:56 AM [facility] LAB Albumin 4.1 3.2 - 5.0 g/dL LAB CHEMISTRY METHOD 10/25/2024 7:56 AM EDT [facility] Total Bilirubin 1.0 0.0 - 1.4 mg/dL LAB CHEMISTRY METHOD 10/25/2024 7:56 AM EDT [facility] LAB Blood Venous blood specimen / Unknown Venipuncture / Unknown 10/25/2024 6:55 AM EDT 10/25/2024 7:12 AM EDT us Elton Anne MD LAB BLOOD ORDERABLES Final Result [facility] [address] [place] [address], [place] [phone] from Last 3 Months Insurance [employer] MED[employer]ARE [employer]VANTAGE Care Teams 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
== END 2024-11-13 10:15 | disposition home or self-care (01) ==
LOC: HO.HMCC 09:03
PROVIDERS: PCP Internal Medicine; Visit Provider Internal Medicine
DX: K52.9 Noninfective gastroenteritis and colitis, unspecified (principal); R11.0 Nausea; T78.1XXA Other adverse food reactions, not elsewhere classified, initial encounter; M25.511 Pain in right shoulder; M25.512 Pain in left shoulder; G89.29 Other chronic pain

== ENCOUNTER → 2024-11-13 09:02 | Outpatient (BNVA) | payer MEDICARE, SELFPAY | PROVIDERS: PCP Internal Medicine; Visit Provider Internal Medicine | DX: K52.9 Noninfective gastroenteritis and colitis, unspecified (principal); R11.0 Nausea; T78.1XXA Other adverse food reactions, not elsewhere classified, initial encounter; M25.511 Pain in right shoulder; M25.512 Pain in left shoulder; G89.29 Other chronic pain | CPT/HCPCS: 99212 ==

== ENCOUNTER 2024-11-20 07:58 | Outpatient (AMB) | payer MEDICARE, SELFPAY ==
--- OUTSIDE RECORDS SUMMARY | 2024-11-20 08:01 | XMS_ITS | Clinical Summary ---
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 Name Role Phone Physician, No Pcp Primary [...] EDT - 10/25/2024 9:49 AM EDT Emergency [facility] Emergency [address] [place] [address] Elton Anne MD Vomiting and [...] age to complete this topic Meningococcal B Vaccine Aged Out No l onger eligible based on patient's age to complete [...] AM EDT) WBC 10.0 4.8 - 10.8 K/[facility] LAB HEMETOLOGY METHOD 10/25/2024 7:29 AM EDT [facility] RBC 4.90(H) 3.80 - 4.80 M/[facility] LAB HEMETOLOGY METHOD 10/25/2024 7:29 AM [facility] LAB Hemoglobin 14.7 11.5 - 16.0 g/dL LAB HEMETOLOGY METHOD 10/25/2024 7:29 AM [facility] LAB Hematocrit 43.9 35.0 - 47.0 % LAB HEMETOLOGY METHOD 10/25/2024 7:29 AM [facility] LAB MCV 90.3 79.0 - 98.0 FL LAB HEMETOLOGY METHOD 10/25/2024 7:29 AM [facility] LAB MCH 30.2 27.0 - 32.0 pcg LAB HEMETOLOGY METHOD 10/25/2024 7:29 AM [facility] LAB MCHC 33.5 32.0 - 37.0 g/dL LAB HEMETOLOGY METHOD 10/25/2024 7:29 AM [facility] LAB RDW 12.0 11.0 - 15.0 % LAB HEMETOLOGY METHOD 10/25/2024 7:29 AM [facility] LAB Platelets 282 130 - 400 K/mcL LAB HEMETOLOGY METHOD 10/25/2024 7:29 AM [facility] LAB MPV 8.9 7.0 - 11.0 FL LAB HEMETOLOGY METHOD 10/25/2024 7:29 AM [facility] LAB NRBC 0.0 <1.0 % LAB HEMETOLOGY METHOD 10/25/2024 7:29 AM [facility] LAB NRBC Absolute 0.00 <0.10 K/mcL LAB HEMETOLOGY METHOD 10/25/2024 7:29 AM [facility] LAB Neutrophils Relative 89.8 % LAB HEMETOLOGY METHOD 10/25/2024 7:29 AM [facility] LAB Lymphocytes Relative 6.3 % LAB HEMETOLOGY METHOD 10/25/2024 7:29 AM [facility] Monocytes Relative 2.9 % LAB HEMETOLOGY METHOD 10/25/2024 7:29 AM EDT [facility] Eosinophils Relative 0.4 % LAB HEMETOLOGY METHOD 10/25/2024 7:29 AM EDT [facility] Basophils Relative 0.1 % LAB HEMETOLOGY METHOD 10/25/2024 7:29 AM EDT [facility] Immature Granulocytes Relative 0.5 % LAB HEMETOLOGY METHOD 10/25/2024 7:29 AM EDT [facility] Neutrophils Absolute 9.00(H) 1.50 - 7.00 K/mcL LAB HEMETOLOGY METHOD 10/25/2024 7:29 AM EDT [facility] Lymphocytes Absolute 0.63(L) 1.00 - 5.00 K/mcL LAB HEMETOLOGY [facility]24 [facility] Monocytes Absolute 0.29 0.20 - 1.00 K/mcL LAB HEMETOLOGY METHOD 10/25/2024 7:29 AM EDT [facility] Eosinophils Absolute 0.04 0.00 - 0.50 K/mcL LAB HEMETOLOGY METHOD 10/25/2024 7:29 AM [facility] Basophils Absolute 0.01 0.00 - 0.20 K/mcL LAB HEMETOLOGY METHOD 10/25/2024 7:29 AM EDT [facility] LAB Immature Granulocytes Absolute 0.05(H) 0.00 - 0.03 K/mcL LAB HEMETOLOGY METHOD 10/25/2024 7:29 AM EDT [facility] LAB Blood Venous blood specimen / Unknown Venipuncture / Unknown 10/25/2024 6:55 AM EDT 10/25/2024 7:12 AM EDT us Elton Anne MD LAB BLOOD ORDERABLES Final Result [facility] [address] [place] [address], [place] [phone] * (ABNORMAL) Magnesium (10/25/2024 6:55 AM EDT) [facility] Magnesium 1.8(L) 1.9 - 2.6 mg/dL LAB CHEMISTRY METHOD 10/25/2024 7:53 AM EDT [facility] Blood Venous blood specimen / Unknown Venipuncture / Unknown 10/25/2024 6:55 AM EDT 10/25/2024 7:12 AM EDT Elton Anne MD LAB BLOOD ORDERABLES Final Result Performing Organization Address City/[facility]/ZIP Co de Phone Number [facility] [address] [place] [address], [place] [phone] * Lipase (10/25/2024 6:55 AM EDT) [facility] Lipase 34 13 - 75 unit/L LAB CHEMISTRY METHOD 10/25/2024 8:28 AM EDT [facility] Blood Venous blood specimen / Unknown Venipuncture / Unknown 10/25/2024 6:55 AM EDT 10/25/2024 7:12 AM EDT Elton Anne MD LAB BLOOD ORDERABLES Final Result [facility] [address] [place] [address], [place] [phone] * (ABNORMAL) Comprehensive metabolic panel (10/25/2024 6:55 AM EDT) [facility] Sodium 135 133 - 145 mmol/L LAB CHEMISTRY METHOD 10/25/2024 7:56 AM EDT [facility] Potassium 4.6 3.5 - 5.5 mmol/L LAB CHEMISTRY METHOD 10/25/2024 7:56 AM EDT [facility] Chloride 103 96 - 110 mmol/L LAB CHEMISTRY METHOD 10/25/2024 7:56 AM [facility] CO2 24 21 - 32 mmol/L LAB CHEMISTRY METHOD 10/25/2024 7:56 AM [facility] Anion Gap 8 3 - 11 LAB CHEMISTRY METHOD 10/25/2024 7:56 AM [facility] Glucose 143(H) 70 - 100 mg/dL LAB CHEMISTRY METHOD 10/25/2024 7:56 AM [facility] BUN 21 5 - 25 mg/dL LAB CHEMISTRY METHOD 10/25/2024 7:56 AM [facility] Creatinine 1.04 0.50 - 1.10 mg/dL LAB CHEMISTRY METHOD 10/25/2024 7:56 AM [facility] LAB eGFR 58(L) >=60 mL/min/1. 73m2 LAB CHEMISTRY METHOD 10/25/2024 7:56 AM [facility] LAB Comment:Calculation based on the??Chronic Kidney Disease Epidemiology Collaboration (CKD-EPI) equation refit??without adjustment for race. BUN/Creatinine Ratio 20.2 LAB CHEMISTRY METHOD 10/25/2024 7:56 AM [facility] Calcium 9.9 8.5 - 10.5 mg/dL LAB CHEMISTRY METHOD 10/25/2024 7:56 AM [facility] AST (SGOT) 25 10 - 42 unit/L LAB CHEMISTRY METHOD 10/25/2024 7:56 AM [facility] ALT (SGPT) 29 10 - 60 unit/L LAB CHEMISTRY METHOD 10/25/2024 7:56 AM [facility] Alkaline Phosphatase 94 42 - 121 unit/L LAB CHEMISTRY METHOD 10/25/2024 7:56 AM [facility] Total Protein 8.3(H) 6.0 - 8.0 g/dL LAB CHEMISTRY METHOD 10/25/2024 7:56 AM [facility] Albumin 4.1 3.2 - 5.0 g/dL LAB CHEMISTRY METHOD 10/25/2024 7:56 AM EDT [facility] Total Bilirubin 1.0 0.0 - 1.4 mg/dL LAB CHEMISTRY METHOD 10/25/2024 7:56 AM EDT [facility] Blood Venous blood specimen / Unknown Venipuncture / Unknown 10/25/2024 6:55 AM EDT 10/25/2024 7:12 AM EDT us Elton Anne MD LAB BLOOD ORDERABLES Final Result [facility] [address] [place] [address], [place] [phone] from Last 3 Months Insurance [employer] MED[employer]AGE Care Teams Steel Post Installer Relationship Specialty Start Date End Date Physician, No Pcp PCP - General 10/25/24
--- NOTE | 2024-11-20 09:26 | A.OFFVIS_ITS ---
Intake Visit Reasons: R leg venaseal Accompanied by: Self / Same As Patient Allergies acetaminophen [From TYLENOL] Allergy (Unknown, Verified 11/20/24 09:26) ITCHY atenolol Adverse Reaction (Mild, Verified 11/20/24 09:26) Nausea MIGRAINE MEDICINE Allergy (Unknown, Uncoded 10/28/24 10:27) SHAKEY Environmental Allergy (Unknown, Uncoded 10/28/24 10:27) Unknown Lisinopril Adverse Reaction (Mild, Uncoded 10/28/24 10:27) Do not feel well [facility] Medical History Osteopenia Menopausal state Dizziness Shoulder pain, right Hypothyroidism Hypertension, essential Vitamin D deficiency Chronic GERD Migraine aura without headache Surgical History Hx of hemorrhoidectomy S/P laparoscopic cholecystectomy (02/06/21) History of hysterectomy History of tubal ligation Family History Father Heart attack HTN (hypertension) CVD (cardiovascular disease) Mother Cervical cancer Maternal Grandmother Diabetes mellitus Maternal Grandfather Throat cancer Paternal Grandfather Cancer Paternal Grandmother Heart attack HTN (hypertension) Paternal Aunt Breast cancer Paternal Uncle Lung cancer Other Mental health disorder Social History Household Members: None Housing: Apartment Are you a primary associate director career services to a significant other at home: No Do you presently have visiting nurse or other home services: No Alcohol intake: never Patient Tobacco Use Status: Never used Tobacco e-Cigarette/Vaping Use: Never Used Advance Directives Date on File: 05/12/20 service: No 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 Sexual orientation: Straight/Heterosexual Gender identity: Female Cognitive needs: No Hearing needs: No Vision needs: Yes Office Procedures Vascular Office Procedure Details Details: Diagnosis: Right Leg varicose veins with inflammation Procedure: Endovenous Ablation of the right Great Saphenous Vein an anterior saphenous vein with VenaSeal Closure System Anesthesia: Local infiltration 5 cc, Material Handling Supervisor: HAKEEM Moreno Estimated Blood Loss: min Specimen: none Duplex ultrasound was used to map out the insufficient saphenous vein, and access was determined and marked on the overlying skin. The depth and diameter of the vein(s) to be treated was documented. The patient was placed supine on the procedure table and the leg was prepped and draped using sterile technique. Ultasound guidance was again used to localize the access site. 1% lidocaine was injected as a local anesthetic in the subcutaneous tissues at the target location in the GSV in the lower leg. Using ultrasound guidance, access was gained at this location with the 19 gauge thin walled access needle and followed by introduction of a short guidewire, location confirmed with ultrasound. A small, 3 mm incision was made at the access site to allow for introduction and placement of the 7 Fr x7cm introducer/dilator. The dilator and guidewire were removed. The 0.035 guidewire from the VenaSeal kit was then introduced and positioned at the saphenofemoral junction using ultrasound guidance. The 80 cm 7 Fr introducer sheath/dilator was positioned 5cm from the saphenofemoral junction. The guidewire and dilator were removed, and the remaining sheath was flushed with sterile saline, with the syringe remaining in place prior to the next steps. The cyanoacrylate adhesive was precisely primed into the 5 F delivery catheter and this catheter/syringe combination was attached within the dispenser gun. This assembly was introduced through the 7F sheath and positioned 5 cm caudal of the saphenofemoral junction under ultrasound guidance. The steps from the IFU were followed for dispensing amounts, locations and compression times, 2 aliquots proximally with 3 minutes of compression, and 1 aliquot every 3 cm distally with 30 sec of compression along the course of the vessel. Following the last injection and compression sequence, the catheter and introducer sheath were pulled out from the access site. Hemostasis was achieved with manual compression and an adhesive bandage was applied to the incision. Ultrasound confirmed complete coaptation and closure of the treated segments of the GSV, and the absence of any DVT at the saphenofemoral junction. Treatment time was approximately 4 minutes and the vein length treated was 15 cm. A 2nd puncture had to be made with 7 Azeri sheath. This was on the anterior accessory vein. In a similar fashion we injected an aliquot for every 3 cm. Treatment time was 1-1/2 minutes with a treatment length of 15 cm. Once again we rechecked the saphenofemoral junction under ultrasound to ensure no DVT was noted. The drapes were removed and the patient cleaned and prepared for discharge. Post op ultrasound check is scheduled for 48-72 hours and the patient was given written post-op instructions. 89677 - Endoven Ther Chem Adhes 1st 63686 - Chem Ashes, subsequent vein All charges added?: Procedure code (CPT) selection complete Assessment & Plan Assessment & Plan (1) Varicose veins of right lower extremity with inflammation: Comment: 11/20/2024 - right great saphenous vein Cyanoacralate ablation Code(s): I83.11 - Varicose veins of right lower extremity with inflammation Category: Medical Plan: See op note Coding Level of Care Code Procedure Only Diagnoses Varicose veins of right lower extremity with inflammation I83.11 CPT Codes Details - Vascular 3: 20236 - Endoven Ther Chem Adhes 1st ([id number])
== END 2024-11-20 09:56 | disposition home or self-care (01) ==
LOC: HO.HVS 07:59
PROVIDERS: PCP Internal Medicine; Visit Provider Surgery Vascular Surgery
DX: I83.11 Varicose veins of right lower extremity with inflammation (principal)
CPT/HCPCS: 36482

== ENCOUNTER → 2024-11-20 07:58 | Outpatient (BNVA) | payer MEDICARE, SELFPAY | PROVIDERS: PCP Internal Medicine; Visit Provider Surgery Vascular Surgery | DX: I83.11 Varicose veins of right lower extremity with inflammation (principal) | CPT/HCPCS: 36482; J2003 ==

== ENCOUNTER 2024-12-03 13:29 | Outpatient (AMB) | payer MEDICARE, SELFPAY ==
--- NOTE | 2024-12-03 13:37 | A.OFFVIS_ITS ---
Intake Visit Reasons: 2 week follow up s/p R leg Venaseal 11/20/24 Intake Note: Patient presents for follow up venaseal. No complaints. Accompanied by: Self / Same As Patient Allergies acetaminophen [From TYLENOL] Allergy (Unknown, Verified 12/03/24 13:39) ITCHY atenolol Adverse Reaction (Mild, Verified 12/03/24 13:39) Nausea MIGRAINE MEDICINE Allergy (Unknown, Uncoded 10/28/24 10:27) SHAKEY Environmental Allergy (Unknown, Uncoded 10/28/24 10:27) Unknown Lisinopril Adverse Reaction (Mild, Uncoded 10/28/24 10:27) Do not feel well HPI HPI 2 week follow up s/p R leg Venaseal 11/20/24: Details: 69-year-old status post right great saphenous vein Cyanoacralate ablation. Did extremely well postprocedure. Notes swelling and discomfort has significantly decreased. She did have some postprocedure bruising but overall reports a good outcome. She now presents for routine postprocedure follow-up. [facility] Medical History Osteopenia Menopausal state Dizziness Shoulder pain, right Hypothyroidism Hypertension, essential Vitamin D deficiency Chronic GERD Migraine aura without headache Surgical History Hx of hemorrhoidectomy S/P laparoscopic cholecystectomy (02/06/21) History of hysterectomy History of tubal ligation Family History Father Heart attack HTN (hypertension) CVD (cardiovascular disease) Mother Cervical cancer Maternal Grandmother Diabetes mellitus Maternal Grandfather Throat cancer Paternal Grandfather Cancer Paternal Grandmother Heart attack HTN (hypertension) Paternal Aunt Breast cancer Paternal Uncle Lung cancer Other Mental health disorder Social History Household Members: None Housing: Apartment Are you a primary direct care professional to a significant other at home: No Do you presently have visiting nurse or other home services: No Alcohol intake: never Patient Tobacco Use Status: Never used Tobacco e-Cigarette/Vaping Use: Never Used Advance Directives Date on File: 05/12/20 service: No 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 Sexual orientation: Straight/Heterosexual Gender identity: Female Cognitive needs: No Hearing needs: No Vision needs: Yes Review of Systems Const All systems reviewed & are unremarkable except as noted in HPI and below Reports no additional complaints ENT Reports Normal hearing present Card Denies chest pain, Denies chest pain at rest, Denies chest pain with activity and Denies pedal edema Resp Denies cough GI Denies abdominal pain Musc Denies abnormal gait, Denies muscle cramps and Denies radiating pain into limb Skin/Breast Denies skin ulcer and Denies wounds Neuro Reports Normal hearing present and Denies abnormal gait Psych Reports no additional complaints Physical Exam Const General: cooperative, healthy appearing and comfortable Orientation/consciousness: oriented to person, oriented to place and oriented to time HEENT Head: Yes normal to inspection Neck Neck: Yes normal visual inspection Carotids: no bruits Chest Chest palpation & inspection: normal inspection of the chest Resp Effort & Inspection: normal respiratory effort and able to speak in complete sentences Auscultation: clear to auscultation bilaterally, no crackles, no rales, no rhonchi and no wheezes Cardio Rate: regular rate Rhythm: regular rhythm Heart sounds: S1 normal heart sound present and S2 normal heart sound present Bruits: no carotid bruits Peripheral pulses: Peripheral pulses 2+ throughout GI Inspection: Yes normal to inspection Skin Wounds: no wounds Hair: normal Neuro General: oriented to person, oriented to place and oriented to time Cranial nerves: Yes CN's II-XII intact bilaterally and Yes Normal hearing present Cognition (Neuro): normal cognition Motor exam (neuro): 5/5 motor strength present throughout Extrem Other: venous exam: No significant superficial varicosities or spider telangiectasias, minimal edema General: No clubbing, No cyanosis and No edema Psych Appearance: grossly normal Mental Status: mental status grossly normal Speech and movement: Normal speech and movement present Assessment & Plan Assessment & Plan (1) Varicose veins of right lower extremity with inflammation: Comment: 11/20/2024 - right great saphenous vein Cyanoacralate ablation Code(s): I83.11 - Varicose veins of right lower extremity with inflammation Category: Medical Plan: The patient has done extremely well with all venous treatments. Patient's may often experience postprocedure phlebitic episodes and I have discussed with the patient use of warm compresses and NSAIDS if tolerated for pain discomfort. In addition, I have discussed continued conservative measures including use of compression, leg elevation, and exercise. The patient was also given an i nformation sheet regarding appropriate use of compression stockings and future purchases. Thank you for allowing us to care for your patient with venous disease. Coding Level of Care Code Est Pt Level 3 (18106) Diagnoses Varicose veins of right lower extremity with inflammation I83.11
--- OUTSIDE RECORDS SUMMARY | 2024-12-03 15:52 | XMS_ITS | Clinical Summary ---
Author Organization [facility] Address [address] [place] [address] Phone Care Team Providers Care Flame Cutter Name Role Phone Physician, No Pcp [...] BEDTIME NEEDED FOR JOINT PAINS 5 Active Active Problems No known active problems Encounters Date Type Department Care Team Description 10/25/2024 7:14 AM EDT - 10/25/2024 9:49 AM EDT Emergency Emergency [address] [place] [address] Elton Anne MD Vomiting and [...] LAB HEMETOLOGY METHOD 10/25/2024 7:[address] [facility] RBC 4.90(H) 3.80 - 4.80 M/mcL LAB HEMETOLOGY METHOD 10/25/2024 7:[address] [facility] Hemoglobin 14.7 11.5 - 16.0 g/dL LAB HEMETOLOGY METHOD 10/25/2024 7:[address] [facility] Hematocrit 43.9 35.0 - 47.0 % LAB HEMETOLOGY METHOD 10/25/2024 7:29 AM [facility] MCV 90.3 79.0 - 98.0 FL LAB HEMETOLOGY METHOD 10/25/2024 7:29 AM [facility] MCH 30.2 27.0 - 32.0 pcg LAB HEMETOLOGY METHOD 10/25/2024 7:29 AM [facility] MCHC 33.5 32.0 - 37.0 g/dL LAB HEMETOLOGY METHOD 10/25/2024 7:29 AM [facility] RDW 12.0 11.0 - 15.0 % LAB HEMETOLOGY METHOD 10/25/2024 7:29 AM [facility] Platelets 282 130 - 400 K/mcL LAB HEMETOLOGY METHOD 10/25/2024 7:29 AM [facility] MPV 8.9 7.0 - 11.0 FL LAB HEMETOLOGY METHOD 10/25/2024 7:29 AM [facility] NRBC 0.0 <1.0 % LAB HEMETOLOGY METHOD 10/25/2024 7:29 AM [facility] NRBC Absolute 0.00 <0.10 K/mcL LAB HEMETOLOGY METHOD 10/25/2024 7:29 AM [facility] Neutrophils Relative 89.8 % LAB HEMETOLOGY METHOD 10/25/2024 7:29 AM [facility] Lymphocytes Relative 6.3 % LAB HEMETOLOGY METHOD 10/25/2024 7:29 AM [facility] Monocytes Relative 2.9 % LAB HEMETOLOGY METHOD 10/25/2024 7:29 AM [facility] Eosinophils Relative 0.4 % LAB HEMETOLOGY METHOD 10/25/2024 7:29 AM [facility] Basophils Relative 0.1 % LAB HEMETOLOGY METHOD 10/25/2024 7:[address] [facility] Immature Granulocytes Relative 0.5 % LAB HEMETOLOGY METHOD 10/25/2024 7:[address] [facility] Neutrophils Absolute 9.00(H) 1.50 - 7.00 K/mcL LAB HEMETOLOGY METHOD 10/25/2024 7:[address] [facility] Lymphocytes Absolute 0.63(L) 1.00 - 5.00 K/mcL LAB HEMETOLOGY METHOD 10/25/2024 7:[address] [facility] Monocytes Absolute 0.29 0.20 - 1.00 K/mcL LAB HEMETOLOGY METHOD 10/25/2024 7:[address] [facility] Eosinophils Absolute 0.04 0.00 - 0.50 K/mcL LAB HEMETOLOGY METHOD 10/25/2024 7:[address] [facility] Basophils Absolute 0.01 0.00 - 0.20 K/mcL LAB HEMETOLOGY METHOD 10/25/2024 7:[address] [facility] Immature Granulocytes Absolute 0.05(H) 0.00 - 0.03 K/mcL LAB HEMETOLOGY METHOD 10/25/2024 7:[address] [facility] Blood Venous blood specimen / Unknown Venipuncture / Unknown 10/25/2024 6:55 AM EDT 10/25/2024 7:12 AM EDT us Elton Anne MD LAB BLOOD ORDERABLES Final Result [facility] [address] [place] [address], * (ABNORMAL) Magnesium (10/25/2024 6:55 AM EDT) Magnesium 1.8(L) 1.9 - 2.6 mg/dL LAB CHEMISTRY METHOD 10/25/2024 7:[address] [facility] Blood Venous blood specimen / Unknown Venipuncture / Unknown 10/25/2024 6:55 AM EDT 10/25/2024 7:12 AM EDT Elton Anne MD LAB BLOOD ORDERABLES Final Result Performing Organization Address [facility]/ZIP Co de Phone Number [facility] [address] [place] [address], [place] [phone] * Lipase (10/25/2024 6:55 AM EDT) [facility] Lipase 34 13 - 75 unit/L LAB CHEMISTRY METHOD 10/25/2024 8:[address] [facility] Blood Venous blood specimen / Unknown Venipuncture / Unknown 10/25/2024 6:55 AM EDT 10/25/2024 7:12 AM EDT Elton Anne MD LAB BLOOD ORDERABLES Final Result Performing Organization Address [facility] de Phone Number [facility] [address] [place] [address], [place] [phone] * (ABNORMAL) Comprehensive metabolic panel (10/25/2024 6:55 AM EDT) [facility] Sodium 135 133 - 145 mmol/L LAB CHEMISTRY METHOD 10/25/2024 7:[address] [facility] Potassium 4.6 3.5 - 5.5 mmol/L LAB CHEMISTRY METHOD 10/25/2024 7:[address] [facility] Chloride 103 96 - 110 mmol/L LAB CHEMISTRY METHOD 10/25/2024 7:[address] [facility] CO2 24 21 - 32 mmol/L LAB CHE[facility]STR[facility] An[facility] Gap 8 3 - 11 LAB CHEMISTRY METHOD 10/25/2024 7:56 AM [facility] Glucose 143(H) 70 - 100 mg/dL LAB CHEMISTRY METHOD 10/25/2024 7:56 AM [facility] BUN 21 5 - 25 mg/dL LAB CHEMISTRY METHOD 10/25/2024 7:56 AM [facility] Creatinine 1.04 0.50 - 1.10 mg/dL LAB CHEMISTRY METHOD 10/25/2024 7:56 AM [facility] eGFR 58(L) >=60 mL/min/1. 73m2 LAB CHEMISTRY METHOD 10/25/2024 7:56 AM [facility] Comment:Calculation based on the??Chronic Kidney Disease Epidemiology Collaboration (CKD-EPI) equation refit??without adjustment for race. BUN/Creatinine Ratio 20.2 LAB CHEMISTRY METHOD 10/25/2024 7:56 AM [facility] Calcium 9.9 8.5 - 10.5 mg/dL LAB CHEMISTRY METHOD 10/25/2024 7:56 AM [facility] AST (SGOT) 25 10 - 42 unit/L LAB CHEMISTRY METHOD 10/25/2024 7:56 AM [facility] ALT (SGPT) 29 10 - 60 unit/L LAB CHEMISTRY METHOD 10/25/2024 7:56 AM [facility] Alkaline Phosphatase 94 42 - 121 unit/L LAB CHEMISTRY METHOD 10/25/2024 7:56 AM [facility] Total Protein 8.3(H) 6.0 - 8.0 g/dL LAB CHEMISTRY METHOD 10/25/2024 7:56 AM [facility] Albumin 4.1 3.2 - 5.0 g/dL LAB CHEMISTRY METHOD 10/25/2024 7:56 AM [facility] Total Bilirubin 1.0 0.0 - 1.4 mg/dL LAB CHEMISTRY METHOD 10/25/2024 7:56 AM EDT [facility] ([facility] Blood Venous blood specimen / Unknown Venipuncture / Unknown 10/25/2024 6:55 AM EDT 10/25/2024 7:12 AM EDT us Elton Anne MD LAB BLOOD ORDERABLES Final Result [facility] ([facility]) [facility] [address] [place] [address], [place] [phone] from Last 3 Months Insurance [employer] MED[employer]ARE ADVANTAGE Care Teams Flame Cutter Relationship Specialty Start Date End Date Physician, No Pcp PCP - General 10/25/24
== END 2024-12-03 13:57 | disposition home or self-care (01) ==
LOC: HO.HVS 13:30
PROVIDERS: PCP Internal Medicine; Visit Provider Surgery Vascular Surgery
DX: I83.11 Varicose veins of right lower extremity with inflammation (principal)
CPT/HCPCS: 99213

== ENCOUNTER → 2024-12-03 13:29 | Outpatient (BNVA) | payer MEDICARE, SELFPAY | PROVIDERS: PCP Internal Medicine; Visit Provider Surgery Vascular Surgery | DX: I83.11 Varicose veins of right lower extremity with inflammation (principal) | CPT/HCPCS: 99212 ==

== ENCOUNTER 2025-01-22 11:52 | Outpatient (REF) | payer MEDICARE, SELFPAY ==
--- OUTSIDE RECORDS SUMMARY | 2025-01-22 12:47 | XMS_ITS | Clinical Summary ---
Author Organization [facility] Address [address] [place] [address] Phone Care Team Providers Care Audit Specialist Name Role Phone Physician, No Pcp Primary [...] EDT - 10/25/2024 9:49 AM EDT Emergency [facility] Emergency [address] [place] [address] Elton Anne MD Vomiting and [...] LAB HEMETOLOGY METHOD 10/25/2024 7:29 AM EDT [facility] RBC 4.90(H) 3.80 - 4.80 M/mcL LAB HEMETOLOGY METHOD 10/25/2024 7:29 AM EDT [facility] Hemoglobin 14.7 11.5 - 16.0 g/dL LAB HEMETOLOGY METHOD 10/25/2024 7:29 AM EDT [facility] Hematocrit 43.9 35.0 - 47.0 % LAB HEMETOLOGY METHOD 10/25/2024 7:29 AM [facility] MCV 90.3 79.0 - 98.0 FL LAB HEMETOLOGY METHOD 10/25/2024 7:29 AM [facility] MCH 30.2 27.0 - 32.0 pcg LAB HEMETOLOGY METHOD 10/25/2024 7:29 AM [facility] MCHC 33.5 32.0 - 37.0 g/dL LAB HEMETOLOGY METHOD 10/25/2024 7:29 AM [facility] RDW 12.0 11.0 - 15.0 % LAB HEMETOLOGY METHOD 10/25/2024 7:29 AM [facility] Platelets 282 130 - 400 K/mcL LAB HEMETOLOGY METHOD 10/25/2024 7:29 AM [facility] MPV 8.9 7.0 - 11.0 FL LAB HEMETOLOGY METHOD 10/25/2024 7:29 AM [facility] NRBC 0.0 <1.0 % LAB HEMETOLOGY METHOD 10/25/2024 7:29 AM [facility] NRBC Absolute 0.00 <0.10 K/mcL LAB HEMETOLOGY METHOD 10/25/2024 7:29 AM [facility] Neutrophils Relative 89.8 % LAB HEMETOLOGY METHOD 10/25/2024 7:29 AM [facility] Lymphocytes Relative 6.3 % LAB HEMETOLOGY METHOD 10/25/2024 7:29 AM [facility] Monocytes Relative 2.9 % LAB HEMETOLOGY METHOD 10/25/2024 7:29 AM [facility] Eosinophils Relative 0.4 % LAB HEMETOLOGY METHOD 10/25/2024 7:29 AM [facility] Basophils Relative 0.1 % LAB HEMETOLOGY METHOD 10/25/2024 7:29 AM EDT [facility] Immature Granulocytes Relative 0.5 % LAB HEMETOLOGY METHOD 10/25/2024 7:29 AM EDT [facility] Neutrophils Absolute 9.00(H) 1.50 - 7.00 K/mcL LAB HEMETOLOGY METHOD 10/25/2024 7:29 AM EDT [facility] Lymphocytes Absolute 0.63(L) 1.00 - 5.00 K/mcL LAB HEMETOLOGY METHOD 10/25/2024 7:29 AM EDT [facility] Monocytes Absolute 0.29 0.20 - 1.00 K/mcL LAB HEMETOLOGY METHOD 10/25/2024 7:29 AM EDT [facility] Eosinophils Absolute 0.04 0.00 - 0.50 K/mcL LAB HEMETOLOGY METHOD 10/25/2024 7:29 AM EDT [facility] Basophils Absolute 0.01 0.00 - 0.20 K/mcL LAB HEMETOLOGY METHOD 10/25/2024 7:29 AM EDT [facility] Immature Granulocytes Absolute 0.05(H) 0.00 - 0.03 K/mcL LAB HEMETOLOGY METHOD 10/25/2024 7:29 AM EDT [facility] Blood Venous blood specimen / Unknown Venipuncture / Unknown 10/25/2024 6:55 AM EDT 10/25/2024 7:12 AM EDT us Elton Anne MD LAB BLOOD ORDERABLES Final Result [facility] [address] [place] [address], * (ABNORMAL) Magnesium (10/25/2024 6:55 AM EDT) Magnesium 1.8(L) 1.9 - 2.6 mg/dL LAB CHEMISTRY METHOD 10/25/2024 7:53 AM EDT [facility] Blood Venous blood specimen / Unknown Venipuncture / Unknown 10/25/2024 6:55 AM EDT 10/25/2024 7:12 AM EDT Elton Anne MD LAB BLOOD ORDERABLES Final Result Performing Organization Address [facility]/ZIP Co de Phone Number [facility] [address] [place] [address], [place] [phone] * Lipase (10/25/2024 6:55 AM EDT) [facility] Lipase 34 13 - 75 unit/L LAB CHEMISTRY METHOD 10/25/2024 8:28 AM EDT [facility] Blood Venous blood specimen / Unknown Venipuncture / Unknown 10/25/2024 6:55 AM EDT 10/25/2024 7:12 AM EDT Elton Anne MD LAB BLOOD ORDERABLES Final Result Performing Organization Address [facility] de Phone Number [facility] [address] [place] [address], [place] [phone] * (ABNORMAL) Comprehensive metabolic panel (10/25/2024 6:55 AM EDT) [facility] Sodium 135 133 - 145 mmol/L LAB CHEMISTRY METHOD 10/25/2024 7:56 AM EDT [facility] Potassium 4.6 3.5 - 5.5 mmol/L LAB CHEMISTRY METHOD 10/25/2024 7:56 AM EDT [facility] Chloride 103 96 - 110 mmol/L LAB CHEMISTRY METHOD 10/25/2024 7:56 AM EDT [facility] CO2 24 21 - 32 mmol/L LAB CHEMISTRY METHOD 10/25/2024 7[facility] Anion Gap 8 3 - 11 LAB CHEMISTRY METHOD 10/25/2024 7:56 AM [facility] Glucose 143(H) 70 - 100 mg/dL LAB CHEMISTRY METHOD 10/25/2024 7:56 AM [facility] BUN 21 5 - 25 mg/dL LAB CHEMISTRY METHOD 10/25/2024 7:56 AM [facility] Creatinine 1.04 0.50 - 1.10 mg/dL LAB CHEMISTRY METHOD 10/25/2024 7:56 AM [facility] eGFR 58(L) >=60 mL/min/1. 73m2 LAB CHEMISTRY METHOD 10/25/2024 7:56 AM [facility] Comment:Calculation based on the??Chronic Kidney Disease Epidemiology Collaboration (CKD-EPI) equation refit??without adjustment for race. BUN/Creatinine Ratio 20.2 LAB CHEMISTRY METHOD 10/25/2024 7:56 AM [facility] Calcium 9.9 8.5 - 10.5 mg/dL LAB CHEMISTRY METHOD 10/25/2024 7:56 AM [facility] AST (SGOT) 25 10 - 42 unit/L LAB CHEMISTRY METHOD 10/25/2024 7:56 AM [facility] ALT (SGPT) 29 10 - 60 unit/L LAB CHEMISTRY METHOD 10/25/2024 7:56 AM [facility] Alkaline Phosphatase 94 42 - 121 unit/L LAB CHEMISTRY METHOD 10/25/2024 7:56 AM [facility] Total Protein 8.3(H) 6.0 - 8.0 g/dL LAB CHEMISTRY METHOD 10/25/2024 7:56 AM [facility] Albumin 4.1 3.2 - 5.0 g/dL LAB CHEMISTRY METHOD 10/25/2024 7:56 AM [facility] Total Bilirubin 1.0 0.0 - 1.4 mg/dL LAB CHEMISTRY METHOD 10/25/2024 7:56 AM EDT [facility] ([facility] Blood Venous blood specimen / Unknown Venipuncture / Unknown 10/25/2024 6:55 AM EDT 10/25/2024 7:12 AM EDT us Elton Anne MD LAB BLOOD ORDERABLES Final Result [facility] ([facility]) [facility] [address] [place] [address], [place] [phone] from Last 3 Months Insurance [employer] MED[employer]ARE ADVANTAGE Care Teams Audit Specialist Relationship Specialty Start Date End Date Physician, No Pcp PCP - General 10/25/24
== END 2025-01-22 11:53 | disposition home or self-care (01) ==
LOC: HO.MAMMO 11:52
PROVIDERS: PCP Internal Medicine; Visit Provider Internal Medicine
DX: Z12.31 Encounter for screening mammogram for malignant neoplasm of breast (principal)
CPT/HCPCS: 77063; 77067

== ENCOUNTER → 2025-01-22 12:15 | Outpatient (BNV) | payer MEDICARE, SELFPAY | PROVIDERS: PCP Internal Medicine; Visit Provider Internal Medicine | DX: Z12.31 Encounter for screening mammogram for malignant neoplasm of breast (principal) | CPT/HCPCS: 77063; 77067 ==

== ENCOUNTER 2025-01-26 12:54 | Outpatient (AMB) | payer MEDICARE, SELFPAY ==
--- NOTE | 2025-01-26 13:00 | A.OFFPC_ITS ---
Vital Signs 01/26/25 13:01 Height 5 ft 2 in Weight 202 lb BMI 36.9 BP 122/78 Blood Pressure Location Rt brachial Position Sitting Respiration 18 Pulse 62 Pulse Source Pulse Oximeter Temp 97.9 F Temp Source Oral Pulse Oximetry (%) 95 Oxygen Delivery Method Room Air Intake Visit Reasons: 3 months f/up Allergies acetaminophen [From TYLENOL] Allergy (Unknown, Verified 01/26/25 13:02) ITCHY atenolol Adverse Reaction (Mild, Verified 01/26/25 13:02) Nausea MIGRAINE MEDICINE Allergy (Unknown, Uncoded 01/26/25 13:02) SHAKEY Environmental Allergy (Unknown, Uncoded 01/26/25 13:02) Unknown Lisinopril Adverse Reaction (Mild, Uncoded 01/26/25 13:02) Do not feel well Medication List - Last Reconciled 01/26/25 by Lolis Josue MD albuterol sulfate 90 mcg/actuation 2 puffs inhalation 6XD PRN betamethasone dipropionate 0.05% 1 appl topical BID PRN cholecalciferol (vitamin D3) 25 mcg PO DAILY 90 days cyanocobalamin (vitamin B-12) 1,000 mcg PO DAILY duloxetine 40 mg PO ONCE 90 days hydrochlorothiazide 25 mg PO DAILY 90 days levothyroxine 75 mcg PO QAM omeprazole 40 mg PO DAILY 90 days oxybutynin chloride 5 mg PO BEDTIME 30 days tramadol 50 mg PO BEDTIME PRN 90 days Tobacco use date assessed: 01/26/25 Fall risk assessment: No Falls in past year Last assessed Fall Risk: 01/26/25 Dental Screening Dental Screen Date: 11/13/24 HPI 3 months f/up HPI Details History - The patient is a 69-year-old female pr esenting with elevated liver enzymes and weight gain. - Reports prior labs in October showed michael er enzymes were slightly elevated but stable; other labs including CBC, electrolytes, kidney functions, cholesterol, vitamin D, and thyroid tests were normal. - Reports no new symptoms since last vis it, but there is a history of fatigue and occasional weakness, which she relates to inactivity. - Experiences perceptions of weight gain since November, having gained approximately 6 pounds (from 196 to 202 pounds), despite efforts to reduce salt intake. She denies adding salt to her diet and has reduced her consumption of salty snacks like potato chips. - Acknowledges a past history of vein carrasco rgery in her right leg and states feeling better now, despite experiencing occasional feelings of being lazy and slow. - Reports headaches occurring yesterday but not today, and only occasionally feels dizziness and weakness. Medical History: - Hypertension - Hyperlipidemia - Hypothyroidism - Overweight/Obesity - History of vascular surgery in right l eg - History of occasional headaches - Chronic pain managed with tramadol Surgical History: - Vascular surgery on right leg Medications: - Vitamin D3 supplementation - Vitamin B12 - Duloxetine 40 mg - Hydrochlorothiazide 25 mg - Levothyroxine 75 mcg for hypothyroidis m - Omeprazole - Oxybutynin - Tramadol as needed for pain management Social History: - Reports minimal activity; usually walk s only when visiting the store. - Reports attempts to control diet by re ducing salt intake; avoids adding table salt to foods and has cut back on salty snacks. - Denies other formal exercise routines despite understanding the importance for weight loss. Diagnostic Results: - Labs: October labs indicated liver enzym es were slightly elevated; CBC, electrolytes, kidney function, cholesterol, vitamin D, and thyroid levels were within normal ranges. Problem List - Non-alcoholic fatty liver disease (pos sible from context of discussion) - Obesity - Pain management - Hypothyroidism - Hypertension - depression/anxiety - chronic GERD - stress incontinence Patient Instructions - Begin a daily walking routine starting with 20 minutes each day and gradually increasing to 40 minutes. - Avoid adding salt to food and continue to reduce intake of salty snacks. - Attend follow-up in three months. - Undergo LFT blood tests as ordered wit hout the need to fast. 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 - Monitor blood pressure at home, especi ally if dizziness occurs. Review of Systems - General: No fever no chills - Neurological: No headaches no dizziness - Ear nose throat: No sore throat no hearing difficulty no ear pain - Cardiovascular: No syncope, no chest pain, no palpitations - Gastrointestinal: No nausea vomiting or diarrhea - Endocrine: No polyuria polydipsia no heat intolerance - Genitourinary: No dysuria , no blood in urine Physical Exam General: No acute distress HEENT: No acute findings Neck: Supple Respiratory system: Lungs are fine Cardiovascular: Heart is fine, S1-S2 regular in rate and rhythm Gastrointestinal: No pain Extremities: No swelling, recent vascular surgery on right leg with accumulation of dry blood noted KITMAN: Alert awake oriented x3 motor sensory intact Skin: Normal turgor PFSH Medical History Osteopenia Menopausal state Dizziness Shoulder pain, right Hypothyroidism Hypertension, essential Vitamin D deficiency Chronic GERD Migraine aura without headache Surgical History Hx of hemorrhoidectomy S/P laparoscopic cholecystectomy (02/06/21) History of hysterectomy History of tubal ligation Family History Father Heart attack HTN (hypertension) CVD (cardiovascular disease) Mother Cervical cancer Maternal Grandmother Diabetes mellitus Maternal Grandfather Throat cancer Paternal Grandfather Cancer Paternal Grandmother Heart attack HTN (hypertension) Paternal Aunt Breast cancer Paternal Uncle Lung cancer Other Mental health disorder Social History Household Members: None Housing: Apartment Are you a primary director career to a significant other at home: No Do you presently have visiting nurse or other home services: No Alcohol intake: never Patient Tobacco Use Status: Never used Tobacco e-Cigarette/Vaping Use: Never Used Advance Directives Date on File: 05/12/20 service: No 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 Sexual orientation: Straight/Heterosexual Gender identity: Female Cognitive needs: No Hearing needs: No Vision needs: Yes Questionnaire Thrive Questionnaire Date Thrive assessed: 04/28/24 I am a: Patient What is your living situation today?: I have a steady place to live Within the past 12 months, did the food you bought not last and you didn't have the money to get more?: Never true Within the past 12 months, did you worry whether your food would run out before you got money to buy more?: Sometimes True Do you have trouble paying for medicines?: No Do you have trouble getting transportation to medical appointments?: No Do you have trouble paying your heating and electricity bill?: No Do you have trouble taking care of your child, family member or friend?: No Do you have trouble with day-to-day activities such as bathing, preparing meals, shopping, managing finances, etc.?: No Are you currently unemployed and looking for a job?: No Are you interested in more education?: No Please select the resources that you would like help with: None Currently or been in a relationship where the following occur: I choose not to answer THRIVE Score: 1 RENETTA-7 AMB Questionnaire RENETTA-7 Date RENETTA - 7 assessed: 10/30/24 Source: Developed by Drs. Darryl Ramírez, Anay Mejia, Matt Gifford and colleagues, with an educational tatyana from [employer]. Physical exam (Primary Care) Vital Signs: Last Vital Signs Temp 97.9 F 01/26/25 13:01 Pulse 62 01/26/25 13:01 Resp 18 01/26/25 13:01 BP 122/78 01/26/25 13:01 Pulse Ox 95 01/26/25 13:01 Oxygen Delivery Method Room Air 01/26/25 13:01 BMI result Body Mass Index 36.9 Tobacco/Smoking Status: Tobacco use Status Tobacco use date assessed 01/26/25 01/26/25 13:06 Patient Tobacco Use Status Never used Tobacco 01/26/25 13:06 e-Cigarette/Vaping Use Never Used 01/26/25 13:06 Thrive Assessment: Date of Thrive Assessment Date Thrive assessed 04/28/24 01/26/25 13:06 Currently or been in a relationship where the following occur: I choose not to answer Coding Level of Care Code Est Pt Level 4 (58223) Complex EM visit Add On G2211 Diagnoses LFT elevation R79.89 Hypertension, essential I10 Chronic GERD K21.9 Hypothyroidism, unspecified type E03.9 Hypothyroidism type: unspecified Class 2 severe obesity due to excess calories with serious comorbidity and body mass index (BMI) of 35.0 to 35.9 in adult E66.01; Z68.35 Obesity classification: adult class 2 (BMI 35 - 39.9) Serious obesity comorbidity presence: with serious comorbidity Body mass index: BMI 35.0-35.9 Overactive bladder N32.81 Recurrent major depressive disorder, in partial remission F33.41 Active/Remission status: in partial remission Assessment & Plan Assessment & Plan (1) LFT elevation: Code(s): R79.89 - Other specified abnormal findings of blood chemistry Category: Medical (2) Hypertension, essential: Code(s): I10 - Essential (primary) hypertension Category: Medical (3) Chronic GERD: Code(s): K21.9 - Gastro-esophageal reflux disease without esophagitis Category: Medical (4) Hypothyroidism: Code(s): E03.9 - Hypothyroidism, unspecified Category: Medical Qualifiers: Hypothyroidism type: unspecified Qualified Code(s): E03.9 - Hypothyroidism, unspecified (5) Obesity due to excess calories: Code(s): E66.09 - Other obesity due to excess calories Category: Medical Qualifiers: Obesity classification: adult class 2 (BMI 35 - 39.9) Serious obesity comorbidity presence: with serious comorbidity Body mass index: BMI 35.0-35.9 Qualified Code(s): E66.01 - Morbid (severe) obesity due to excess calories; Z68.35 - Body mass index [BMI] 35.0-35.9, adult (6) Overactive bladder: Code(s): N32.81 - Overactive bladder Category: Medical (7) Major depression, recurrent: Code(s): F33.9 - Major depressive disorder, recurrent, unspecified Category: Medical Qualifiers: Active/Remission status: in partial remission Qualified Code(s): F33.41 - Major depressive disorder, recurrent, in partial remission Plan History - The patient is a 69-year-old female presenting with elevated liver enzymes and weight gain. - Reports prior labs in October showed liver enzymes were slightly elevated but stable; other labs including CBC, electrolytes, kidney functions, cholesterol, vitamin D, and thyroid tests were normal. - Reports no new symptoms since last visit, but there is a history of fatigue and occasional weakness, which she relates to inactivity. - Experiences perceptions of weight gain since November, having gained approximately 6 pounds (from 196 to 202 pounds), despite efforts to reduce salt intake. She denies adding salt to her diet and has reduced her consumption of salty snacks like potato chips. - Acknowledges a past history of vein surgery in her right leg and states feeling better now, despite experiencing occasional feelings of being lazy and slow. - Reports headaches occurring yesterday but not today, and only occasionally feels dizziness and weakness. Medical History: - Hypertension - Hyperlipidemia - Hypothyroidism - Overweight/Obesity - History of vascular surgery in right leg - History of occasional headaches - Chronic pain managed with tramadol Surgical History: - Vascular surgery on right leg Medications: - Vitamin D3 supplementation - Vitamin B12 - Duloxetine 40 mg - Hydrochlorothiazide 25 mg - Levothyroxine 75 mcg for hypothyroidism - Omeprazole - Oxybutynin - Tramadol as needed for pain management Social History: - Reports minimal activity; usually walks only when visiting the store. - Reports attempts to control diet by reducing salt intake; avoids adding table salt to foods and has cut back on salty snacks. - Denies other formal exercise routines despite understanding the importance for weight loss. Diagnostic Results: - Labs: October labs indicated liver enzymes were slightly elevated; CBC, electrolytes, kidney function, cholesterol, vitamin D, and thyroid levels were within normal ranges. Problem List - Non-alcoholic fatty liver disease (possible from context of discussion) - Obesity - Pain management - Hypothyroidism - Hypertension - depression/anxiety - chronic GERD - stress incontinence Patient Instructions - Begin a daily walking routine starting with 20 minutes each day and gradually increasing to 40 minutes. - Avoid adding salt to food and continue to reduce intake of salty snacks. - Attend follow-up in three months. - Undergo LFT blood tests as ordered without the need to fast. 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 - Monitor blood pressure at home, especially if dizziness occurs. Orders: Orders Comprehensive Met. Panel Today R79.89 - Other specified abnormal findings of blood chemistry Medications: Refilled cholecalciferol (vitamin D3) 25 mcg PO DAILY 90 days 90 caps 2RF tramadol 50 mg PO BEDTIME 90 days PRN 45 tabs 0RF Joint pains
[2025-01-26 13:01] VITALS: BP 122/78; PULSE 62; RESP 18; TEMP 36.6; O2SAT 95; BMI 36.9
--- OUTSIDE RECORDS SUMMARY | 2025-01-26 14:38 | XMS_ITS | Clinical Summary ---
Author Organization [facility] Address [address] [place] [address] Phone Care Team Providers Care Blueprint Tracer Name Role Phone Physician, No Pcp Primary [...] Active Active Problems No known active problems Surgical History Surgery Date Site/Laterality Comments CHOLECYSTECTOMY [...] on patient's age to complete this topic Insurance [employer] Care Teams Blueprint Tracer Relationship Specialty Start Date End Date Physician, No Pcp PCP - General 10/25/24
== END 2025-01-26 14:23 | disposition home or self-care (01) ==
LOC: HO.HMCC 12:55
PROVIDERS: PCP Internal Medicine; Visit Provider Internal Medicine
DX: I10 Essential (primary) hypertension (principal); E66.01 Morbid (severe) obesity due to excess calories; Z68.35 Body mass index [BMI] 35.0-35.9, adult; R79.89 Other specified abnormal findings of blood chemistry; K21.9 Gastro-esophageal reflux disease without esophagitis; E03.9 Hypothyroidism, unspecified; N32.81 Overactive bladder; F33.41 Major depressive disorder, recurrent, in partial remission

== ENCOUNTER 2025-01-26 12:54 | Outpatient (REF) | payer MEDICARE, SELFPAY ==
[2025-01-26 17:08] LABS: Alanine Aminotransferase 17 U/L (0-31); Albumin Level 4.2 g/dL (3.5-5.0); Alkaline Phosphatase 66 U/L (39-117); Anion Gap 11 (12-20); Aspartate Amino Transferase 26 U/L (5-31); Bilirubin Total 0.3 mg/dL (0.0-1.0); Blood Urea Nitrogen 18 mg/dL (9-16); Calcium 9.6 mg/dL (8.4-10.2); Carbon Dioxide 27 mmol/L (22-29); Chloride 107 mmol/L (96-108); Estimated Glomerular Filt Rate > 60; Glucose Random 76 mg/dL (60-115); Potassium 4.1 mmol/L (3.3-5.1); Sodium 141 mmol/L (135-145); Total Protein 7.3 g/dL (6.5-8.0)
== END 2025-01-26 12:55 | disposition home or self-care (01) ==
LOC: HO.HMGCLDS 12:54
PROVIDERS: PCP Internal Medicine; Visit Provider Internal Medicine
DX: I10 Essential (primary) hypertension (principal); R79.89 Other specified abnormal findings of blood chemistry; K21.9 Gastro-esophageal reflux disease without esophagitis; E03.9 Hypothyroidism, unspecified; E66.01 Morbid (severe) obesity due to excess calories; Z68.35 Body mass index [BMI] 35.0-35.9, adult; N32.81 Overactive bladder; F33.41 Major depressive disorder, recurrent, in partial remission; Z79.891 Long term (current) use of opiate analgesic; Z79.899 Other long term (current) drug therapy
CPT/HCPCS: 36415; 80053; 99212

== ENCOUNTER 2025-04-28 12:43 | Outpatient (AMB) | payer MEDICARE, SELFPAY ==
[2025-04-28 12:47] VITALS: BP 96/64; PULSE 79; RESP 19; TEMP 36.7; O2SAT 94; BMI 35.3
--- NOTE | 2025-04-28 12:47 | MHC.PC.OV ---
Vital Signs 04/28/25 12:47 Height 5 ft 2 in Weight 193 lb BMI 35.3 BP 96/64 Blood Pressure Location Rt brachial Position Sitting Respiration 19 Pulse 79 Pulse Source Pulse Oximeter Temp 98.0 F Temp Source Oral Pulse Oximetry (%) 94 Oxygen Delivery Method Room Air Intake Visit Reasons: 3m follow up Allergies acetaminophen (From TYLENOL) Allergy (Unknown, Verified 04/28/25 12:47) ITCHY atenolol Adverse Reaction (Mild, Verified 04/28/25 12:47) Nausea MIGRAINE MEDICINE Allergy (Unknown, Uncoded 04/28/25 12:47) SHAKEY Environmental Allergy (Unknown, Uncoded 04/28/25 12:47) Unknown Lisinopril Adverse Reaction (Mild, Uncoded 04/28/25 12:47) Do not feel well Medication List - Last Reconciled 04/28/25 by Lolis Josue MD albuterol sulfate 90 mcg/actuation 2 puffs inhalation 6XD PRN betamethasone dipropionate 0.05% 1 appl topical BID PRN cholecalciferol (vitamin D3) 25 mcg PO DAILY 90 days clonidine HCl 0.05 mg (1/2 x 0.1 mg) PO BEDTIME cyanocobalamin (vitamin B-12) 1,000 mcg PO DAILY duloxetine 40 mg PO ONCE 90 days levothyroxine 75 mcg PO QAM omeprazole 40 mg PO DAILY 90 days oxybutynin chloride 5 mg PO BEDTIME 30 days tramadol 50 mg PO BEDTIME PRN 90 days Tobacco use date assessed: 04/28/25 Fall risk assessment: No Falls in past year Last assessed Fall Risk: 04/28/25 Dental Screening Dental Screen Date: 11/13/24 HPI 3m follow up HPI Details History The patient is a 69-year-old female presenting for regular f.u Low Blood Pressure: - The patient reported low blood pressure readings of 96/64 mmHg during her visit. - She experienced fatigue and drowsiness, attributing it to the low blood pressure. - Hydrochlorothiazide is to be discontinued Arthritic Pain: - The patient reported use of tramadol occasionally at bedtime to manage her arthritic pain. - She indicated that the pain is bearable at present and does not frequently require tramadol. - The patient manages with current treatments, seeking relief when necessary. Overactive Bladder: - The patient suffers from an overactive bladder, for which she takes oxybutynin 5 mg. - stable Medical History: - Osteopenia - Osteoarthritis involving multiple joints - Anxiety Disorder - Major Depression - Chronic Low Back Pain - Overactive Bladder - Occasional Headaches - Occasional Palpitations - Hypothyroidism - Essential Hypertension - Vitamin D Deficiency - Chronic Gastroesophageal Reflux Disease (GERD) - History of Migraine Surgical History: - Recent laser eye surgery Medications: - Vitamin D supplement for Vitamin D deficiency - Clonidine at bedtime for hypertension - Vitamin B12 supplement - Duloxetine 40 mg for Major Depression - Hydrochlorothiazide 25 mg for hypertension (to be discontinued) - Levothyroxine 75 mg for hypothyroidism - Omeprazole 40 mg for GERD - Oxybutynin 5 mg for overactive bladder - Tramadol as needed for arthritic pain at bedtime Problem List - Essential Hypertension - Osteoarthritis - Chronic Low Back Pain - Overactive Bladder - Hypothyroidism - Major Depression - Anxiety Disorder - Osteopenia - Vitamin D Deficiency - Chronic GERD Diagnostic results - Labs: - Hemoglobin normal (CBC in October) - Metabolic profile normal (January) - Electrolytes within normal limits - Kidney function normal - Blood sugar normal - Thyroid function normal (October) - Liver enzymes within normal limits Patient Instructions - Discontinue hydrochlorothiazide due to low blood pressure. - Monitor blood pressure at home. If it increases above 140/90 mmHg, restart with half a tablet of hydrochlorothiazide. - Continue current medications as prescribed for condition management. - Bring blood pressure readings to the next appointment in three months. - Follow up with a blood test and urine test in three months. Review of Systems General: No fever no chills neurological: No headaches ear nose throat: No sore throat no hearing difficulty no ear pain cardiovascular: No syncope, no chest pain, no palpitations gastrointestinal: No nausea vomiting or diarrhea endocrine: No polyuria polydipsia no heat intolerance genitourinary: No dysuria skin: No new complaints Physical Exam general: No acute distress, but patient reports feeling tired and almost sleeping due to low blood pressure. 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 intact skin: Normal turgor, PFSH Medical History Osteopenia Menopausal state Dizziness Shoulder pain, right Hypothyroidism Hypertension, essential Vitamin D deficiency Chronic GERD Migraine aura without headache Surgical History Hx of hemorrhoidectomy S/P laparoscopic cholecystectomy (02/06/21) History of hysterectomy History of tubal ligation Family History Father Heart attack HTN (hypertension) CVD (cardiovascular disease) Mother Cervical cancer Maternal Grandmother Diabetes mellitus Maternal Grandfather Throat cancer Paternal Grandfather Cancer Paternal Grandmother Heart attack HTN (hypertension) Paternal Aunt Breast cancer Paternal Uncle Lung cancer Other Mental health disorder Social History Household Members: None Housing: Apartment Are you a primary nurse healthcare manager to a significant other at home: No Do you presently have visiting nurse or other home services: No Alcohol intake: never Patient Tobacco Use Status: Never used Tobacco e-Cigarette/Vaping Use: Never Used Advance Directives Date on File: 05/12/20 service: No 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 Darryl Ramírez, Anay Mejia, Matt Gifford and colleagues, with an educational tatyana from [employer]. Physical exam (Primary Care) Vital Signs: Last Vital Signs Temp 98.0 F 04/28/25 12:47 Pulse 79 04/28/25 12:47 Resp 19 04/28/25 12:47 BP 96/64 04/28/25 12:47 Pulse Ox 94 04/28/25 12:47 Oxygen Delivery Method Room Air 04/28/25 12:47 BMI result Body Mass Index 35.3 Tobacco/Smoking Status: Tobacco use Status Tobacco use date assessed 04/28/25 04/28/25 12:53 Patient Tobacco Use Status Never used Tobacco 04/28/25 12:49 e-Cigarette/Vaping Use Never Used 09/17/25 12:49 Thrive Assessment: Date of Thrive Assessment Date Thrive assessed 04/28/25 04/28/25 12:49 Coding Level of Care Code Est Pt Level 4 (17966) Complex EM visit Add On G2211 Diagnoses Hypertension, essential I10 Recurrent major depressive disorder, in partial remission F33.41 Active/Remission status: in partial remission Anxiety, generalized F41.1 Chronic GERD K21.9 Overactive bladder N32.81 Other microscopic hematuria R31.29 Hematuria type: other microscopic Hypothyroidism, unspecified type E03.9 Hypothyroidism type: unspecified Class 2 severe obesity due to excess calories with serious comorbidity and body mass index (BMI) of 35.0 to 35.9 in adult E66.01; Z68.35 Obesity classification: adult class 2 (BMI 35 - 39.9) Serious obesity comorbidity presence: with serious comorbidity Body mass index: BMI 35.0-35.9 Vitamin D deficiency E55.9 Constipation by delayed colonic transit K59.01 Chronic bilateral low back pain without sciatica M54.50; G89.29 Back pain laterality: bilateral Sciatica presence: without sciatica Headache syndrome G44.89 Assessment & Plan Assessment & Plan (1) Hypertension, essential: Code(s): I10 - Essential (primary) hypertension Category: Medical (2) Major depression, recurrent: Code(s): F33.9 - Major depressive disorder, recurrent, unspecified Category: Medical Qualifiers: Active/Remission status: in partial remission Qualified Code(s): F33.41 - Major depressive disorder, recurrent, in partial remission (3) Anxiety, generalized: Code(s): F41.1 - Generalized anxiety disorder Category: Medical (4) Chronic GERD: Code(s): K21.9 - Gastro-esophageal reflux disease without esophagitis Category: Medical (5) Overactive bladder: Code(s): N32.81 - Overactive bladder Category: Medical (6) Blood in urine: Comment: seen on last urine test, we will be repeating it again in 3 M Code(s): R31.9 - Hematuria, unspecified Category: Medical Qualifiers: Hematuria type: other microscopic Qualified Code(s): R31.29 - Other microscopic hematuria (7) Hypothyroidism: Code(s): E03.9 - Hypothyroidism, unspecified Category: Medical Qualifiers: Hypothyroidism type: unspecified Qualified Code(s): E03.9 - Hypothyroidism, unspecified (8) Obesity due to excess calories: Code(s): E66.09 - Other obesity due to excess calories Category: Medical Qualifiers: Obesity classification: adult class 2 (BMI 35 - 39.9) Serious obesity comorbidity presence: with serious comorbidity Body mass index: BMI 35.0-35.9 Qualified Code(s): E66.01 - Morbid (severe) obesity due to excess calories; Z68.35 - Body mass index [BMI] 35.0-35.9, adult (9) Vitamin D deficiency: Code(s): E55.9 - Vitamin D deficiency, unspecified Category: Medical (10) Constipation by delayed colonic transit: Code(s): K59.01 - Slow transit constipation Category: Medical (11) Chronic lower back pain: Code(s): M54.50 - Low back pain, unspecified; G89.29 - Other chronic pain Category: Medical Qualifiers: Back pain laterality: bilateral Sciatica presence: without sciatica Qualified Code(s): M54.50 - Low back pain, unspecified; G89.29 - Other chronic pain (12) Headache syndrome: Code(s): G44.89 - Other headache syndrome Category: Medical Plan History The patient is a 69-year-old female presenting for regular f.u Low Blood Pressure: - The patient reported low blood pressure readings of 96/64 mmHg during her visit. - She experienced fatigue and drowsiness, attributing it to the low blood pressure. - Hydrochlorothiazide is to be discontinued Arthritic Pain: - The patient reported use of tramadol occasionally at bedtime to manage her arthritic pain. - She indicated that the pain is bearable at present and does not frequently require tramadol. - The patient manages with current treatments, seeking relief when necessary. Overactive Bladder: - The patient suffers from an overactive bladder, for which she takes oxybutynin 5 mg. - stable Medical History: - Osteopenia - Osteoarthritis involving multiple joints - Anxiety Disorder - Major Depression - Chronic Low Back Pain - Overactive Bladder - Occasional Headaches - Occasional Palpitations - Hypothyroidism - Essential Hypertension - Vitamin D Deficiency - Chronic Gastroesophageal Reflux Disease (GERD) - History of Migraine Surgical History: - Recent laser eye surgery Medications: - Vitamin D supplement for Vitamin D deficiency - Clonidine at bedtime for hypertension - Vitamin B12 supplement - Duloxetine 40 mg for Major Depression - Hydrochlorothiazide 25 mg for hypertension (to be discontinued) - Levothyroxine 75 mg for hypothyroidism - Omeprazole 40 mg for GERD - Oxybutynin 5 mg for overactive bladder - Tramadol as needed for arthritic pain at bedtime Problem List - Essential Hypertension - Osteoarthritis - Chronic Low Back Pain - Overactive Bladder - Hypothyroidism - Major Depression - Anxiety Disorder - Osteopenia - Vitamin D Deficiency - Chronic GERD Diagnostic results - Labs: - Hemoglobin normal (CBC in October) - Metabolic profile normal (January) - Electrolytes within normal limits - Kidney function normal - Blood sugar normal - Thyroid function normal (October) - Liver enzymes within normal limits Patient Instructions - Discontinue hydrochlorothiazide due to low blood pressure. - Monitor blood pressure at home. If it increases above 140/90 mmHg, restart with half a tablet of hydrochlorothiazide. - Continue current medications as prescribed for condition management. - Bring blood pressure readings to the next appointment in three months. - Follow up with a blood test and urine test in three months. Orders: Orders Complete Blood Count Auto Diff 3 Months F33.41 - Major depressive disorder, recurrent, in partial remission, F41.1 - Generalized anxiety disorder, I10 - Essential (primary) hypertension, K21.9 - Gastro-esophageal reflux disease without esophagitis, N32.81 - Overactive bladder Comprehensive Met. Panel 3 Months F33.41 - Major depressive disorder, recurrent, in partial remission, F41.1 - Generalized anxiety disorder, I10 - Essential (primary) hypertension, K21.9 - Gastro-esophageal reflux disease without esophagitis, N32.81 - Overactive bladder TSH reflex Free T4 3 Months F33.41 - Major depressive disorder, recurrent, in partial remission, F41.1 - Generalized anxiety disorder, I10 - Essential (primary) hypertension, K21.9 - Gastro-esophageal reflux disease without esophagitis, N32.81 - Overactive bladder UA CC w/rflx Micro + Cult Today R31.9 - Hematuria, unspecified Medications: Discontinued hydrochlorothiazide Discontinued Reason: Doctor's Order 25 mg PO DAILY 90 days 90 tabs 0RF
--- OUTSIDE RECORDS SUMMARY | 2025-04-28 16:10 | XMS_ITS | Clinical Summary ---
Author Organization [facility] Address [address] [place], [place] [id number] Phone Care Team Providers Care Manager Graphic Name Role Phone Lolis Josue MD Primary Care Provider [phone] Social History Tobacco Use Types Packs/Day Years Used Date Smoking Tobacco: Never Assessed Education Answer Date Recorded Are you interested in more education? Not on [place] e 12/07/2022 Are you concerned about learning? Not on file 12/07/2022 No 12/07/2022 No 12/07/2022 Digital Access Answer Date Recorded No 01/05/2023 No 01/05/2023 No 01/05/2023 Reliable internet access at home? Not on file 01/05/2023 Device with a working camera? Not on file Comments Unknown Sex and Gender Information Value Date Recorded Sex Assigned at Not on file Legal Sex Female 9:32 AM EST Gender Identity Not on file Sexual Orientation Not on file Plan of Treatment Health Maintenance Due Date Last Done Comments LIPID PANEL 1955 DEPRESSION SCREENING 1967 SMOKING Hx and SMOKELESS TOB ACCO SCREENING 1968 HEPATITIS C SCREENING 1973 MAMMOGRAM 1995 COLOGUARD 2000 COLONOSCOPY 2000 COLORECTAL CANCER SCREENING 2000 FIT TEST 2000 FOBT 2000 SIGMOIDOSCOPY 2000 VIRTUAL COLONOSCOPY 2000 PNEUMOCOCCAL VACCINES (50+ y ears) (1 of 1 - PCV) 2005 ZOSTER VACCINES (2 of 3) 03/29/2016 02/02/2016 OSTEOPOROSIS SCREENING INITI AL (ONE-TIME) 2020 INFLUENZA VACCINE (#1) 2025 06/20/2017 COVID-19 VACCINE ( - 2023-2 5 season) 2025 Adult Td,Tdap Booster 07/15/2028 07/15/2018 RSV VACCINE (1 - 1-dose 75+ series) 2030 HEPATITIS A VACCINES Aged Out No long er eligible based on patient's age to complete this topic HIB VACCINES Aged Out No longer eligi ble based on patient's age to complete this topic MENINGOCOCCAL VACCINES (ACWY) Aged Out No longer eligible based on patient's age to complete this topic MENINGOCOCCAL VACCINES (B) Aged Out N o longer eligible based on patient's age to complete this topic Medical Devices Not on file Insurance ACO ACO ACO ACO ACO ACO ACO ACO ACO Care Teams Manager Graphic Relationship Specialty Start Date End Date Lolis Josue MD [address] [place] [id number] PCP - General Internal Medicine 08/17/19 Additional Source Comments The information contained in this document represents components of the legal health record. It is not the complete legal health record.[facility]
== END 2025-04-28 13:15 | disposition home or self-care (01) ==
LOC: HO.HMCC 12:44
PROVIDERS: PCP Internal Medicine; Visit Provider Internal Medicine
DX: I10 Essential (primary) hypertension (principal); F33.41 Major depressive disorder, recurrent, in partial remission; E66.01 Morbid (severe) obesity due to excess calories; Z68.35 Body mass index [BMI] 35.0-35.9, adult; F41.1 Generalized anxiety disorder; K21.9 Gastro-esophageal reflux disease without esophagitis; N32.81 Overactive bladder; R31.29 Other microscopic hematuria; E03.9 Hypothyroidism, unspecified; E55.9 Vitamin D deficiency, unspecified; K59.01 Slow transit constipation; M54.50 Low back pain, unspecified

== ENCOUNTER → 2025-04-28 12:43 | Outpatient (BNVA) | payer MEDICARE, SELFPAY | PROVIDERS: PCP Internal Medicine; Visit Provider Internal Medicine | DX: R03.1 Nonspecific low blood-pressure reading (principal); N32.81 Overactive bladder; I10 Essential (primary) hypertension; F33.41 Major depressive disorder, recurrent, in partial remission; F41.1 Generalized anxiety disorder; K21.9 Gastro-esophageal reflux disease without esophagitis; R31.29 Other microscopic hematuria; E03.9 Hypothyroidism, unspecified; E66.01 Morbid (severe) obesity due to excess calories; E55.9 Vitamin D deficiency, unspecified; K59.01 Slow transit constipation; M54.50 Low back pain, unspecified; G89.29 Other chronic pain; G44.89 Other headache syndrome; Z68.35 Body mass index [BMI] 35.0-35.9, adult | CPT/HCPCS: 99212 ==

== ENCOUNTER 2025-07-26 10:22 | Outpatient (REF) | payer MEDICARE, SELFPAY ==
[2025-07-26 13:37] LABS: MANUAL DIFF FLAG NO
[2025-07-26 13:43] LABS: Hematocrit 40.8 % (37.0-47.0); Hemoglobin 13.3 g/dl (12.0-16.0); Imm Gran Abs Auto 0.01 X10*3/uL (0.00-0.03); Imm Gran Pct Auto 0.2 % (0.0-0.4); Lymphocytes Absolute Auto 1.4 X10*3/uL (1.2-4.9); Mean Corpuscular HGB Conc 32.6 g/dl (31.0-35.0); Mean Corpuscular Hemoglobin 30.2 pg (27.0-33.0); Mean Corpuscular Volume 92.7 fL (80.0-98.0); NRBC Abs Auto 0.000 X10*3/uL (0.0-0.012); NRBC Pct Auto 0.0 /100WBC (0.0-0.2); Platelet Count 271 X10*3/uL (160-400); Red Blood Count 4.40 X10*6/uL (4.20-5.50); White Blood Count 4.3 X10*3/uL (4.8-10.8)
[2025-07-26 14:00] LABS: Alanine Aminotransferase 19 U/L (0-31); Albumin Level 4.3 g/dL (3.5-5.0); Alkaline Phosphatase 70 U/L (39-117); Anion Gap 9 (12-20); Aspartate Amino Transferase 25 U/L (5-31); Blood Urea Nitrogen 11 mg/dL (9-16); Calcium 9.4 mg/dL (8.4-10.2); Carbon Dioxide 29 mmol/L (22-29); Chloride 108 mmol/L (96-108); Estimated Glomerular Filt Rate > 60; Potassium 4.5 mmol/L (3.3-5.1); Sodium 141 mmol/L (135-145); Total Protein 7.2 g/dL (6.5-8.0)
== END 2025-07-26 10:23 | disposition home or self-care (01) ==
LOC: HO.HMGCLDS 10:22
PROVIDERS: PCP Internal Medicine; Visit Provider Internal Medicine
DX: F33.41 Major depressive disorder, recurrent, in partial remission (principal); F41.1 Generalized anxiety disorder; I10 Essential (primary) hypertension; K21.9 Gastro-esophageal reflux disease without esophagitis; N32.81 Overactive bladder
CPT/HCPCS: 36415; 80053; 84443; 85025

== ENCOUNTER 2025-08-10 10:42 | Inpatient (IN) | payer MEDICARE, SELFPAY ==
--- OUTSIDE RECORDS SUMMARY | 2025-08-08 02:02 | XMS_ITS | Encounter Summary ---
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 [address] [place] [address] Influenza A (Primary Dx); Nausea and vomiting, unspecified vomiting type Discharge Disposition: Home or Self Care Social History Tobacco Use Types Packs/Day Years Used Date Smoking Tobacco: Never Smokeless Tobacco: Never Alcohol Use Standard Drinks/Week Comments Never 0 [...] Sign Reading Time Taken Comments Blood Pressure 149/75 08/08/2025 1:00 AM EST Pulse 95 08/08/2025 1:00 AM EST Temperature 37.2 C (99 F) 08/08/2025 1:00 AM EST Respiratory Rate 18 08/08/2025 1:00 AM EST Oxygen Saturation 96% 08/08/2025 1:00 AM EST Inhaled Oxygen Concentration - - Weight - - Height - - Body Mass Index - - documented in this encounter Functional Status * Calculated C-SSRS Risk Score (Lifetime/Recent) Answer Date of Assessment Author No Risk Indicated 08/07/2025 9:53 PM Bibiana Hyman RN * [place] Suicide Severity Rating Scale (Screener/Recent Self-Report) Question Answer Date of Assessment Author 1. Wish to be (Past 1 Month) No 08/07/2025 9:53 PM Kendall Grant RN 2. Non-Specific Active Suici tee Thoughts (Past 1 Month) No 08/07/2025 9:53 PM Kenn Grant RN 6. Suicidal Behavior (Lifetime) No 9:53 PM Bibiana Grant RN documented as of this encounter Discharge Instructions * Discharge Instructions* Rosie Villagran NP - 08/08/2025 1:50 AM EST Your flu test was positive for influenza A today. You should take 1 teaspoon of dea ellen every 5 minutes. You should do this for 1 hour. Set the timer on your phone and do not take any more than 1 teaspoon for the first hour. If you do not vomit after the first hour you can begin to increase the amount of dea ellen. You should not take big gulps however this will upset your stomach and will cause you to vomit again. Take 1 Zofran up to 3 times a day as needed for nausea and vomiting. Use 1 ibuprofen every 6 hours with food for the body aches. You need to rest at home. Drink plenty of fluids. You are going to feel lousy for probably about 10 days to 2 weeks. * Attachments The following attachments cannot be sent through Care Everywhere. * Influenza (Tanzanian) * Ondansetron (Tanzanian) documented in this encounter Medications at Time of Discharge albuterol HFA (PROAIR HFA ; PROVENTIL HFA ; VENTOLIN HFA) 90 mcg/actuation inhaler INHALE 2 PUFF INHALED 6 TIMES A DAY NEEDED FOR SHORTNESS OF BREATH OR WHEEZING 10/16/2024 hydroCHLOROthiaz den[place] (HYDRODIURIL) 25 mg tablet take 1 tablet orally daily for 90 days 09/12/2024 ibuprofen (ADVIL,MOTRIN) 600 mg tablet Take 1 tablet (600 mg total) by mouth every 6 (six) hours if needed for mild pain for up to 10 days. 30 tablet 08/08/2025 6 levothyroxine (SYNTHROID, LEVOTHROID) 75 mcg tablet Take 1 tablet (75 mcg total) by mouth 1 (one) time each day in the morning. 10/18/2024 ondansetron (ZOFRAN) 4 mg tablet Take 1 tablet (4 mg total) by mouth every 8 (eight) hours if needed for nausea or vomiting for up to 7 days. 10 tablet 08/08/2025 6 oxyBUTYnin (DITROPAN) 5 mg tablet Take 1 tablet (5 mg total) by mouth. at bedtime. 09/12/2024 traMADoL (ULTRAM) 50 mg tablet TAKE 1 TABLET BY MOUTH AT BEDTIME NEEDED FOR JOINT PAINS 10/21/2024 documented as of this encounter Ordered Prescriptions Prescription Sig Dispense Quantity Refills Last Filled Start Date End Date ibuprofen (ADVIL,MOTRIN) 600 mg tablet Take 1 tablet (600 mg total) by mouth every 6 (six) hours if needed for mild pain for up to 10 days. 30 tablet 08/08/2025 6 ondansetron (ZOFRAN) 4 mg tablet Take 1 tablet (4 mg total) by mouth every 8 (eight) hours if needed for nausea or vomiting for up to 7 days. 10 tablet 08/08/2025 6 documented in this encounter Discharge Disposition Disposition Code Departure Means Destination Comment s Home or Self Care Discharged by provider documented in this encounter Progress Notes * Rosie Villagran NP - 08/08/2025 1:05 AM EST Seen in waiting room. Sitting holding an emesis bag with clear fluid in it. Patient states she is too weak to walk. She reports that she has had bodyaches, weakness and a cough. Nasal swab was obtained in the waiting room. Patient is breathing without difficulty. Speaking in full sentences. Lungs are clear to auscultation. Heart with a regular rate and rhythm. * Bibiana Wilkins RN - 08/07/2025 9:45 PM EST PT BIBA from home with c/o flu-like symptoms. Pt reports fever, body aches, weakness, and cough. * Rosie Vera DELMIS Villagran - 08/07/2025 9:37 PM EST HPI Chief Complaint Patient presents with Flu Symptoms Low grade fever, N/V, weakness Patient presents with vomiting, feeling tired and rundown, headaches, congestion, and other flu symptoms. She is vomiting actively at the time of arrival however that has resolved. Currently with low-grade temperature of 99.9 orally. Oxygen saturation at 94%. Past medical history of hypothyroidism and osteopenia. Has been sick for 3 days. She reports she did get a flu shot this year. Patient is outside the window for Tamiflu. No data recorded Patient History Medical History[1] Surgical History[2] Family History[3] Social History Tobacco Use Smoking status: Never Smokeless tobacco: Never Substance Use Topics Alcohol use: Never Drug use: Never Review of Systems Review of Systems Constitutional: Positive for chills, fatigue and fever. HENT: Positive for congestion and rhinorrhea. Gastrointestinal: Positive for nausea and vomiting. Musculoskeletal: Positive for myalgias. All other systems reviewed and are negative. Physical Exam ED Triage Vitals [08/07/25 2152] Temp Heart Rate Resp BP 37.7 ??C (99.9 ??F) 110 18 (!) 155/73 SpO2 Temp Source Heart Rate Source Patient Position 94 % Oral Monitor Sitting BP Location FiO2 (%) Right arm -- Physical Exam Vitals and nursing note reviewed. Constitutional: General: She is not in acute distress. Appearance: Normal appearance. She is ill-appearing. HENT: Mouth/Throat: Mouth: Mucous membranes are moist. Cardiovascular: Rate and Rhythm: Tachycardia present. Pulmonary: Effort: Pulmonary effort is normal. Skin: General: Skin is warm and dry. Capillary Refill: Capillary refill takes less than 2 seconds. Neurological: Mental Status: She is alert and oriented to person, place, and time. Psychiatric: Mood and Affect: Mood normal. Behavior: Behavior normal. Thought Content: Thought content normal. Judgment: Judgment normal. ED Course & MDM Clinical Impressions as of 08/08/25 0152 Influenza A Nausea and vomiting, unspecified vomiting type Medical Decision Making 69-year-old female who tested positive for the flu. She has no evidence of dehydration. Vomiting was abated prior to discharge. She was given Zofran and ibuprofen, she did still complain of a headache. Splane to the patient the lifecycle of the flu and that she is going to feel bad for approximately a week to 10 days. Encouraged her to continue to use the ibuprofen. Encouraged her to drink plentyof fluids. Encouraged her to rest at home. Contact her primary care provider if she does not seem to be improving. Amount and/or Complexity of Data Reviewed Labs: ordered. Decision-making details documented in ED Course. Stable/improved CONSULTS: None The patient ultiumately did not warrant hospitalization nor any acute surgical interventions beyondany procedures performed here and documented above. That said, I considered the need for both admission and additional surgical procedures. Also considered the need to obtain additional imaging and/or labs beyond what may have been ordered but no additional testing was indicated based on the patient's condition and results of any other testing that may have been performed. Any medications given here and/or prescribed for discharge are documented within the other portionsof the note. After any medications or treatments that may have been provided here the patient was improved and symptoms had resolved or become tolerable or no medications or treatments were indicated based on thepatient's condition. The patient was deemed stable safe and appropriate for discharge to home and is instructed to follow-up with his primary care doctor and return for any new or worsening symptoms. DISPOSITION/PLAN Discharge 08/08/2025 01:47:54 AM The following medications were prescribed in order to continue the patient's treatment as an outpatient: Your medication list START taking these medications Instructions Last Dose Given Next Dose Due ibuprofen 600 mg tablet Commonly known as: ADVIL,MOTRIN Take 1 tablet (600 mg total) by mouth every 6 (six) hours if needed for mild pain for up to 10 days. ondansetron 4 mg tablet Commonly known as: ZOFRAN Take 1 tablet (4 mg total) by mouth every 8 (eight) hours if needed for nausea or vomiting for up to 7 days. ASK your doctor about these medications Instructions Last Dose Given Next Dose Due albuterol HFA 90 mcg/actuation inhaler Commonly known as: PROAIR HFA ; PROVENTIL HFA ; VENTOLIN HFA INHALE 2 PUFF INHALED 6 TIMES A DAY NEEDED FOR SHORTNESS OF BREATH OR WHEEZING hydroCHLOROthiazide 25 mg tablet Commonly known as: HYDRODIURIL take 1 tablet orally daily for 90 days levothyroxine 75 mcg tablet Commonly known as: SYNTHROID, LEVOTHROID Take 1 tablet (75 mcg total) by mouth 1 (one) time each day in the morning. oxyBUTYnin 5 mg tablet Commonly known as: DITROPAN Take 1 tablet (5 mg total) by mouth. at bedtime. traMADoL 50 mg tablet Commonly known as: ULTRAM TAKE 1 TABLET BY MOUTH AT BEDTIME NEEDED FOR JOINT PAINS Where to Get Your Medications These medications were sent to [facility]/pharmacy #[id number] [facility] [phone] [place] [id number] Hours: 24-hours ibuprofen 600 mg tablet ondansetron 4 mg tablet FINAL IMPRESSION DIAGNOSES: 1. Influenza A 2. Nausea and vomiting, unspecified vomiting type The patient was discharged, all questions were answered and we engaged in shared decision-making with the plan, I stressed the importance of prompt follow-up to the patient and they were advised to follow-up and/or referrals placed as below: Follow-up with Primary Care Provider if you are not improving. (Please note that portions of this note were completed with a voice recognition program. If you have any questions, please contact the author of this note for clarification.) Note to patient: It was a pleasure taking care of you today. The 21st Century Cures Act makes medical notes like this one available to patients in the interest of transparency. However, be advised that this is a medical document. It is intended as physician to physician communication. It is writtenin medical language and may contain abbreviations or verbiage that are unfamiliar. It may appear blunt or direct or even insulting if taken out of the clinical communication context. Medical documents are not meant to communicate to patients, they are intended to carry relevant information, facts as evident, and the clinical opinion of the practitioner. Rosie Villagran NP (electronically signed) 1:59 AM EST Rosie Villagran NP 08/08/25 0143 [1] Past Medical History: Diagnosis Date Disease of thyroid gland GERD (gastroesophageal reflux disease) Hypertension Shoulder pain, right [2] Past Surgical History: Procedure Laterality Date CHOLECYSTECTOMY [3] No family history on file. Rosie Villagran NP 08/08/25 0159 Cosigned by Venu Robins MD at 08/08/2025 7:28 AM EST documented in this encounter Plan of Treatment Not on file documented as of this encounter Procedures Procedure Name Priority Date/Time Associated Diagnosis Comments [id number], RSV, FLU A AND B QUALITATIVE RT-PCR, INTERNAL LAB STAT 08/08/2025 12:14 AM EST documented in this encounter Results * (ABNORMAL) [id number], RSV, Influenza A and B qualitative RT-PCR (08/08/2025 12:14 AM EST) Influenza A PCR Detected(A) Not Detected LAB MICROBIOLOGY METHOD 08/08/2025 1:44 AM EST [facility] Comment:This patient is posi tive for influenza A. If the patient is admitted, please order the Respiratory Virus Panel PCR (Epic ID: [id number]) so our lab can subtype the influenza A, per CDC recommendations. Influenza B PCR Not Detected Not Detected LAB MICROBIOLOGY METHOD 08/08/2025 1:44 AM EST [facility] RSV PCR Not Detected Not Detected LAB MICROBIOLOGY METHOD 08/08/2025 1:44 AM [facility] SARS COV-2 Not Detected Not Detected LAB MICROBIOLOGY METHOD 08/08/2025 1:44 AM [facility] Swab Both anterior nares / Unknown Non-blood Collection / Unknown 08/08/2025 12:14 AM EST 08/08/2025 12:29 AM EST us Rosie Villagran ASSISTANCE COORDINATOR LAB MICROBIOLOGY - GENERA L ORDERABLES Final Result [facility] [address] [place] [address], [place] [phone] documented in this encounter Visit Diagnoses Diagnosis Influenza A- Primary Influenza with other respiratory manifestations Nausea and vomiting, unspecified vomiting type documented in this encounter Administered Medications Inactive Administered Medications - up to 3 most recent administrations Medication Order MAR Action Action Date Dose Rate Site ibuprofen (ADVIL,MOTRIN) tablet 600 mg 600 mg, oral, Once, On 08/08/25 at 0013, For 1 dose, Administer with food or milk to decrease GI upset Given 08/08/2025 12:56 AM EST 600 mg ondansetron ODT (ZOFRAN-ODT) disintegrating tablet 4 mg 4 mg, oral, Once, On 08/08/25 at 0013, For 1 dose Given 08/08/2025 12:29 AM EST 4 mg documented in this encounter Active and Recently Administered Medications Times are shown in EST. Scheduled Medication Order 08/06/2025 08/07/2025 08/08/2025 ibuprofen (ADVIL,MOTRIN) tablet 600 mg (COMPLETED) 600 mg, oral, Once, On 08/08/25 at 0013, For 1 dose, Administer with food or milk to decrease GI upset 0056 (Given - Provid er: Nazanin Mtoa RN) ondansetron ODT (ZOFRAN-ODT) disintegrating tablet 4 mg (COMPLETED) 4 mg, oral, Once, On 08/08/25 at 0013, For 1 dose 0029 (Given - Provid er: Nazanin Mota RN) documented in this encounter Additional Health Concerns Infection Onset Date Last Indicated Resolved Time Influenza 08/08/2025 08/08/2025 documented as of this encounter Care Teams Fitting Room Maintenance Mechanic Relationship Specialty Start Date End Date Physician, No Pcp PCP - General 10/25/24 documented as of this encounter
[2025-08-10] VITALS (10 sets, daily range): BP systolic 111–140; BP diastolic 60–89; PULSE 84–104; RESP 14–18; TEMP 37–37.6; O2SAT 88–98; BMI 32.7; BMI 34.8
--- NOTE | ~2025-08-10 | XR_ITS ---
EXAMINATION: XR CHEST CLINICAL INFORMATION: Cough. Flu positive COMPARISON: 11/22/2023 TECHNIQUE: 2 views of the chest were obtained. FINDINGS: The cardiac, hilar, and mediastinal contours are normal. Aortic mural calcifications. The lungs are clear bilaterally. There is no pneumothorax or pleural effusion. There is no focal osseous or soft tissue abnormality. There are degenerative changes in the spine. There are cholecystectomy clips present. XR/XR chest 2V IMPRESSION: No active pulmonary disease. Electronically signed by: Lloyd Fowler MD 08/10/2025 12:28 PM EST
--- NOTE | 2025-08-10 11:35 | ED_ITS ---
HPI - URI/Sore Throat General Chief Complaint: Upper Respiratory Symptoms Stated Complaint: FLU. POOR PO INTAKE,FEVER Time Seen by Provider: 08/10/25 13:33 Source: patient, EMS, RN notes reviewed, old records reviewed and back grinder Mode of arrival: EMS Limitations: language barrier (Georgian-speaking) History of Present Illness ED Provider: ASHUTOSH Flores HPI Narrative: 69-year-old female with medical history of osteoarthritis, hypothyroidism, GERD, migraines, depression, anxiety, presents to the ED due to flu-like symptoms. Patient states she was at [facility] 2 days ago and diagnosed with flu a and discharged home. Patient reports productive cough, body aches, headache, fatigue, and pain of her waist. Patient states she took Advil around 6:00 a.m. with mild effect on her pain. Patient states she can not take Tylenol as she is allergic to and becomes itchy. Patient states her daughter and her are COVID positive, and they spent time together on . Patient reports decreased appetite with poor p.o. intake. Patient denies chest pain, shortness of breath, vomiting, diarrhea, visual changes, urinary symptoms Related Data Home Medications ?Medication ?Instructions ?Recorded ?Confirmed albuterol sulfate 90 mcg/actuation 2 puff inhalation Q 4H PRN 08/10/25 08/10/25 aerosol inhaler shortness of breath or wheez ing ibuprofen 600 mg tablet 600 mg PO Q8H PRN Pain, Mild 08/10/25 08/10/25 levothyroxine 75 mcg tablet 75 mcg PO DAILY@0600 08/1008/10/25 ondansetron HCl 4 mg tablet 4 mg PO Q8H PRN Nausea And Vomiting 08/10/25 08/10/25 Previous Rx's ?Medication ?Instructions ?Recorded cholecalciferol (vitamin D3) 25 25 mcg PO DAILY 90 day s #90 caps 01/26/25 mcg (1,000 unit) capsule clonidine HCl 0.1 mg tablet 0.05 mg (1/2 x 0.1 mg) PO BEDTIME 04/23/25 #90 tabs omeprazole 40 mg capsule,delayed 40 mg PO DAILY 90 day s #90 caps 06/03/25 release oxybutynin chloride 5 mg tablet 5 mg PO BEDTIME 30 day s #90 tabs 06/03/25 cyanocobalamin (vitamin B-12) 1,000 mcg PO DAILY #90 t abs 07/05/25 1,000 mcg tablet oseltamivir 30 mg capsule 30 mg PO Q12H 4 days #8 caps 08/11/25 Allergies Allergy/AdvReac Type Severity Reaction Status Date / Time acetaminophen (From TYLENOL) Allergy Unknown ITCHY Verified 08/10/25 11:37 atenolol AdvReac Mild Nausea Verified 08/10/25 11:37 MIGRAINE MEDICINE Allergy Unknown SHAKEY Uncoded 04/28/25 12:47 Environmental Allergy Unknown Unknown Uncoded 04/28/25 12:47 Lisinopril AdvReac Mild Do not Uncoded 04/28/25 12:47 feel well Review of Systems 2 Review of Systems: Yes all other systems are reviewed and are negative PMFSH Past Medical History Source: old records reviewed and nursing notes reviewed Medical History Osteopenia Menopausal state Dizziness Shoulder pain, right Hypothyroidism Hypertension, essential Vitamin D deficiency Chronic GERD Migraine aura without headache Surgical History Hx of hemorrhoidectomy S/P laparoscopic cholecystectomy (02/06/21) History of hysterectomy History of tubal ligation Family History Family History Father Heart attack HTN (hypertension) CVD (cardiovascular disease) Mother Cervical cancer Maternal Grandmother Diabetes mellitus Maternal Grandfather Throat cancer Paternal Grandfather Cancer Paternal Grandmother Heart attack HTN (hypertension) Paternal Aunt Breast cancer Paternal Uncle Lung cancer Other Mental health disorder Social History Social History Household Members: None Housing: Apartment Are you a primary wound care center consultant to a significant other at home: No Do you presently have visiting nurse or other home services: No Alcohol intake: never Patient Tobacco Use Status: Never used Tobacco e-Cigarette/Vaping Use: Never Used Advance Directives Date on File: 05/12/20 service: No 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 HEENT: ?NC, AT. MMM. EOMI, clear conjunctiva, oropharynx clear. NECK: ?Supple without lymphadenopathy.? No stiffness or restricted ROM. HEART:? Normal rate and regular rhythm, normal S1/S2, no m/r/g LUNGS: Lungs clear to auscultation bilaterally without expiratory wheeze, or rhonchi ABDOMEN: ?Soft, nontender, nondistended BACK: No CVAT, no obvious deformity. EXTREMITIES: ?Without cyanosis, clubbing or edema, no calf tenderness bilaterally NEUROLOGICAL: ?Grossly nonfocal. Alert and oriented, moving all 4 extremities. Skin: ?Warm and dry without any rash. Course Course Course Narrative: This is a Rapid Medical Exam performed in triage by Zarina Aparicio PA-C. Full HPI, ROS and PE to be performed by primary ED provider. 69-year-old female with a past medical history osteopenia, GERD, migraine, hypothyroid, hypertension presenting to the ED c/o +Influenza 2 days ago at [facility] - now w/ worsening symptoms including cough, nausea, decreased p.o. intake. Has been taking nausea medication without relief PE: 90-91% on RA, lungs CTA, In wheelchair, dry cough noted - charge nurse made aware Plan: EKG, labs, CXR Medications Administered Discontinued Medications Generic Name Dose Route Start Last Admin Trade Name Freq PRN Reason Stop Dose Admin Albuterol/Ipratropium 3 ml 08/10/25 20:00 08/11/25 11:21 Albuterol/Iprat 2.5/0.5mg 3 Ml Ampul.Neb INHALE 3 ml RQ4H WHILE AWAKE MARCO Administration Benzonatate 100 mg 08/10/25 18:22 08/11/25 05:36 Benzonatate 100 Mg Capsule PO 100 mg TID PRN Administration Cough Cyanocobalamin (Vitamin B12) 1,000 mcg 08/11/25 09:00 08/11/25 07:49 Cyanocobalamin (Vitamin B-12) 1,000 Mcg Tablet PO 1,000 mcg DAILY MARCO Administration Enoxaparin Sodium 40 mg 08/10/25 18:00 08/10/25 17:40 Enoxaparin Sodium 40 Mg/0.4 Ml Syringe SUBCUT 40 mg Q24H MARCO Administration Lactated Ringer's 1,000 mls @ 999 mls/hr 08/10/25 14:25 08/10/25 16:32 Lr IV 08/10/25 15:25 Infused .Q1H1M ONE Infusion Sodium Chloride 1,000 mls @ 100 mls/hr 08/10/25 17:15 08/11/25 07:50 Ns IVCONT 100 mls/hr .Q10H MARCO Administration Ketorolac Tromethamine 15 mg 08/10/25 14:25 08/10/25 14:43 Ketorolac Tromethamine 15 Mg/Ml Vial IVPUSH 08/10/25 14:26 Not Given ONCE ONE Levothyroxine Sodium 75 mcg 08/11/25 06:00 08/11/25 05:36 Levothyroxine Sodium 75 Mcg Tablet PO 75 mcg DAILY@0600 MARCO Administration Loratadine 10 mg 08/10/25 18:30 08/11/25 07:49 Loratadine 10 Mg Tablet PO 10 mg DAILY MARCO Administration Omeprazole 40 mg 08/11/25 06:30 08/11/25 05:36 Omeprazole 40 Mg Capsule.Dr PO 40 mg DAILY@0630 MARCO Administration Oseltamivir Phosphate 75 mg 08/10/25 18:00 08/10/25 17:39 Oseltamivir Phosphate 75 Mg Capsule PO 08/15/25 06:01 75 mg Q12H MARCO Administration Oseltamivir Phosphate 30 mg 08/11/25 07:00 08/11/25 05:36 Oseltamivir Phosphate 30 Mg Capsule PO 08/15/25 07:01 30 mg Q12H MARCO Administration Tramadol HCl 50 mg 08/11/25 04:01 08/11/25 04:27 Tramadol Hcl 50 Mg Tablet PO 08/11/25 04:02 50 mg ONCE ONE Administration Vitamin D 25 mcg 08/11/25 09:00 08/11/25 07:50 Cholecalciferol (Vitamin D3) 25 Mcg Tablet PO 25 mcg DAILY MARCO Administration Medical Decision Making Medical Decision Making [facility] Narrative: 69-year-old female with medical history of osteoarthritis, hypothyroidism, GERD, migraines, depression, anxiety, presents to the ED due to flu-like symptoms. Patient states she was at [facility] 2 days ago and diagnosed with flu a and discharged home. Patient reports productive cough, body aches, headache, fatigue, and pain of her waist. Patient states she took Advil around 6:00 a.m. with mild effect on her pain. Patient states she can not take Tylenol as she is allergic to and becomes itchy. Patient states her daughter and her are COVID positive, and they spent time together on . Patient reports decreased appetite with poor p.o. intake. VS on initial observation-BP 124/71, pulse rate of 103, respiratory rate of 16, afebrile with oral temp of 98.6?, O2 saturation 91% on room air. On physical exam patient is fatigued appearing, however nontoxic, no acute distress, lungs clear to auscultation bilaterally without expiratory wheeze, rhonchi, decreased breath sounds, cardiac exam reveals a tachycardic rate and rhythm without murmurs/rubs/gallops, abdomen is soft, nondistended, no rigidity, nontender, lower extremities without edema, no calf tenderness Plan: Labs, EKG, CXR, viral swabs -patient being medicated with 1 L IV fluids, EKG reveals sinus tachycardia without ST elevation/depression, dysrhythmia, lengthened QT, patient without chest pain Labs reveal leukopenia of 2.6, no evidence of anemia, elevated BUN of 30, elevated creatinine of 1.6, mild transaminitis with an AST of 53, ALT of 49, no electrolyte abnormalities. Patient without history of CKD, this appears to be a true MAHAD. Viral serology positive for flu A. CXR negative for acute pulmonary disease 16:30- Nursing reported hypoxia of 88% on RA. Patient is being placed on 2L NC. Patient will be admitted to medicine for acute hypoxia and MAHAD secondary to Influenza A for further management. Differential Diagnosis Differential Diagnoses: The differential diagnosis associated with the presentation includes Flu RSV COVID Viral illness Electrolyte abnormality Dysrhythmia Admission/Observation Consideration of admission/observation: Escalation of care including admission/observation considered Consult Healthcare Provider Management of the patient was discussed with: Hospitalist Lab Data [facility] Lab Attestation statement: I reviewed the patient's lab results. 08/11/25 05:47 08/11/25 05:47 Labs: Lab Results 08/10/25 08/10/25 Range/Units 12:01 15:22 WBC 2.6 L (4.8-10.8) X10*3/uL RBC 5.07 (4.20-5.50) X10*6/uL Hgb 15.0 (12.0-16.0) g/dl Hct 45.6 (37.0-47.0) % MCV 89.9 (80.0-98.0) fL MCH 29.6 (27.0-33.0) pg MCHC 32.9 (31.0-35.0) g/dl RDW 12.3 (11.0-16.0) % Plt Count 195 D (160-400) X10*3/uL MPV 8.8 L (9.4-12.3) fL Immature Gran % (Auto) 0.4 (0.0-0.4) % Neut % (Auto) 53.2 (45-73) % Lymph % (Auto) 32.7 (20-40) % [place] % (Auto) 13.3 H (2-11) % Eos % (Auto) 0.0 (0-4) % Baso % (Auto) 0.4 (0-2) % Lymph # (Auto) 0.9 L (1.2-4.9) X10*3/uL [place] # (Auto) 0.4 (0.1-1.2) X10*3/uL Eos # (Auto) 0.0 (0.0-0.4) X10*3/uL Baso # (Auto) 0.0 (0.0-0.2) X10*3/uL Abs Immat Gran (auto) 0.01 (0.00-0.03) X10*3/uL Absolute Neuts (auto) 1.4 L (2.0-8.3) x10*3/uL Absolute Nucleated RBC 0.000 (0.0-0.012) X10*3/uL Nucleated RBC % (auto) 0.0 (0.0-0.2) /100WBC Sodium 140 (135-145) mmol/L Potassium 4.4 (3.3-5.1) mmol/L Chloride 105 (96-108) mmol/L Carbon Dioxide 27 (22-29) mmol/L Anion Gap 12 (12-20) BUN 30 H (9-16) mg/dL Creatinine 1.64 H (0.5-1.4) mg/dL Estim Creat Clear Calc 32.0 Estimated GFR 31 Random Glucose 98 (60-115) mg/dL Calcium 9.6 (8.4-10.2) mg/dL Magnesium 2.1 (1.6-2.6) mg/dL Total Bilirubin 0.4 (0.0-1.0) mg/dL Direct Bilirubin 0.2 (0.0-0.5) mg/dL AST 53 H (5-31) U/L ALT 49 H (0-31) U/L Alkaline Phosphatase 96 (39-117) U/L Total Protein 8.0 (6.5-8.0) g/dL Albumin 4.5 (3.5-5.0) g/dL Influenza Type A (PCR) POSITIVE A (Negative) Influenza Type B (PCR) NEGATIVE (Negative) RSV RNA Qual (PCR) NEGATIVE (Negative) SARS-CoV-2 RNA (RT-PCR) NEGATIVE (Negative) Independent Interpretation I performed an independent interpretation of an: EKG and Plain X-Ray Interpretation: EKG reveals sinus tachycardia without specific ST-T elevation/depression, dysrhythmia or lengthened QT Vent. Rate : 102 BPM Atrial Rate : 102 BPM P-R Int : 134 ms QRS Dur : 82 ms QT Int : 328 ms P-R-T Axes : 40 -6 7 degrees QTcB Int : 427 ms Sinus tachycardia Possible Anterior infarct , age undetermined Abnormal ECG When compared with ECG of 25-Feb-2021 14:53, Nonspecific T wave abnormality now evident in Anterolateral leads I personally interpreted the CXR which was negative for infiltrates, consolidations, pneumothorax, I agree with the radiologist's interpretation Radiology Impression Discussion of test interpretation with radiology: I have reviewed the radiologist's reading. Radiologist Impression: CXR FINDINGS: The cardiac, hilar, and mediastinal contours are normal. Aortic mural calcifications. The lungs are clear bilaterally. There is no pneumothorax or pleural effusion. There is no focal osseous or soft tissue abnormality. There are degenerative changes in the spine. There are cholecystectomy clips present. XR/XR chest 2V IMPRESSION: No active pulmonary disease. Electronically signed by: Lloyd Fowler MD 08/10/2025 12:28 PM EST Dictated By: Lloyd Fowler MD Signed By: <Electronically signed by Lloyd Fowler MD in OV> 08/10/25 1228 External Record Review External record reviewed: Inpatient record, Office record, Outpatient record and Prior outpatient labs Prescription Management I considered prescription management with: Antibiotic I considered antibiotics however patient positive for flu a, without consolidation/infiltrate seen on chest x-ray, no indication for antibiotics at this time. Chronic Conditions Patient?s care impacted by: Other (osteoarthritis, hypothyroidism, GERD, migraines, depression, anxiety) Discharge Plan Discharge Clinical Impression: Acute hypoxic respiratory failure, Influenza A, MAHAD (acute kidney injury) Patient Disposition: Admitted As Inpatient Interventions: Admission Worksheet (ED) Last Done: 08/10/25 19:51 Discharge Date/Time: 08/10/25 22:00
--- NOTE | 2025-08-10 11:41 | ECG_ITS ---
Test Reason : Hypoxia Blood Pressure : */* mmHG Vent. Rate : 102 BPM Atrial Rate : 102 BPM P-R Int : 134 ms QRS Dur : 82 ms QT Int : 328 ms P-R-T Axes : 40 -6 7 degrees QTcB Int : 427 ms Sinus tachycardia Possible Anterior infarct , age undetermined Abnormal ECG When compared with ECG of 25-Feb-2021 14:53, Nonspecific T wave abnormality now evident in Anterolateral leads Referred By: Zarina Aparicio Electronically Signed By: RUTHIE GERONIMO
[2025-08-10 12:13] LABS: MANUAL DIFF FLAG NO
[2025-08-10 12:17] LABS: Hematocrit 45.6 % (37.0-47.0); Hemoglobin 15.0 g/dl (12.0-16.0); Imm Gran Abs Auto 0.01 X10*3/uL (0.00-0.03); Imm Gran Pct Auto 0.4 % (0.0-0.4); Lymphocytes Absolute Auto 0.9 X10*3/uL (1.2-4.9); Mean Corpuscular HGB Conc 32.9 g/dl (31.0-35.0); Mean Corpuscular Hemoglobin 29.6 pg (27.0-33.0); Mean Corpuscular Volume 89.9 fL (80.0-98.0); NRBC Abs Auto 0.000 X10*3/uL (0.0-0.012); NRBC Pct Auto 0.0 /100WBC (0.0-0.2); Platelet Count 195 X10*3/uL (160-400); Red Blood Count 5.07 X10*6/uL (4.20-5.50); White Blood Count 2.6 X10*3/uL (4.8-10.8)
[2025-08-10 12:37] LABS: Alanine Aminotransferase 49 U/L (0-31); Albumin Level 4.5 g/dL (3.5-5.0); Alkaline Phosphatase 96 U/L (39-117); Anion Gap 12 (12-20); Aspartate Amino Transferase 53 U/L (5-31); Blood Urea Nitrogen 30 mg/dL (9-16); Calcium 9.6 mg/dL (8.4-10.2); Carbon Dioxide 27 mmol/L (22-29); Chloride 105 mmol/L (96-108); Creatinine Clr Calc Pharmacy 32.0; Estimated Glomerular Filt Rate 31; Magnesium 2.1 mg/dL (1.6-2.6); Potassium 4.4 mmol/L (3.3-5.1); Sodium 140 mmol/L (135-145); Total Protein 8.0 g/dL (6.5-8.0)
--- NOTE | 2025-08-10 14:30 | PC.NURSE ---
PT O2 sat at 88% RA, pt placed on 2L NC and O2 went up to 93%.
[2025-08-10] MEDS: Lactated Ringers 1,000 ML 999 ML IV (14:42)
--- OUTSIDE RECORDS SUMMARY | 2025-08-10 16:11 | XMS_ITS | Clinical Summary ---
Author Organization [facility] Address [address] [place] [address] Phone Care Team Providers Care Computerized Mill Mill Recorder Name Role Phone Physician, No Pcp Primary [...] PAINS 5 Active ondansetron (ZOFRAN) 4 mg tablet Take 1 tablet (4 mg total) by mouth every 8 (eight) hours if needed for nausea or vomiting for up to 7 days. 10 tablet 5 08/15/19 26 Active ibuprofen (ADVIL,MOTRIN) 600 mg tablet Take 1 tablet (600 mg total) by mouth every 6 (six) hours if needed for mild pain for up to 10 days. 30 tablet 5 08/18/19 26 Active Active Problems No known active problems Encounters Date Type Department Care Team Description 08/08/2025 2:02 AM EST - 08/08/2025 2:[address] [facility] Emergency [address] [place] [address] Influenza A (Primary Dx); Nausea and vomiting, unspecified vomiting type Discharge Disposition: Home or Self Care from [...] or Holly 10/25/2024 7: 36 AM EDT Last Filed Vital Signs Vital Sign Reading Time Taken Comments Blood Pressure 149/75 08/08/2025 1:00 AM EST Pulse 95 08/08/2025 1:00 AM EST Temperature 37.2 C (99 F) 08/08/2025 1:00 AM EST Respiratory Rate 18 08/08/2025 1:00 AM EST Oxygen Saturation 96% 08/08/2025 1:00 AM EST Inhaled Oxygen Concentration - - Weight 88.5 kg (195 lb) 10/25/2024 6:46 AM EDT Height 157.5 cm (5' 2 ) 10/25/2024 6:46 AM EDT Body Mass Index 35.67 10/25/2024 6:46 AM EDT Plan of Treatment Health Maintenance Due Date Last Done Comments Breast Cancer Screening 1955 Colorectal Cancer Screening: Colonoscopy 1955 Zoster Vaccines (1 of 2) 2005 Depression Screening 08/12/2024 Cholesterol Screening (Lipid Panel) 10/25/2024 Falls Risk Assessment 10/25/2024 Hepatitis C Screening 10/25/2024 Medicare Annual Wellness Visit 10/25/2024 Osteoporosis Screening (Bone Density Screening) 10/25/2024 Social Influencers of Health Screening 10/25/2024 COVID-19 Vaccine ( season) 2025 09/10/2021, 11/29/2020, 11/28/2020, Additional history exists Influenza Vaccine (#1) 2025 , 06/20/2017, 07/21/2014, Additional history exists Hypertension/CHF/CAD Annual BMP Blood Test 10/25/2025 10/25/2024 DTaP,Tdap,and Td Vaccines (3 - Td or Tdap) 07/15/2028 07/15/2018, 09/24/2008 RSV Immunization Adult Patients (1 - 1-dose 75+ series) 2030 Pneumococcal Vaccine: 50+ Years Completed 05/22/2024 HIB Vaccines Aged Out No longer eligi [...] to complete this topic RSV Immunization Patients Under 20 months Aged Out No longer eligible based on patient's age to complete this topic Varicella Vaccines Aged Out No longer eligible based on patient's age to complete this topic Procedures Procedure Name Priority Date/Time Associated Diagnosis Comments [id number], RSV, FLU A AND B QUALITATIVE RT-PCR, INTERNAL LAB STAT 08/08/2025 12:14 AM EST COMPREHENSIVE METABOLIC PANEL STAT 10/25/2024 6:55 AM EDT from Last 3 Months or Most Recently Relevant to Health Maintenance Results * (ABNORMAL) [id number], RSV, Influenza A and B qualitative RT-PCR (08/08/2025 12:14 AM EST) Influenza A PCR Detected(A) Not Detected LAB MICROBIOLOGY METHOD 08/08/2025 1:44 AM [facility] Comment:This patient is posi tive for influenza A. If the patient is admitted, please order the Respiratory Virus Panel PCR ([facility] ID: [id number]) so our lab can subtype the influenza A, per CDC recommendations. Influenza B PCR Not Detected Not Detected LAB MICROBIOLOGY METHOD 08/08/2025 1:44 AM [facility] RSV PCR Not Detected Not Detected LAB MICROBIOLOGY METHOD 08/08/2025 1:44 AM [facility] SARS COV-2 Not Detected Not Detected LAB MICROBIOLOGY METHOD 08/08/2025 1:44 AM [facility] Swab Both anterior nares / Unknown Non-blood Collection / Unknown 08/08/2025 12:14 AM EST 08/08/2025 12:29 AM EST us Rosie Villagran PANEL LAY UP WORKER LAB MICROBIOLOGY - GENERA L ORDERABLES Final Result [facility] [address] [place] [address], * (ABNORMAL) Comprehensive metabolic panel (10/25/2024 6:55 AM EDT) Sodium 135 133 - 145 mmol/L LAB CHEMISTRY METHOD 10/25/2024 7:56 AM EDT [facility] Potassium 4.6 3.5 - 5.5 mmol/L LAB CHEMISTRY METHOD 10/25/2024 7:56 AM [facility] Chloride 103 96 - 110 mmol/L LAB CHEMISTRY METHOD 10/25[facility]24 7:[facility] CO2 24 21 - 32 mmol/L LAB CHEMISTRY METHOD 10/25/2024 7:56 AM [facility] Anion Gap 8 3 - 11 LAB CHEMISTRY METHOD 10/25/2024 7:[facility] Glucose 143(H) 70 - 100 mg/dL LAB CHEMISTRY METHOD 10/25/2024 7:56 AM [facility] BUN 21 5 - 25 mg/dL LAB CHEMISTRY METHOD 10/25/2024 7:56 AM [facility] Creatinine 1.04 0.50 - 1.10 mg/dL LAB CHEMISTRY METHOD 10/25/2024 7:56 AM [facility] eGFR 58(L) >=60 mL/min/1. 73m2 LAB CHEMISTRY METHOD 10/25/2024 7:56 AM [facility] Comment:Calculation based on the Chronic Kidney Disease Epidemiology Collaboration (CKD-EPI) equation refit without adjustment for race. BUN/Creatinine Ratio 20.2 LAB CHEMISTRY METHOD 10/25/2024 7:56 AM [facility] Calcium 9.9 8.5 - 10.5 mg/dL LAB CHEMISTRY METHOD 10/25/2024 7:56 AM [facility] AST (SGOT) 25 10 - 42 unit/L LAB CHEMISTRY METHOD 10/25/2024 7:56 AM [facility] ALT (SGPT) 29 10 - 60 unit/L LAB CHEMISTRY METHOD 10/25/2024 7:56 AM [facility] Alkaline Phosphatase 94 42 - 121 unit/L LAB CHEMISTRY METHOD 10/25/2024 7:56 AM [facility] Total Protein 8.3(H) 6.0 - 8.0 g/dL LAB CHEMISTRY METHOD 10/25/2024 7:56 AM [facility] Albumin 4.1 3.2 - 5.0 g/dL LAB CHEMISTRY METHOD 10/25/2024 7:56 AM [facility] Total Bilirubin 1.0 0.0 - 1.4 mg/dL LAB CHEMISTRY METHOD 10/25/2024 7:56 AM [facility] Blood Venous blood specimen / Unknown Venipuncture / Unknown 10/25/2024 6:55 AM EDT 10/25/2024 7:12 AM EDT us Elton Anne MD LAB BLOOD ORDERABLES Final Result [facility] [address] [place] [address], [place] [phone] from Last 3 Months or Most Recently Relevant to Health Maintenance Additional Health Concerns Infection Onset Date Last Indicated Influenza 08/08/2025 08/08/2025 Insurance [employer] MEDICARE ADVANTAGE MEDICAID - [place] Care Teams Computerized Mill Mill Recorder Relationship Specialty Start Date End Date Physician, No Pcp PCP - General 10/25/24
--- OUTSIDE RECORDS SUMMARY | 2025-08-10 16:11 | XMS_ITS | Clinical Summary ---
Author Organization [facility] Address [address] [place], [place] [id number] Phone Care Team Providers Care Access Liaison Name Role Phone Lolis Josue MD Primary Care Provider [phone] Social History Tobacco Use Types Packs/Day Years [...] (#1) 2025 06/20/2017 COVID-19 VACCINE ( - 2024-2 6 season) 2025 Adult Td,Tdap Booster 07/15/2028 07/15/2018 [...] ACO ACO ACO ACO ACO Care Teams Access Liaison Relationship Specialty Start Date End Date Lolis Josue MD [address] [place] [address] PCP - General Internal Medicine 08/17/19 Additional Source Comments The information contained in this document represents components of the legal health record. It is not the complete legal health record.[facility]
[2025-08-10 16:12] LABS: Resp Syncy Virus RNA Qual PCR NEGATIVE (Negative); SARS COV2 PCR INHOUSE NEGATIVE (Negative)
--- NOTE | 2025-08-10 17:58 | PM.IMHP ---
History of Present Illness Date of Service: 08/10/25 Attending physician on admission: Elmer Llamas Chief Complaint: flulike symptoms,nausea , unable to tolerate po 69 y/o F pmhx osteoarthritis, hypothyroidism, GERD, migraines, depression, anxiety, presents to the ED due to flu-like symptoms and was in [facility] 2 days ago and diagnosed with flu a and discharged home. Patient reports productive cough, body aches, headache, fatigue, and pain of her waist ,tried Advil with mild effect on her pain. Patient states her daughter and her are COVID positive, and they spent time together at [place]. Patient reports decreased appetite with poor p.o. intake, has nausea , unable to take po . Patient denies chest pain, shortness of breath, vomiting, diarrhea, visual changes, urinary symptoms labs imaging reviewed : Leukopenia/lymphopenia bun/cr:10/09.64 cxr:No active pulmonary disease. Review of Systems Review of Systems: as above Yes all other systems are reviewed and are negative [facility] Medical History Osteopenia Menopausal state Dizziness Shoulder pain, right Hypothyroidism Hypertension, essential Vitamin D deficiency Chronic GERD Migraine aura without headache Family History Father Heart attack HTN (hypertension) CVD (cardiovascular disease) Mother Cervical cancer Maternal Grandmother Diabetes mellitus Maternal Grandfather Throat cancer Paternal Grandfather Cancer Paternal Grandmother Heart attack HTN (hypertension) Paternal Aunt Breast cancer Paternal Uncle Lung cancer Other Mental health disorder Surgical History Hx of hemorrhoidectomy S/P laparoscopic cholecystectomy (02/06/21) History of hysterectomy History of tubal ligation Social History Household Members: None Housing: Apartment Are you a primary healthcare economics manager to a significant other at home: No Do you presently have visiting nurse or other home services: No Alcohol intake: never Patient Tobacco Use Status: Never used Tobacco e-Cigarette/Vaping Use: Never Used Advance Directives: Yes Advance Directives on File: Yes Advance Directives Date on File: 10/01/20 service: No 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 Sexual orientation: Straight/Heterosexual Gender identity: Female Cognitive needs: No Hearing needs: No Vision needs: Yes Meds Allergies Allergy/AdvReac Type Severity Reaction Status Date / Time acetaminophen (From TYLENOL) Allergy Unknown ITCHY Verified 08/10/25 11:37 atenolol AdvReac Mild Nausea Verified 08/10/25 11:37 MIGRAINE MEDICINE Allergy Unknown SHAKEY Uncoded 04/28/25 12:47 Environmental Allergy Unknown Unknown Uncoded 04/28/25 12:47 Lisinopril AdvReac Mild Do not Uncoded 04/28/25 12:47 feel well Active Medications: Current Medications Acetaminophen (Acetaminophen 325 Mg Tablet) 650 mg PO Q6H PRN PRN Reason: Pain, Severe (Pain Scale 7-10) Albuterol/Ipratropium (Albuterol/Iprat 2.5/0.5mg 3 Ml Ampul.Neb) 3 ml INHALE RQ4H WHILE AWAKE MARCO Enoxaparin Sodium (Enoxaparin Sodium 40 Mg/0.4 Ml Syringe) 40 mg SUBCUT Q24H [facility] Last Admin: 08/10/25 17:40 Dose: 40 mg Sodium Chloride (Ns) 1,000 mls @ 100 mls/hr IVCONT .Q10H [place] Oseltamivir Phosphate (Oseltamivir Phosphate 75 Mg Capsule) 75 mg PO Q12H [facility] Stop: 08/15/25 06:01 Last Admin: 08/10/25 17:39 Dose: 75 mg Physical Exam Vital Signs and Narrative: Vital Signs: Last Vital Signs Temp 99.4 F 08/10/25 16:11 Pulse 87 08/10/25 16:11 Resp 14 08/10/25 16:11 BP 133/70 08/10/25 16:11 Pulse Ox 97 08/10/25 16:11 O2 Del Method Nasal Cannula 08/10/25 16:11 O2 Flow Rate 2 08/10/25 16:11 BMI result Body Mass Index 32.7 Appearance: Alert.? Oriented X3.? mucosa-dry cvs: rrr, [id number] . res: air entry fair , no rales , few rhonchii abd: no rebound or guarding ,nt, bs present. ext pulses present , no cyanosis . neuro: axo3 , nonfocal. Results Labs 08/10/25 12:01 08/10/25 12:01 Labs: Laboratory Results - last 24 hr 08/10/25 08/10/25 12:01 15:22 MCV 89.9 MCH 29.6 MCHC 32.9 RDW 12.3 Plt Count 195 D MPV 8.8 L Immature Gran % (Auto) 0.4 Neut % (Auto) 53.2 Lymph % (Auto) 32.7 [place] % (Auto) 13.3 H Eos % (Auto) 0.0 Baso % (Auto) 0.4 Lymph # (Auto) 0.9 L [place] # (Auto) 0.4 Eos # (Auto) 0.0 Baso # (Auto) 0.0 Abs Immat Gran (auto) 0.01 Absolute Neuts (auto) 1.4 L Absolute Nucleated RBC 0.000 Nucleated RBC % (auto) 0.0 Anion Gap 12 Estim Creat Clear Calc 32.0 Estimated GFR 31 Random Glucose 98 Calcium 9.6 Magnesium 2.1 Total Bilirubin 0.4 Direct Bilirubin 0.2 AST 53 H ALT 49 H Alkaline Phosphatase 96 Total Protein 8.0 Albumin 4.5 Influenza Type A (PCR) POSITIVE A Influenza Type B (PCR) NEGATIVE RSV RNA Qual (PCR) NEGATIVE SARS-CoV-2 RNA (RT-PCR) NEGATIVE Imaging Radiologist's Impressions: Impressions Chest X-Ray 08/10/25 12:20 IMPRESSION: No active pulmonary disease. Electronically signed by: Lloyd Fowler MD 08/10/2025 12:28 PM [facility] Assessment and Plan (1) MAHAD (acute kidney injury): Status: Acute (2) Influenza A: Status: Acute Plan 69 y/o F pmhx osteoarthritis, hypothyroidism, GERD, migraines, depression, anxiety, presents to the ED due to flu-like symptoms and was in [facility] 2 days ago and diagnosed with flu A,MAHAD. MAHAD : Check ua , bladder scan/pvr. continue ivf , moniter i/o if renal function does not improve consider further nephrological workup and nephrology eval. Encouraged for p.o. intake, hydration Influenza a URI: Added Tamiflu, nebs, cough medication, loratadine . Incentive spirometry. Mild transaminitis: Monitor LFTs, may be likely to above. If LFT worsen consider further GI workup. Leukopenia/lymphopenia secondary to possible viral URI Monitor CBC closely Unable to take p.o. and nausea : likely due to above. Encouraged for p.o. intake, IV fluids Generalized weak: Added PT evaluation We will continue rest of comorbidities medications once medical reconciliation is done. DVT prophylaxis: SubQ Lovenox. Ongoing need of stay: MAHAD, unable to take p.o., influenza a: Need IV hydration, close monitoring of renal function and electrolytes as well as if does not improve may need nephrological workup and evaluation. Above management discussed with the patient in detail length she understand and in agreement with the above plan, time spent 70 minute. Quality Stroke Does the patient have a stroke diagnosis?: No VTE Prior VTE?: No VTE Risk Level:: Medical - moderate - high VTE Device Contraindication: N/A - Device Ordered VTE Drug Contraindication: N/A - Med Ordered
--- NOTE | 2025-08-10 18:39 | PHA.MEDREC ---
Pharmacy Consult ? Medication Reconciliation Pharmacy has completed the medication reconciliation.
[2025-08-10] MEDS: Albuterol/Iprat 2.5/0.5MG 3 ML AMPUL.NEB INHALE (19:51)
[2025-08-10 20:33] LABS: Appearance Urine Cloudy; Glucose Urine UA Negative (Negative); PH 5.0 (5.0-9.0); Specific Gravity - Urine 1.015 (1.005-1.025); UMIC TRIGGER UA YES
[2025-08-11 03:40] VITALS: BP 124/60; PULSE 84; RESP 16; TEMP 36.7; O2SAT 98
[2025-08-11 05:59] LABS: Hematocrit 40.0 % (37.0-47.0); Hemoglobin 13.4 g/dl (12.0-16.0); Mean Corpuscular HGB Conc 33.5 g/dl (31.0-35.0); Mean Corpuscular Hemoglobin 30.0 pg (27.0-33.0); Mean Corpuscular Volume 89.7 fL (80.0-98.0); NRBC Abs Auto 0.000 X10*3/uL (0.0-0.012); NRBC Pct Auto 0.0 /100WBC (0.0-0.2); Platelet Count 146 X10*3/uL (160-400); Red Blood Count 4.46 X10*6/uL (4.20-5.50)
[2025-08-11 06:12] LABS: White Blood Count 2.2 X10*3/uL (4.8-10.8)
[2025-08-11 06:15] LABS: Alanine Aminotransferase 33 U/L (0-31); Albumin Level 3.7 g/dL (3.5-5.0); Alkaline Phosphatase 74 U/L (39-117); Anion Gap 11 (12-20); Aspartate Amino Transferase 40 U/L (5-31); Blood Urea Nitrogen 19 mg/dL (9-16); Calcium 8.5 mg/dL (8.4-10.2); Carbon Dioxide 26 mmol/L (22-29); Chloride 108 mmol/L (96-108); Creatinine Clr Calc Pharmacy 49.2; Estimated Glomerular Filt Rate 49; Potassium 4.1 mmol/L (3.3-5.1); Sodium 141 mmol/L (135-145); Total Protein 6.5 g/dL (6.5-8.0)
[2025-08-11 07:11] VITALS: BP 124/60; PULSE 74; RESP 16; TEMP 36; O2SAT 94
[2025-08-11] MEDS: Albuterol/Iprat 2.5/0.5MG 3 ML AMPUL.NEB INHALE ×2 (07:30→11:21)
[2025-08-11 07:33] VITALS: PULSE 74; RESP 16; O2SAT 90
[2025-08-11 11:22] VITALS: PULSE 77; RESP 16; O2SAT 89
--- NOTE | 2025-08-11 12:06 | P.DS_ITS ---
DS: Providers Provider Date of admission: 08/10/25 16:52 Date of discharge: 08/11/25 Primary care physician: Lolis Josue MD DS: Diagnosis Discharge Diagnosis (1) MAHAD (acute kidney injury): Status: Acute (2) Influenza A: Status: Acute DS: Summary Hospital Course Hospital Course: from initial hpi: 69 y/o F pmhx osteoarthritis, hypothyroidism, GERD, migraines, depression, anxiety, presents to the ED due to flu-like symptoms and was in [facility] 2 days ago and diagnosed with flu a and discharged home. Patient reports productive cough, body aches, headache, fatigue, and pain of her waist ,tried Advil with mild effect on her pain. Patient states her daughter and her are COVID positive, and they spent time together at [place]. Patient reports decreased appetite with poor p.o. intake, has nausea , unable to take po . Patient denies chest pain, shortness of breath, vomiting, diarrhea, visual changes, urinary symptoms labs imaging reviewed : Leukopenia/lymphopenia bun/cr:30/1.64 cxr:No active pulmonary disease. hospital course: Patient was admitted for acute kidney injury due to poor p.o. intake. Was given IV fluids and renal function improved faster than expected. For acute hypoxic respiratory failure due to influenza a was started on Tamiflu and she will continue 4 days on discharge. Mild transaminitis, leukopenia likely due to flu. As patient was initially hypoxic and acute kidney injury was initially thought to require 2 midnights inpatient, however, she is unexpected he made a quick recovery is now on room air and creatinine significantly improved, therefore, will discharge home to complete duration of therapy at home. Time Attestation Discharge Coordination Time (in mins): 33 Quality: Safe Use of Opioids Does Pt have an Active Cancer Diagnosis on the Problem List?: No Quality: Stroke Does the patient have a stroke diagnosis?: No Physical Exam Exam: Exam: General: AO X 3, no acute distress Resp: CTA bilateral, no accessory muscles used CVS: S1,S2,RRR GI: soft, non tender, non distended Neuro: motor grossly intact, alert Psych: appropriate affect, appropriate insight Vital Signs: Vital Signs: Last Vital Signs Temp 96.8 F 08/11/25 07:11 Pulse 77 08/11/25 11:22 Resp 16 08/11/25 11:22 BP 124/60 08/11/25 07:11 Pulse Ox 94 08/11/25 07:11 O2 Del Method Nasal Cannula 08/11/25 07:11 O2 Flow Rate 2 08/11/25 07:11 Oxygen Flow Rate 2 08/10/25 20:37 BMI result Body Mass Index 34.8 DS: Data Data Completed and Pending Labs on day of discharge: Laboratory Results - last 24 hr 08/10/25 08/10/25 08/10/25 12:01 15:22 20:26 WBC 2.6 L RBC 5.07 Hgb 15.0 Hct 45.6 MCV 89.9 MCH 29.6 MCHC 32.9 RDW 12.3 Plt Count 195 D MPV 8.8 L Immature Gran % (Auto) 0.4 Neut % (Auto) 53.2 Lymph % (Auto) 32.7 [place] % (Auto) 13.3 H Eos % (Auto) 0.0 Baso % (Auto) 0.4 Lymph # (Auto) 0.9 L [place] # (Auto) 0.4 Eos # (Auto) 0.0 Baso # (Auto) 0.0 Abs Immat Gran (auto) 0.01 Absolute Neuts (auto) 1.4 L Absolute Nucleated RBC 0.000 Nucleated RBC % (auto) 0.0 Sodium 140 Potassium 4.4 Chloride 105 Carbon Dioxide 27 Anion Gap 12 BUN 30 H Creatinine 1.64 H Estim Creat Clear Calc 32.0 Estimated GFR 31 Random Glucose 98 Calcium 9.6 Magnesium 2.1 Total Bilirubin 0.4 Direct Bilirubin 0.2 AST 53 H ALT 49 H Alkaline Phosphatase 96 Total Protein 8.0 Albumin 4.5 Urine Color Yellow Urine Appearance Cloudy Urine pH 5.0 Ur Specific [place] 1.015 Urine Protein 30 (1+) H Urine Glucose (UA) Negative Urine Ketones Trace Urine Blood Negative Urine Nitrite Negative Ur Leukocyte Esterase Small (1+) H Urine RBC 0-2 Urine WBC 11-20 Ur Squamous Epith Cells 11-20 Urine Bacteria 2+ Hyaline Casts 6-10 Influenza Type A (PCR) POSITIVE A Influenza Type B (PCR) NEGATIVE RSV RNA Qual (PCR) NEGATIVE SARS-CoV-2 RNA (RT-PCR) NEGATIVE 08/11/25 05:47 WBC 2.2 L RBC 4.46 Hgb 13.4 Hct 40.0 MCV 89.7 MCH 30.0 MCHC 33.5 RDW 12.1 Plt Count 146 L D MPV 9.0 L Immature Gran % (Auto) Neut % (Auto) Lymph % (Auto) [place] % (Auto) Eos % (Auto) Baso % (Auto) Lymph # (Auto) [place] # (Auto) Eos # (Auto) Baso # (Auto) Abs Immat Gran (auto) Absolute Neuts (auto) Absolute Nucleated RBC 0.000 Nucleated RBC % (auto) 0.0 Sodium 141 Potassium 4.1 Chloride 108 Carbon Dioxide 26 Anion Gap 11 L BUN 19 H Creatinine 1.10 Estim Creat Clear Calc 49.2 Estimated GFR 49 Random Glucose 93 Calcium 8.5 D Magnesium Total Bilirubin 0.3 Direct Bilirubin AST 40 H ALT 33 H Alkaline Phosphatase 74 Total Protein 6.5 Albumin 3.7 Urine Color Urine Appearance Urine pH Ur Specific [place] Urine Protein Urine Glucose (UA) Urine Ketones Urine Blood Urine Nitrite Ur Leukocyte Esterase Urine RBC Urine WBC Ur Squamous Epith Cells Urine Bacteria Hyaline Casts Influenza Type A (PCR) Influenza Type B (PCR) RSV RNA Qual (PCR) SARS-CoV-2 RNA (RT-PCR) Discharge Plan Discharge Anticipated Discharge Date/Time: 08/11/25 12:04 Patient Disposition: Home, Self-Care Discharge Diagnosis: mahad, flu Referrals: Lolis Josue MD [Primary Care Provider, Internal Medicine] - 1 Week Discharge Medications: New oseltamivir 30 mg Capsule 30 mg PO Q12H 4 Days Qty: 8 0RF Continued clonidine HCl 0.1 mg tablet 0.05 mg PO BEDTIME Qty: 90 0RF oxybutynin chloride 5 mg tablet 5 mg PO BEDTIME 30 Days Qty: 90 0RF omeprazole 40 mg capsule,delayed release(DR/EC) 40 mg PO DAILY 90 Days Qty: 90 0RF cyanocobalamin (vitamin B-12) 1,000 mcg tablet 1,000 mcg PO DAILY Qty: 90 0RF ondansetron HCl 4 mg tablet 4 mg PO Q8H PRN (Reason: Nausea And Vomiting) ibuprofen 600 mg tablet 600 mg PO Q8H PRN (Reason: Pain, Mild) levothyroxine 75 mcg tablet 75 mcg PO DAILY@0600 albuterol sulfate 90 mcg/actuation HFA aerosol inhaler 2 puff inhalation Q4H PRN (Reason: shortness of breath or wheezing) cholecalciferol (vitamin D3) 25 mcg (1,000 unit) capsule 25 mcg PO DAILY 90 Days Qty: 90 2RF Discharge Orders: Discharge Order (Routine); Ordered 08/11/25 Ordered By: Chema Balderas Diet: Advance to usual diet Activity on Discharge: As tolerated Stand Alone Forms: Patient Portal Discharge page Print Language: Japanese Care Plan Goals: recovery Health Concerns: flu Plan of Treatment: complete tamiflu course Assessment: see above
--- NOTE | 2025-08-11 12:28 | MHC.CM.PN ---
[facility] DELIVERED PT LIVES ALONE AND IS FUNCTIONALLY INDEPENDENT, EMPLOYED. PT DECLINES HCP COMPLETION AT THIS TIME. PCP DR. JEANETTE DORADO DP: PT HAS BEEN MEDICALLY CLEARED FOR DC HOME, NO SERVICES. PT HAS OWN RIDE HOME.
== END 2025-08-11 13:34 | disposition home or self-care (01) | DRG 194 ==
LOC: HO.ED 13:33 → HO.EDOVER 16:56 → HO.S3 19:26
PROVIDERS: Internal Medicine; Physician Assistant; Admitting Provider Student in an Organized Health Care Education/Training Program; Emergency Provider Emergency Medicine; PCP Internal Medicine; Visit Provider Internal Medicine
DX: J10.1 Influenza due to other identified influenza virus with other respiratory manifestations (principal); N17.9 Acute kidney failure, unspecified; E03.9 Hypothyroidism, unspecified; Z20.822 Contact with and (suspected) exposure to COVID-19; Z79.890 Hormone replacement therapy; Z79.899 Other long term (current) drug therapy
CPT/HCPCS: 36415; 71046; 80048; 80053; 80076; 81001; 83735; 85025; 85027; 87637; 93005; 94640; 99221; 99285; J1650; J7120

== ENCOUNTER → 2025-08-10 11:41 | Outpatient (BNV) | payer MEDICARE, SELFPAY | PROVIDERS: Admitting Provider Student in an Organized Health Care Education/Training Program; Emergency Provider Emergency Medicine; PCP Internal Medicine; Visit Provider Internal Medicine | DX: R00.0 Tachycardia, unspecified (principal) | CPT/HCPCS: 93010 ==

== ENCOUNTER → 2025-08-10 11:42 | Outpatient (BNV) | payer MEDICARE, SELFPAY | PROVIDERS: PCP Internal Medicine; Visit Provider Radiology Diagnostic Radiology | DX: R05.9 Cough, unspecified (principal); J11.1 Influenza due to unidentified influenza virus with other respiratory manifestations | CPT/HCPCS: 71046 ==

== ENCOUNTER → 2025-08-10 16:52 | Outpatient (BNV) | payer MEDICARE, SELFPAY | PROVIDERS: Admitting Provider Student in an Organized Health Care Education/Training Program; Emergency Provider Emergency Medicine; PCP Internal Medicine; Visit Provider Internal Medicine | DX: N17.9 Acute kidney failure, unspecified (principal); J09.X2 Influenza due to identified novel influenza A virus with other respiratory manifestations | CPT/HCPCS: 99222; 99239 ==